=== PATIENT | female | born 1970 | race Caucasian/White ===

== ENCOUNTER 2020-01-20 15:35 | Emergency (ER) | payer MEDICAID, SELFPAY ==
--- NOTE | ~2020-01-20 | CT_ITS ---
EXAMINATION: CT abdomen pelvis w con DATE: 01/20/2020 20:47 INDICATION: Abdominal pain TECHNIQUE: Computed tomography (CT) of the abdomen and pelvis was performed with 100 cc Omnipaque 350 intravenous contrast. Automated exposure control and iterative reconstruction technique were employe d. Exam dose: 1335.39 mGy-cm total exam DLP. COMPARISON: 04/14/2018 CT abdomen pelvis FINDINGS: The included lower lung zones are clear. Normal heart size. No pericardial or pleural effusion. A few small hepatic cysts are noted. Numerous stones are noted throughout the gallbladder lumen. No gallbladder wall thickening or pericho lecystic fluid or fat stranding. No bile duct or pancreatic duct dilatation. No pancreatic mass lesio n, calcification. Normal splenic size. Normal morphology of the adrenal glands. 5.5 mm x 7.5 mm lower pole nonobstructing right renal calculus. No renal mass lesion. No ureteral tera culus or hydroureteronephrosis is noted. The urinary bladder is relatively evacuated, otherwise unrem arkable. Probable involuting peripherally enhancing 1.6 cm left ovarian cyst. Uterus and adnexal area s are otherwise unremarkable. Normal caliber of the abdominal aorta. No intraperitoneal or retroperit angulo or pelvic mass lesion or adenopathy or ascites is detected. Very small fat-containing umbilical hernia. Normal appendix. Up to 3 cm soft tissue mass cannot be excluded in the cecum. Air contrast barium enema or colonoscopy should be considered if not done recently. No bowel obstruction, bowel wall thickening, pneumatosis or intraperitoneal free air is detected. 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 There is apparent fusion anteriorly at L5-S1. Mild retrolisthesis at L4-5. No suspicious osteolytic or osteoblastic lesions are identified. 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 Reviewed, dictated and finalized at location A. Y MANAGEMENT SPECIALIST IMPRESSION: Possible soft tissue mass of the cecum; consider air-contrast vikki um enema or colonoscopy Cholelithiasis A few small hepatic cysts are noted 5.5 mm x 7.5 mm lower pole nonobstructing right renal calculus Involuting 1.6 cm left ovarian cyst Bilateral L5 pars interarticularis defects with associated grade 1 anterolisthe sis at L5-S1 Fusion at L5-S1 anteriorly
[2020-01-20 16:26] VITALS: BP 136/84; PULSE 96; RESP 18; TEMP 36.5; O2SAT 98
[2020-01-20 16:58] LABS: Basophils Absolute Auto 0.1 K/mm3 (0.0-0.1); Basophils Percent Auto 0.7 % (0.2-1.2); Eosinophils Absolute Auto 0.2 K/mm3 (0-0.3); Eosinophils Percent Auto 3.4 % (0-4.4); Hematocrit 40.9 % (37.0-47.0); Hemoglobin 13.9 g/dL (12.0-15.0); Immature Granulocyte Absolute 0.02 K/mm3 (0.00-0.031); Immature Granulocyte Percent A 0.3 % (0-0.5); Lymphocytes Percent Auto 23.7 % (18.3-44.2); Mean Corpuscular Hemoglobin 29.6 pg (26-34); Mean Platelet Volume 9.7 fl (7.4-10.4); Monocytes Absolute Auto 0.5 K/mm3 (0.1-0.6); Monocytes Percent Auto 7.9 % (2.6-8.5); Neutrophils Absolute Auto 4.3 K/mm3 (1.3-6.7); Platelet Count Result 305 k/mm3 (150-375); Red Cell Distribution Width 13.1 % (11.5-14.5); White Blood Count 6.7 K/mm3 (4.5-10.0)
[2020-01-20 17:08] LABS: Alanine Aminotransferase 20 U/L (4-35); Albumin Level 3.6 g/dL (3.5-5.1); Alkaline Phosphatase 59 U/L (38-126); Anion Gap 8 mmol/L (8-16); Aspartate Amino Transferase 31 U/L (14-36); Bilirubin,Total 0.3 mg/dL (0.2-1.3); Blood Urea Nitrogen 10 mg/dL (7-17); Calcium 9.2 mg/dL (8.4-10.2); Carbon Dioxide 21 mmol/L (22-30); Chloride 108 mmol/L (98-107); Estimated CRCL calculation 108 ml/min; Estimated Glomerular Filt Rate > 60; Glucose 139 mg/dL (65-105); Lipase 70 U/L (23-300); Potassium 4.2 mmol/L (3.4-5.0); Sodium 137 mmol/L (137-145)
[2020-01-20 17:18] LABS: Add Urine Microscopic? YES; Appearance Urine Cloudy (Clear); Bacteria Urine Trace /hpf; Bilirubin Urine Negative (Negative); Blood Urine 1+ (Negative); Color Urine Yellow (Yellow); Glucose Urine UA Negative (Negative); Ketones Urine Negative (Negative); Leukocyte Esterase Ur Trace LEU/UL (Negative); Mucus Urine Rare /lpf; Nitrate Urine Negative (Negative); Protein Urine 1+ mg/dL (Negative); RBC Urine 0-2 /hpf (0-2); Squamous Epithelial Cell Urine Many /hpf (Few); Urobilinogen Urine Negative mg/dL (<2.0)
--- NOTE | 2020-01-20 19:02 | ED.GENADULT ---
HPI - General Adult General Chief complaint: Abdominal Pain Stated complaint: diarrhea, constipation Time Seen by Provider: 01/20/20 18:55 Source: RN notes reviewed History of Present Illness HPI narrative: Patient presents emergency department from home for abdominal pain. Patient states pain is ongoing for the past 2 weeks. Pain is located across the mid abdomen is described as cramping in nature does not radiate. States the pain will change in intensity and wax and wane. She denies any fevers or chills chest pain shortness of breath nausea vomiting or any other symptoms she does note intermittent diarrhea Related Data Allergies Allergy/AdvReac Type Severity Reaction Status Date / Time No Known Allergies Allergy Verified 01/20/20 19:37 Review of Systems Review of Systems: Narrative: Gen.: Denies fevers or chills ENT: Denies congestion Respiratory: Denies shortness of breath or cough CV: Denies chest pain or palpitations GI: See HPI denies burning, urgency, frequency or hematuria Musculoskeletal: Denies back pain or muscle pain Neuro: Denies numbness, tingling, weakness or focal weakness Skin: Denies rash Except as documented, all other systems reviewed and negative [facility] Past Medical History Medical History (Updated 01/20/20 @ 21:25 by Fernando Fernández DO) Patient denies significant medical history Social History Social History (Updated 01/20/20 @ 19:03 by Fernando Fernández DO) Smoking status: Never smoker Gender identity (if verbalized by the patient): Female Exam Narrative: Exam Narrative: APPEARANCE: No acute distress, nontoxic, resting in bed HEENT: Normocephalic, atraumatic, OMM RESPIRATORY: No respiratory distress, clear to auscultation bilaterally with no rhonchi wheezing or rales CARDIOVASCULAR: RRR s murmur ABDOMINAL: Soft, nondistended, tender palpation right lower quadrant left lower quadrant no tenderness right upper quadrant left upper quadrant no rebound or guarding MUSCULOSKELETAl: Moves all extremities. No clubbing, cyanosis or edema. NEURO: Awake and alert. Following commands, speech normal, no focal deficits SKIN:: Warm, dry. Normal Color PSYCHIATRIC: Normal affect/mood Course Course Emergency Course: Patient states that they are feeling much better at this time. States abdominal pain has resolved. Repeat abdominal exam shows the patient's abdomen to be soft and nontender. Discussed with patient results of workup and diagnosis. Discussed need for follow-up with primary care physician, reasons to return to the emergency department in proper use of medication. Patient understands and agrees to current treatment plan discussed with patient possible cecal mass and need for follow-up with GI for colonoscopy Vital Signs Vital signs: Vital Signs Temperature 97.7 F 01/20/20 16:26 Pulse Rate 96 01/20/20 16:26 Respiratory Rate 18 01/20/20 16:26 Blood Pressure 136/84 01/20/20 16:26 Pulse Oximetry 98 01/20/20 16:26 Temperature 97.7 F 01/20/20 16:26 Pulse Rate 89 01/20/20 19:15 Respiratory Rate 12 01/20/20 19:15 Blood Pressure 115/74 01/20/20 19:15 Pulse Oximetry 94 01/20/20 19:15 Medical Decision Making MDM Narrative Medical decision making narrative: Patient's abdomen is soft without significant pain or signs of surgical abdomen on serial exams. Lab and x-ray evaluations are reviewed and patient is felt to be a reasonable candidate for outpatient management. Patient was instructed as to limitations of x-ray and laboratory evaluation and encouraged to return to ED or primary physician for repeat exam in 12 hours if continued or worsening pain Vital Signs Vital Signs: Vital Signs Temperature 97.7 F 01/20/20 16:26 Pulse Rate 96 01/20/20 16:26 Respiratory Rate 18 01/20/20 16:26 Blood Pressure 136/84 01/20/20 16:26 Pulse Oximetry 98 01/20/20 16:26 Temperature 97.7 F 01/20/20 16:26 Pulse Rate 89 01/20/20 19:15 Respiratory Rate
[2020-01-20 19:15] VITALS: BP 115/74; PULSE 89; RESP 12; O2SAT 94
[2020-01-20] MEDS: SODIUM CHLORIDE 0.9% IV 1,000 ML 999 ML IV CONT (19:38)
[2020-01-20] MEDS: KETOROLAC 30 MG/ML VIAL (*BKC) IV PUSH (19:38)
[2020-01-20 21:00] VITALS: BP 115/78; PULSE 66; RESP 14; O2SAT 96
[2020-01-20] MEDS: NITROFURANTOIN MONOHYD MACROCR 100 MG CAP PO (21:55)
[2020-01-20 21:59] VITALS: BP 117/80; PULSE 80; RESP 20; O2SAT 95
== END 2020-01-20 22:00 | disposition home or self-care (01) ==
PROVIDERS: Emergency Provider Emergency Medicine; Referring Provider Emergency Medicine
DX: K80.20 Calculus of gallbladder without cholecystitis without obstruction (principal); N39.0 Urinary tract infection, site not specified; N20.0 Calculus of kidney
CPT/HCPCS: 36415; 74177; 80053; 81001; 81025; 83690; 85025; 96361; 96374; 99284; A9270; J1885; J7030; Q9967

== ENCOUNTER 2020-02-19 16:13 | Outpatient (CLI) | payer MEDICAID, SELFPAY ==
[2020-02-19 16:57] LABS: Cholesterol 180 mg/dL (0-200); HDL Direct 41 mg/dL; Triglycerides 136 mg/dL (<150)
[2020-02-19 17:07] LABS: LDL Cholesterol Direct 114 mg/dL
[2020-02-19 17:35] LABS: Free T4 Free Thyroxine 0.84 ng/mL (0.78-2.19)
[2020-02-19 17:53] LABS: Vitamin D 25 Hydroxy < 12.8 ng/mL
== END 2020-02-19 16:14 | disposition home or self-care (01) ==
LOC: ANHLAB 16:16
PROVIDERS: PCP Emergency Medicine; Visit Provider Emergency Medicine
DX: R10.9 Unspecified abdominal pain (principal); N83.292 Other ovarian cyst, left side; Z00.00 Encounter for general adult medical examination without abnormal findings
CPT/HCPCS: 36415; 80061; 82306; 84439; 84443

== ENCOUNTER 2020-03-02 15:40 | Outpatient (CLI) | payer MEDICAID, SELFPAY ==
--- NOTE | ~2020-03-02 | US_ITS ---
US right upper quadrant INDICATION: Abdomen pain PROCEDURE: Realtime right upper abdominal ultrasound. COMPARISON: No prior studies for comparison. FINDINGS: The pancreas is normal without focal mass or pancreatic ductal dilation. Liver echotexture is heterogeneous and increased, consistent with fatty infiltration. There is normal directional monico w in the portal vein. There are gallstones. No gallbladder wall thickening. Common bile duct measures 4.5 mm. No sonograp hic Meier's sign. Right renal echotexture is normal. IMPRESSION: 1: Gallstones. 2: Fatty infiltration of the liver. Reviewed, dictated and finalized at location A. RIALS PLANNING ANALYST
--- NOTE | ~2020-03-02 | US_ITS ---
US thyroid INDICATION: Elevated TSH levels. TECHNIQUE: Real-time sonographic images of the thyroid gland were obtained. COMPARISON: No prior studies for comparison FINDINGS: The right thyroid lobe measures 4.8 x 2.2 x 2.1 cm. The left thyroid lobe measures 5.2 x 2 .2 x 2.4 cm. Thyroid echotexture is diffusely heterogeneous with increased vascularity in both lobes. In the inferior aspect of the left lobe there is an irregular shaped hypoechoic largely solid mass w hich is taller than wide with irregular margins and no internal calcifications. This mass measures 10 x 8 x 8 mm. IMPRESSION: 1. Left thyroid mass measuring 10 mm which is TR 5, highly suspicious. Ultrasound-guided fine-needle aspiration biopsy recommended. Reviewed, dictated and finalized at location A. TIN DYNAMITE PACKING OPERATOR IMPRESSION: 1. Left thyroid mass measuring 10 mm which is TR 5, highly suspicious. Ultraso und-guided fine-needle aspiration biopsy recommended.
[2020-03-06 04:55] LABS: Thyroid Peroxidase Antibodies 243 IU/mL (<9)
[2020-03-07 07:46] LABS: Triiodothyronine T3 Free 3.2 pg/mL (2.3-4.2)
== END 2020-03-02 15:41 | disposition home or self-care (01) ==
PROVIDERS: PCP Emergency Medicine; Visit Provider Emergency Medicine
DX: K80.20 Calculus of gallbladder without cholecystitis without obstruction (principal); R94.6 Abnormal results of thyroid function studies; E07.9 Disorder of thyroid, unspecified; K76.0 Fatty (change of) liver, not elsewhere classified
CPT/HCPCS: 36415; 76536; 76705; 84439; 84443; 84481; 86376

== ENCOUNTER 2020-04-15 16:10 | Outpatient (CLI) | payer OTHER, SELFPAY ==
--- NOTE | ~2020-04-15 | MM_ITS ---
EXAMINATION: MM screening [facility] BI w [facility] HISTORY: Screening mammogram TECHNIQUE: Craniocaudal and mediolateral oblique 3-D tomosynthesis images were obtained and synthetic 2-D images were generated. CAD analysis was submitted and interpreted. COMPARISON: 01/27/2014, 12/01/2013 right breast ultrasound 12/01/2013 bilateral diagnostic digital mammogram BREAST PARENCHYMAL COMPOSITION: There are scattered areas of fibroglandular density........ FINDINGS: There are scattered bilateral benign calcifications. There is no evidence of suspicious mas s, calcification, or architectural distortion to suggest malignancy in either breast. There has been no suspicious interval change. IMPRESSION: 1. No mammographic evidence of malignancy. 2. Recommend routine screening mammography in one year. BI-RADS Category 2: Benign finding(s). Reviewed, dictated and finalized at location A. LAIN RESIDENT
== END 2020-04-15 16:11 | disposition home or self-care (01) ==
LOC: ANHIMG 16:14
PROVIDERS: PCP Emergency Medicine; Visit Provider Emergency Medicine
DX: Z12.31 Encounter for screening mammogram for malignant neoplasm of breast (principal)
CPT/HCPCS: 77063; 77067

== ENCOUNTER 2020-06-08 11:22 | Outpatient (CLI) | payer OTHER, SELFPAY ==
--- NOTE | ~2020-06-08 | XR_ITS ---
EXAMINATION: XR lumbar spine 2-3V EXAM DATE: 06/08/2020 11:50 INDICATION: Back pain radiating down left leg. TECHNIQUE: Lumber spine frontal, lateral, lateral L5-S1 projections for interpretation. Comparison is made to prior examination from 02/19/2011. FINDINGS: There are 6 nonrib-bearing lumbar vertebral bodies, but to maintain consistency with the pr ior CT scan 2011, the uppermost level will be considered a thoracic level with rudimentary ribs. There is bilateral L5 spondylolysis with grade 2 anterolisthesis L5 on S1. Disc space between the L5 and S1 vertebral bodies no longer identified, there may be osseous fusion of these levels. There is m ild to moderate lumbar facet arthropathy. 2 mm retrolisthesis L4 on L5. Probable right sided 5 mm nep hrolithiasis. Sacrum, sacroiliac joints, sacral arcuate lines are intact. IMPRESSION: 1. Thoracolumbar transitional segment. 2. Chronic L5 spondylolysis with grade 2 anterolisthesis L5 on S1, but possible osseous fusion of th is level. 3. Mild to moderate facet arthropathy. Reviewed, dictated and finalized at location A. IMPRESSION: 1. Thoracolumbar transitional segment. 2. Chronic L5 spondylolysis with grade 2 anterolisthesis L5 on S1, but possibl e osseous fusion of this level. 3. Mild to moderate facet arthropathy.
== END 2020-06-08 11:23 | disposition home or self-care (01) ==
LOC: ANHIMG 11:26
PROVIDERS: PCP Emergency Medicine; Visit Provider Emergency Medicine
DX: M54.9 Dorsalgia, unspecified (principal); Q76.49 Other congenital malformations of spine, not associated with scoliosis; M47.816 Spondylosis without myelopathy or radiculopathy, lumbar region; M43.17 Spondylolisthesis, lumbosacral region
CPT/HCPCS: 72100

== ENCOUNTER 2020-06-09 13:19 | Outpatient (CLI) | payer OTHER, SELFPAY ==
--- NOTE | ~2020-06-09 | US_ITS ---
EXAMINATION: US FNA w image guidance DATE: 06/09/2020 14:21 INDICATION: Thyroid mass TECHNIQUE: A time-out was performed to verify the patient's name, date of , and procedure to be performed . The procedure and its benefits and risks were discussed with the patient. Risks specifically discus sed included bleeding and infection. The patient understood the risks and agreed to proceed. The neck was prepped and draped in the usual sterile manner. 3 mL 1% lidocaine was used for local anesthesia . 6 passes were made with a 25G needle into the lesion. Appropriate needle location was documented with continuous sonographic guidance. The specimens were passed to the ocular care technologist in the room. A sterile bandage was applied. There were no immediate complications. FINDINGS: Grayscale ultrasound images demonstrate biopsy needles advanced into a 10 mm solid wider very hypoech oic TI RADS 5 nodule in the deep left thyroid. IMPRESSION: 1. Successful ultrasound-guided fine needle aspiration of the 1 cm TI RADS 5 left thyroid nodule of concern. Reviewed, dictated and finalized at location A. IMPRESSION: 1. Successful ultrasound-guided fine needle aspiration of the 1 cm TI RADS 5 l eft thyroid nodule of concern.
== END 2020-06-09 13:20 | disposition home or self-care (01) ==
PROVIDERS: PCP Emergency Medicine; Visit Provider Emergency Medicine
DX: E04.9 Nontoxic goiter, unspecified (principal)
CPT/HCPCS: 10005; 88173; 88305

== ENCOUNTER 2021-03-07 16:59 | Outpatient (CLI) | payer OTHER, SELFPAY ==
--- NOTE | ~2021-03-07 | XR_ITS ---
XR foot LT min 3V DATE: 03/07/2021 17:18 INDICATION: Intermittent pain at the tarsal metatarsal area for 6 months TECHNIQUE: 4 views COMPARISON: May 02, 2011 left foot FINDINGS: Stable chronic plantar calcaneal enthesophyte, stable since May 02, 2011. No associate d periostitis or erosive change. No fracture or dislocation, periosteal reaction or bone destruction is detected. IMPRESSION: Chronic plantar calcaneal enthesophyte Reviewed, dictated and finalized at location A. RVISOR GROVE
== END 2021-03-07 17:00 | disposition home or self-care (01) ==
LOC: ANHIMG 17:04
PROVIDERS: PCP Emergency Medicine; Visit Provider Emergency Medicine
DX: M77.32 Calcaneal spur, left foot (principal)
CPT/HCPCS: 73630

== ENCOUNTER 2021-03-30 15:59 | Outpatient (CLI) | payer OTHER, SELFPAY ==
--- NOTE | ~2021-03-30 | XR_ITS ---
EXAMINATION: XR wrist RT min 3V DATE: 03/30/2021 16:16 INDICATION: Right wrist pain. TECHNIQUE: 4 views of right wrist were obtained. COMPARISON: None. FINDINGS: Bone alignment is normal. No fracture. There is mild osteoarthritis of first carpometacarpa l joint and second metacarpophalangeal joint. IMPRESSION: 1. Mild polyarticular osteoarthritis. Reviewed, dictated and finalized at location A. TOP HAT BODY MAKER
== END 2021-03-30 16:00 | disposition home or self-care (01) ==
PROVIDERS: PCP Emergency Medicine; Visit Provider Emergency Medicine
DX: M25.531 Pain in right wrist (principal); M19.031 Primary osteoarthritis, right wrist
CPT/HCPCS: 73110

== ENCOUNTER 2021-08-09 16:31 | Outpatient (CLI) | payer OTHER, SELFPAY ==
[2021-08-09 16:59] LABS: Hematocrit 40.8 % (37.0-47.0); Hemoglobin 13.6 g/dL (12.0-15.0); Mean Corpuscular HGB Conc 33.3 g/dl (32-36); Mean Corpuscular Hemoglobin 29.9 pg (26-34); Mean Corpuscular Volume 89.7 fl (80-100); Mean Platelet Volume 9.7 fl (7.4-10.4); Platelet Count Result 357 k/mm3 (150-375); Red Blood Count 4.55 M/mm3 (4.2-5.4); Red Cell Distribution Width 13.2 % (11.5-14.5)
[2021-08-09 17:11] LABS: Alanine Aminotransferase 20 U/L (6-35); Alkaline Phosphatase 99 U/L (38-126); Anion Gap 6 mmol/L (8-16); Aspartate Amino Transferase 26 U/L (14-36); Bilirubin,Total 0.4 mg/dL (0.2-1.3); Blood Urea Nitrogen 10 mg/dL (7-17); Calcium 8.9 mg/dL (8.4-10.2); Carbon Dioxide 22 mmol/L (22-30); Chloride 108 mmol/L (98-107); Cholesterol 217 mg/dL (0-200); Estimated Glomerular Filt Rate > 60; Glucose 108 mg/dL (65-110); HDL Direct 60 mg/dL; Potassium 4.2 mmol/L (3.4-5.0); Sodium 136 mmol/L (137-145); Triglycerides 98 mg/dL (<150)
[2021-08-09 17:12] LABS: Hemoglobin A1C 5.8 % (<5.7)
[2021-08-09 17:22] LABS: LDL Cholesterol Direct 113 mg/dL
[2021-08-09 17:29] LABS: Creatinine Urine 106.7 mg/dL
[2021-08-09 17:34] LABS: Microalbumin Urine Random 18.1 mg/L (0-16.7)
[2021-08-09 17:44] LABS: Free T4 Free Thyroxine 1.28 ng/mL (0.78-2.19); Vitamin D 25 Hydroxy 23.4 ng/mL
== END 2021-08-09 16:32 | disposition home or self-care (01) ==
PROVIDERS: PCP Emergency Medicine; Visit Provider Emergency Medicine
DX: E03.9 Hypothyroidism, unspecified (principal); E06.3 Autoimmune thyroiditis
CPT/HCPCS: 36415; 80053; 80061; 82043; 82306; 83036; 84439; 84443; 85027

== ENCOUNTER 2021-08-26 19:34 | Emergency (ER) | payer OTHER, SELFPAY ==
[2021-08-26] VITALS (8 sets, daily range): BP systolic 142–169; BP diastolic 88–106; PULSE 70–128; RESP 18–36; TEMP 37.1; O2SAT 94–98
--- NOTE | 2021-08-26 19:59 | ED.GENADULT ---
HPI - General Adult General Chief complaint: Unspecified Stated complaint: body aches Time Seen by Provider: 08/26/21 19:46 History of Present Illness HPI narrative: 51-year-old female presents emergency room secondary to diffuse pain. She states she been told she have degenerative disc disease in her lower back. She was initially seen by her nurse practitioner and given her cortisone shots and then referred her to see a pain specialist. Pain specialist told her she needs to lose weight before they can do anything to assist with this. She been taking meloxicam as well as another medication in order to help control her pain but not getting adequately. She is complaining of pain to her entire body. She states is got a headache. She is pain into her shoulders and to her arm as well as throughout her back and to her lower extremities. Denies any chills or fevers. No trauma. Patient is extremely emotional and crying at this time. Related Data Home Medications Medication Instructions Recorded Confirmed meloxicam 7.5 mg tablet 7.5 tablet PO DAILY 08/26/21 08/26/21 tizanidine 4 mg tablet 2 tablet PO HS 08/26/21 08/26/21 Allergies Allergy/AdvReac Type Severity Reaction Status Date / Time No Known Allergies Allergy Verified 08/26/21 19:41 Review of Systems Review of Systems: CONSTITUTIONAL: Denies fever, chills, or sweats. EYES: Denies visual changes, redness, or discharge. ENT: Denies rhinorrhea, congestion, sore throat, or otalgia. CARDIOVASCULAR: Denies chest pain, palpitations, or edema. RESPIRATORY: Denies cough or dyspnea. GASTROINTESTINAL: Denies abdominal pain, nausea, vomiting, or diarrhea. GENITOURINARY: Denies dysuria or hematuria. SKIN: Denies rash or itching. MUSCULOSKELETAL: Diffuse pain to neck, back, legs, and shoulders as well as myalgia NEUROLOGIC: Denies headache, numbness, or weakness. PSYCHIATRIC: Denies anxiety or depression. [facility] Past Medical History Medical History ADHD Depression Kidney stone Nausea Thyroid disease as a child Surgical History Surgical History H/O tubal ligation Family History Family History Father Acute Crohn's disease Liver cancer Cancer Mother Diabetes mellitus Cancer C. difficile diarrhea Grandparent Diabetes mellitus Cancer Cerebrovascular accident Social History Social History Smoking status: Never smoker Alcohol intake: never Substance use: unknown Gender identity (if verbalized by the patient): Female Exam Narrative: APPEARANCE: Patient is obese. Very anxious Head normocephalic and atraumatic. EYES: PERRLA/EOMI, conjunctivae very clear. NOSE: Normal with no drainage EARS:TMS clear Ronda Calvert, with good light reflex. THROAT: Pharynx clear, no exudate. NECK: Supple. No adenopathy, no masses. RESPIRATORY: Airway patent, respirations nonlabored. Clear to auscultation bilaterally, no rales, rhonchi, wheezing. CARDIOVASCULAR: Regular rate and rhythm without murmurs, rubs, or gallops. ABDOMINAL: Soft, nontender, nondistended, no hepatosplenomegaly Musculoskeletal: Pain with any palpation to the neck thoracic and lumbar spine. Also pain to touch any of her large joints or any of her muscles. She was able to sit up in the bed without any significant difficulty. NEURO: Alert. Cranial nerves II through XII intact. Normal gait. Good coordination. Nonfocal examination. SKIN:: Warm, dry. Normal Color PSYCHIATRIC: Normal affect/mood, normal interaction Course Vital Signs Vital signs: Vital Signs Temperature 98.8 F 08/26/21 19:36 Pulse Rate 128 H 08/26/21 19:36 Respiratory Rate 18 08/26/21 19:36 Blood Pressure 169/106 H 08/26/21 19:36 Pulse Oximetry 97 08/26/21 19:36 Oxygen Delivery Room Air 08/26/21 19:36
[2021-08-26] MEDS: diazePAM INJ (*CRX) 10 MG/2 ML SYRINGE 2.5 MG IV PUSH (20:13)
[2021-08-26] MEDS: KETOROLAC 30 MG/ML VIAL (*BKC) IV PUSH (20:13)
[2021-08-26] MEDS: MORPHINE SULFATE (*CRX) 4 MG/ML INJ IV PUSH (20:14)
== END 2021-08-26 21:39 | disposition home or self-care (01) ==
PROVIDERS: Emergency Provider Emergency Medicine; PCP Emergency Medicine
DX: M54.9 Dorsalgia, unspecified (principal); M79.10 Myalgia, unspecified site; M51.36 Other intervertebral disc degeneration, lumbar region; Z87.442 Personal history of urinary calculi
CPT/HCPCS: 96374; 96375; 99284; J1885; J2270; J3360

== ENCOUNTER 2021-08-30 14:20 | Emergency (ER) | payer OTHER, SELFPAY ==
[2021-08-30 14:23] VITALS: BP 143/90; PULSE 98; RESP 20; TEMP 36.7; O2SAT 98
--- NOTE | 2021-08-30 16:43 | PC.NURSE ---
Pt has decided to leave without being seen.
== END 2021-08-30 16:43 | disposition left against medical advice (07) ==
LOC: ANHED 17:17
PROVIDERS: PCP Emergency Medicine
DX: R10.9 Unspecified abdominal pain (principal)
CPT/HCPCS: 99199

== ENCOUNTER 2021-09-01 16:53 | Outpatient (CLI) | payer OTHER, SELFPAY ==
[2021-09-01 17:23] LABS: Hematocrit 40.2 % (37.0-47.0); Hemoglobin 13.9 g/dL (12.0-15.0); Mean Corpuscular HGB Conc 34.6 g/dl (32-36); Mean Corpuscular Hemoglobin 30.1 pg (26-34); Mean Platelet Volume 10.2 fl (7.4-10.4); Platelet Count Result 253 k/mm3 (150-375); Red Blood Count 4.62 M/mm3 (4.2-5.4); Red Cell Distribution Width 13.2 % (11.5-14.5); White Blood Count 3.4 K/mm3 (4.5-10.0)
[2021-09-01 17:34] LABS: Alanine Aminotransferase 86 U/L (6-35); Albumin Level 3.9 g/dL (3.5-5.1); Alkaline Phosphatase 85 U/L (38-126); Amylase 53 U/L (30-110); Anion Gap 8 mmol/L (8-16); Aspartate Amino Transferase 87 U/L (14-36); Bilirubin,Total 0.3 mg/dL (0.2-1.3); Blood Urea Nitrogen 8 mg/dL (7-17); Calcium 9.1 mg/dL (8.4-10.2); Carbon Dioxide 26 mmol/L (22-30); Chloride 104 mmol/L (98-107); Cholesterol 143 mg/dL (0-200); Estimated Glomerular Filt Rate > 60; Glucose 147 mg/dL (65-110); HDL Direct 48 mg/dL; Lipase 68 U/L (23-300); Sodium 138 mmol/L (137-145); Triglycerides 86 mg/dL (<150)
[2021-09-01 17:39] LABS: Rheumatoid Factor < 8.6 IU/ML (<12)
[2021-09-01 17:46] LABS: LDL Cholesterol Direct 70 mg/dL
[2021-09-01 17:47] LABS: Add Urine Microscopic? YES; Appearance Urine Clear (Clear); Bilirubin Urine Negative (Negative); Blood Urine Trace-lysed (Negative); Color Urine Yellow (Yellow); Glucose Urine UA Negative (Negative); Ketones Urine Negative (Negative); Leukocyte Esterase Ur Negative LEU/UL (NEGATIVE); Nitrate Urine Negative (Negative); Protein Urine Negative (Negative); Specific Grav Ur >= 1.030 (1.001-1.035); Urobilinogen Urine 0.2 mg/dL (<2.0); pH Urine 5.5 (5.0-9.0)
[2021-09-01 18:03] LABS: Mucus Urine Moderate /lpf; Squamous Epithelial Cell Urine Moderate /hpf (Few); WBC Urine 0-3 /hpf (0-3)
[2021-09-01 18:04] LABS: Erythrocyte Sedimentation Rate 14 mm/hr (0-20)
[2021-09-01 19:18] LABS: Vitamin D 25 Hydroxy 28.6 ng/mL
[2021-09-01 19:33] LABS: Creatinine Urine 171.3 mg/dL
[2021-09-01 19:39] LABS: MALB Creatinine Ratio 15.4 mg/g (0-30); Microalbumin Urine Random 26.4 mg/L (0-16.7)
[2021-09-01 19:50] LABS: Hemoglobin A1C 5.9 % (<5.7)
== END 2021-09-01 16:54 | disposition home or self-care (01) ==
LOC: ANHLAB 16:57
PROVIDERS: PCP Emergency Medicine; Visit Provider Emergency Medicine
DX: R10.9 Unspecified abdominal pain (principal); M54.50 Low back pain, unspecified; I10 Essential (primary) hypertension
CPT/HCPCS: 36415; 80053; 80061; 81001; 82043; 82150; 82306; 83036; 83690; 85027; 85652; 86038; 86430

== ENCOUNTER 2021-09-19 17:19 | Outpatient (CLI) | payer OTHER, SELFPAY ==
[2021-09-19 19:01] LABS: Hepatitis B Surface Antigen Negative (Negative)
[2021-09-19 19:06] LABS: HAV RESULT Negative (Negative); Hepatitis B Core IgM Result Negative (Negative)
[2021-09-19 19:18] LABS: Hepatitis C Virus Antibody Negative (Negative)
== END 2021-09-19 17:20 | disposition home or self-care (01) ==
LOC: ANHLAB 17:21
PROVIDERS: PCP Emergency Medicine; Visit Provider Emergency Medicine
DX: R94.5 Abnormal results of liver function studies (principal); R31.9 Hematuria, unspecified
CPT/HCPCS: 36415; 80074; 88108

== ENCOUNTER 2021-09-29 16:03 | Outpatient (CLI) | payer OTHER, SELFPAY ==
--- NOTE | ~2021-09-29 | US_ITS ---
EXAMINATION: US right upper quadrant DATE: 09/29/2021 16:46 INDICATION: Abnormal liver function tests. TECHNIQUE: Multiple grayscale and Doppler ultrasound images of the abdomen were obtained. COMPARISON: Ultrasound 03/02/2020 FINDINGS: The visualized portions of the head and body of the pancreas are normal. The liver is elizabeth l without lesion. There is normal flow in main portal vein. The gallbladder is normal in size and con tains stones. No gallbladder wall thickening or sonographic Meier sign. The common duct is normal an d measures 6 mm. IMPRESSION: 1. Cholelithiasis. No evidence of acute cholecystitis. Reviewed, dictated and finalized at location A.
--- NOTE | ~2021-09-29 | XR_ITS ---
EXAMINATION: XR chest 2V 09/29/2021 16:44 INDICATION: Dyspnea PROCEDURE: 2 view chest COMPARISON: Comparison to multiple prior studies sequentially, with oldest reviewed study dated 07/30. FINDINGS: The lungs are clear. The cardiomediastinal silhouette is within normal limits. There are no pleural effusions. There is no pneumothorax suspected. IMPRESSION: 1: NO ACUTE CARDIOPULMONARY DISEASE. Reviewed, dictated and finalized at location A.
== END 2021-09-29 16:04 | disposition home or self-care (01) ==
PROVIDERS: PCP Emergency Medicine; Visit Provider Emergency Medicine
DX: R74.01 Elevation of levels of liver transaminase levels (principal); K80.20 Calculus of gallbladder without cholecystitis without obstruction
CPT/HCPCS: 71046; 76705

== ENCOUNTER 2021-11-01 15:05 | Outpatient (CLI) | payer OTHER, SELFPAY ==
--- NOTE | ~2021-11-01 | MM_ITS ---
EXAMINATION: MM screening [facility] BI w [facility] HISTORY: Screening TECHNIQUE: Craniocaudal and mediolateral oblique 3-D tomosynthesis images were obtained and synthetic 2-D images were generated. CAD analysis was submitted and interpreted. COMPARISON: Comparison to multiple prior studies sequentially, with oldest reviewed study dated 12/01. BREAST PARENCHYMAL COMPOSITION: The breasts are almost entirely fatty. FINDINGS: There is no evidence of suspicious mass, calcification, or architectural distortion to sugg est malignancy in either breast. There has been no suspicious interval change. IMPRESSION: 1. No mammographic evidence of malignancy. 2. Recommend routine screening mammography in one year. BI-RADS Category 1: Negative Reviewed, dictated and finalized at location A.
== END 2021-11-01 15:06 | disposition home or self-care (01) ==
PROVIDERS: PCP Emergency Medicine; Visit Provider Emergency Medicine
DX: Z12.31 Encounter for screening mammogram for malignant neoplasm of breast (principal)
CPT/HCPCS: 77063; 77067

== ENCOUNTER 2021-12-13 00:13 | Inpatient (IN) | payer OTHER, SELFPAY ==
--- NOTE | ~2021-12-13 | MR_ITS ---
EXAMINATION: MR MRCP wo/w con/w 3D wo ind DATE: 12/13/2021 12:28 INDICATION: Gallstone pancreatitis. Left abdominal pain. TECHNIQUE: Magnetic resonance imaging (MRI) of the abdomen was performed without and with 20 mL Multi Cristina intravenous contrast. Sequences included coronal T2-weighted FS FSE, coronal T2-weighted FSE, a xial T1-weighted LAVA, coronal FS FIESTA, axial dual-echo T1-weighted SPGR, coronal lava-FLEX, sagitt al T2-weighted FSE, axial T2-weighted FSE, and axial DWI. Thick-slab T2-weighted FSE images were obta ined for magnetic resonance cholangiopancreatography (MRCP). Maximum intensity projection 3-D reconst ructions of the volumetric data were created by the technologist. Postcontrast sequences included cor onal LAVA-flex and time course of axial T1-weighted LAVA. COMPARISON: CT abdomen and pelvis 12/13/2021, abdomen ultrasound 09/29/2021 FINDINGS: ABDOMEN MRI: There is an 8 mm cyst in the liver. The gallbladder is distended and contains gallstones . There is fat stranding in fluid around the body and tail of the pancreas, consistent with acute int erstitial pancreatitis. The spleen, adrenal glands, and kidneys are normal. There are no dilated loop s of bowel. There are no pathologically enlarged lymph nodes. ABDOMEN MRCP: The common duct is dilated to 10 mm. No choledocholithiasis. IMPRESSION: 1. Acute interstitial pancreatitis. 2. Common duct dilatation to 10 mm, worsened from 6 mm on 09/29/2021. No choledocholithiasis. 3. Cholelithiasis and gallbladder distention. No gallbladder wall thickening to suggest acute cholecy stitis. Reviewed, dictated and finalized at location B. IMPRESSION: 1. Acute interstitial pancreatitis. 2. Common duct dilatation to 10 mm, worsened from 6 mm on 09/29/2021. No choledo cholithiasis. 3. Cholelithiasis and gallbladder distention. No gallbladder wall thickening to suggest acute cholecystitis.
--- NOTE | ~2021-12-13 | CT_ITS ---
EXAMINATION: CT abdomen pelvis w con DATE: 12/13/2021 02:22 INDICATION: Left-sided abdominal pain. TECHNIQUE: Computed tomography (CT) of the abdomen and pelvis was performed with 100 mL Omnipaque-350 intravenous contrast. Automated exposure control and iterative reconstruction technique were employe d. The dose-length product was 1413.51 mGy-cm. COMPARISON: 01/20/2020 FINDINGS: Mild dependent atelectasis in the bilateral lower lobes. Heart size is normal. No pericardial or pleu ral effusion. Unchanged 7 mm cyst in the left hepatic lobe. Multiple gallstones within the normal-audrey earing gallbladder with no wall thickening or pericholecystic inflammatory changes suggest acute chol ecystitis. Mild dilation of the common bile duct which measures up to 8 mm in maximal diameter. No de finitive distal obstructing stone or intrahepatic biliary ductal dilation. There is mild peripancreat ic inflammatory stranding with small amount of nonloculated fluid tracking posterolaterally from the tail of pancreas on the left anterior pararenal space. Spleen, pancreas, left kidney and bilateral ad renal glands are normal. And 5 mm nonobstructing stone at the lower pole of the right kidney. No uret eral stones or hydronephrosis. Multiple phleboliths in the pelvis and one along the right gonadal vei n. Bladder, anteverted uterus and bilateral adnexa are unremarkable. Mild diverticulosis along the si gmoid and descending colon. Small bowel and appendix are normal. No free intraperitoneal gas or fluid . No pathologically enlarged abdominal or pelvic lymphadenopathy. 5 mm anterolisthesis of L5 on S1 wh ich is fused anteriorly. Mild spondylosis in the more cephalad lumbar and lower thoracic spine. IMPRESSION: 1. Acute interstitial pancreatitis. 2. Cholelithiasis with mild dilation of the common bile duct 8 mm but without intrahepatic biliary du ctal dilation or evident acute cholecystitis. Could consider MRCP for more sensitive assessment for c holedocholithiasis. 3. Nonobstructing 5 mm right renal stone. Reviewed, dictated and finalized at location A. IMPRESSION: 1. Acute interstitial pancreatitis. 2. Cholelithiasis with mild dilation of the common bile duct 8 mm but without i ntrahepatic biliary ductal dilation or evident acute cholecystitis. Could consi lucy MRCP for more sensitive assessment for choledocholithiasis. 3. Nonobstructing 5 mm right renal stone.
[2021-12-13 00:20] VITALS: BP 138/95; PULSE 87; RESP 26; TEMP 36.9; O2SAT 97
--- NOTE | 2021-12-13 00:27 | PC.NURSE ---
Pt's visitor verbally aggressive to staff in triage. States I don't trust you guys. when notified that he is unable to wait in wr with pt.
--- NOTE | 2021-12-13 00:36 | PC.NURSE ---
Pt is emotional and crying and crying hysterically, but able to answer questions when asked directly. Reports she sees Dr. Price and no longer goes to pain management.
--- NOTE | 2021-12-13 00:49 | ED.ABDPAIN ---
HPI - Abdominal Pain General Chief Complaint: Abdominal Pain <JOANNA Borja Last Filed: 12/13/21 03:51> Stated Complaint: abdominal pain since 1900 <JOANNA Borja Last Filed: 12/13/21 03:51> Time Seen by Provider: 12/13/21 00:18 <JOANNA Borja Last Filed: 12/13/21 03:51> Source: patient <JOANNA Borja Last Filed: 12/13/21 03:51> Mode of arrival: ambulatory <JOANNA Borja Last Filed: 12/13/21 03:51> Limitations: no limitations <JOANNA Borja Last Filed: 12/13/21 03:51> History of Present Illness HPI narrative: Patient is a 51-year-old female who presents the ED with c/o L sided abdominal pain/flank pain/rib pain. Patient reports the pain began suddenly around 6 PM last night. She tried laying down and reported some relief. When she woke back up around 9 PM she had severe pain. She has not tried anything for the pain. Pain is in left-sided abdomen/flank and radiates into her ribs and left lower abdomen. She has never had pain like this before. She denies any other symptoms, nausea, vomiting, fever, dysuria, hematuria, diarrhea, constipation, history of kidney stones or diverticulitis. Kidney stones are reported in her previous history however. <JOANNA Borja Last Filed: 12/13/21 03:51> Related Data Home Medications: Home Medications Medication Instructions Recorded Confirmed ergocalciferol (vitamin D2) 1,250 12/13/21 mcg (50,000 unit) capsule hydrochlorothiazide 12.5 mg tablet mg 12/13/21 levothyroxine 12/13/21 <JOANNA Borja Last Filed: 12/13/21 03:51> Allergies/Adverse Reactions: Allergies Allergy/AdvReac Type Severity Reaction Status Date / Time No Known Allergies Allergy Verified 12/13/21 00:44 <Amy Helm PA-C - Last Filed: 12/13/21 03:51> Review of Systems Review of Systems: CONSTITUTIONAL: Denies fever, chills, or sweats. CARDIOVASCULAR: Denies chest pain. RESPIRATORY: Denies dyspnea. GASTROINTESTINAL: Reports left-sided abdominal pain. Denies nausea, vomiting, or diarrhea. GENITOURINARY: Denies dysuria or hematuria. SKIN: Denies rash or itching. MUSCULOSKELETAL: Reports left-sided rib and flank pain. <Amy Helm PA-C - Last Filed: 12/13/21 03:51> All systems reviewed & are unremarkable except as noted in HPI and below <Amy Helm PA-C - Last Filed: 12/13/21 03:51> [facility] Past Medical History Medical History: Medical History ADHD Depression Kidney stone Nausea Thyroid disease as a child <Amy Helm PA-C - Last Filed: 12/13/21 03:51> Surgical History Surgical History: Surgical History H/O tubal ligation <Amy Helm PA-C - Last Filed: 12/13/21 03:51> Family History Family History: Family History Father Acute Crohn's disease Liver cancer Cancer Mother Diabetes mellitus Cancer C. difficile diarrhea Grandparent Diabetes mellitus Cancer Cerebrovascular accident <Amy Helm PA-C - Last Filed: 12/13/21 03:51> Social History Social History: Social History Smoking status: Never smoker Alcohol intake: never Substance use: unknown Gender identity (if verbalized by the patient): Female <Amy Helm PA-C - Last Filed: 12/13/21 03:51> Exam Narrative: GENERAL: Well appearing, morbidly obese, non-toxic, in moderate acute distress. Writhing around on ED stretcher. HEAD: Normocephalic, atraumatic. THROAT: Poor dentition. NECK: Supple. No adenopathy, no masses. RESPIRATORY: Airway patent, respirations nonlabored. Clear to auscultation bilaterally, no rales, rhonchi, w
[2021-12-13] MEDS: ONDANSETRON INJ 4 MG/2 ML VIAL IV PUSH ×4 (01:01→19:19)
[2021-12-13] MEDS: MORPHINE SULFATE (*CRX) 4 MG/ML INJ IV PUSH (01:02)
[2021-12-13] MEDS: SODIUM CHLORIDE 0.9% IV 1,000 ML 999 ML IV CONT ×2 (01:06→03:15)
[2021-12-13 01:15] LABS: Basophils Absolute Auto 0.1 K/mm3 (0.0-0.1); Basophils Percent Auto 0.6 % (0.2-1.2); Eosinophils Absolute Auto 0.3 K/mm3 (0-0.3); Hematocrit 42.2 % (37.0-47.0); Hemoglobin 14.2 g/dL (12.0-15.0); Immature Granulocyte Absolute 0.02 K/mm3 (0.00-0.031); Immature Granulocyte Percent A 0.2 % (0-0.5); Lymphocytes Absolute Auto 1.31 K/mm3 (0.9-3.2); Lymphocytes Percent Auto 15.4 % (18.3-44.2); Mean Corpuscular HGB Conc 33.6 g/dl (32-36); Mean Corpuscular Volume 86.3 fl (80-100); Monocytes Absolute Auto 0.5 K/mm3 (0.1-0.6); Monocytes Percent Auto 5.4 % (2.6-8.5); Neutrophils Absolute Auto 6.3 K/mm3 (1.3-6.7); Neutrophils Percent Auto 74.4 % (45.5-73.1); Platelet Count Result 376 k/mm3 (150-375); Red Blood Count 4.89 M/mm3 (4.2-5.4); Red Cell Distribution Width 13.2 % (11.5-14.5); White Blood Count 8.5 K/mm3 (4.5-10.0)
[2021-12-13 01:57] LABS: Alanine Aminotransferase 32 U/L (6-35); Albumin Level 4.3 g/dL (3.5-5.1); Alkaline Phosphatase 98 U/L (38-126); Anion Gap 9 mmol/L (8-16); Aspartate Amino Transferase 38 U/L (14-36); Bilirubin,Total 0.5 mg/dL (0.2-1.3); Blood Urea Nitrogen 8 mg/dL (7-17); Calcium 9.4 mg/dL (8.4-10.2); Carbon Dioxide 25 mmol/L (22-30); Chloride 102 mmol/L (98-107); Estimated CRCL calculation 87 ml/min; Estimated Glomerular Filt Rate > 60; Glucose 162 mg/dL (65-110); Potassium 3.9 mmol/L (3.4-5.0); Sodium 136 mmol/L (137-145)
[2021-12-13] MEDS: HYDROmorphone HCL INJ (*CRX) 1 MG/ML SYR 0.5 MG IV PUSH (02:09)
[2021-12-13 02:27] LABS: Lipase 29960 U/L (23-300)
[2021-12-13 02:28] LABS: Appearance Urine Clear (Clear); Bilirubin Urine Negative (Negative); Blood Urine Trace-intact (Negative); Color Urine Yellow (Yellow); Glucose Urine UA Negative (Negative); Ketones Urine Negative (Negative); Leukocyte Esterase Ur Trace LEU/UL (Negative); Nitrate Urine Negative (Negative); Protein Urine Negative (Negative); Specific Grav Ur 1.015 (1.001-1.035); Urobilinogen Urine 0.2 mg/dL (<2.0); pH Urine 7.5 (5.0-9.0)
[2021-12-13 02:36] LABS: Bacteria Urine Trace /hpf; Mucus Urine Rare /lpf; RBC Urine 0-2 /hpf (0-2); Squamous Epithelial Cell Urine Occasional /hpf (Few); WBC Urine 0-3 /hpf
[2021-12-13 02:39] LABS: Add Urine Microscopic? YES
[2021-12-13] MEDS: HYDROmorphone HCL INJ (*CRX) 1 MG/ML SYR IV PUSH ×3 (03:15→12:49)
--- NOTE | 2021-12-13 03:15 | PC.NURSE ---
Assumed care of pt at thistime. Pt resting on stretcher.
[2021-12-13 04:07] VITALS: BP 135/87; PULSE 67; RESP 16; O2SAT 95
[2021-12-13] MEDS: PANTOPRAZOLE SODIUM IV 40 MG VIAL IV PUSH ×3 (04:08→21:05)
--- NOTE | 2021-12-13 04:55 | ADMGEN ---
This patient, Jade Laguna, was admitted to 2 Medical Room 240-01. Patient/family oriented to hospital policies and general routines including ID bracelet, bed and alarms, visiting hours, pain management, procedures, bathroom and other care routines, personal items, smoking policy, room service/diet, and visiting hours. Information on how to activate the Rapid Response Team has been discussed. Patient/Family are encouraged to report perceived risks to care and to ask questions if they do not understand what they are told or what they should do.
[2021-12-13] MEDS: SODIUM CHLORIDE 0.9% IV 1,000 ML 200 ML IV CONT ×3 (05:04→21:07)
[2021-12-13] MEDS: KETOROLAC 30 MG/ML VIAL (*BKC) IV PUSH ×2 (05:16→19:20)
[2021-12-13 06:12] VITALS: BP 132/71; PULSE 63; RESP 16; TEMP 36.1; O2SAT 94
--- NOTE | 2021-12-13 07:45 | PM.IMHP ---
H&P: HPI History of Present Illness Date/Time: 12/13/21 07:45 Chief Complaint: abdominal pain Narrative: Jade Laguna is a 51 yo female hypothyroid disease, depression, hypertension, chronic lower back pain and insomnia who presented to the emergency department for evaluation of left upper quadrant abdominal pain, nausea with emesis starting in the afternoon of 12/12/2021. The patient reports feeling well overall yesterday morning. 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 She reports following this she went to [employer] and had 2 soft and too hard tacos. Following this she went home and began feeling unwell. She thought this was secondary to being overly tired and decided to lay down. She did have stomach pain at that time which was mild to moderate. Upon waking, she reports severe stomach pain to the left upper quadrant and radiating up to her ribs and breast region. She reports the pain was severe and was a dull constant ache with intermittent sharp and stabbing pains. The pain was worse with moving and coughing. She denies taking medications for her pain. She does endorse emesis x4 that was bilious. Her last bowel movement was yesterday prior to admission and without abnormality. She denies fever, chills, shortness of breath, melena, hematochezia, hematemesis, dizziness, or paresthesia. She denies radiating pain into either arm, up to her jaw or between shoulder blades. She denies new medications. She reports trying to lose weight but no significant weight loss noted at this time. In the ED, her vitals were temp 98.5? F, HR 87, RR 26, BP 138/95, SpO2 97% on room air. Lab work was significant for Lipase 45754, WBC 8.5, stable H&H, sodium 136, glucose 162, AST 38 with normal T bili 0.5. ALT and alk-phos were within normal limits. UA showed trace leukocytes and bacteria with occasional epi cells. CT abdomen and pelvis showed mild peripancreatic and inflammatory stranding with small amount of non loculated fluid tracking posterior laterally from the tail. Gallbladder was noted to have multiple gallstones with mild dilation of the common bile duct to 8 mm without intrahepatic biliary ductal dilation or evidence of acute cholecystitis. She was also noted to have nonobstructing 5 mm right renal stone. The patient was treated with acetaminophen 1 g IV x1, Dilaudid 1.5 mg, morphine 4 mg, Zofran 4 mg, Protonix 40 mg IV, and 2 L NS fluids. She was admitted to the medical floor for further management of acute interstitial pancreatitis and evaluation of gallbladder disease. Review of Systems Musculoskeletal: Musculoskeletal: Reports back pain ( chronic) Psychiatric: Psychiatric: Reports abnormal sleep pattern [facility] Past Medical History Medical History (Updated 12/13/21 @ 15:13 by Karlee Rowan APRN) ADHD Degenerative disc disease Depression Angelo's disease Hypertension Kidney stone Obesity, morbid, BMI 40.0-49.9 Pre-diabetes A1c 5.9 09/01/2021 Surgical History Surgical History H/O tubal ligation Family History Family History (Updated 12/13/21 @ 14:50 by Karlee Rowan APRN) Father Acute Crohn's disease Liver cancer Cancer Alcoholism Mother , at 70 years old Diabetes mellitus Cancer C. difficile diarrhea Grandparent Diabetes mellitus Cancer grandmother with pancreatic cancer, grandfather with skin cancer Cerebrovascular accident Social History Social History (Updated 12/13/21 @ 14:51 by Karlee Rowan APRN) Smoking status: Never smoker Alcohol intake: never Alcohol use details: rare glass of wine socially Substance use: never Living arrangements: with family Additional living arrangements comments: Occupation/Education: unemployed Additional occupation/education comments: On disability due to c
[2021-12-13 10:33] LABS: Lipase 12542 U/L (23-300)
--- NOTE | 2021-12-13 10:47 | PM.CNGS ---
Assessment and Plan Assessment and plan (1) Acute pancreatitis: Qualifiers: Acute pancreatitis complication: no infection or necrosis Pancreatitis type: unspecified pancreatitis type Qualified Code(s): K85.90 - Acute pancreatitis without necrosis or infection, unspecified Code(s): K85.90 - Acute pancreatitis without necrosis or infection, unspecified Status: Acute Assessment and Plan: She presented with acute biliary pancreatitis. CT mentions a dilated common bile duct but no choledocholithiasis evident on CT. GI consulted and MRCP pending. Continue IV fluids, analgesics, and bowel rest. Discussed with the patient that she will eventually need a cholecystectomy, but timing will depend on further work-up of a common duct stone and how she progresses. I explained the details of a laparoscopic cholecystectomy, risks, benefits, alternatives, and expected recovery. All questions answered. We will continue to follow along with you. (2) Gallstones: Code(s): K80.20 - Calculus of gallbladder without cholecystitis without obstruction Status: Acute Assessment and Plan: Likely the cause of her pancreatitis. Will eventually need a cholecystectomy once her pancreatitis resolves. (3) Common bile duct dilation: Code(s): K83.8 - Other specified diseases of biliary tract Status: Acute Assessment and Plan: LFTs normal. GI consulted and MRCP ordered. Will await results. (4) Hypertension: Code(s): I10 - Essential (primary) hypertension Status: Acute (5) Obesity, morbid, BMI 40.0-49.9: Code(s): E66.01 - Morbid (severe) obesity due to excess calories Status: Chronic Assessment and Plan: Encourage diet and lifestyle modifications to promote weight loss. Plan I have discussed the patient's case and plan of care with Dr. Jennings. Thank you for allowing us to see the patient in consultation and we will continue to follow along with you. History of Present Illness Consult details Consult date: 12/13/21 Reason for consult: gallstones (Acute pancreatitis) Requesting physician: Amy Helm PA-C Narrative: This is a 51-year-old woman who presented to the ED overnight with complaints of left upper quadrant abdominal pain. She reports being in her normal state of health yesterday morning until about an hour after eating 4 tacos from [employer], when she began ?not feeling well.? She was at home and started noticing upper abdominal pain. She tried to take a nap to see if the pain would subside. When waking up from her nap in the evening, her abdominal pain had become much more severe. Her drove her to the ER for evaluation. She developed nausea and has had a few episodes of vomiting since admission. Workup in the ED showed a lipase of 29,000. LFTs were normal. CT scan of the abdomen and pelvis showed acute interstitial pancreatitis, cholelithiasis with mild dilation of common bile duct to 8 mm but without intrahepatic biliary ductal dilatation or evidence of acute cholecystitis. The patient was admitted to the hospitalist service. She has been started on IV fluids and is currently NPO. Our service has been consulted for cholelithiasis with acute pancreatitis. She is now seen on the medical floor. An MRCP has been ordered for today. Denies a history of pancreatitis. Denies any previous similar episodes of pain. Denies any alcohol use. Triglycerides were normal in labs drawn in August of 2021. Review of Systems Review of Systems: All systems reviewed & are unremarkable except as noted in HPI and below Constitutional: Constitutional: Reports no additional constitutional complaints, Denies chills and Denies fever(s) Eyes: Eyes: Reports no additional eye complaints ENT: Reports system reviewed and no additional complaints, except as documented Cardiovascular: Cardiovascular: Reports no additional cardiovascular complaints and Den
[2021-12-13] MEDS: LEVOTHYROXINE SODIUM INJ 100 MCG/5 ML VIAL 37.5 MCG IV PUSH ×2 (12:47→12:50)
[2021-12-13 13:03] LABS: Hemoglobin A1C 5.9 % (<5.7)
[2021-12-13 13:38] LABS: Free T4 Free Thyroxine Reflex 1.18 ng/dL (0.78-2.19)
[2021-12-13 14:00] VITALS: BP 136/74; PULSE 66; RESP 16; TEMP 36.6; O2SAT 93
[2021-12-13 14:43] LABS: Total Triiodothyronine (T3) 1.78 NG/ML (0.97-1.69)
--- NOTE | 2021-12-13 14:59 | WPDGICN ---
Assessment and Plan Assessment and plan (1) Gallstones: Code(s): K80.20 - Calculus of gallbladder without cholecystitis without obstruction Status: Acute Assessment and Plan: GS pancreatitis, will get MRCP to assess if bile duct stones surgery to see patient (2) Acute pancreatitis: Qualifiers: Acute pancreatitis complication: no infection or necrosis Pancreatitis type: unspecified pancreatitis type Qualified Code(s): K85.90 - Acute pancreatitis without necrosis or infection, unspecified Code(s): K85.90 - Acute pancreatitis without necrosis or infection, unspecified Status: Acute Assessment and Plan: new episode, still on pain mild elevated liver enzymes continue to monitor and supportive care (3) Common bile duct dilation: Code(s): K83.8 - Other specified diseases of biliary tract Status: Acute Assessment and Plan: pending MRCP (4) Elevated liver enzymes: Code(s): R74.8 - Abnormal levels of other serum enzymes Status: Acute (5) Nausea and vomiting in adult: Code(s): R11.2 - Nausea with vomiting, unspecified Status: Acute (6) Bilateral lower abdominal pain: Code(s): R10.31 - Right lower quadrant pain; R10.32 - Left lower quadrant pain Status: Acute GI Consult Note Consult date/time: 12/13/21 14:59 Reason for consult: GS pancreatitis HPI: Jade Laguna is a 51 year old female here with new onset of severe upper abdominal pain the day prior admission that started after eating 4 tacos from [employer], pain radiated to her sides and also had nausea with vomiting, never had pancreatitis, denies alcohol abuse. Blood work showed a lipase of 29,000. LFTs were normal.? CT scan of the abdomen and pelvis reviewed and showed acute interstitial pancreatitis, cholelithiasis with mild dilation of common bile duct to 8 mm but without intrahepatic biliary ductal dilatation or evidence of acute cholecystitis.? Review of Systems Review of Systems: All systems reviewed & are unremarkable except as noted in HPI and below Constitutional: Constitutional: Reports no additional constitutional complaints, Denies chills and Denies fever(s) Eyes: Eyes: Reports no additional eye complaints ENT: Reports system reviewed and no additional complaints, except as documented Cardiovascular: Cardiovascular: Reports no additional cardiovascular complaints and Denies chest pain Respiratory: Respiratory: Reports no additional respiratory complaints, Denies cough and Denies dyspnea Gastrointestinal: Gastrointestinal: Reports as per HPI, Reports no additional gastrointestinal complaints, Reports abdominal pain, Denies melena, Denies hematochezia, Reports nausea, Reports vomiting and Denies hematemesis Genitourinary: Genitourinary: Reports no additional female genitourinary complaints Musculoskeletal: Musculoskeletal: Reports no additional musculoskeletal complaints and Reports other (Chronic back pain due to degenerative disc disease, no chronic narcotic use) Integumentary/Breasts: Skin/Breast: Reports system reviewed and no additional complaints, except as docu Neurologic: Reports system reviewed and no additional complaints, except as documented [facility] Past Medical History Medical History (Updated 12/14/21 @ 12:46 by Gus Gloria MD) ADHD Degenerative disc disease Depression Elevated liver enzymes Angelo's disease Hypertension Kidney stone Nausea and vomiting in adult Obesity, morbid, BMI 40.0-49.9 Pre-diabetes A1c 5.9 09/01/2021 Surgical History Surgical History H/O tubal ligation Family History Family History (Updated 12/13/21 @ 14:50 by Karlee Rowan APRN) Father Acute Crohn's disease Liver cancer Cancer Alcoholism Mother , at 70 years old Diabetes mellitus Cancer C. difficile diarrhea Grandparent D
[2021-12-13 23:17] VITALS: BP 140/76; PULSE 65; RESP 18; TEMP 36.1; O2SAT 95
[2021-12-14] MEDS: HYDROmorphone HCL INJ (*CRX) 1 MG/ML SYR IV PUSH (00:57)
[2021-12-14] MEDS: KETOROLAC 30 MG/ML VIAL (*BKC) IV PUSH ×2 (05:14→12:11)
[2021-12-14] MEDS: SODIUM CHLORIDE 0.9% IV 1,000 ML 200 ML IV CONT ×3 (05:20→19:48)
[2021-12-14 05:21] LABS: Hematocrit 36.2 % (37.0-47.0); Hemoglobin 11.7 g/dL (12.0-15.0); Mean Corpuscular HGB Conc 32.3 g/dl (32-36); Mean Corpuscular Hemoglobin 28.5 pg (26-34); Mean Corpuscular Volume 88.3 fl (80-100); Mean Platelet Volume 10.1 fl (7.4-10.4); Platelet Count Result 274 k/mm3 (150-375); Red Cell Distribution Width 13.2 % (11.5-14.5); White Blood Count 6.2 K/mm3 (4.5-10.0)
[2021-12-14 05:28] LABS: Alanine Aminotransferase 21 U/L (6-35); Albumin Level 3.5 g/dL (3.5-5.1); Alkaline Phosphatase 67 U/L (38-126); Anion Gap 8 mmol/L (8-16); Aspartate Amino Transferase 25 U/L (14-36); Bilirubin,Total 0.5 mg/dL (0.2-1.3); Blood Urea Nitrogen 5 mg/dL (7-17); Calcium 8.3 mg/dL (8.4-10.2); Carbon Dioxide 24 mmol/L (22-30); Chloride 108 mmol/L (98-107); Estimated CRCL calculation 100 ml/min; Estimated Glomerular Filt Rate > 60; Glucose 97 mg/dL (65-110); Potassium 3.6 mmol/L (3.4-5.0); Sodium 140 mmol/L (137-145)
[2021-12-14 05:58] LABS: Lipase 5929 U/L (23-300)
[2021-12-14] MEDS: ONDANSETRON INJ 4 MG/2 ML VIAL IV PUSH (06:45)
[2021-12-14] MEDS: LEVOTHYROXINE SODIUM INJ 100 MCG/5 ML VIAL 37.5 MCG IV PUSH (06:58)
[2021-12-14 07:13] VITALS: BP 126/68; PULSE 76; RESP 18; TEMP 36.2; O2SAT 96
[2021-12-14] MEDS: PANTOPRAZOLE SODIUM IV 40 MG VIAL IV PUSH ×2 (08:17→21:07)
--- NOTE | 2021-12-14 09:15 | PM.IMPN ---
Progress Note: A&P Assessment and Plan (1) Acute pancreatitis: Qualifiers: Acute pancreatitis complication: no infection or necrosis Pancreatitis type: unspecified pancreatitis type Qualified Code(s): K85.90 - Acute pancreatitis without necrosis or infection, unspecified Code(s): K85.90 - Acute pancreatitis without necrosis or infection, unspecified Status: Acute Assessment and Plan: acute gallbladder pancreatitis. presented with complaints of epigastric and left upper [place] [address] upon admission, trending down to 5929 CT consistent with acute interstitial pancreatitis and gallstones with common bile duct dilation. Clear liquid diet Pain control with IV narcotics and IV Toradol, added Tylenol Continue IV hydration NS at 200 mL/hour, ok to stop if drinking Trend lipase General surgery consulted appreciate recommendations MRCP completed negative for signs of acute cholecystitis, however cholelithiasis and gallbladder distention noted (2) Cholelithiasis: Qualifiers: Biliary obstruction: without biliary obstruction Cholecystitis presence: without cholecystitis Cholelithiasis location: gallbladder Qualified Code(s): K80.20 - Calculus of gallbladder without cholecystitis without obstruction Code(s): K80.20 - Calculus of gallbladder without cholecystitis without obstruction Status: Acute Assessment and Plan: CT abdomen and pelvis and MRCP demonstrate gallstones within the gallbladder which is distended. No evidence of acute cholecystitis or obstruction noted on MRCP general surgery consulted and appreciate recommendations LFTs normalized at this time at Continue to trend labs (3) Common bile duct dilation: Code(s): K83.8 - Other specified diseases of biliary tract Status: Acute Assessment and Plan: Common bile duct noted to be dilated 10 mm on MRCP, worsened from 09/29/2021 which was 6 mm. No choledocholithiasis appreciated. dilated to 10mm per imaging Management as above (4) Pre-diabetes: Code(s): R73.03 - Prediabetes Status: Chronic Assessment and Plan: A1c 5.9 in July 2021 and again this admission placing patient within prediabetes range. Recommend lifestyle modification with diet and weight loss. Patient is already seeing an ultrasonographer for Angelo's disease. Consider adding metformin for prediabetes management (5) Hypertension: Code(s): I10 - Essential (primary) hypertension Status: Chronic Assessment and Plan: chronic, stable, BP 140/76, HR 65 Hold HCTZ given acute pancreatitis. Trend BP Consider adding p.r.n. 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 (7) Obesity, morbid, BMI 40.0-49.9: Code(s): E66.01 - Morbid (severe) obesity due to excess calories Status: Chronic Assessment and Plan: recommend lifestyle modifications and 5-10% loss of body weight Time Spent With Patient Time with patient: Greater than 35 minutes Subjective Date/time seen: 12/14/21914 Interval history: 12/14/21914 Patient stated that she is doing lot better today she still does have some abdominal pain however it does seem to be controlled at this time. She has been able to walk around a and has been up walking outside of her room due to boredom. Her only complaint is that she has pain with a cough which he has had for while. She also stated that she has not been nauseated or any vomiting. S
--- NOTE | 2021-12-14 09:15 | P.PNIM_ITS ---
Progress Note: A&P Assessment and Plan (1) Acute pancreatitis: Qualifiers: Acute pancreatitis complication: no infection or necrosis Pancreatitis type: unspecified pancreatitis type Qualified Code(s): K85.90 - Acute pancreatitis without necrosis or infection, unspecified Code(s): K85.90 - Acute pancreatitis without necrosis or infection, unspecified Status: Acute Assessment and Plan: * acute gallbladder pancreatitis. * presented with complaints of epigastric and left upper quadrant pain * [place] [address] upon admission, trending down to 5929 * CT consistent with acute interstitial pancreatitis and gallstones with common bile duct dilation. * Clear liquid diet * Pain control with IV narcotics and IV Toradol, added Tylenol * Continue IV hydration NS at 200 mL/hour, ok to stop if drinking * Trend lipase * General surgery consulted appreciate recommendations * MRCP completed negative for signs of acute cholecystitis, however cholelithiasis and gallbladder distention noted (2) Cholelithiasis: Qualifiers: Biliary obstruction: without biliary obstruction Cholecystitis presence: without cholecystitis Cholelithiasis location: gallbladder Qualified Code(s): K80.20 - Calculus of gallbladder without cholecystitis without obstruction Code(s): K80.20 - Calculus of gallbladder without cholecystitis without obstruction Status: Acute Assessment and Plan: * CT abdomen and pelvis and MRCP demonstrate gallstones within the gallbladder which is distended. * No evidence of acute cholecystitis or obstruction noted on MRCP * general surgery consulted and appreciate recommendations * LFTs normalized at this time at * Continue to trend labs (3) Common bile duct dilation: Code(s): K83.8 - Other specified diseases of biliary tract Status: Acute Assessment and Plan: * Common bile duct noted to be dilated 10 mm on MRCP, worsened from 09/29/2021 which was 6 mm. * No choledocholithiasis appreciated. * dilated to 10mm per imaging * Management as above (4) Pre-diabetes: Code(s): R73.03 - Prediabetes Status: Chronic Assessment and Plan: * A1c 5.9 in July 2021 and again this admission placing patient within prediabetes range. * Recommend lifestyle modification with diet and weight loss. * Patient is already seeing an communications program manager for Angelo's disease. * Consider adding metformin for prediabetes management (5) Hypertension: Code(s): I10 - Essential (primary) hypertension Status: Chronic Assessment and Plan: * chronic, stable, BP 140/76, HR 65 * Hold HCTZ given acute pancreatitis. * Trend BP * Consider adding p.r.n. 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 (7) Obesity, morbid, BMI 40.0-49.9: Code(s): E66.01 - Morbid (severe) obesity due to excess calories Status: Chronic Assessment and Plan: recommend lifestyle modifications and 5-10% loss of body weight Time Spe
--- NOTE | 2021-12-14 09:52 | PM.PNGS ---
Progress Note: A&P Assessment and Plan (1) Acute pancreatitis: Qualifiers: Acute pancreatitis complication: no infection or necrosis Pancreatitis type: unspecified pancreatitis type Qualified Code(s): K85.90 - Acute pancreatitis without necrosis or infection, unspecified Code(s): K85.90 - Acute pancreatitis without necrosis or infection, unspecified Status: Acute Assessment and Plan: Improving, lipase down to 5,929 today. Will start clear liquids today, continue IV fluids and analgesics. Repeat labs tomorrow. (2) Gallstones: Code(s): K80.20 - Calculus of gallbladder without cholecystitis without obstruction Status: Acute Assessment and Plan: Likely caused her pancreatitis. Plan to discharge home and come back as early next week as possible for an interval cholecystectomy. I will have the office start setting her up for surgery. Discussed with the patient she will have to continue a low-fat diet until surgery. (3) Common bile duct dilation: Code(s): K83.8 - Other specified diseases of biliary tract Status: Acute Assessment and Plan: MRCP negative for common duct stone. Likely already passed. (4) Hypertension: Code(s): I10 - Essential (primary) hypertension Status: Chronic (5) Obesity, morbid, BMI 40.0-49.9: Code(s): E66.01 - Morbid (severe) obesity due to excess calories Status: Chronic Assessment and Plan: Encourage diet and lifestyle modifications to promote weight loss. Plan I have discussed the patient's case and plan of care with Dr. Jennings. Subjective Subjective Date/Time Seen: 12/14/21 09:52 Patient reports: no new complaints, feels better, pain is less, flatus and afebrile Interval history: Patient seen and examined. She reports feeling much better today. Still having some left upper quadrant abdominal pain, but much improved. No nausea this morning. Did have 1 episode of vomiting last night. She is eager to try liquids. Review of Systems Review of Systems: All systems reviewed & are unremarkable except as noted in HPI and below Exam Const: General: comfortable, no acute distress, awake and obese Orientation/consciousness: patient oriented x3 GI: Inspection: non-distended and obesity GI Palp: Yes Soft to palpation, Yes Tenderness to palpation present (GI) (upper abdomen), No Guarding due to palpation present (GI), Yes No hepatosplenomegaly present and No Rebound tenderness present Auscultation: normal bowel sounds Extrem: General: normal to inspection Psych: Mental Status: mental status grossly normal Insight: Good insight present (Psych) Objective Data Vital Signs Vital Signs: Vital Signs - 24 hr 12/13/21 14:00 12/13/21 23:17 12/14/21 07:13 Temperature 97.9 F 97.0 F L 97.2 F L Pulse Rate 66 65 76 Respiratory Rate 16 18 18 Blood Pressure 136/74 140/76 126/68 Pulse Oximetry 93 95 96 Oxygen Delivery 12/14/21 08:00 Temperature Pulse Rate Respiratory Rate Blood Pressure Pulse Oximetry Oxygen Delivery Room Air Intake/Output Intake/Output: Intake & Output 12/11/21 12/12/21 12/13/21 12/14/21 23:59 23:59 23:59 23:59 Intake Total 4100 1000 Output Total 600 600 Balance 3500 400 Meds/Results Medications: Active Medications Generic Name Dose Route Start Last Admin Trade Name Freq PRN Reason Stop Dose Admin Hydromorphone HCl 1 mg 12/13/21 03:44 12/14/21 00:57 Hydromorphone Hcl Inj (*Crx) 1 Mg/Ml Syr IV PUSH 1 mg Q3H PRN Administration Pain Rated 7-10 Sodium Chloride 1,000 mls @ 200 mls/hr 12/13/21 03:45 12/14/21 06:30 Normal Saline Iv IV CONT Not Given .Q5H LINDY Ketorolac Tromethamine 30 mg 12/13/21 03:44 12/14/21 05:14 Ketorolac 30 Mg/Ml Vial (*Bkc) IV PUSH 12/18/21 03:43 30 mg Q6H PRN Administration Pain Rated 4-6 Levothyroxine Sodium 37.5 mcg 12/14/21 06:55 12/14/21 06:58 Levothyroxine Sodium I
[2021-12-14] MEDS: ACETAMINOPHEN 500 MG TABLET 1000 MG PO ×2 (12:11→19:47)
--- NOTE | 2021-12-14 12:47 | WPDGIPROGNO ---
Progress Note: A&P Assessment and Plan (1) Gallstone pancreatitis: Code(s): K85.10 - Biliary acute pancreatitis without necrosis or infection Status: Acute Assessment and Plan: MRCP reviewed, dilated bile duct but no stones, probably already passed- no need of ercp feeling better liquid diet and advance as tolerated will need lap armida, timing per surgery (2) Cholelithiasis: Qualifiers: Cholelithiasis location: gallbladder Cholecystitis presence: without cholecystitis Biliary obstruction: without biliary obstruction Qualified Code(s): K80.20 - Calculus of gallbladder without cholecystitis without obstruction Code(s): K80.20 - Calculus of gallbladder without cholecystitis without obstruction Status: Acute Assessment and Plan: surgery on board (3) Elevated liver enzymes: Code(s): R74.8 - Abnormal levels of other serum enzymes Status: Acute Assessment and Plan: normal lft's now (4) Bilateral lower abdominal pain: Code(s): R10.31 - Right lower quadrant pain; R10.32 - Left lower quadrant pain Status: Acute Assessment and Plan: improving Subjective Date/time seen: 12/14/21 12:47 Interval history: still with abdominal pain but better Review of Systems Review of Systems: All systems reviewed & are unremarkable except as noted in HPI and below Exam Const: General: comfortable, no acute distress, awake and obese Orientation/consciousness: patient oriented x3 HENMT: Face/Nose/Sinus: Normal nares present Eyes: General: appearance normal, both eyes and all related structures Neck: Neck: supple Resp: Auscultation: clear to auscultation bilaterally Cardio: Rhythm: regular rhythm GI: Inspection: non-distended and obesity GI Palp: Yes Soft to palpation, Yes Tenderness to palpation present (GI) (upper abdomen), No Guarding due to palpation present (GI), Yes No hepatosplenomegaly present and No Rebound tenderness present Auscultation: normal bowel sounds Skin: General skin exam: normal color Neuro: Motor exam (neuro): 5/5 motor strength present throughout Extrem: General: normal to inspection Psych: Mental Status: mental status grossly normal Insight: Good insight present (Psych) Objective Data Vital Signs Vital Signs: Vital Signs - 24 hr 12/13/21 14:00 12/13/21 23:17 12/14/21 07:13 Temperature 97.9 F 97.0 F L 97.2 F L Pulse Rate 66 65 76 Respiratory Rate 16 18 18 Blood Pressure 136/74 140/76 126/68 Pulse Oximetry 93 95 96 Oxygen Delivery 12/14/21 08:00 Temperature Pulse Rate Respiratory Rate Blood Pressure Pulse Oximetry Oxygen Delivery Room Air Intake/Output Intake/Output: Intake & Output 12/11/21 12/12/21 12/13/21 12/14/21 23:59 23:59 23:59 23:59 Intake Total 4100 1000 Output Total 600 600 Balance 3500 400 Meds/Results Medications: Active Medications Generic Name Dose Route Start Last Admin Trade Name Freq PRN Reason Stop Dose Admin Acetaminophen 1,000 mg 12/14/21 12:05 12/14/21 12:11 Acetaminophen 500 Mg Tablet PO 1,000 mg Q6H PRN Administration Mild Pain (1-3) or Fever Hydromorphone HCl 1 mg 12/13/21 03:44 12/14/21 00:57 Hydromorphone Hcl Inj (*Crx) 1 Mg/Ml Syr IV PUSH 1 mg Q3H PRN Administration Pain Rated 7-10 Sodium Chloride 1,000 mls @ 100 mls/hr 12/13/21 03:45 12/14/21 06:30 Normal Saline Iv IV CONT Not Given .Q10H LINDY Ketorolac Tromethamine 30 mg 12/13/21 03:44 12/14/21 12:11 Ketorolac 30 Mg/Ml Vial (*Bkc) IV PUSH 12/18/21 03:43 30 mg Q6H PRN Administration Pain Rated 4-6 Levothyroxine Sodium 37.5 mcg 12/14/21 06:55 12/14/21 06:58 Levothyroxine Sodium Inj 100 Mcg/5 Ml Vial IV PUSH 37.5 mcg DAILY@0630 LINDY Administration Ondansetron HCl 4 mg 12/13/21 03:48 12/14/21 06:45 Ondansetron Inj 4 Mg/2 Ml Vial IV PUSH 4 mg Q4H PRN Administration Nausea Pantoprazole Sodium 40
[2021-12-14 14:00] VITALS: BP 141/88; PULSE 66; RESP 18; TEMP 36.2; O2SAT 97
[2021-12-14 20:56] VITALS: BP 143/76; PULSE 76; RESP 16; TEMP 36.4; O2SAT 98
[2021-12-15] MEDS: KETOROLAC 30 MG/ML VIAL (*BKC) IV PUSH (00:35)
[2021-12-15] MEDS: ACETAMINOPHEN 500 MG TABLET 1000 MG PO ×2 (01:40→09:21)
[2021-12-15] MEDS: ONDANSETRON INJ 4 MG/2 ML VIAL IV PUSH (02:49)
[2021-12-15] MEDS: SODIUM CHLORIDE 0.9% IV 1,000 ML 200 ML IV CONT ×2 (02:52→08:07)
--- NOTE | 2021-12-15 02:59 | PC.NURSE ---
PT C/O HEADACHE OFF/ON DURING EVENING AND NOW. PT HAS BEEN ON PHONE WITH AND PLAYING GAMES ON HER PHONE AND TABLET. NOW CRYING AND SAYING SHE HAS TO GO HOME. INFORMED PT SHE NEEDS TO STAY AND GET LABS DRAWN TO MAKE SURE EVERYTHING IS OK.
[2021-12-15 05:12] LABS: Hematocrit 36.3 % (37.0-47.0); Mean Corpuscular HGB Conc 33.1 g/dl (32-36); Mean Corpuscular Hemoglobin 28.2 pg (26-34); Mean Corpuscular Volume 85.4 fl (80-100); Mean Platelet Volume 10.3 fl (7.4-10.4); Platelet Count Result 277 k/mm3 (150-375); Red Blood Count 4.25 M/mm3 (4.2-5.4); White Blood Count 6.1 K/mm3 (4.5-10.0)
[2021-12-15 05:33] LABS: Alanine Aminotransferase 20 U/L (6-35); Albumin Level 3.7 g/dL (3.5-5.1); Alkaline Phosphatase 78 U/L (38-126); Anion Gap 14 mmol/L (8-16); Aspartate Amino Transferase 27 U/L (14-36); Bilirubin,Total 0.6 mg/dL (0.2-1.3); Blood Urea Nitrogen 4 mg/dL (7-17); Calcium 8.7 mg/dL (8.4-10.2); Carbon Dioxide 19 mmol/L (22-30); Chloride 108 mmol/L (98-107); Estimated CRCL calculation 118 ml/min; Estimated Glomerular Filt Rate > 60; Glucose 99 mg/dL (65-110); Lipase 538 U/L (23-300); Potassium 3.3 mmol/L (3.4-5.0); Sodium 141 mmol/L (137-145)
[2021-12-15 05:42] VITALS: BP 113/61; PULSE 66; RESP 16; TEMP 36.9; O2SAT 96
[2021-12-15] MEDS: LEVOTHYROXINE SODIUM INJ 100 MCG/5 ML VIAL 37.5 MCG IV PUSH (06:47)
[2021-12-15] MEDS: PANTOPRAZOLE SODIUM IV 40 MG VIAL IV PUSH (08:07)
--- NOTE | 2021-12-15 10:00 | PM.DS ---
DS: Admitting Diagnosis Discharge Date 12/15/21 1000 Admitting Diagnosis Acute pancreatitis DS: Discharge Diagnosis Discharge Diagnosis (1) Acute pancreatitis: Qualifiers: Acute pancreatitis complication: no infection or necrosis Pancreatitis type: unspecified pancreatitis type Qualified Code(s): K85.90 - Acute pancreatitis without necrosis or infection, unspecified Code(s): K85.90 - Acute pancreatitis without necrosis or infection, unspecified Status: Acute Assessment and Plan: acute gallbladder pancreatitis. presented with complaints of epigastric and left upper [place] [address] upon admission, trending down to 538 CT consistent with acute interstitial pancreatitis and gallstones with common bile duct dilation. Clear liquid diet Pain control with IV narcotics and IV Toradol, added Tylenol Continue IV hydration NS at 200 mL/hour, ok to stop if drinking Trend lipase General surgery consulted appreciate recommendations MRCP completed negative for signs of acute cholecystitis, however cholelithiasis and gallbladder distention noted (2) Cholelithiasis: Qualifiers: Biliary obstruction: without biliary obstruction Cholecystitis presence: without cholecystitis Cholelithiasis location: gallbladder Qualified Code(s): K80.20 - Calculus of gallbladder without cholecystitis without obstruction Code(s): K80.20 - Calculus of gallbladder without cholecystitis without obstruction Status: Acute Assessment and Plan: CT abdomen and pelvis and MRCP demonstrate gallstones within the gallbladder which is distended. No evidence of acute cholecystitis or obstruction noted on MRCP general surgery consulted and appreciate recommendations LFTs normalized at this time at 27/20 Continue to trend labs (3) Common bile duct dilation: Code(s): K83.8 - Other specified diseases of biliary tract Status: Acute Assessment and Plan: Common bile duct noted to be dilated 10 mm on MRCP, worsened from 09/29/2021 which was 6 mm. No choledocholithiasis appreciated. dilated to 10mm per imaging Management as above (4) Pre-diabetes: Code(s): R73.03 - Prediabetes Status: Chronic Assessment and Plan: A1c 5.9 in July 2021 and again this admission placing patient within prediabetes range. Recommend lifestyle modification with diet and weight loss. Patient is already seeing an senior mainframe programmer analyst for Angelo's disease. Consider adding metformin for prediabetes management (5) Hypertension: Code(s): I10 - Essential (primary) hypertension Status: Chronic Assessment and Plan: chronic, stable, BP 113/61, HR 66 Hold HCTZ given acute pancreatitis. Trend BP Consider adding p.r.n. IV hydralazine if SBP greater than 160 Adjust therapy as indicated (6) Angelo's disease: Code(s): E06.3 - Autoimmune thyroiditis Status: Chronic Assessment and Plan: TSH 9.33, free T4 1.18, total T3 1.78 Patient is being monitored by senior mainframe programmer analyst and will have her follow-up outpatient for adjustments in medications While patient is NPO, IV levothyroxine 37.5 mg daily. (7) Obesity, morbid, BMI 40.0-49.9: Code(s): E66.01 - Morbid (severe) obesity due to excess calories Status: Chronic Assessment and Plan: recommend lifestyle modifications and 5-10% loss of body weight DS: Summary Hospital Course Hospital Course: Patient is a 51 year old female with hypothyroid disease, depression, HTN, chronic lower back pain, and insomnia who presented the emergency room for evaluation left of for quadrant abdominal pain accompanied with nausea and vomiting. It was noted that patient did have Taco Narayan. Upon arrival lipase was 29,960. WBCs were stable along with H&H. CT showed acute interstitial pancreatitis
--- NOTE | 2021-12-15 10:00 | P.DS_ITS ---
DS: Admitting Diagnosis Discharge Date 12/15/21 1000 Admitting Diagnosis Acute pancreatitis DS: Discharge Diagnosis Discharge Diagnosis (1) Acute pancreatitis: Qualifiers: Acute pancreatitis complication: no infection or necrosis Pancreatitis type: unspecified pancreatitis type Qualified Code(s): K85.90 - Acute pancreatitis without necrosis or infection, unspecified Code(s): K85.90 - Acute pancreatitis without necrosis or infection, unspecified Status: Acute Assessment and Plan: * acute gallbladder pancreatitis. * presented with complaints of epigastric and left upper quadrant pain * [place] [address] upon admission, trending down to 538 * CT consistent with acute interstitial pancreatitis and gallstones with common bile duct dilation. * Clear liquid diet * Pain control with IV narcotics and IV Toradol, added Tylenol * Continue IV hydration NS at 200 mL/hour, ok to stop if drinking * Trend lipase * General surgery consulted appreciate recommendations * MRCP completed negative for signs of acute cholecystitis, however cholelithiasis and gallbladder distention noted (2) Cholelithiasis: Qualifiers: Biliary obstruction: without biliary obstruction Cholecystitis presence: without cholecystitis Cholelithiasis location: gallbladder Qualified Code(s): K80.20 - Calculus of gallbladder without cholecystitis without obstruction Code(s): K80.20 - Calculus of gallbladder without cholecystitis without obstruction Status: Acute Assessment and Plan: * CT abdomen and pelvis and MRCP demonstrate gallstones within the gallbladder which is distended. * No evidence of acute cholecystitis or obstruction noted on MRCP * general surgery consulted and appreciate recommendations * LFTs normalized at this time at 27/20 * Continue to trend labs (3) Common bile duct dilation: Code(s): K83.8 - Other specified diseases of biliary tract Status: Acute Assessment and Plan: * Common bile duct noted to be dilated 10 mm on MRCP, worsened from 09/29/2021 which was 6 mm. * No choledocholithiasis appreciated. * dilated to 10mm per imaging * Management as above (4) Pre-diabetes: Code(s): R73.03 - Prediabetes Status: Chronic Assessment and Plan: * A1c 5.9 in July 2021 and again this admission placing patient within prediabetes range. * Recommend lifestyle modification with diet and weight loss. * Patient is already seeing an bar examiner for Angelo's disease. * Consider adding metformin for prediabetes management (5) Hypertension: Code(s): I10 - Essential (primary) hypertension Status: Chronic Assessment and Plan: * chronic, stable, BP 113/61, HR 66 * Hold HCTZ given acute pancreatitis. * Trend BP * Consider adding p.r.n. 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 (7) Obesity, morbid, BMI 40.0-49.9: Code(s): E66.01 - Morbid (severe) obesity due to excess calories Status: Chronic
--- NOTE | 2021-12-15 10:20 | PM.PNGS ---
Progress Note: A&P Assessment and Plan (1) Acute pancreatitis: Qualifiers: Acute pancreatitis complication: no infection or necrosis Pancreatitis type: unspecified pancreatitis type Qualified Code(s): K85.90 - Acute pancreatitis without necrosis or infection, unspecified Code(s): K85.90 - Acute pancreatitis without necrosis or infection, unspecified Status: Acute Assessment and Plan: Continues to improve, lipase down to 500. Tolerating a low-fat diet. Okay from our standpoint to discharge home today. We have scheduled her to return for an outpatient cholecystectomy next Sunday. We will repeat a CMP and lipase on Sunday preoperatively. Instructed patient to follow a strict low-fat diet after discharge. (2) Gallstones: Code(s): K80.20 - Calculus of gallbladder without cholecystitis without obstruction Status: Acute Assessment and Plan: Plan for interval cholecystectomy on Sunday. (3) Common bile duct dilation: Code(s): K83.8 - Other specified diseases of biliary tract Status: Acute Assessment and Plan: MRCP negative for common duct stone. Likely already passed. (4) Hypertension: Code(s): I10 - Essential (primary) hypertension Status: Chronic (5) Obesity, morbid, BMI 40.0-49.9: Code(s): E66.01 - Morbid (severe) obesity due to excess calories Status: Chronic Assessment and Plan: Encourage diet and lifestyle modifications to promote weight loss. Plan I have discussed the patient's case and plan of care with Dr. Jennings. Subjective Subjective Date/Time Seen: 12/15/21 09:10 Patient reports: feels better, tolerating a regular diet (Low-fat), voiding w/o difficulty, flatus and afebrile Interval history: Patient seen and examined. She reports feeling much better today. She did have 1 more episode of vomiting last night, but denies any nausea this morning. She denies any abdominal pain at this time. She is eager to be discharged home. Review of Systems Review of Systems: All systems reviewed & are unremarkable except as noted in HPI and below Exam Const: General: comfortable, no acute distress and obese Orientation/consciousness: patient oriented x3 GI: Inspection: non-distended and obesity GI Palp: Yes Soft to palpation, No Tenderness to palpation present (GI), No Guarding due to palpation present (GI), Yes No hepatosplenomegaly present and No Rebound tenderness present Auscultation: normal bowel sounds Extrem: General: normal to inspection and no edema Psych: Mental Status: mental status grossly normal Insight: Good insight present (Psych) Objective Data Vital Signs Vital Signs: Vital Signs - 24 hr 12/14/21 14:00 12/14/21 20:56 12/15/21 05:42 Temperature 97.1 F L 97.6 F 98.5 F Pulse Rate 66 76 66 Respiratory Rate 18 16 16 Blood Pressure 141/88 H 143/76 H 113/61 Pulse Oximetry 97 98 96 Intake/Output Intake/Output: Intake & Output 12/12/21 12/13/21 12/14/21 12/15/21 23:59 23:59 23:59 23:59 Intake Total 4100 3500 2270 Output Total 600 1000 Balance 3500 2500 2270 Meds/Results Medications: Active Medications Generic Name Dose Route Start Last Admin Trade Name Freq PRN Reason Stop Dose Admin Acetaminophen 1,000 mg 12/14/21 12:05 12/15/21 09:21 Acetaminophen 500 Mg Tablet PO 1,000 mg Q6H PRN Administration Mild Pain (1-3) or Fever Hydromorphone HCl 1 mg 12/13/21 03:44 12/14/21 00:57 Hydromorphone Hcl Inj (*Crx) 1 Mg/Ml Syr IV PUSH 1 mg Q3H PRN Administration Pain Rated 7-10 Sodium Chloride 1,000 mls @ 100 mls/hr 12/13/21 03:45 12/15/21 08:07 Normal Saline Iv IV CONT 200 mls/hr .Q10H LINDY Administration Ketorolac Tromethamine 30 mg 12/13/21 03:44 12/15/21 00:35 Ketorolac 30 Mg/Ml Vial (*Bkc) IV PUSH 12/18/21 03:43 30 mg Q6H PRN Administration Pain Rated 4-6 Levothyroxine Sodium 37.5 mcg 12/14/21 06:55 10
== END 2021-12-15 12:07 | disposition home or self-care (01) | DRG 282 ==
LOC: ANHED 03:51 → ANH2MED 08:06
PROVIDERS: Nurse Practitioner Family; Physician Assistant; Admitting Provider Internal Medicine; Emergency Provider Emergency Medicine; PCP Emergency Medicine; Visit Provider Nurse Practitioner
DX: K85.10 Biliary acute pancreatitis without necrosis or infection (principal); E66.01 Morbid (severe) obesity due to excess calories; K80.20 Calculus of gallbladder without cholecystitis without obstruction; K83.8 Other specified diseases of biliary tract; E03.9 Hypothyroidism, unspecified; E06.3 Autoimmune thyroiditis; F32.A Depression, unspecified; G47.00 Insomnia, unspecified; G89.29 Other chronic pain; I10 Essential (primary) hypertension; M54.50 Low back pain, unspecified; N20.0 Calculus of kidney; R73.03 Prediabetes; Z68.41 Body mass index [BMI] 40.0-44.9, adult; Z87.442 Personal history of urinary calculi
CPT/HCPCS: 36415; 74177; 74183; 76376; 80053; 81001; 83036; 83690; 84439; 84443; 84480; 85025; 85027; 96361; 96365; 96374; 96375; 96376; 99285; A9270; A9577; C9113; G0378; G0379; J0131; J1170; J1885; J2270; J2405; J7030; Q9967

== ENCOUNTER 2021-12-19 15:10 | Outpatient (CLI) | payer OTHER, SELFPAY ==
--- NOTE | 2021-12-19 15:17 | ECG_ITS ---
Measurements Intervals [place] Rate: 77 P: 23 AR: 137 QRS: 9 QRSD: 104 T: 7 QT: 367 QTc: 416 Interpretive Statements SINUS RHYTHM LOW QRS VOLTAGE IN PRECORDIAL LEADS [QRS DEFLECTION < 1.0 mV IN CHEST LEADS] NONSPECIFIC ST AND T CHANGES COMPARED TO ECG 09/20/2018 20:14:54 NO SIGNIFICANT CHANGES Electronically Signed On 12-20-2021 13:10:44 CDT by Lizbeth Zacarias M.D.
[2021-12-19 16:12] LABS: Amylase 68 U/L (30-110)
[2021-12-19 16:16] LABS: Alanine Aminotransferase 29 U/L (6-35); Albumin Level 4.4 g/dL (3.5-5.1); Alkaline Phosphatase 89 U/L (38-126); Anion Gap 13 mmol/L (8-16); Aspartate Amino Transferase 45 U/L (14-36); Bilirubin,Total 0.4 mg/dL (0.2-1.3); Blood Urea Nitrogen 6 mg/dL (7-17); Calcium 9.6 mg/dL (8.4-10.2); Carbon Dioxide 28 mmol/L (22-30); Chloride 99 mmol/L (98-107); Estimated Glomerular Filt Rate > 60; Glucose 107 mg/dL (65-110); Lipase 270 U/L (23-300); Potassium 3.5 mmol/L (3.4-5.0); Sodium 140 mmol/L (137-145)
== END 2021-12-19 15:11 | disposition home or self-care (01) ==
LOC: ANHSURGERY 15:12
PROVIDERS: Nurse Practitioner Family; PCP Emergency Medicine; Visit Provider Surgery
DX: Z01.818 Encounter for other preprocedural examination (principal); K80.20 Calculus of gallbladder without cholecystitis without obstruction; K85.90 Acute pancreatitis without necrosis or infection, unspecified
CPT/HCPCS: 36415; 80053; 82150; 83690; 86850; 86900; 86901; 93005

== ENCOUNTER 2021-12-21 03:13 | Inpatient (IN) | payer OTHER, SELFPAY ==
--- NOTE | ~2021-12-21 | MR_ITS ---
EXAMINATION: MR MRCP wo/w con/w 3D wo ind DATE: 12/21/2021 12:46 INDICATION: Recurrent pancreatitis. Cholelithiasis. TECHNIQUE: Magnetic resonance imaging (MRI) of the abdomen was performed without and with 19 mL Multi Cristina intravenous contrast. Sequences included coronal T2-weighted FS FSE, coronal T2-weighted FSE, a xial T1-weighted LAVA, coronal FS FIESTA, axial dual-echo T1-weighted SPGR, coronal lava-FLEX, sagitt al T2-weighted FSE, axial T2-weighted FSE, and axial DWI. Thick-slab T2-weighted FSE images were obta ined for magnetic resonance cholangiopancreatography (MRCP). Maximum intensity projection 3-D reconst ructions of the volumetric data were created by the technologist. Postcontrast sequences included cor onal LAVA-flex and time course of axial T1-weighted LAVA. COMPARISON: MRCP 12/13/2021, CT abdomen and pelvis 12/13/2021 FINDINGS: ABDOMEN MRI: There is a 7 mm cyst in the liver. The gallbladder is distended and contains gallstones. There is fat stranding around the pancreas, consistent with acute interstitial pancreatitis. The spl een, adrenal glands, and kidneys are normal. ABDOMEN MRCP: The common duct is dilated to 9 mm. No choledocholithiasis. IMPRESSION: 1. Acute interstitial pancreatitis. 2. Mildly dilated common duct. No choledocholithiasis. 3. Cholelithiasis and gallbladder distention. No gallbladder wall thickening to suggest acute cholecy stitis. Reviewed, dictated and finalized at location A. IMPRESSION: 1. Acute interstitial pancreatitis. 2. Mildly dilated common duct. No choledocholithiasis. 3. Cholelithiasis and gallbladder distention. No gallbladder wall thickening to suggest acute cholecystitis.
[2021-12-21 03:16] VITALS: BP 151/98; PULSE 74; RESP 16; TEMP 36.5; O2SAT 98
[2021-12-21] MEDS: MORPHINE SULFATE (*CRX) 4 MG/ML INJ IV PUSH (04:02)
[2021-12-21] MEDS: SODIUM CHLORIDE 0.9% IV 1,000 ML 999 ML IV CONT (04:02)
[2021-12-21] MEDS: ONDANSETRON INJ 4 MG/2 ML VIAL IV PUSH (04:03)
[2021-12-21 04:19] LABS: Basophils Percent Auto 0.6 % (0.2-1.2); Eosinophils Absolute Auto 0.3 K/mm3 (0-0.3); Eosinophils Percent Auto 3.9 % (0-4.4); Hematocrit 41.7 % (37.0-47.0); Hemoglobin 14.2 g/dL (12.0-15.0); Immature Granulocyte Absolute 0.02 K/mm3 (0.00-0.031); Immature Granulocyte Percent A 0.3 % (0-0.5); Lymphocytes Percent Auto 17.3 % (18.3-44.2); Mean Corpuscular HGB Conc 34.1 g/dl (32-36); Mean Corpuscular Hemoglobin 29.1 pg (26-34); Mean Corpuscular Volume 85.5 fl (80-100); Monocytes Absolute Auto 0.4 K/mm3 (0.1-0.6); Monocytes Percent Auto 5.8 % (2.6-8.5); Neutrophils Percent Auto 72.1 % (45.5-73.1); Platelet Count Result 369 k/mm3 (150-375); Red Blood Count 4.88 M/mm3 (4.2-5.4); Red Cell Distribution Width 13.1 % (11.5-14.5); White Blood Count 6.9 K/mm3 (4.5-10.0)
[2021-12-21 05:01] LABS: Alanine Aminotransferase 32 U/L (6-35); Albumin Level 4.5 g/dL (3.5-5.1); Alkaline Phosphatase 106 U/L (38-126); Anion Gap 13 mmol/L (8-16); Aspartate Amino Transferase 41 U/L (14-36); Bilirubin,Total 0.4 mg/dL (0.2-1.3); Blood Urea Nitrogen 7 mg/dL (7-17); Calcium 9.4 mg/dL (8.4-10.2); Carbon Dioxide 24 mmol/L (22-30); Chloride 101 mmol/L (98-107); Estimated CRCL calculation 97 ml/min; Estimated Glomerular Filt Rate > 60; Glucose 152 mg/dL (65-110); Sodium 138 mmol/L (137-145)
--- NOTE | 2021-12-21 05:22 | ED.GENADULT ---
HPI - General Adult General Chief complaint: Abdominal Pain Stated complaint: abdominal Pain Time Seen by Provider: 12/21/21 03:36 History of Present Illness HPI narrative: Patient is a 51-year-old female who presents ER with epigastric pain. No radiation. Sudden onset yesterday evening. Patient reports he was not both by food or drink. She does not drink alcohol. Patient recently admitted with pancreatitis that was felt to be related to gallstones. She had an MRCP and is scheduled for cholecystectomy this morning. No fevers or chills or sweats. No alleviating factors that she is found. Mild nausea. No diarrhea. Related Data Home Medications Medication Instructions Recorded Confirmed ergocalciferol (vitamin D2) 1,250 50,000 unit PO WEEKLY 12/13/21 12/19/21 mcg (50,000 unit) capsule hydrochlorothiazide 12.5 mg tablet 12.5 mg PO DAILY 12/13/21 12/19/21 levothyroxine 50 mcg PO DAILY 12/13/21 12/19/21 Allergies Allergy/AdvReac Type Severity Reaction Status Date / Time No Known Allergies Allergy Verified 12/21/21 03:16 Review of Systems Review of Systems: All systems reviewed & are unremarkable except as noted in HPI and below Constitutional: Constitutional: Denies chills, Denies fatigue and Denies fever(s) ENT: Denies nasal congestion and Denies sore throat Cardiovascular: Cardiovascular: Denies chest pain, Denies rapid heart rate and Denies radiating jaw, neck or arm pain Respiratory: Respiratory: Denies cough and Denies dyspnea Gastrointestinal: Gastrointestinal: Reports abdominal pain, Denies diarrhea, Reports nausea and Denies vomiting Genitourinary: Genitourinary: Denies nocturia, Denies dysuria and Denies flank pain [facility] Past Medical History Medical History (Updated 12/21/21 @ 05:31 by Anthony Croft MD) ADHD Degenerative disc disease Depression Elevated liver enzymes Gallstone pancreatitis Angelo's disease Hypertension Kidney stone Nausea and vomiting in adult Obesity, morbid, BMI 40.0-49.9 Pre-diabetes A1c 5.9 09/01/2021 Surgical History Surgical History H/O tubal ligation Family History Family History (Updated 12/13/21 @ 14:50 by Karlee Rowan APRN) Father Acute Crohn's disease Liver cancer Cancer Alcoholism Mother , at 70 years old Diabetes mellitus Cancer C. difficile diarrhea Grandparent Diabetes mellitus Cancer grandmother with pancreatic cancer, grandfather with skin cancer Cerebrovascular accident Social History Social History (Updated 12/13/21 @ 14:51 by Karlee Rowan APRN) Smoking status: Never smoker Alcohol intake: never Alcohol use details: rare glass of wine socially Substance use: never Additional living arrangements comments: Additional occupation/education comments: On disability due to chronic back pain Gender identity (if verbalized by the patient): Female Spiritual care concerns: No Exam Narrative: GENERAL: Uncomfortable-appearing, well-nourished, and in no acute distress. HEAD: Normocephalic, atraumatic. EYES: PERRL and EOMI. ENT: Mucous membranes moist. CHEST: Clear to auscultation. No respiratory distress. HEART: Regular rate and rhythm. Normal peripheral pulses. ABDOMEN: Soft, mild epigastric tenderness with guarding, nondistended, normal active bowel sounds. EXTREMITIES: Normal range of motion. No edema. SKIN: Warm, dry, no rash. NEURO: Alert and oriented x3. PSYCH: Normal mood and affect. Course Course Emergency Course: Abdomen soft nontender after IV morphine. Discussed with general surgery. Do not recommend imaging. Keep n.p.o. and provide pain control. Patient surgeon will be able see her in a couple hours and determine how they will proceed moving forward. Patient informed of results. Accepted by hospitalist service. Vital Signs Vital signs: Vital Signs Temperature 97.
[2021-12-21 05:24] LABS: Lipase 18238 U/L (23-300)
--- NOTE | 2021-12-21 05:29 | PM.IMHP ---
H&P: HPI History of Present Illness Date/Time: 12/21/21 05:29 Chief Complaint: 51 years old female with past medical history of hypothyroidism hypertension recent acute pancreatitis secondary to gallbladder disease MRCP was negative for stone patient was planned to have elective cholecystectomy but for the past 24 hours patient started having severe epigastric pain worsening associated with nausea aggravated with food patient was not able to tolerate food or fluids for the last 24 hours at the ER surgery was consulted requested not to repeat imaging pending surgical evaluation patient was found to have recurrent acute pancreatitis admitted for IV hydration surgery was consulted Review of Systems Review of Systems: Twelve system review was done was negative except above PMFSH Past Medical History Medical History ADHD Degenerative disc disease Depression Elevated liver enzymes Gallstone pancreatitis Angelo's disease Hypertension Kidney stone Nausea and vomiting in adult Obesity, morbid, BMI 40.0-49.9 Pre-diabetes A1c 5.9 09/01/2021 Surgical History Surgical History H/O tubal ligation Family History Family History Father Acute Crohn's disease Liver cancer Cancer Alcoholism Mother , at 70 years old Diabetes mellitus Cancer C. difficile diarrhea Grandparent Diabetes mellitus Cancer grandmother with pancreatic cancer, grandfather with skin cancer Cerebrovascular accident Social History Social History Smoking status: Never smoker Alcohol intake: never Alcohol use details: rare glass of wine socially Substance use: never Additional living arrangements comments: Additional occupation/education comments: On disability due to chronic back pain Gender identity (if verbalized by the patient): Female Spiritual care concerns: No Meds Home Medications and Allergies Home Medications Medication Instructions Recorded Confirmed Type ergocalciferol (vitamin D2) 1,250 50,000 unit PO WEEKLY 12/13/21 12/19/21 History mcg (50,000 unit) capsule hydrochlorothiazide 12.5 mg tablet 12.5 mg PO DAILY 12/13/21 12/19/21 History levothyroxine 50 mcg PO DAILY 12/13/21 12/19/21 History ondansetron 4 mg disintegrating 4 mg PO Q6H PRN nausea and 12/15/21 12/19/21 Rx tablet vomiting #60 tabs Allergies Allergy/AdvReac Type Severity Reaction Status Date / Time No Known Allergies Allergy Verified 12/21/21 03:16 Vital Signs Vital Signs - 24 hr 12/21/21 03:16 Temperature 97.7 F Pulse Rate 74 Respiratory Rate 16 Blood Pressure 151/98 H Pulse Oximetry 98 Exam Narrative: GENERAL: In pain HEAD: Normocephalic, atraumatic. NECK: Supple. No adenopathy, no masses. RESPIRATORY: Airway patent, respirations nonlabored. Clear to auscultation bilaterally, no rales, rhonchi, wheezing. CARDIOVASCULAR: Regular rate and rhythm without murmurs, rubs, or gallops. Peripheral pulses 2+ and equal bilaterally. ABDOMINAL: Epigastric tenderness no rebound no guarding MUSCULOSKELETAL: Moves all extremities. SKIN: Warm, dry, normal color. No rashes. NEURO: A&O X3. Moves all extremities PSYCHIATRIC: Appropriate mood and affect. Normal interaction. H&P: Results Labs Labs: Short CBC 12/21/21 Range/Units 04:04 WBC 6.9 (4.5-10.0) K/mm3 Hgb 14.2 (12.0-15.0) g/dL Hct 41.7 (37.0-47.0) % Plt Count 369 (150-375) k/mm3 BMP 12/21/21 04:04 Sodium 138 Potassium 4.0 Chloride 101 Carbon Dioxide 24 BUN 7 Creatinine 0.60 L Glucose 152 H Calcium 9.4 Liver Function 12/21/21 Range/Units 04:04 Total Bilirubin 0.4 (0.2-1.3) mg/dL AST 41 H (14-36) U/L ALT 32 (6-35) U/L [place]
[2021-12-21 06:28] LABS: Basophils Percent Auto 0.5 % (0.2-1.2); Eosinophils Absolute Auto 0.2 K/mm3 (0-0.3); Eosinophils Percent Auto 4.2 % (0-4.4); Hematocrit 42.1 % (37.0-47.0); Hemoglobin 13.9 g/dL (12.0-15.0); Immature Granulocyte Absolute 0.01 K/mm3 (0.00-0.031); Immature Granulocyte Percent A 0.2 % (0-0.5); Lymphocytes Absolute Auto 1.04 K/mm3 (0.9-3.2); Mean Corpuscular Volume 87.9 fl (80-100); Mean Platelet Volume 9.9 fl (7.4-10.4); Monocytes Absolute Auto 0.3 K/mm3 (0.1-0.6); Monocytes Percent Auto 5.8 % (2.6-8.5); Neutrophils Absolute Auto 3.9 K/mm3 (1.3-6.7); Neutrophils Percent Auto 70.3 % (45.5-73.1); Platelet Count Result 338 k/mm3 (150-375); Red Blood Count 4.79 M/mm3 (4.2-5.4); Red Cell Distribution Width 13.2 % (11.5-14.5); White Blood Count 5.5 K/mm3 (4.5-10.0)
[2021-12-21 06:42] LABS: Add Urine Microscopic? YES; Amorphous Sediment Urine Few; Appearance Urine Cloudy (Clear); Bacteria Urine Trace /hpf; Bilirubin Urine Negative (Negative); Blood Urine 1+ (Negative); Color Urine Straw (Yellow); Glucose Urine UA Negative (Negative); Ketones Urine Negative (Negative); Leukocyte Esterase Ur Negative LEU/UL (Negative); Mucus Urine Rare /lpf; Nitrate Urine Negative (Negative); Protein Urine Negative (Negative); RBC Urine 0-2 /hpf (0-2); Specific Grav Ur 1.008 (1.001-1.035); Squamous Epithelial Cell Urine Occasional /hpf (Few); Urobilinogen Urine Negative mg/dL (<2.0); WBC Urine 0-3 /hpf
[2021-12-21 06:45] VITALS: BP 148/89; PULSE 88; RESP 16; O2SAT 98
[2021-12-21 06:46] LABS: Creatine Kinase 22 U/L (30-135)
[2021-12-21 06:47] LABS: Cholesterol 170 mg/dL (0-200); HDL Direct 37 mg/dL; Triglycerides 116 mg/dL (<150)
[2021-12-21 06:51] VITALS: BMI 41.0
[2021-12-21 06:51] LABS: Alanine Aminotransferase 32 U/L (6-35); Albumin Level 4.5 g/dL (3.5-5.1); Alkaline Phosphatase 102 U/L (38-126); Anion Gap 11 mmol/L (8-16); Aspartate Amino Transferase 40 U/L (14-36); Bilirubin,Total 0.5 mg/dL (0.2-1.3); Blood Urea Nitrogen 6 mg/dL (7-17); Calcium 9.1 mg/dL (8.4-10.2); Carbon Dioxide 27 mmol/L (22-30); Chloride 103 mmol/L (98-107); Estimated CRCL calculation 97 ml/min; Estimated Glomerular Filt Rate > 60; Glucose 130 mg/dL (65-110); Sodium 141 mmol/L (137-145)
[2021-12-21 06:53] VITALS: BP 142/88; PULSE 72; RESP 18; TEMP 36.4; O2SAT 100
[2021-12-21 06:54] VITALS: BMI 41.0
[2021-12-21 06:58] LABS: LDL Cholesterol Direct 96 mg/dL
[2021-12-21] MEDS: SODIUM CHLORIDE 0.9% IV 1,000 ML 175 ML IV CONT ×2 (09:08→18:19)
[2021-12-21] MEDS: PANTOPRAZOLE SODIUM IV 40 MG VIAL IV PUSH ×2 (09:11→18:21)
--- NOTE | 2021-12-21 10:55 | PM.CNGS ---
Assessment and Plan Assessment and plan (1) Gallstone pancreatitis: Code(s): K85.10 - Biliary acute pancreatitis without necrosis or infection Status: Acute Assessment and Plan: Acute recurrent biliary pancreatitis. Lipase 18K on admission. Her surgery has been canceled today due to the pancreatitis. LFTs and WBC normal. Will consult GI and get an MRCP to evaluate for choledocholithiasis. Her abdominal pain has already improved significantly. If MRCP is negative, okay to start her on a liquid diet. Continue IV fluids and medical treatment. (2) Gallstones: Code(s): K80.20 - Calculus of gallbladder without cholecystitis without obstruction Status: Acute Assessment and Plan: Plan for cholecystectomy once pancreatitis as improved. If MRCP is negative and labs are improved tomorrow, then we could potentially add her onto to the surgery schedule for . 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 Jennings. Thank you for allowing us to see the patient in consultation and we will continue to follow along with you. History of Present Illness Consult details Consult date: 12/21/21 Reason for consult: other (Recurrent pancreatitis, cholelithiasis) Requesting physician: Anthony Croft MD Narrative: This is a 51-year-old woman who is known to our service from a recent hospitalization from 12/13/2021 through 12/15/2021 for acute biliary pancreatitis. She improved and was eventually sent home and set up for an interval cholecystectomy that was scheduled for today. We had repeated labs on 12/19/2021 preoperatively to reassess her lipase and LFTs, which were normal. After discharge, the patient was feeling well with no symptoms up until yesterday. She reports ?cheating? on her diet and having 3 pieces of vivar with her breakfast yesterday morning. After eating she began feeling unwell. Over the next few hours, she developed upper abdominal pain that spread across her entire upper abdomen and just under her ribs. She reports this was a similar pain to her previous episode of pancreatitis. She denies any nausea or vomiting. She came into the ER overnight due to the abdominal pain. Labs showed a lipase of 18,000, normal white blood cell count, and normal LFTs. She was admitted to the hospitalist service. Our service was consulted for the recurrent pancreatitis, as she was scheduled for an outpatient laparoscopic cholecystectomy today. The patient is now seen on the medical floor. She reports her abdominal pain has improved significantly. She reports still feeling tender across her upper abdomen, but not really having any pain at this time. No other complaints at this time. Review of Systems Review of Systems: All systems reviewed & are unremarkable except as noted in HPI and below PMFSH Past Medical History Medical History ADHD Degenerative disc disease Depression Elevated liver enzymes Gallstone pancreatitis Angelo's disease Hypertension Kidney stone Nausea and vomiting in adult Obesity, morbid, BMI 40.0-49.9 Pre-diabetes A1c 5.9 09/01/2021 Surgical History Surgical History H/O tubal ligation Family History Family History Father Acute Crohn's disease Liver cancer Cancer Alcoholism Mother , at 70 years old Diabetes mellitus Cancer C. difficile diarrhea Grandparent Diabetes mellitus Cancer grandmother with pancreatic cancer, grandfath
--- NOTE | 2021-12-21 11:39 | PCNWS ---
Weekly nutritional screen. Patient is NPO for possible surgery. Reported weight loss has been planned. Pt's said they have stopped buying chips and other junk food. Appetite has been poor with current epigastric pain, but not chronically. No nutritional needs at this time. Follow up 7 days.
[2021-12-21 14:00] VITALS: BP 131/66; PULSE 79; RESP 18; TEMP 36.4; O2SAT 97
[2021-12-21 21:58] VITALS: BP 120/77; PULSE 83; RESP 18; TEMP 36.4; O2SAT 92
[2021-12-22] VITALS (11 sets, daily range): BP systolic 132–164; BP diastolic 63–101; PULSE 58–93; RESP 12–18; TEMP 36.1–36.7; O2SAT 92–100
[2021-12-22] MEDS: SODIUM CHLORIDE 0.9% IV 1,000 ML 175 ML IV CONT (00:20)
[2021-12-22 06:42] LABS: Basophils Absolute Auto 0.1 K/mm3 (0.0-0.1); Basophils Percent Auto 0.7 % (0.2-1.2); Eosinophils Absolute Auto 0.3 K/mm3 (0-0.3); Eosinophils Percent Auto 4.8 % (0-4.4); Hematocrit 37.8 % (37.0-47.0); Hemoglobin 12.7 g/dL (12.0-15.0); Immature Granulocyte Absolute 0.01 K/mm3 (0.00-0.031); Immature Granulocyte Percent A 0.1 % (0-0.5); Lymphocytes Percent Auto 16.4 % (18.3-44.2); Mean Corpuscular HGB Conc 33.6 g/dl (32-36); Mean Corpuscular Hemoglobin 28.9 pg (26-34); Mean Corpuscular Volume 85.9 fl (80-100); Mean Platelet Volume 9.6 fl (7.4-10.4); Monocytes Absolute Auto 0.4 K/mm3 (0.1-0.6); Neutrophils Absolute Auto 4.8 K/mm3 (1.3-6.7); Platelet Count Result 311 k/mm3 (150-375); White Blood Count 6.7 K/mm3 (4.5-10.0)
[2021-12-22 07:08] LABS: Alanine Aminotransferase 25 U/L (6-35); Albumin Level 4.1 g/dL (3.5-5.1); Alkaline Phosphatase 93 U/L (38-126); Anion Gap 12 mmol/L (8-16); Aspartate Amino Transferase 28 U/L (14-36); Bilirubin,Total 0.6 mg/dL (0.2-1.3); Blood Urea Nitrogen 4 mg/dL (7-17); Calcium 9.1 mg/dL (8.4-10.2); Carbon Dioxide 25 mmol/L (22-30); Chloride 103 mmol/L (98-107); Estimated CRCL calculation 97 ml/min; Estimated Glomerular Filt Rate > 60; Glucose 111 mg/dL (65-110); Lipase 1693 U/L (23-300); Potassium 3.7 mmol/L (3.4-5.0); Sodium 140 mmol/L (137-145)
[2021-12-22] MEDS: CHLORHEXIDINE GLUCONATE 4% SOL 120 ML BTL 1 APPLIC TOPICAL (08:29)
[2021-12-22] MEDS: PANTOPRAZOLE SODIUM IV 40 MG VIAL IV PUSH ×2 (08:29→17:04)
--- NOTE | 2021-12-22 09:30 | WPDGICN ---
Assessment and Plan Assessment and plan (1) Gallstone pancreatitis: Code(s): K85.10 - Biliary acute pancreatitis without necrosis or infection Status: Acute Assessment and Plan: mrcp reviewed, no need of ercp doing better but will go for lap armida later day (2) Nausea and vomiting in adult: Code(s): R11.2 - Nausea with vomiting, unspecified Status: Acute Assessment and Plan: better, from pancreatitis (3) Elevated liver enzymes: Code(s): R74.8 - Abnormal levels of other serum enzymes Status: Acute Assessment and Plan: monitor (4) Upper abdominal pain: Code(s): R10.10 - Upper abdominal pain, unspecified Status: Acute Assessment and Plan: improving GI Consult Note Consult date/time: 12/22/21 09:30 Reason for consult: GS pancreatitis HPI: Jade Laguna is a 51 year old female with past medical history of hypothyroidism hypertension with recent hospitalization for acute pancreatitis secondary to gallbladder disease, had MRCP that was negative for choledocholithiasis. Patient was supposed to have elective cholecystectomy soon but again with severe epigastric pain with radiation to back and nausea with vomiting. Blood work again consistent with GS pancreatitis with high lipase. New MRCP c/w GS pancreatitis, no stones in bile duct. She will have lap armida today, doing better. Review of Systems Review of Systems: All systems reviewed & are unremarkable except as noted in HPI and below Constitutional: Constitutional: Denies chills, Denies fatigue and Denies fever(s) ENT: Denies nasal congestion and Denies sore throat Cardiovascular: Cardiovascular: Denies chest pain, Denies rapid heart rate and Denies radiating jaw, neck or arm pain Respiratory: Respiratory: Denies cough and Denies dyspnea Gastrointestinal: Gastrointestinal: Reports abdominal pain, Denies diarrhea, Reports nausea and Denies vomiting Genitourinary: Genitourinary: Denies nocturia, Denies dysuria and Denies flank pain [facility] Past Medical History Medical History (Updated 12/22/21 @ 15:56 by Gus Gloria MD) ADHD Degenerative disc disease Depression Elevated liver enzymes Gallstone pancreatitis Angelo's disease Hypertension Kidney stone Nausea and vomiting in adult Obesity, morbid, BMI 40.0-49.9 Pre-diabetes A1c 5.9 09/01/2021 Upper abdominal pain Surgical History Surgical History H/O tubal ligation Family History Family History Father Acute Crohn's disease Liver cancer Cancer Alcoholism Mother , at 70 years old Diabetes mellitus Cancer C. difficile diarrhea Grandparent Diabetes mellitus Cancer grandmother with pancreatic cancer, grandfather with skin cancer Cerebrovascular accident Social History Social History Smoking status: Never smoker Second hand tobacco smoke exposure: No Alcohol intake: former Alcohol use details: rare glass of wine socially Substance use: never Additional living arrangements comments: Additional occupation/education comments: On disability due to chronic back pain Gender identity (if verbalized by the patient): Female Spiritual care concerns: No Meds Home Medications and Allergies Home Medications Medication Instructions Recorded Confirmed Type ergocalciferol (vitamin D2) 1,250 50,000 unit PO WEEKLY 12/13/21 12/21/21 History mcg (50,000 unit) capsule hydrochlorothiazide 12.5 mg tablet 12.5 mg PO DAILY 12/13/21 12/21/21 History levothyroxine 50 mcg PO DAILY 12/13/21 12/21/21 History ondansetron 4 mg disintegrating 4 mg PO Q6H PRN nausea and 12/15/21 12/21/21 Rx tablet vomiting #60 tabs hydrocodone 5 mg-acetaminophen 325 1 tablet PO Q6H PRN pain #20 tabs
--- NOTE | 2021-12-22 09:41 | WPDHPUPDATE1 ---
History and Physical Update Update Date/Time: 12/22/21 09:41 History and Physical has been reviewed, including an updated exam of the patient. There are NO changes in the patient's condition. Risks, benefits, and alternatives have been discussed and questions answered. Patient agrees to proceed with procedure.
--- NOTE | 2021-12-22 09:42 | PM.IMPN ---
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 IV hydralazine (5) Acute pancreatitis: Code(s): K85.90 - Acute pancreatitis without necrosis or infection, unspecified Status: Acute (6) Cholelithiasis: Qualifiers: Biliary obstruction: without biliary obstruction Cholecystitis presence: without cholecystitis Cholelithiasis location: gallbladder Qualified Code(s): K80.20 - Calculus of gallbladder without cholecystitis without obstruction Code(s): K80.20 - Calculus of gallbladder without cholecystitis without obstruction Status: Acute Assessment and Plan: MRCP noted, no choledocholithiasis, went to the OR for lap armida today Plan DVT prophylaxis with SCDs GI prophylaxis not indicated Code status full code Subjective Date/time seen: 12/22/21 09:42 Interval history: No overnight events noted. No fevers. Tried multiple times to see patient today, she was previously an MRCP and then in the OR for cholecystectomy. Objective Data Vital Signs Vital Signs: Vital Signs - 24 hr 12/21/21 14:00 12/21/21 21:58 12/22/21 06:00 Temperature 97.6 F 97.5 F L 97.0 F L Pulse Rate 79 83 79 Respiratory Rate 18 18 18 Blood Pressure 131/66 120/77 137/88 Pulse Oximetry 97 92 99 Intake/Output Intake/Output: Intake & Output 12/19/21 12/20/21 12/21/21 12/22/21 23:59 23:59 23:59 23:59 Intake Total 2275 1150 Output Total 2200 1500 Balance 75 -350 Meds/Results Medications: Active Medications Generic Name Dose Route Start Last Admin Trade Name Maria Alejandra PRN Reason Stop Dose Admin Acetaminophen 650 mg 12/21/21 05:25 Acetaminophen 325 Mg Tablet PO Q4H PRN Mild Pain (1-3) or Fever Hydrocodone Bitart/Acetaminophen 1 tab 12/21/21 05:25 Hydrocodone/Acetaminophen (*Crx) 5-325 Mg Tablet PO Q4H PRN Moderate Pain (4-6) Sodium Chloride 1,000 mls @ 175 mls/hr 12/21/21 05:25 12/22/21 07:37 Normal Saline Iv IV CONT Not Given .Q5H43M LINDY Lactated Ringer's 1,000 mls @ 30 mls/hr 12/22/21 08:10 Lr - Lactated Ringers Iv IV CONT .Q24H LINDY Morphine Sulfate 2 mg 12/21/21 05:25 Morphine Sulfate (*Crx) 2 Mg/Ml Inj IV PUSH Q4H PRN Pain Rated 7-10 Ondansetron HCl 4 mg 12/21/21 05:26 Ondansetron Inj 4 Mg/2 Ml Vial IV PUSH Q4H PRN Nausea Pantoprazole Sodium 40 mg 12/21/21 09:00 12/22/21 08:29 Pantoprazole Sodium Iv 40 Mg Vial IV PUSH 40 mg BID LINDY Administration Radiology Results: ITS Impressions MRCP 12/21/21 12:52 IMPRESSION: 1. Acute interstitial pancreatitis. 2. Mildly dilated common duct. No choledocholithiasis. 3. Cholelithiasis and gallbladder distention. No gallbladder wall thickening to suggest acute cholecystitis. Labs Labs: Laboratory Results - last 24 hr 12/22/21 12/22/21 12/22/21 06:26 06:26 06:26 WBC 6.7 RBC 4.40 Hgb 12.7 Hct 37.8 MCV 85.9 MCH 28.9 MCHC 33.6 RDW 13.0 Plt Count 311 MPV 9.6 Immature Gran % (Auto) 0.1 Neut % (Auto) 72.0 Lymph % (Auto) 16.4 L [place] % (Auto) 6.0 Eos % (Auto) 4.8 H Baso % (Auto) 0.7 Lymph # (Auto) 1.10 [place] # (Auto) 0.4 Eos # (Auto) 0.3 Baso # (Auto) 0.1 Abs Immat Gran (auto) 0.01 Absolute Neuts
[2021-12-22] MEDS: SODIUM CHLORIDE 0.9% IV 1,000 ML 125 ML IV CONT (12:03)
--- NOTE | 2021-12-22 12:35 | PC.NURSE ---
To OR via bed.
[2021-12-22] MEDS: LACTATED RINGERS 1,000 ML 30 ML IV CONT (13:00)
--- NOTE | 2021-12-22 13:16 | WPDANESEPPF ---
Anes - Initial Pre Proc Eval Procedure: Operation Date: 12/22/21 14:30 Proposed Procedures p Laparoscopic Cholecystectomy - Bambi Jennings MD Date/Time: 12/22/21 13:16 Surgeon: Augustine Ramsay MD Pre Op Diagnosis: pancreatitis Patient Data Age: 51 Gender: F Height: 1.52 m Weight: 95.3 kg Last Vital Signs Temp 36.5 C 12/22/21 12:44 Pulse 75 12/22/21 12:44 Resp 18 12/22/21 12:44 BP 143/91 H 12/22/21 12:44 Pulse Ox 99 12/22/21 12:44 O2 Del Method Room Air 12/22/21 12:44 Allergies Allergy/AdvReac Type Severity Reaction Status Date / Time No Known Allergies Allergy Verified 12/22/21 11:01 Home Medications Medication Instructions Recorded Confirmed Type ergocalciferol (vitamin D2) 1,250 50,000 unit PO WEEKLY 12/13/21 12/21/21 History mcg (50,000 unit) capsule hydrochlorothiazide 12.5 mg tablet 12.5 mg PO DAILY 12/13/21 12/21/21 History levothyroxine 50 mcg PO DAILY 12/13/21 12/21/21 History ondansetron 4 mg disintegrating 4 mg PO Q6H PRN nausea and 12/15/21 12/21/21 Rx tablet vomiting #60 tabs Laboratory Tests 12/22/21 12/22/21 12/22/21 06:26 06:26 06:26 WBC 6.7 K/mm3 K/mm3 (4.5-10.0) RBC 4.40 M/mm3 M/mm3 (4.2-5.4) Hgb 12.7 g/dL g/dL (12.0-15.0) Hct 37.8 % % (37.0-47.0) MCV 85.9 fl fl (80-100) MCH 28.9 pg pg (26-34) MCHC 33.6 g/dl g/dl (32-36) RDW 13.0 % % (11.5-14.5) Plt Count 311 k/mm3 k/mm3 (150-375) MPV 9.6 fl fl (7.4-10.4) Immature Gran % (Auto) 0.1 % % (0-0.5) Neut % (Auto) 72.0 % % (45.5-73.1) Lymph % (Auto) 16.4 % L % (18.3-44.2) [place] % (Auto) 6.0 % % (2.6-8.5) Eos % (Auto) 4.8 % H % (0-4.4) Baso % (Auto) 0.7 % % (0.2-1.2) Lymph # (Auto) 1.10 K/mm3 K/mm3 (0.9-3.2) [place] # (Auto) 0.4 K/mm3 K/mm3 (0.1-0.6) Eos # (Auto) 0.3 K/mm3 K/mm3 (0-0.3) Baso # (Auto) 0.1 K/mm3 K/mm3 (0.0-0.1) Abs Immat Gran (auto) 0.01 K/mm3 K/mm3 (0.00-0.031) Absolute Neuts (auto) 4.8 K/mm3 K/mm3 (1.3-6.7) Absolute Nucleated RBC 0.0 K/mm3 K/mm3 (0.0-0.012) Nucleated RBC % 0.0 % % (0.0-0.2) Sodium 140 mmol/L mmol/L (137-145) Potassium 3.7 mmol/L mmol/L (3.4-5.0) Chloride 103 mmol/L mmol/L (98-107) Carbon Dioxide 25 mmol/L mmol/L (22-30) Anion Gap 12 mmol/L mmol/L (8-16) BUN 4 mg/dL L mg/dL (7-17) Creatinine 0.60 mg/dL L mg/dL (0.7-1.0) Estim Creat Clear Calc 97 ml/min ml/min Estimated GFR > 60 (59 - ) Glucose 111 mg/dL H mg/dL (65-110) Calcium 9.1 mg/dL mg/dL (8.4-10.2) Total Bilirubin 0.6 mg/dL mg/dL (0.2-1.3) AST 28 U/L U/L (14-36) ALT 25 U/L U/L (6-35) Alkaline Phosphatase 93 U/L U/L (38-126) Total Protein 7.0 g/dL g/dL (6.3-8.2) Albumin 4.1 g/dL g/dL (3.5-5.1) Lipase 1693 U/L H U/L (23-300) Blood Type O Positive Antibody Screen Negative Patient hx anesthesia problems: none Family hx anesthesia problems: none Results Review: All pre-operative results and documents have been reviewed as part of the pre-operative evaluation. [facility] Past Medical History Medical History ADHD Degenerative disc disease Depression Elevated liver enzymes Gallstone pancreatitis Angelo's disease Hypertension Kidney stone Nausea and vomiting in adult Obesity, morbid, BMI 40.0-49.9 Pre-diabetes A1c 5.9 09/01/2021 Surgical History Surgical History H/O tubal ligation Family History Family History
[2021-12-22] MEDS: BUPIVACAINE/EPINEPHRINE 0.25% 50 ML VIAL 30 ML INFILTRATE (13:42)
[2021-12-22] MEDS: ceFAZolin 2 GM/D5W 50 ML 2 GM/50 ML BAG IVPB (13:45)
--- NOTE | 2021-12-22 14:44 | W.PM.PROC2 ---
Procedure Note - Detailed Date of Procedure 12/22/21 Pre-op Diagnosis biliary pancreatitis Post-op Diagnosis Same Procedure Performed Laparoscopic cholecystectomy Surgeon Bambi Jennings MD Anesthesia General Indications 51 y/o F presenting c biliary pancreatitis. Enzymes improving and MRCP negative for choledocholithiasis and now presents for interval cholecystectomy Findings Cholecystitis, cholelithiasis Description of Procedure The patient was taken to the operating room placed in the supine position. After adequate induction of general anesthesia, the patient was prepped and draped in normal sterile fashion. A time-out was then performed to verify the patient's identity as well as the procedure being performed. I then made a 5 mm incision in the infraumbilical region. Through this, a Veress needle was placed into the peritoneal cavity and CO2 gas was then insufflated. After adequate pneumoperitoneum was achieved, the Veress needle was removed and a 5 mm optiview trocar was placed through this incision under direct visualization. I then placed the laparoscope through this trocar site and under direct visualization placed a further 12 mm subxiphoid port as well as 2 additional 5 mm ports in the right upper abdomen. The gallbladder was then identified and was noted to be moderately inflamed, distended, and full of gallstones. I was able to place a grasper at the dome of the gallbladder and this was retracted anterior and cephalad up over the liver. A 2nd retractor was then placed at the infundibulum and retracted laterally, this allowed visualization of the triangle of Calot. I then was able to visualize the cystic duct in its entirety from its proximal insertion into the gallbladder, to its distal junction with the common hepatic/common bile duct junction. At this point, I carefully skeletonized the proximal cystic duct with the [place] dissector. I then clipped and transected the proximal cystic duct. Next I visualized the cystic artery. Again the artery was skeletonized, clipped, and transected. I then used the Bovie cautery to take down the peritoneal attachments of the gallbladder off the liver bed. Once the gallbladder specimen was completely detached, an endo-pouch was placed through the 12 mm port site. The placed the specimen into the Endo pouch and removed the endo-pouch from the 12 mm port site. The specimen will now be sent to pathology for further review. I then copiously irrigated the right upper quadrant. Hemostasis was noted in the liver bed, the clips were noted to be in good position on both the cystic duct stump and the cystic artery stump. No other pathology was noted in the right upper quadrant. I then moved the laparoscope to the subxiphoid port. No iatrogenic injury or other pathology was noted in the lower abdomen. I then closed the 12 mm trocar site under direct visualization using the Compa cone and 0 Vicryl suture. At this point, the abdomen was desufflated and all ports removed. All port sites were then closed with 4.O Monocryl subcuticular sutures. Dermabond was placed on each incision. The patient tolerated the procedure well, was extubated in the operating room postoperative and will be transferred to the recovery room in stable condition Estimated Blood Loss 5 Drains No Packing No Pathology Yes Complications No immediate complications Condition Stable Disposition PACU [facility] Billing Surgery - Charge Forward: Surgery Billing
[2021-12-22] MEDS: fentaNYL CITRATE INJ (*CRX) 100 MCG/2 ML VIAL 25 MCG IV PUSH ×3 (15:22→16:00)
--- NOTE | 2021-12-22 16:15 | PC.NURSE ---
Back from OR via bed.
[2021-12-22] MEDS: MORPHINE SULFATE (*CRX) 2 MG/ML INJ IV PUSH ×2 (17:55→21:47)
[2021-12-22] MEDS: HYDROcodone/acetaminophen (*CRX) 5-325 MG TABLET 1 TAB PO (18:56)
[2021-12-23] MEDS: SODIUM CHLORIDE 0.9% IV 1,000 ML 125 ML IV CONT (01:08)
[2021-12-23] MEDS: HYDROcodone/acetaminophen (*CRX) 5-325 MG TABLET 1 TAB PO ×2 (01:32→06:17)
[2021-12-23] MEDS: LEVOTHYROXINE SODIUM 50 MCG TABLET PO (06:17)
[2021-12-23 06:19] VITALS: BP 145/57; PULSE 57; RESP 16; TEMP 36.1; O2SAT 96
[2021-12-23 07:17] LABS: Basophils Percent Auto 0.4 % (0.2-1.2); Eosinophils Percent Auto 0.1 % (0-4.4); Hemoglobin 12.2 g/dL (12.0-15.0); Immature Granulocyte Absolute 0.02 K/mm3 (0.00-0.031); Immature Granulocyte Percent A 0.3 % (0-0.5); Lymphocytes Absolute Auto 0.85 K/mm3 (0.9-3.2); Lymphocytes Percent Auto 12.2 % (18.3-44.2); Mean Corpuscular HGB Conc 33.9 g/dl (32-36); Mean Corpuscular Hemoglobin 28.6 pg (26-34); Mean Corpuscular Volume 84.3 fl (80-100); Monocytes Absolute Auto 0.4 K/mm3 (0.1-0.6); Monocytes Percent Auto 5.7 % (2.6-8.5); Neutrophils Absolute Auto 5.7 K/mm3 (1.3-6.7); Neutrophils Percent Auto 81.3 % (45.5-73.1); Platelet Count Result 333 k/mm3 (150-375); Red Blood Count 4.27 M/mm3 (4.2-5.4); Red Cell Distribution Width 12.7 % (11.5-14.5)
[2021-12-23 07:21] LABS: Alanine Aminotransferase 23 U/L (6-35); Albumin Level 3.8 g/dL (3.5-5.1); Alkaline Phosphatase 88 U/L (38-126); Anion Gap 13 mmol/L (8-16); Aspartate Amino Transferase 32 U/L (14-36); Bilirubin,Total 0.5 mg/dL (0.2-1.3); Blood Urea Nitrogen 6 mg/dL (7-17); Calcium 9.1 mg/dL (8.4-10.2); Carbon Dioxide 20 mmol/L (22-30); Chloride 103 mmol/L (98-107); Estimated CRCL calculation 115 ml/min; Estimated Glomerular Filt Rate > 60; Glucose 93 mg/dL (65-110); Potassium 3.8 mmol/L (3.4-5.0); Sodium 136 mmol/L (137-145)
[2021-12-23] MEDS: PANTOPRAZOLE SODIUM IV 40 MG VIAL IV PUSH (08:17)
--- NOTE | 2021-12-23 10:03 | PM.IMPN ---
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 IV hydralazine (5) Acute pancreatitis: Code(s): K85.90 - Acute pancreatitis without necrosis or infection, unspecified Status: Acute (6) Cholelithiasis: Qualifiers: Cholelithiasis location: gallbladder Cholecystitis presence: without cholecystitis Biliary obstruction: without biliary obstruction Qualified Code(s): K80.20 - Calculus of gallbladder without cholecystitis without obstruction Code(s): K80.20 - Calculus of gallbladder without cholecystitis without obstruction Status: Acute Assessment and Plan: MRCP noted, no choledocholithiasis, went to the OR for lap armida today Plan DVT prophylaxis with SCDs GI prophylaxis not indicated Code status full code Subjective Date/time seen: 12/23/21 10:03 Objective Data Vital Signs Vital Signs: Vital Signs - 24 hr 12/22/21 12:44 12/22/21 14:45 12/22/21 15:00 Temperature 97.7 F 97.7 F Pulse Rate 75 67 72 Respiratory Rate 18 16 12 Blood Pressure 143/91 H 132/63 146/74 H Pulse Oximetry 99 100 98 Oxygen Delivery Room Air Simple Face Mask Simple Face Mask Oxygen Flow Rate 8 8 12/22/21 15:15 12/22/21 15:30 12/22/21 15:45 Temperature Pulse Rate 66 58 L 64 Respiratory Rate 18 16 15 Blood Pressure 155/76 H 146/72 H 153/76 H Pulse Oximetry 97 94 94 Oxygen Delivery Room Air Nasal Cannula Nasal Cannula Oxygen Flow Rate 2 2 12/22/21 16:00 12/22/21 16:36 12/22/21 18:54 Temperature 97.8 F 98.1 F Pulse Rate 65 93 68 Respiratory Rate 16 18 18 Blood Pressure 149/82 H 139/90 164/101 H Pulse Oximetry 93 92 93 Oxygen Delivery Nasal Cannula Oxygen Flow Rate 2 12/22/21 22:14 12/22/21 20:00 12/23/21 06:19 Temperature 98.1 F 96.9 F L Pulse Rate 88 57 L Respiratory Rate 18 16 Blood Pressure 134/90 145/57 H Pulse Oximetry 97 96 Oxygen Delivery Room Air Oxygen Flow Rate Intake/Output Intake/Output: Intake & Output 12/20/21 12/21/21 12/22/21 12/23/21 23:59 23:59 23:59 23:59 Intake Total 2275 3610 1790 Output Total 2200 2400 2350 Balance 75 1210 -560 Meds/Results Medications: Active Medications Generic Name Dose Route Start Last Admin Trade Name Freq PRN Reason Stop Dose Admin Acetaminophen 650 mg 12/21/21 05:25 Acetaminophen 325 Mg Tablet PO Q4H PRN Mild Pain (1-3) or Fever Hydrocodone Bitart/Acetaminophen 1 tab 12/21/21 05:25 12/23/21 06:17 Hydrocodone/Acetaminophen (*Crx) 5-325 Mg Tablet PO 1 tab Q4H PRN Administration Moderate Pain (4-6) Ergocalciferol 50,000 units 12/26/21 09:00 Ergocalciferol 50,000 Units Capsule PO Mo@0900 LINDY Hydrochlorothiazide 12.5 mg 12/23/21 09:00 Hydrochlorothiazide 12.5 Mg Capsule PO DAILY [facility] Sodium Chloride 1,000 mls @ 125 mls/hr 12/21/21 05:25 12/23/21 08:13 Normal Saline Iv IV CONT Not Given .Q8H LINDY Levothyroxine Sodium 50 mcg 12/23/21 06:30 12/23/21 06:17 Levothyroxine Sodium 50 Mcg Tablet PO 50 mcg DAILY@0630 LINDY Administration Morphine Sulfate 2 mg 12/21/21 05:25 12/22/21 21:47 Morphine Sulfate (*Crx) 2 Mg/Ml Inj IV PUSH 2 mg Q4H PRN Administration Pain Rated 7-10 Ondansetron HCl 4 mg 12/21/21 05:26 Ondansetron Inj 4 Mg/2 Ml Vial
[2021-12-23] MEDS: hydroCHLOROthiazide 12.5 MG CAPSULE PO (10:15)
--- NOTE | 2021-12-23 10:16 | WPDANLDPN2 ---
Anes-Prog Note L&D Date/Time: 12/23/21 10:16 Comfortable throughout: labor and delivery Neuraxial method: epidural Epidural/Spinal procedure site: clean & non-tender Neuro status: Neuro function grossly intact. Cardiovascular status: normal Respiratory status: normal Airway patency: baseline Mental status: baseline Post-Op hydration status: normal Vital Signs: Last Vital Signs Temp 36.1 C L 12/23/21 06:19 Pulse 57 L 12/23/21 06:19 Resp 16 12/23/21 06:19 BP 145/57 H 12/23/21 06:19 Pulse Ox 96 12/23/21 06:19 O2 Del Method Room Air 12/22/21 20:00 O2 Flow Rate 2 12/22/21 16:00 Pain score (VAS): 03/21 I/O: Intake & Output 12/22/21 12/23/21 12/23/21 23:59 07:59 15:59 Intake Total 760 1550 240 Output Total 900 1750 600 Balance -140 -200 -360 Post-procedural complaints: none Patient feedback: Patient satisfied with anesthetic care.
--- NOTE | 2021-12-23 10:16 | PM.DS ---
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 (2) Pre-diabetes: Code(s): R73.03 - Prediabetes Status: Chronic (3) Obesity, morbid, BMI 40.0-49.9: Code(s): E66.01 - Morbid (severe) obesity due to excess calories Status: Chronic (4) Hypertension: Code(s): I10 - Essential (primary) hypertension Status: Chronic (5) Acute pancreatitis: Code(s): K85.90 - Acute pancreatitis without necrosis or infection, unspecified Status: Acute (6) Cholelithiasis: Qualifiers: Biliary obstruction: without biliary obstruction Cholecystitis presence: without cholecystitis Cholelithiasis location: gallbladder Qualified Code(s): K80.20 - Calculus of gallbladder without cholecystitis without obstruction Code(s): K80.20 - Calculus of gallbladder without cholecystitis without obstruction Status: Acute DS: Summary Hospital Course Hospital Course: 51 years old female with past medical history of hypothyroidism hypertension recent acute pancreatitis secondary to gallbladder disease MRCP was negative for stone patient was planned to have elective cholecystectomy but for the past 24 hours patient started having severe epigastric pain worsening associated with nausea aggravated with food patient was not able to tolerate food or fluids for the last 24 hours at the ER surgery was consulted requested not to repeat imaging pending surgical evaluation patient was found to have recurrent acute pancreatitis admitted for IV hydration surgery was consulted. GI was consulted ordered MRCP. No choledocholithiasis noted. General surgery was consulted and recommended acute cholecystectomy. This was performed laparoscopically patient did well. Postoperatively patient did quite well on and was cleared for discharge by general surgery and GI with close outpatient follow-up. Time Spent with Patient Time attestation: Total time spent providing and/or coordinating discharge services: DS: Data Data Completed and Pending Pending studies at discharge: Pending at discharge 12/22/21 14:10 Surgical [PTH] Routine Labs on day of discharge: Labs from last 24 hours 12/23/21 12/23/21 06:47 06:47 WBC 7.0 RBC 4.27 Hgb 12.2 Hct 36.0 L MCV 84.3 MCH 28.6 MCHC 33.9 RDW 12.7 Plt Count 333 MPV 10.0 Immature Gran % (Auto) 0.3 Neut % (Auto) 81.3 H Lymph % (Auto) 12.2 L Edwards % (Auto) 5.7 Eos % (Auto) 0.1 Baso % (Auto) 0.4 Lymph # (Auto) 0.85 L Edwards # (Auto) 0.4 Eos # (Auto) 0.0 Baso # (Auto) 0.0 Abs Immat Gran (auto) 0.02 Absolute Neuts (auto) 5.7 Absolute Nucleated RBC 0.0 Nucleated RBC % 0.0 Sodium 136 L Potassium 3.8 Chloride 103 Carbon Dioxide 20 L Anion Gap 13 BUN 6 L Creatinine 0.50 L Estim Creat Clear Calc 115 Estimated GFR > 60 Glucose 93 Calcium 9.1 Total Bilirubin 0.5 AST 32 ALT 23 Alkaline Phosphatase 88 Total Protein 7.0 Albumin 3.8 Discharge Plan Discharge Attending physician on discharge: Chantel Llanos Consulting providers: Bambi Jennings ; Oscar Cortés Discharging Clinician: Chantel Llanos Patient Disposition: Home, Self-Care Activity: other - see discharge instructions Diet: other - see discharge instructions Wound Care Instructions: other - see discharge instructions Discharge Instructions: DISCHARGE INSTRUCTION SHEET FOR HERNIA, GALLBLADDER AND APPENDIX SURGERIES DR. JENNINGS PATIENT TO TAKE HOME 1. May shower in 24 hours, no soaking in bath x 2weeks. 2. Call office for: Wound increasingly painful or bleeding Vomiting Fever of greater than 101 degrees 3. If no bowel movement for three days, take 1 oz. (30 ml) Milk of Magnes
[2021-12-23 10:29] VITALS: O2SAT 95
--- NOTE | 2021-12-23 10:34 | PM.PNGS ---
Progress Note: A&P Assessment and Plan (1) Gallstone pancreatitis: Code(s): K85.10 - Biliary acute pancreatitis without necrosis or infection Status: Acute Assessment and Plan: doing well s/p lap armida, home c instructions for routine postop care, po analgesia, f/u 2 wks Subjective Subjective Date/Time Seen: 12/23/21 10:34 doing well, deepak diet, wants to go home Review of Systems Review of Systems: All systems reviewed & are unremarkable except as noted in HPI and below Exam Const: General: cooperative, comfortable and no acute distress Resp: Auscultation: clear to auscultation bilaterally Cardio: Rate: regular rate Rhythm: regular rhythm GI: Inspection: normal to inspection, non-distended and incision GI Palp: Yes abdominal tenderness, Yes Soft to palpation, Yes Tenderness to palpation present (GI), No Guarding due to palpation present (GI) and No Rigid due to palpation Objective Data Vital Signs Vital Signs: Vital Signs - 24 hr 12/22/21 12:44 12/22/21 14:45 12/22/21 15:00 Temperature 36.5 C 36.5 C Pulse Rate 75 67 72 Respiratory Rate 18 16 12 Blood Pressure 143/91 H 132/63 146/74 H Pulse Oximetry 99 100 98 Oxygen Delivery Room Air Simple Face Mask Simple Face Mask Oxygen Flow Rate 8 8 12/22/21 15:15 12/22/21 15:30 12/22/21 15:45 Temperature Pulse Rate 66 58 L 64 Respiratory Rate 18 16 15 Blood Pressure 155/76 H 146/72 H 153/76 H Pulse Oximetry 97 94 94 Oxygen Delivery Room Air Nasal Cannula Nasal Cannula Oxygen Flow Rate 2 2 12/22/21 16:00 12/22/21 16:36 12/22/21 18:54 Temperature 36.6 C 36.7 C Pulse Rate 65 93 68 Respiratory Rate 16 18 18 Blood Pressure 149/82 H 139/90 164/101 H Pulse Oximetry 93 92 93 Oxygen Delivery Nasal Cannula Oxygen Flow Rate 2 12/22/21 22:14 12/22/21 20:00 12/23/21 06:19 Temperature 36.7 C 36.1 C L Pulse Rate 88 57 L Respiratory Rate 18 16 Blood Pressure 134/90 145/57 H Pulse Oximetry 97 96 Oxygen Delivery Room Air Oxygen Flow Rate 12/23/21 10:29 Temperature Pulse Rate Respiratory Rate Blood Pressure Pulse Oximetry 95 Oxygen Delivery Room Air Oxygen Flow Rate Intake/Output Intake/Output: Intake & Output 12/20/21 12/21/21 12/22/21 12/23/21 23:59 23:59 23:59 23:59 Intake Total 2275 3610 1790 Output Total 2200 2400 2350 Balance 75 1210 -560 Meds/Results Medications: Active Medications Generic Name Dose Route Start Last Admin Trade Name Freq PRN Reason Stop Dose Admin Acetaminophen 650 mg 12/21/21 05:25 Acetaminophen 325 Mg Tablet PO Q4H PRN Mild Pain (1-3) or Fever Hydrocodone Bitart/Acetaminophen 1 tab 12/21/21 05:25 12/23/21 06:17 Hydrocodone/Acetaminophen (*Crx) 5-325 Mg Tablet PO 1 tab Q4H PRN Administration Moderate Pain (4-6) Ergocalciferol 50,000 units 12/26/21 09:00 Ergocalciferol 50,000 Units Capsule PO Mo@0900 LINDY Hydrochlorothiazide 12.5 mg 12/23/21 09:00 12/23/21 10:15 Hydrochlorothiazide 12.5 Mg Capsule PO 12.5 mg DAILY LINDY Administration Sodium Chloride 1,000 mls @ 125 mls/hr 12/21/21 05:25 12/23/21 10:15 Normal Saline Iv IV CONT Not Given .Q8H LINDY Levothyroxine Sodium 50 mcg 12/23/21 06:30 12/23/21 06:17 Levothyroxine Sodium 50 Mcg Tablet PO 50 mcg DAILY@0630 LINDY Administration Morphine Sulfate 2 mg 12/21/21 05:25 12/22/21 21:47 Morphine Sulfate (*Crx) 2 Mg/Ml Inj IV PUSH 2 mg Q4H PRN Administration Pain Rated 7-10 Ondansetron HCl 4 mg 12/21/21 05:26 Ondansetron Inj 4 Mg/2 Ml Vial IV PUSH Q4H PRN Nausea Ondansetron HCl 4 mg 12/22/21 16:08 Ondansetron Hcl Odt 4 Mg Tablet PO Q6H PRN nausea and vomiting Pantoprazole Sodium 40 mg 12/21/21 09:00 12/23/21 08:17 Pantoprazole Sodium Iv 40 Mg Vial IV PUSH 40 mg BID LINDY Administration Radiology Results: ITS Impressions MRCP 12/21/21 12:52 IMPRESSION: 1. Acute interstiti
[2021-12-23 14:27] VITALS: BP 150/88; PULSE 95; RESP 16; TEMP 36.3; O2SAT 95
--- NOTE | 2021-12-23 14:28 | WPDGIPROGNO ---
Progress Note: A&P Assessment and Plan (1) Gallstone pancreatitis: Code(s): K85.10 - Biliary acute pancreatitis without necrosis or infection Status: Acute Assessment and Plan: s/p lap cholecystectomy recovering no n/v (2) Upper abdominal pain: Code(s): R10.10 - Upper abdominal pain, unspecified Status: Acute Assessment and Plan: improved (3) Nausea and vomiting in adult: Code(s): R11.2 - Nausea with vomiting, unspecified Status: Acute Assessment and Plan: resolved Subjective Date/time seen: 12/23/21 14:28 Interval history: doing well, recovering from lap armida and probably going home later today Review of Systems Review of Systems: All systems reviewed & are unremarkable except as noted in HPI and below Exam Const: General: comfortable and no acute distress HENMT: Face/Nose/Sinus: Normal nares present Eyes: General: appearance normal, both eyes and all related structures Neck: Neck: no JVD Resp: Auscultation: clear to auscultation bilaterally Cardio: Rate: regular rate Rhythm: regular rhythm GI: Inspection: non-distended GI Palp: Yes Soft to palpation Other: s/p lap armida Skin: General skin exam: normal color Neuro: General: gait normal Speech: normal speech Extrem: General: normal to inspection Psych: Mental Status: mental status grossly normal Objective Data Vital Signs Vital Signs: Vital Signs - 24 hr 12/22/21 14:45 12/22/21 15:00 12/22/21 15:15 Temperature 97.7 F Pulse Rate 67 72 66 Respiratory Rate 16 12 18 Blood Pressure 132/63 146/74 H 155/76 H Pulse Oximetry 100 98 97 Oxygen Delivery Simple Face Mask Simple Face Mask Room Air Oxygen Flow Rate 8 8 12/22/21 15:30 12/22/21 15:45 12/22/21 16:00 Temperature Pulse Rate 58 L 64 65 Respiratory Rate 16 15 16 Blood Pressure 146/72 H 153/76 H 149/82 H Pulse Oximetry 94 94 93 Oxygen Delivery Nasal Cannula Nasal Cannula Nasal Cannula Oxygen Flow Rate 2 2 2 12/22/21 16:36 12/22/21 18:54 12/22/21 22:14 Temperature 97.8 F 98.1 F 98.1 F Pulse Rate 93 68 88 Respiratory Rate 18 18 18 Blood Pressure 139/90 164/101 H 134/90 Pulse Oximetry 92 93 97 Oxygen Delivery Oxygen Flow Rate 12/22/21 20:00 12/23/21 06:19 12/23/21 10:29 Temperature 96.9 F L Pulse Rate 57 L Respiratory Rate 16 Blood Pressure 145/57 H Pulse Oximetry 96 95 Oxygen Delivery Room Air Room Air Oxygen Flow Rate 12/23/21 08:15 12/23/21 14:27 Temperature 97.3 F L Pulse Rate 95 Respiratory Rate 16 Blood Pressure 150/88 H Pulse Oximetry 95 Oxygen Delivery Room Air Oxygen Flow Rate Intake/Output Intake/Output: Intake & Output 12/20/21 12/21/21 12/22/21 12/23/21 23:59 23:59 23:59 23:59 Intake Total 2275 3610 2030 Output Total 2200 2400 3250 Balance 75 1210 -1220 Meds/Results Medications: Active Medications Generic Name Dose Route Start Last Admin Trade Name Freq PRN Reason Stop Dose Admin Acetaminophen 650 mg 12/21/21 05:25 Acetaminophen 325 Mg Tablet PO Q4H PRN Mild Pain (1-3) or Fever Hydrocodone Bitart/Acetaminophen 1 tab 12/21/21 05:25 12/23/21 06:17 Hydrocodone/Acetaminophen (*Crx) 5-325 Mg Tablet PO 1 tab Q4H PRN Administration Moderate Pain (4-6) Ergocalciferol 50,000 units 12/26/21 09:00 Ergocalciferol 50,000 Units Capsule PO Mo@0900 LINDY Hydrochlorothiazide 12.5 mg 12/23/21 09:00 12/23/21 10:15 Hydrochlorothiazide 12.5 Mg Capsule PO 12.5 mg DAILY LINDY Administration Sodium Chloride 1,000 mls @ 125 mls/hr 12/21/21 05:25 12/23/21 13:48 Normal Saline Iv IV CONT 0 mls/hr .Q8H LINDY Infusion Levothyroxine Sodium 50 mcg 12/23/21 06:30 12/23/21 06:17 Levothyroxine Sodium 50 Mcg Tablet PO 50 mcg DAILY@0630 LINDY Administration Morphine Sulfate 2 mg 12/21/21 05:25 12/22/21 21:47 Morphine Sulfate (*Crx) 2 Mg/Ml Inj IV PUSH 2 mg Q4H PRN Adminis
== END 2021-12-23 14:40 | disposition home or self-care (01) | DRG 263 ==
LOC: ANHED 05:31 → ANH3MEDSUR 06:25
PROVIDERS: Surgery; Admitting Provider Internal Medicine; Emergency Provider Emergency Medicine; PCP Emergency Medicine; Visit Provider Student in an Organized Health Care Education/Training Program
PROC: 0FT44ZZ Resection of Gallbladder, Percutaneous Endoscopic Approach (ICD-10-PCS; CPT 47562; principal; 2021-12-22 14:30)
DX: K85.10 Biliary acute pancreatitis without necrosis or infection (principal); E66.01 Morbid (severe) obesity due to excess calories; K80.10 Calculus of gallbladder with chronic cholecystitis without obstruction; I10 Essential (primary) hypertension; E06.3 Autoimmune thyroiditis; R73.03 Prediabetes; F32.A Depression, unspecified; F90.9 Attention-deficit hyperactivity disorder, unspecified type; Z68.41 Body mass index [BMI] 40.0-44.9, adult
CPT/HCPCS: 36415; 74183; 76376; 80053; 80061; 81001; 81025; 82550; 83690; 85025; 86850; 86900; 86901; 88304; 96361; 96374; 96375; 99285; A9270; A9577; C9113; G0378; G0379; J0690; J1100; J1170; J2250; J2270; J2405; J2704; J2710; J3010; J7030; J7120

== ENCOUNTER 2022-06-20 15:43 | Outpatient (CLI) | payer OTHER, SELFPAY ==
--- NOTE | ~2022-06-20 | US_ITS ---
EXAMINATION: US thyroid DATE: 06/20/2022 16:15 INDICATION: Thyroid nodule. TECHNIQUE: Multiple ultrasound images of the thyroid were obtained. COMPARISON: Ultrasound 03/02/2020 FINDINGS: The right thyroid lobe measures 6.5 x 2.4 x 2.1 cm. The left thyroid lobe measures 5.0 x 2.4 x 2.3 c m. The thyroid demonstrates heterogeneous echogenicity. Vascularity is increased. In the right thyroi d lobe, there is a 1.9 cm solid, hypoechoic, taller than wide nodule with lobulated margin without ec hogenic foci (TI-RADS TR5). IMPRESSION: 1. Right thyroid nodule. Ultrasound-guided fine-needle aspiration is recommended. 2. Heterogeneous, hypervascular thyroid, consistent with chronic lymphocytic (Angelo) thyroiditis. Reviewed, dictated and finalized at location A. IMPRESSION: 1. Right thyroid nodule. Ultrasound-guided fine-needle aspiration is recommende d. 2. Heterogeneous, hypervascular thyroid, consistent with chronic lymphocytic (H ashimoto) thyroiditis.
== END 2022-06-20 15:44 | disposition home or self-care (01) ==
PROVIDERS: PCP Emergency Medicine; Visit Provider Internal Medicine Endocrinology, Diabetes & Metabolism
DX: E04.1 Nontoxic single thyroid nodule (principal); E03.9 Hypothyroidism, unspecified
CPT/HCPCS: 36415; 76536; 84443

== ENCOUNTER 2022-08-11 18:56 | Emergency (ER) | payer OTHER, SELFPAY ==
[2022-08-11] VITALS (11 sets, daily range): BP systolic 128–155; BP diastolic 79–100; PULSE 74–99; RESP 20; TEMP 36.3; O2SAT 98–100
--- NOTE | ~2022-08-11 | CT_ITS ---
EXAMINATION: CT abdomen pelvis w con DATE: 08/11/2022 20:13 INDICATION: Abdominal pain TECHNIQUE: Computed tomography (CT) of the abdomen and pelvis was performed with 100 mL Omnipaque-350 intravenous contrast. Automated exposure control and iterative reconstruction technique were employe d. The dose-length product was 1342.71 mGy-cm. COMPARISON: CT dated 12/13/2021 FINDINGS: Lung bases are clear. Heart size is normal. No pericardial or pleural effusion. Common bile duct is d ilated to 11 mm there is mild central intrahepatic biliary ductal dilation which may be related to pr ior cholecystectomy with surgical clips the gallbladder fossa. The common bile duct tapers distally w ith no definitive obstructing stones or masses. 8 mm cyst in the left hepatic lobe. Small region of f ocal hepatic steatosis along the ligamentum teres. Spleen, pancreas, bilateral adrenal glands are nor mal. Bilateral nonobstructing nephrolithiasis with one-2 mm stone at a lower pole calyx of the left k idney and 4 mm stone in a lower pole calyx of the right kidney. No stones along the course of ureters or hydronephrosis. Mild scattered diverticulosis without adjacent inflammatory stranding to suggest diverticulitis. Small bowel and appendix are normal. Bladder, anteverted uterus and bilateral adnexa are unremarkable. Several phleboliths in the pelvis. 5 mm L5 is anteriorly fused with 5 mm anterolist hesis to S1. 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 Mild spondylosis in the more cepha lad lumbar spine. IMPRESSION: 1. Mild intra and extra hepatic biliary ductal dilation without evident obstructing lesion and which which is likely related to prior cholecystectomy. Correlate with liver function tests. 2. Nonobstructing bilateral nephrolithiasis.. Reviewed, dictated and finalized at location A. IMPRESSION: 1. Mild intra and extra hepatic biliary ductal dilation without evident obstruc ting lesion and which which is likely related to prior cholecystectomy. Correla te with liver function tests. 2. Nonobstructing bilateral nephrolithiasis..
--- NOTE | 2022-08-11 19:09 | ED.ABDPAIN ---
HPI - Abdominal Pain General Chief Complaint: Abdominal Pain Stated Complaint: abd pain, diarrhea Time Seen by Provider: 08/11/22 19:09 Source: patient and family Mode of arrival: ambulatory Limitations: no limitations History of Present Illness HPI narrative: 52 years old white female came to the emergency room by private car with her significant other complaining of intermittent abdominal pain, bloating and diarrhea 3-5 times a day for the last 3 weeks. She denies any fever or chills or nausea or vomiting. History of cholecystectomy. And insomnia. Related Data Home Medications Medication Instructions Recorded Confirmed ergocalciferol (vitamin D2) 1,250 50,000 unit PO WEEKLY 12/13/21 01/04/22 mcg (50,000 unit) capsule hydrochlorothiazide 12.5 mg tablet 12.5 mg PO DAILY 12/13/21 01/04/22 levothyroxine 50 mcg PO DAILY 12/13/21 01/04/22 Allergies Allergy/AdvReac Type Severity Reaction Status Date / Time No Known Allergies Allergy Verified 01/04/22 09:16 Review of Systems Review of Systems: All systems reviewed & are unremarkable except as noted in HPI and below PMFSH Past Medical History Medical History ADHD Degenerative disc disease Depression Elevated liver enzymes Gallstone pancreatitis Angelo's disease Hypertension Kidney stone Nausea and vomiting in adult Obesity, morbid, BMI 40.0-49.9 Pre-diabetes A1c 5.9 09/01/2021 Upper abdominal pain Surgical History Surgical History H/O tubal ligation Hx laparoscopic cholecystectomy 12/21/21 Family History Family History Father Acute Crohn's disease Liver cancer Cancer Alcoholism Mother , at 70 years old Diabetes mellitus Cancer C. difficile diarrhea Grandparent Diabetes mellitus Cancer grandmother with pancreatic cancer, grandfather with skin cancer Cerebrovascular accident Social History Social History Smoking status: Never smoker Second hand tobacco smoke exposure: No Alcohol intake: former Alcohol use details: rare glass of wine socially Substance use: never Living arrangements: with family Additional living arrangements comments: Occupation/Education: unemployed Additional occupation/education comments: On disability due to chronic back pain Gender identity (if verbalized by the patient): Female Spiritual care concerns: No Exam Narrative: General appearance: Well-developed, well-nourished, does not look in pain or distress Skin: Normal color Head: Normocephalic, nontraumatic Eyes: Clear conjunctiva ENT: Oropharynx normal, ears normal, nose normal Neck: Supple, nontender Chest and respiratory: Airway patent, no respiratory distress, no accessory muscle use Heart: Regular rate/rhythm Abdomen: Soft, nontender, no organomegaly, quiet bowel sounds Vascular: Normal peripheral pulses, normal capillary refill. Musculoskeletal: Normal range of motion, nontender back Neurologic: Alert and oriented ?3, WHEEL BLOCKER is normal as tested, no gross motor deficit Course Reevaluation(s) Reevaluation #1: No new changes compared to on arrival to the ED Date: 08/11/22 Time: 20:54 Vital Signs Vital signs: Vital Signs Temperature 36.3 C L 08/11/22 18:58 Pulse Rate 99 08/11/22 18:58 Respiratory Rate 20 08/11/22 18:58 Blood Pressure 155/91 H 08/11/22 18:58 Pulse Oximetry 98 08/11/22 18:58 Oxygen Delivery Room Air 08/11/22 18:58 Temperature 36.3 C L 08/11/22 1
[2022-08-11] MEDS: SODIUM CHLORIDE 0.9% IV 1,000 ML 999 ML IV CONT (19:19)
[2022-08-11 19:41] LABS: Basophils Percent Auto 0.6 % (0.2-1.2); Eosinophils Absolute Auto 0.2 K/mm3 (0-0.3); Eosinophils Percent Auto 2.2 % (0-4.4); Hematocrit 38.9 % (37.0-47.0); Hemoglobin 13.5 g/dL (12.0-15.0); Immature Granulocyte Absolute 0.03 K/mm3 (0.00-0.031); Immature Granulocyte Percent A 0.4 % (0-0.5); Lymphocytes Absolute Auto 1.53 K/mm3 (0.9-3.2); Lymphocytes Percent Auto 22.1 % (18.3-44.2); Mean Corpuscular HGB Conc 34.7 g/dl (32-36); Mean Corpuscular Hemoglobin 30.5 pg (26-34); Mean Platelet Volume 10.1 fl (7.4-10.4); Monocytes Absolute Auto 0.5 K/mm3 (0.1-0.6); Monocytes Percent Auto 6.8 % (2.6-8.5); Neutrophils Absolute Auto 4.7 K/mm3 (1.3-6.7); Neutrophils Percent Auto 67.9 % (45.5-73.1); Platelet Count Result 341 k/mm3 (150-375); Red Blood Count 4.42 M/mm3 (4.2-5.4); Red Cell Distribution Width 12.8 % (11.5-14.5); White Blood Count 6.9 K/mm3 (4.5-10.0)
[2022-08-11 19:57] LABS: Alanine Aminotransferase 27 U/L (6-35); Albumin Level 4.2 g/dL (3.5-5.1); Alkaline Phosphatase 81 U/L (38-126); Anion Gap 8 mmol/L (8-16); Aspartate Amino Transferase 32 U/L (14-36); Bilirubin,Total 0.4 mg/dL (0.2-1.3); Blood Urea Nitrogen 7 mg/dL (7-17); Calcium 8.9 mg/dL (8.4-10.2); Carbon Dioxide 24 mmol/L (22-30); Chloride 103 mmol/L (98-107); Estimated CRCL calculation 96 ml/min; Estimated Glomerular Filt Rate > 60; Glucose 95 mg/dL (65-110); Lipase 59 U/L (23-300); Potassium 4.2 mmol/L (3.4-5.0); Sodium 135 mmol/L (137-145)
[2022-08-11 20:15] LABS: Appearance Urine Cloudy (Clear); Bacteria Urine Rare /hpf; Bilirubin Urine Negative (Negative); Blood Urine 1+ (Negative); Color Urine Yellow (Yellow); Glucose Urine UA Negative (Negative); Ketones Urine Negative (Negative); Leukocyte Esterase Ur Trace LEU/UL (Negative); Nitrate Urine Negative (Negative); Non Pathogenic Casts 0-2; Protein Urine Negative (Negative); RBC Urine 0-2 /hpf (0-2); Specific Grav Ur 1.009 (1.001-1.035); Squamous Epithelial Cell Urine Occasional /hpf (Few); Urobilinogen Urine 0.2 mg/dL (<2.0); WBC Urine 0-5 /hpf
[2022-08-11 20:23] LABS: Add Urine Microscopic? YES
== END 2022-08-11 21:24 | disposition home or self-care (01) ==
LOC: ANHED 21:06
PROVIDERS: Emergency Provider Emergency Medicine; PCP Emergency Medicine
DX: R10.9 Unspecified abdominal pain (principal); R19.7 Diarrhea, unspecified; E06.3 Autoimmune thyroiditis; I10 Essential (primary) hypertension; R73.03 Prediabetes; E66.01 Morbid (severe) obesity due to excess calories; Z68.41 Body mass index [BMI] 40.0-44.9, adult; Z87.442 Personal history of urinary calculi; Z90.49 Acquired absence of other specified parts of digestive tract; N20.0 Calculus of kidney; R93.2 Abnormal findings on diagnostic imaging of liver and biliary tract
CPT/HCPCS: 36415; 74177; 80053; 81001; 81025; 83690; 85025; 96360; 99284; J7030; Q9967

== ENCOUNTER 2022-11-07 12:43 | Outpatient (CLI) | payer OTHER, SELFPAY ==
--- NOTE | ~2022-11-07 | US_ITS ---
EXAMINATION: US FNA w image guidance DATE: 11/07/2022 14:03 INDICATION: Right thyroid nodule TECHNIQUE: A time-out was performed to verify the patient's name, date of , and procedure to be performed . The procedure and its benefits and risks were discussed with the patient. Risks specifically discus sed included bleeding and infection. The patient understood the risks and agreed to proceed. The neck was prepped and draped in the usual sterile manner. 8 mL 1% lidocaine was used for local anesthesia . 6 passes were made with a 25G needle into the lesion. Appropriate needle location was documented with continuous sonographic guidance. A sterile bandage was applied. There were no immediate compli cations. FINDINGS: Grayscale ultrasound images demonstrate biopsy needles advanced into the 1.9 cm TI RADS 5 solid right thyroid nodule of concern. IMPRESSION: 1. Successful ultrasound-guided fine needle aspiration of the 1.9 cm TI RADS 5 right thyroid nodule of concern. Reviewed, dictated and finalized at location A.
== END 2022-11-07 12:44 | disposition home or self-care (01) ==
LOC: ANHIMG 12:45
PROVIDERS: PCP Emergency Medicine; Visit Provider Internal Medicine Endocrinology, Diabetes & Metabolism
DX: E04.1 Nontoxic single thyroid nodule (principal)
CPT/HCPCS: 10005; 88173; 88305

== ENCOUNTER 2022-12-27 12:10 | Outpatient (CLI) | payer OTHER, SELFPAY ==
--- NOTE | ~2022-12-27 | XR_ITS ---
EXAMINATION: XR ankle LT min 3V DATE: 12/27/2022 12:39 INDICATION: Left ankle pain. TECHNIQUE: 4 views of left ankle were obtained. COMPARISON: Left foot radiographs 03/07/2021 FINDINGS: Bone alignment is normal. No fracture. There is mild osteoarthritis of talonavicular joint. There is an enthesophyte at plantar aspect of calcaneal tuberosity. There is ankle soft tissue swell ing. IMPRESSION: 1. Mild osteoarthritis of talonavicular joint. Reviewed, dictated and finalized at location E.
== END 2022-12-27 12:11 | disposition home or self-care (01) ==
PROVIDERS: PCP Emergency Medicine; Visit Provider Emergency Medicine
DX: M19.072 Primary osteoarthritis, left ankle and foot (principal); M25.572 Pain in left ankle and joints of left foot
CPT/HCPCS: 73610

== ENCOUNTER 2023-02-07 15:34 | Outpatient (CLI) | payer OTHER, SELFPAY ==
[2023-02-07 16:13] LABS: Hematocrit 41.8 % (37.0-47.0); Hemoglobin 13.9 g/dL (12.0-15.0); Mean Corpuscular HGB Conc 33.3 g/dl (32-36); Mean Corpuscular Hemoglobin 30.3 pg (26-34); Mean Corpuscular Volume 91.1 fl (80-100); Mean Platelet Volume 9.5 fl (7.4-10.4); Platelet Count Result 304 k/mm3 (150-375); Red Blood Count 4.59 M/mm3 (4.2-5.4); Red Cell Distribution Width 12.8 % (11.5-14.5); White Blood Count 5.2 K/mm3 (4.5-10.0)
[2023-02-07 16:37] LABS: Alanine Aminotransferase 18 U/L (6-35); Albumin Level 3.7 g/dL (3.5-5.1); Alkaline Phosphatase 66 U/L (38-126); Anion Gap 10 mmol/L (8-16); Aspartate Amino Transferase 26 U/L (14-36); Bilirubin,Total 0.4 mg/dL (0.2-1.3); Blood Urea Nitrogen 6 mg/dL (7-17); Carbon Dioxide 21 mmol/L (22-30); Chloride 105 mmol/L (98-107); Cholesterol 226 mg/dL (0-200); Estimated Glomerular Filt Rate > 60; Glucose 141 mg/dL (65-110); HDL Direct 47 mg/dL; Lipase 49 U/L (23-300); Potassium 3.8 mmol/L (3.4-5.0); Sodium 136 mmol/L (137-145); Triglycerides 201 mg/dL (<150)
[2023-02-07 16:48] LABS: LDL Cholesterol Direct 123 mg/dL
[2023-02-07 17:28] LABS: Appearance Urine Cloudy (Clear); Bacteria Urine None Seen /hpf; Bilirubin Urine Negative (Negative); Blood Urine 3+ (Negative); Color Urine Yellow (Yellow); Glucose Urine UA 2+ mg/dL (Negative); Ketones Urine Trace mg/dL (Negative); Leukocyte Esterase Ur Trace LEU/UL (NEGATIVE); Nitrate Urine Negative (Negative); Non Pathogenic Casts 0-2; Protein Urine Negative (Negative); RBC Urine >100 /hpf (0-2); Specific Grav Ur 1.022 (1.001-1.035); Squamous Epithelial Cell Urine Occasional /hpf (Few); Urobilinogen Urine 0.2 mg/dL (<2.0); WBC Urine 0-5 /hpf (0-3); pH Urine 5.5 (5.0-9.0)
[2023-02-07 17:54] LABS: Add Urine Microscopic? YES
[2023-02-07 20:09] LABS: Vitamin D 25 Hydroxy 13.5 ng/mL
[2023-02-07 20:16] LABS: Creatinine Urine 133.8 mg/dL
[2023-02-07 20:20] LABS: MALB Creatinine Ratio 15.8 mg/g (0-30); Microalbumin Urine Random 21.1 mg/L (0-16.7)
[2023-02-07 20:28] LABS: Hemoglobin A1C 5.3 % (<5.7)
== END 2023-02-07 15:35 | disposition home or self-care (01) ==
LOC: ANHLAB 15:36
PROVIDERS: PCP Emergency Medicine; Visit Provider Emergency Medicine
DX: R73.03 Prediabetes (principal); E03.9 Hypothyroidism, unspecified; I10 Essential (primary) hypertension
CPT/HCPCS: 36415; 80053; 80061; 81001; 82043; 82306; 83036; 83690; 84439; 84443; 85027

== ENCOUNTER 2023-02-27 17:01 | Outpatient (CLI) | payer OTHER, SELFPAY ==
[2023-02-27 18:29] LABS: Beta HCG Quantitative < 2.39 mIU/ML
[2023-02-27 19:05] LABS: Free T4 Free Thyroxine 1.73 ng/mL (0.78-2.19)
[2023-03-03 01:52] LABS: Thyroglobulin 3.3 ng/mL (2.8-40.9); Thyroglobulin Antibodies <1 IU/mL (<=1)
[2023-03-08 08:05] LABS: T3 Free 2.7
== END 2023-02-27 17:02 | disposition home or self-care (01) ==
PROVIDERS: PCP Emergency Medicine
DX: C73 Malignant neoplasm of thyroid gland (principal)
CPT/HCPCS: 36415; 84432; 84439; 84443; 84480; 84702; 86800

== ENCOUNTER 2023-03-20 17:46 | Outpatient (CLI) | payer OTHER, SELFPAY ==
[2023-03-20 19:09] LABS: Beta HCG Quantitative < 2.39 mIU/ML
[2023-03-20 19:41] LABS: Free T4 Free Thyroxine 0.59 ng/mL (0.78-2.19)
[2023-03-24 03:12] LABS: Thyroglobulin 10.3 ng/mL (2.8-40.9); Thyroglobulin Antibodies <1 IU/mL (<=1)
[2023-03-28 15:45] LABS: Calprotectin, Stool 152 mcg/g; Pancreatic Elastase, Stool >500 mcg/g
== END 2023-03-20 17:47 | disposition home or self-care (01) ==
PROVIDERS: PCP Emergency Medicine; Visit Provider Internal Medicine Gastroenterology
DX: C73 Malignant neoplasm of thyroid gland (principal); R19.7 Diarrhea, unspecified
CPT/HCPCS: 36415; 82653; 83993; 84432; 84439; 84443; 84480; 84702; 86800; 89055

== ENCOUNTER 2023-04-27 06:50 | Day surgery (SDC) | payer OTHER, SELFPAY ==
[2023-04-11 16:04] VITALS: BMI 43.0
--- NOTE | 2023-04-25 14:07 | SUR.PREOP ---
Patient called regarding upcoming procedure. Reviewed preop instructions, appointment times, and procedure prep.
[2023-04-27 11:58] VITALS: BP 126/98; PULSE 78; RESP 18; TEMP 36.3; O2SAT 98
[2023-04-27] MEDS: LACTATED RINGERS 1,000 ML 150 ML IV CONT (12:13)
--- NOTE | 2023-04-27 12:29 | WPDANESEPPF ---
Anes - Initial Pre Proc Eval Procedure: Operation Date: 04/27/23 13:30 Proposed Procedures p Colonoscopy - Gus Gloria MD Date/Time: 04/27/23 12:29 Surgeon: Gus Gloria MD Pre Op Diagnosis: Abdominal pain,Diarrhea,Irritable Bowel Syndrome Patient Data Age: 53 Gender: F Height: 1.52 m Weight: 99.6 kg Last Vital Signs Temp 97.3 F L 04/27/23 11:58 Pulse 78 04/27/23 11:58 Resp 18 04/27/23 11:58 BP 126/98 H 04/27/23 11:58 Pulse Ox 98 04/27/23 11:58 O2 Del Method Room Air 04/27/23 11:58 Allergies Allergy/AdvReac Type Severity Reaction Status Date / Time No Known Allergies Allergy Verified 04/27/23 11:55 Home Medications Medication Instructions Recorded Confirmed Type hydrochlorothiazide 12.5 mg tablet 12.5 mg PO DAILY 12/13/21 04/11/23 History trazodone 150 mg tablet 300 mg PO QHS 09/07/22 04/11/23 History dicyclomine 10 mg capsule See Rx Instructions .Route 03/13/23 04/11/23 Rx .COMPLEX #60 caps Fiber Laxative (psyllium husk) 1 tab-cap PO DAILY 04/11/23 04/11/23 History ergocalciferol (vitamin D2) 1,250 50,000 unit PO WEEKLY 04/11/23 04/11/23 History mcg (50,000 unit) capsule ferrous sulfate 325 mg (65 mg 325 mg PO 2XW 04/11/23 04/11/23 History iron) tablet (Iron (ferrous sulfate)) gabapentin 300 mg capsule 300 mg PO QID 04/11/23 04/11/23 History levothyroxine 150 mcg tablet 150 mcg PO DAILY 04/11/23 04/11/23 History loratadine 10 mg tablet 10 mg PO DAILY 04/11/23 04/11/23 History montelukast 10 mg tablet 10 mg PO HS 04/11/23 04/11/23 History Patient hx anesthesia problems: none Family hx anesthesia problems: none Results Review: All pre-operative results and documents have been reviewed as part of the pre-operative evaluation. [facility] Past Medical History Medical History (Updated 03/01/23 @ 15:39 by Gus Gloria MD) Abdominal cramping ADHD Degenerative disc disease Depression Elevated liver enzymes Gallstone pancreatitis Angelo's disease Hypertension IBS (irritable bowel syndrome) Kidney stone Nausea and vomiting in adult Obesity, morbid, BMI 40.0-49.9 Pre-diabetes A1c 5.9 09/01/2021 Upper abdominal pain Surgical History Surgical History H/O tubal ligation Hx laparoscopic cholecystectomy 12/21/21 Family History Family History Father Acute Crohn's disease Liver cancer Cancer Alcoholism Mother , at 70 years old Diabetes mellitus Cancer C. difficile diarrhea Grandparent Diabetes mellitus Cancer grandmother with pancreatic cancer, grandfather with skin cancer Cerebrovascular accident Social History Social History Smoking status: Never smoker Second hand tobacco smoke exposure: No Alcohol intake: current Alcohol use details: rare glass of wine socially Substance use: never Substance use type: does not use Living arrangements: with family Additional living arrangements comments: Occupation/Education: unemployed Additional occupation/education comments: On disability due to chronic back pain Gender identity (if verbalized by the patient): Female Spiritual care concerns: No Anes - Eval Final PreProcedure Day of Procedure 04/27/23 12:29 Patient weight: morbidly obese Heart: regular rate and rhythm Lungs: clear to auscultation Airway: Mallampati scale class III Neurological: alert and oriented Last oral intake: >/= 8 hours ASA classification: III Emergent: no Anesthetic plan: proceed Anesthesia type and monitoring: general GIVS and standard monitoring Results Review: All pre-operative results and documents have been reviewed as part of the pre-operative evaluation. Informed Consent: The patient's anesthetic plan and its attendant risk
--- NOTE | 2023-04-27 12:57 | PM.HPGS ---
History of Present Illness History of Present Illness Consent: Risks, benefits, and alternatives have been discussed and questions answered. Patient agrees to proceed with procedure. Chief complaint: Abdominal pain,Diarrhea,Irritable Bowel Syndrome Narrative: Jade Laguna is a 53 year old female here for diarrhea, post prandial diarrhea that started since had lap armida 12/2021, could not tolerate questran, last colonoscopy about 4 years ago. Stool elastase normal. Review of Systems Constitutional: Constitutional: Denies headache(s) and Denies weakness Eyes: Eyes: Denies blurry vision ENT: Reports Normal hearing present, Denies headache(s) and Denies neck pain Cardiovascular: Cardiovascular: Denies chest pain and Denies dyspnea Respiratory: Respiratory: Denies dyspnea Gastrointestinal: Gastrointestinal: Reports no additional gastrointestinal complaints Genitourinary: Genitourinary: Denies dysuria Musculoskeletal: Musculoskeletal: Denies neck pain Integumentary/Breasts: Skin/Breast: Denies dry skin Neurologic: Reports Normal hearing present, Denies headache(s) and Denies weakness Psychiatric: Psychiatric: Denies anxiety Endocrine: Endocrine: Denies change in body appearance Hematologic/Lymphatic: Hematologic/Lymphatic: Denies easy bleeding Allergic/Immunologic: Allergic/Immunologic: Denies urticaria PMF Past Medical History Medical History (Updated 03/01/23 @ 15:39 by Gus Gloria MD) Abdominal cramping ADHD Degenerative disc disease Depression Elevated liver enzymes Gallstone pancreatitis Angelo's disease Hypertension IBS (irritable bowel syndrome) Kidney stone Nausea and vomiting in adult Obesity, morbid, BMI 40.0-49.9 Pre-diabetes A1c 5.9 09/01/2021 Upper abdominal pain Surgical History Surgical History H/O tubal ligation Hx laparoscopic cholecystectomy 12/21/21 Family History Family History Father Acute Crohn's disease Liver cancer Cancer Alcoholism Mother , at 70 years old Diabetes mellitus Cancer C. difficile diarrhea Grandparent Diabetes mellitus Cancer grandmother with pancreatic cancer, grandfather with skin cancer Cerebrovascular accident Social History Social History Smoking status: Never smoker Second hand tobacco smoke exposure: No Alcohol intake: current Alcohol use details: rare glass of wine socially Substance use: never Substance use type: does not use Living arrangements: with family Additional living arrangements comments: Occupation/Education: unemployed Additional occupation/education comments: On disability due to chronic back pain Gender identity (if verbalized by the patient): Female Spiritual care concerns: No Meds Home Medications and Allergies Home Medications Medication Instructions Recorded Confirmed Type hydrochlorothiazide 12.5 mg tablet 12.5 mg PO DAILY 12/13/21 04/11/23 History trazodone 150 mg tablet 300 mg PO QHS 09/07/22 04/11/23 History dicyclomine 10 mg capsule See Rx Instructions .Route 03/13/23 04/11/23 Rx .COMPLEX #60 caps Fiber Laxative (psyllium husk) 1 tab-cap PO DAILY 04/11/23 04/11/23 History ergocalciferol (vitamin D2) 1,250 50,000 unit PO WEEKLY 04/11/23 04/11/23 History mcg (50,000 unit) capsule ferrous sulfate 325 mg (65 mg 325 mg PO 2XW 04/11/23 04/11/23 History iron) tablet (Iron (ferrous sulfate)) gabapentin 300 mg capsule 300 mg PO QID 04/11/23 04/11/23 History levothyroxine 150 mcg tablet 150 mcg PO DAILY 04/11/23 04/11/23 History loratadine 10 mg tablet 10 mg PO DAILY 04/11/23 04/11/23 History montelukast 10 mg tablet 10 mg PO HS 04/11/23 04/11/23 History Allergies Allergy/AdvReac Type Severity Reaction Status Date / Time No Know
[2023-04-27 13:15] VITALS: BP 127/80; PULSE 90; RESP 24; O2SAT 96
[2023-04-27 13:25] VITALS: BP 127/82; PULSE 77; RESP 21; O2SAT 97
[2023-04-27 13:35] VITALS: BP 121/87; PULSE 81; RESP 20; O2SAT 98
--- NOTE | 2023-04-27 14:44 | SUR.PHASEII ---
1442-Pt waiting on [facility].
== END 2023-04-27 14:42 | disposition home or self-care (01) ==
PROVIDERS: PCP Emergency Medicine; Visit Provider Internal Medicine Gastroenterology
PROC: 0DJD8ZZ Inspection of Lower Intestinal Tract, Via Natural or Artificial Opening Endoscopic (ICD-10-PCS; CPT 45378; principal; 2023-04-27 13:30)
DX: K52.832 Lymphocytic colitis (principal); K57.30 Diverticulosis of large intestine without perforation or abscess without bleeding; K64.8 Other hemorrhoids; I10 Essential (primary) hypertension; E06.3 Autoimmune thyroiditis; F90.9 Attention-deficit hyperactivity disorder, unspecified type; F32.A Depression, unspecified; R73.03 Prediabetes; E66.01 Morbid (severe) obesity due to excess calories; Z68.41 Body mass index [BMI] 40.0-44.9, adult
CPT/HCPCS: 45380; 88305; J2704; J7120

== ENCOUNTER 2023-06-14 15:34 | Outpatient (CLI) | payer OTHER, SELFPAY ==
--- NOTE | ~2023-06-14 | MM_ITS ---
EXAMINATION: MM screening [facility] HISTORY: Screening TECHNIQUE: Craniocaudal and mediolateral oblique 3-D tomosynthesis images were obtained and synthetic 2-D images were generated. CAD analysis was submitted and interpreted. COMPARISON: Comparison to multiple prior studies sequentially, with oldest reviewed study dated 12/01. BREAST PARENCHYMAL COMPOSITION: Not dense: There are scattered areas of fibroglandular density. FINDINGS: There is no evidence of suspicious mass, calcification, or architectural distortion to sugg est malignancy in either breast. There has been no suspicious interval change. IMPRESSION: 1. No mammographic evidence of malignancy. 2. Recommend routine screening mammography in one year. BI-RADS Category 1: Negative Reviewed, dictated and finalized at location A.
== END 2023-06-14 15:35 | disposition home or self-care (01) ==
PROVIDERS: PCP Emergency Medicine; Visit Provider Emergency Medicine
DX: Z12.31 Encounter for screening mammogram for malignant neoplasm of breast (principal)
CPT/HCPCS: 77063; 77067

== ENCOUNTER 2023-10-15 13:58 | Emergency (ER) | payer OTHER, SELFPAY ==
--- NOTE | ~2023-10-15 | CT_ITS ---
EXAMINATION: CT abdomen pelvis w con DATE: 10/15/2023 17:51 INDICATION: L sided abd pain TECHNIQUE: Computed tomography (CT) of the abdomen and pelvis was performed with 100 mL Omnipaque-350 intravenous contrast. Automated exposure control and iterative reconstruction technique were employe d. The dose-length product was 1403.11 mGy-cm. COMPARISON: 08/11/2022. FINDINGS: Considerable motion artifact in the upper abdomen. Lower thorax: Unremarkable Liver: Normal. Biliary/Gallbladder: Gallbladder is absent. No bile duct dilation. Pancreas: No mass or duct dilation. Spleen: Normal. Adrenals:No mass. Kidneys: No suspicious mass, obstructing stone, or hydronephrosis. 5 mm right lower pole calcificatio n. GI tract: No small or large bowel dilation. Normal appendix. Diverticulosis without diverticulitis. Mesentery/Peritoneum: No ascites, mass, or free air. Retroperitoneum: No mass. Pelvis: Pelvic organs are within normal limits. Soft Tissues: Soft tissues and body wall unremarkable. Bones: No acute osseous finding. IMPRESSION: No acute abdominopelvic process detected. Reviewed, dictated and finalized at location K.
--- NOTE | ~2023-10-15 | CT_ITS ---
EXAMINATION: CT brain wo con DATE: 10/15/2023 17:47 INDICATION: L sided weakness . TECHNIQUE: Computed tomography (CT) of the head was performed without intravenous contrast. The mA wa s adjusted according to patient size. Iterative reconstruction technique was employed. The dose-lengt h product was 681.00 mGy-cm. COMPARISON: 05/29/2012. FINDINGS: No acute intracranial hemorrhage or extra-axial fluid collection. No hydrocephalus, mass, or herniation. No acute ischemic infarct. Unremarkable dural venous sinus attenuation. No acute osseous abnormality. Mild ethmoid and bilateral maxillary mucosal thickening, the remaining aerated spaces are clear. IMPRESSION: No acute intracranial process. Reviewed, dictated and finalized at location K.
[2023-10-15 14:16] VITALS: BP 141/94; PULSE 79; RESP 16; TEMP 36.6; O2SAT 95
--- NOTE | 2023-10-15 14:35 | ED.GENADULT ---
HPI - General Adult General Chief complaint: Unspecified <JOANNA Borja Last Filed: 10/15/23 14:43> Stated complaint: numbness on left side <JOANNA Borja Last Filed: 10/15/23 14:43> Time Seen by Provider: 10/15/23 14:35 <JOANNA Borja Last Filed: 10/15/23 14:43> Focused HPI: Patient is a 53 y/o female who presents to the ED with multiple complaints. Patient reports having pain, numbness, and weakness in the left side of her body for the past 1 month intermittently, but became worse and more persistent since this morning. States she could hardly walk d/t the weakness. Also reports intermittent dizziness, REDDING, L sided abd pain. States abdominal pain has been ongoing for the past 1 month, but also became worse today. Denies N/V/D, constipation, fevers, blurry vision. GENERAL: Well-appearing, morbidly obese with BMI of 43.4, and in no acute distress. HEAD: Normocephalic, atraumatic. CHEST: Clear to auscultation. ?No respiratory distress. HEART: Regular rate and rhythm.? ABD: Mild TTP in LLQ, no rebound NEURO: ?Alert and oriented x3. No appreciable focal deficits. Strength 5/5 in upper/lower extremities bilaterally. No pronator drift. Sensation intact in LUE/LLE. Patient screened in triage and initial orders placed.? ?Additional care and disposition to be based upon?diagnostic testing and treatment. <JOANNA Borja Last Filed: 10/15/23 14:43> Source: patient <JOANNA Borja Last Filed: 10/15/23 14:43> Mode of arrival: ambulatory <JOANNA Borja Last Filed: 10/15/23 14:43> Limitations: no limitations <JOANNA Borja Last Filed: 10/15/23 14:43> Related Data Home medications: Home Medications Medication Instructions Recorded Confirmed hydrochlorothiazide 12.5 mg tablet 12.5 mg PO DAILY 12/13/21 04/11/23 trazodone 150 mg tablet 300 mg PO QHS 09/07/22 04/11/23 Fiber Laxative (psyllium husk) 1 tab-cap PO DAILY 04/11/23 04/11/23 ergocalciferol (vitamin D2) 1,250 50,000 unit PO WEEKLY 04/11/23 04/11/23 mcg (50,000 unit) capsule ferrous sulfate 325 mg (65 mg 325 mg PO 2XW 04/11/23 04/11/23 iron) tablet (Iron (ferrous sulfate)) gabapentin 300 mg capsule 300 mg PO QID 04/11/23 04/11/23 levothyroxine 150 mcg tablet 150 mcg PO DAILY 04/11/23 04/11/23 loratadine 10 mg tablet 10 mg PO DAILY 04/11/23 04/11/23 montelukast 10 mg tablet 10 mg PO HS 04/11/23 04/11/23 <JOANNA Borja Last Filed: 10/15/23 14:43> Allergies/adverse reactions: Allergies Allergy/AdvReac Type Severity Reaction Status Date / Time No Known Allergies Allergy Verified 10/15/23 13:59 <Amy Helm PA-C - Last Filed: 10/15/23 14:43> Review of Systems Review of Systems: All systems as dictated in HPI <JOANNA Escobedo Last Filed: 10/16/23 03:01> [facility] Past Medical History Medical History: Medical History Abdominal cramping ADHD Degenerative disc disease Depression Elevated liver enzymes Gallstone pancreatitis Angelo's disease Hypertension IBS (irritable bowel syndrome) Kidney stone Nausea and vomiting in adult Obesity, morbid, BMI 40.0-49.9 Pre-diabetes A1c 5.9 09/01/2021 Upper abdominal pain <JOANNA Borja Last Filed: 10/15/23 14:43> Surgical History Surgical History: Surgical History H/O tubal ligation Hx laparoscopic cholecystectomy 12/21/21 <JOANNA Borja Last Filed: 10/15/23 14:43> Family History Family History: Family History Father Acute Crohn's disease Liver cancer Cancer Alcoholism Mother , at 70 years old Diabetes mellitus Cancer C. difficile diarrhea Grandparent Diabetes mellitus Can
[2023-10-15 14:55] LABS: Basophils Percent Auto 0.6 % (0.2-1.2); Eosinophils Absolute Auto 0.1 K/mm3 (0-0.3); Eosinophils Percent Auto 1.9 % (0-4.4); Hematocrit 40.3 % (37.0-47.0); Hemoglobin 13.5 g/dL (12.0-15.0); Immature Granulocyte Absolute 0.04 K/mm3 (0.00-0.031); Immature Granulocyte Percent A 0.6 % (0-0.5); Lymphocytes Absolute Auto 1.17 K/mm3 (0.9-3.2); Lymphocytes Percent Auto 16.7 % (18.3-44.2); Mean Corpuscular HGB Conc 33.5 g/dl (32-36); Mean Corpuscular Hemoglobin 30.4 pg (26-34); Mean Corpuscular Volume 90.8 fl (80-100); Mean Platelet Volume 9.4 fl (7.4-10.4); Monocytes Absolute Auto 0.4 K/mm3 (0.1-0.6); Monocytes Percent Auto 5.3 % (2.6-8.5); Neutrophils Absolute Auto 5.2 K/mm3 (1.3-6.7); Neutrophils Percent Auto 74.9 % (45.5-73.1); Platelet Count Result 313 k/mm3 (150-375); Red Blood Count 4.44 M/mm3 (4.2-5.4); Red Cell Distribution Width 14.6 % (11.5-14.5)
[2023-10-15 15:08] LABS: INR 0.9; Partial Thromboplastin Time 24.4 Seconds (22.3-36.8); Prothrombin Time 12.8 Seconds (11.1-14.7)
[2023-10-15 15:10] LABS: Magnesium 2.2 mg/dL (1.6-2.3)
[2023-10-15 15:46] LABS: Alanine Aminotransferase 17 U/L (6-35); Albumin Level 3.5 g/dL (3.5-5.1); Alkaline Phosphatase 49 U/L (38-126); Anion Gap 8 mmol/L (4-12); Aspartate Amino Transferase 25 U/L (14-36); Bilirubin,Total 0.4 mg/dL (0.2-1.3); Blood Urea Nitrogen 13 mg/dL (7-17); Calcium 9.2 mg/dL (8.4-10.2); Carbon Dioxide 23 mmol/L (22-30); Chloride 105 mmol/L (98-107); Estimated CRCL calculation 68 ml/min; Estimated Glomerular Filt Rate > 60; Glucose 108 mg/dL (65-110); Lipase 147 U/L (23-300); Potassium 4.1 mmol/L (3.4-5.0); Sodium 136 mmol/L (137-145)
[2023-10-15 17:17] VITALS: BP 142/98; PULSE 56; RESP 12; O2SAT 100
[2023-10-15 17:46] LABS: Add Urine Microscopic? YES; Appearance Urine Clear (Clear); Bacteria Urine None Seen /hpf; Bilirubin Urine Negative (Negative); Blood Urine Non-Hemolyzed Trace (Negative); Color Urine Yellow (Yellow); Glucose Urine UA Negative (Negative); Ketones Urine Negative (Negative); Leukocyte Esterase Ur Trace LEU/UL (Negative); Nitrate Urine Negative (Negative); Non Pathogenic Casts 0-2; Protein Urine Negative (Negative); RBC Urine 0-2 /hpf (0-2); Specific Grav Ur 1.004 (1.001-1.035); Squamous Epithelial Cell Urine Few /hpf (Few); Urobilinogen Urine 0.2 mg/dL (<2.0); pH Urine 6.5 (5.0-9.0)
[2023-10-15 17:56] VITALS: BP 149/89; PULSE 56; RESP 17; O2SAT 100
[2023-10-15 18:01] VITALS: BP 137/94; PULSE 51; RESP 22; O2SAT 98
[2023-10-15] MEDS: ONDANSETRON INJ 4 MG/2 ML VIAL IV PUSH (18:07)
[2023-10-15] MEDS: HYDROmorphone HCL INJ (*CRX) 1 MG/ML SYR 0.5 MG IV PUSH (18:08)
[2023-10-15 18:16] VITALS: BP 141/93; PULSE 51; RESP 18; O2SAT 97
== END 2023-10-15 18:58 | disposition home or self-care (01) ==
PROVIDERS: Physician Assistant; Emergency Provider Physician Assistant; PCP Emergency Medicine
DX: R10.9 Unspecified abdominal pain (principal); R20.2 Paresthesia of skin; M54.9 Dorsalgia, unspecified; G89.29 Other chronic pain; F90.9 Attention-deficit hyperactivity disorder, unspecified type; F32.A Depression, unspecified; I10 Essential (primary) hypertension; E06.3 Autoimmune thyroiditis; Z87.442 Personal history of urinary calculi; E66.01 Morbid (severe) obesity due to excess calories; Z68.41 Body mass index [BMI] 40.0-44.9, adult
CPT/HCPCS: 36415; 70450; 74177; 80053; 81001; 83690; 83735; 85025; 85610; 85730; 87086; 87088; 96374; 96375; 99284; J1170; J2405; Q9967

== ENCOUNTER 2024-05-21 15:50 | Outpatient (CLI) | payer OTHER, SELFPAY ==
--- OUTSIDE RECORDS SUMMARY | 2024-05-21 17:40 | XMS_ITS | Data Portability ---
Author Organization [facility] [place] Address [address] [place] [address] Care Team Providers Care Digester Cook Name Role Phone JOSIE PARKER Primary Care Provider [phone] Assessment Encounter Date Assessment Date Assessment LastModified by Organization Details LastModified Time 07/14/2020 07/14/2020 Discussed US results in depth, one small fibroid Discussed thyroid results abnormal- -could contribute to abnormal menses. encouraged follow up with endocrinology. discussed need for endometrial sampling to rule out hyperplasia or malignancy, will schedule Discussed with normal Hgb, has option of management of symptoms vs expectant mgt since hopefully close to menopause. Pt to consider. Alfred WILSONE [email or web address] Not available 07/16/2020 09:59:24 07/28/2020 07/28/2020 healthy female exam/menopause patient declines std testing pap done mammogram UTD colonoscopy due 2030 dexa baseline at 60 tubes tied Encouraged weight bearing exercise and 1500mg daily of Calcium with Vitamin D EMB done, will contact with results. FU 1 year or prn [email or web address] Not available 08/02/2020 09:58:20 08/19/2021 08/19/2021 healthy female exam/menopause patient declines std testing pap due 2023 mammogram ordered and encouraged colonoscopy due 2030 dexa baseline at 60 Encouraged weight bearing exercise and 1500mg daily of Calcium with Vitamin D FU 1 year or prn [email or web address] Not available 08/22/2021 13:57:32 08/31/2022 08/31/2022 Annual gynecological exam performed. Patient will come back in a year unless there are new symptoms. Not available 08/31/2022 15:39:12 12/19/2023 12/19/2023 Annual gynecological exam performed. Patient will come back in a year unless there are new symptoms. Not available 12/19/2023 18:10:46 Plan of Treatment Reminders Order Date Submit Date Provider Last Modified By Organization Details Last Modified Time Details Appointments None recorded. Lab None recorded. Referral None recorded. Procedures None recorded. Surgeries None recorded. Imaging MAMMO, screening, bilateral 2022 023 [facility], [address], [address], [place], [address], 13:52:26 Medication Orders None recorded. Patient TargetsNo targets recorded. Patient InstructionsNo instructions recorded. Reason for Referral None Reported. Results Created Date Observation Date Name Description Value Unit Range Abnormal Flag Note LastModifiedBy Organization Detail LastModifiedTime 07/29/19 21 07/28/2020 surgi tera patho logy study surgical pathology ([facility]) SEE RESULT S BELOW CASE REPOR T: Surgi tera Patho logy Repor t Case: [id number] Autho ayad crandall Provi lucy: Yadira Montez MD Colle cted: 07/28 1623 Order ing Locat ion: [place] Patho logy Recei bib: 07/29 0206 Patho logis t: Jeannie Champagne MD Speci men: Endom etriu m, EMB FINAL DIAGN OSIS: Endom etriu m, biops y: -Frag ments of inact tuyet endom etriu m with stefan al break down. Elect prince del rosario d by Jeannie Champagne MD on 2020 at 12:42 PM ----- ----- ----- ----- ----- ----- ----- ----- ----- ----- ----- ----- ----- ----- ----- ----- ----- ---- CHART ABLE COMME NT: Hyper plasi a and carci noma are not ident ified . CLINI TERA INFOR MATIO N: not provi ded MICRO SCOPI C DESCR IPTIO N: A micro scopi c exami natio n was perfo rmed. GROSS DESCR IPTIO N: A. Endom etriu m. The speci men is label ed with the patie nt's name, demog autumn cs and endo metri um . Recei bib in forma riki is a 2.0 x 2.0 x 0.2 [address] of mucus and dark red tissu e. The entir e speci men is submi tted in one casse tte. Gross ed by Margie manning Not Available [facility] (Lab) [address], [place], [address], 07/29/2020 18:04:28 07/29/19 21 07/28/2020 pap, IG + HR HPV image guided Pap, HPV regardless of Pap result SEE RESULT S BELOW CASE REPOR T: Cytol ogy Gynec ologi tera Repor t Case: [id number] Autho ayad karley Provi lucy: Yadira Montez MD Colle cted: 07/28 1623 Order ing Locat ion: [place] Patho logy Recei bib: 07/29 0204 First Scree n: Kay Marie , CT Speci men: Scree zack Pap - Image d, Cervi x STATE MENT OF ADEQU ACY: Satis facto ry for evalu ation Trans forma tion zone compo nent prese nt FINAL DIAGN OSIS: Negat tuyet for Intra epith elial Lesio n or Dat william Elect prince bullock carin d by Kay Marie , CT on 2020 at 1:18 PM ----- ----- ----- ----- ----- ----- ----- ----- ----- ----- ----- ----- ----- ----- ----- ----- ----- ---- HPV RESUL TS: HPV mRNA E6/E7 : No HPV mRNA Detec reyna NOTE: This high risk HPV mRNA assay detec ts fourt een high- risk HPV types (16, 18, 31, 33, 35, 39, 45, 51, 52, 56, 58, 59, 66, 68) witho ut diffe renti ation . CHART ABLE COMME NT: Note: This speci men was revie wed by a Cytot echno logis t and/o r Patho logis t (as indic ated in this repor t) after evalu ation using the Thinp rep Imagi ng Syste m. CLINI TERA INFOR MATIO N: Menst rual Statu s: LMP (if appli cable ): 021 Clini tera Histo ry/Pr eviou s Pap: Type of Neopl tatum (if appli cable ): Other Histo ry: Hormo jim (if appli cable ): PAP EDUCA CARLOS ENRIQUE L NOTE: The Pap Test is a scree zack test with an inher ent false negat tuyet rate. Liqui d-bas e sampl ing may decre ase, but will not elimi keenan, false negat tuyet resul ts. A negat tuyet resul t does not precl ude the prese nce and/o r devel opmen t of disea se, since the prese nce of abnor mal cells in the sampl e depen ds on the locat ion of the lesio n and sampl ing techn ique. Tristen nued regul ar scree zack is the best metho d of cance r preve ntion . If repor reyna cytol ogic findi ng do not corre late with physi tera and/o r histo rical findi ngs, furth er inves tigat ion is recom iris d, as clini inocencia colmenares nted. Not Available [facility] (Lab) [address], [place], [address], 07/29/2020 18:04:29 Result Notes None recorded. Problems Name Problem SNOMED Code Status Onset Date Resolution Date Notes Provider Name and Address Organization Details Recorded Time Menorrhagia 439517842 Active 2020 Yadira Zhang MD [address], [place], [address], [facility] 16:17:25 Body mass index 40+ - severely obese 525041907 Active 2020 Yadira Zhang MD [address], [place], [address], [facility] 16:17:33 Problem Notes None recorded. Procedures Surgical History Date Name Laterality Status Provider Name and Address Organization Details Recorded Time 023 thyroidectomy completed Rama Ibrahim [facility] 12/19/2023 18:15:19 022 [facility]olecystectomy [facility] 08/31/2022 15:41:59 021 Endometrial Biopsy completed Yadira Zhang MD [address], [place], [address], [facility] 08/02/2020 09:57:02 021 Date of Last Pap Smear completed Leigha Goodwin [facility] 08/31/2022 15:40:44 021 completed Angeles Yao [facility] 07/28/2020 16:08:14 021 Date of Last Colonoscopy completed Angeles Yao [facility] 08/19/2021 14:25:48 004 Tubal Ligation completed [facility] 05/13/2020 16:06:04 Imaging Results None recorded. Procedure Notes None recorded. Medical Equipment None Reported. Allergies No known drug allergies Medications Name Sig Start Date Stop Date Status Note LastModified by Organization Details LastModified Time cyclobenzap rine 10 mg tablet TAKE 1/2-1 TABLET BY MOUTH TWICE DAILY active Not Available Not Available No t Available methocarbam ol 500 mg tablet PLEASE SEE ATTACHED FOR DETAILED DIRECTION S active Not Available Not Available No t Available atorvastati n 80 mg tablet TAKE 1 TABLET BY MOUTH EVERY DAY active Not Available Not Available No t Available oxybutynin chloride ER 10 mg tablet,exte nded release 24 hr TAKE 1 TABLET BY MOUTH EVERY DAY active Not Available Not Available No t Available tizanidine 4 mg tablet TAKE 1 TABLET BY MOUTH AT BEDTIME NEEDED 08/31 completed Not Available Not Available Not Available fluconazole 150 mg tablet TAKE 2 TABLETS IMMEDIATE LY THEN TAKE 1 TABLET BY MOUTH EVERY WEEK active Not Available Not Available No t Available hydrocodone 5 mg-acetamin ophen 325 mg tablet 08/31 completed Not Available Not Available Not Available gabapentin 400 mg capsule TAKE 1 CAPSULE BY MOUTH THREE TIMES A DAY active Not Available Not Available No t Available peg-electro lyte solution 420 gram oral solution MIX AND DRINK DIRECTED 05/13 completed Not Available Not Available Not Available acetaminoph en 500 mg tablet TAKE 2 TABLETS BY MOUTH EVERY 6 HOURS FOR 10 DAYS 12/18 completed Not Available Not Available Not Available triamcinolo ne acetonide 0.1 % topical cream APPLY TO AFFECTED AREA TWICE A DAY active Not Available Not Available No t Available meloxicam 7.5 mg tablet TAKE 1 TABLET BY MOUTH TWICE A DAY NEEDED 08/31 completed Not Available Not Available Not Available levothyroxi ne 88 mcg tablet TAKE 1 TABLET BY MOUTH EVERY DAY active Not Available Not Available No t Available famotidine 20 mg tablet TAKE 1 TABLET BY MOUTH DAILY 06/08 completed Not Available Not Available Not Available calcium 500 mg (as calcium carbonate 1,250 mg) tablet TAKE 1 TABLET BY MOUTH TWICE A DAY active Not Available Not Available No t Available trazodone 100 mg tablet TAKE 1 TABLET BY MOUTH AT BEDTIME NEEDED 08/31 completed Not Available Not Available Not Available levothyroxi ne 50 mcg tablet TAKE 1 TABLET BY MOUTH EVERY DAY 08/31 completed Not Available Not Available Not Available cephalexin 500 mg capsule TAKE 1 CAPSULE BY MOUTH TWICE A DAY active Not Available Not Available No t Available trazodone 150 mg tablet TAKE 2 TABLETS NEEDED BY MOUTH AT BEDTIME. active Not Available Not Available No t Available lidocaine 5 % topical patch APPLY 1 PATCH ONTO MOST PAINFUL AREA ON SKIN FOR 12 HRS THEN REMOVE. APPLY NEW PATCH AFTER 12 HRS active Not Available Not Available No t Available promethazin e 25 mg tablet TAKE 1/2 TABLET BY MOUTH EVERY 6 HOURS 05/13 completed Not Available Not Available Not Available levothyroxi ne 150 mcg tablet TAKE 1 TABLET BY MOUTH EVERY DAY EARLY IN THE MORNING BEFORE BREAKFAST active Not Available Not Available No t Available ibuprofen 400 mg tablet TAKE 1 TABLET BY MOUTH EVERY 4 HOURS NEEDED FOR PAIN active Not Available Not Available No t Available docusate sodium 100 mg capsule TAKE 1 CAPSULE BY MOUTH TWICE A DAY FOR 10 DAYS active Not Available Not Available No t Available gabapentin 300 mg capsule TAKE 2 (TWO) CAPSULES BY MOUTH 3 TIMES DAILY active Not Available Not Available No t Available aspirin 81 mg chewable tablet CHEW 1 TABLET BY MOUTH ONCE DAILY active Not Available Not Available No t Available montelukast 10 mg tablet TAKE 1 TABLET BY MOUTH EVERY DAY AT NIGHT active Not Available Not Available No t Available gabapentin 100 mg capsule TAKE 1 CAPSULE BY MOUTH THREE TIMES A DAY active Not Available Not Available No t Available ergocalcife rol (vitamin D2) 1,250 mcg (50,000 unit) capsule TAKE 1 CAPSULE BY MOUTH ONCE WEEKLY active Not Available Not Available No t Available budesonide DR - ER 3 mg capsule,del ayed,extend ed release PLEASE SEE ATTACHED FOR DETAILED DIRECTION S active Not Available Not Available No t Available ibuprofen 600 mg tablet TAKE 1 (ONE) TABLET BY MOUTH EVERY 6 HOURS NEEDED PAIN active Not Available Not Available No t Available methylpredn isolone 4 mg tablets in a dose pack TAKE 6 TABLETS ON DAY 1 DIRECTED ON PACKAGE AND DECREASE BY 1 TAB EACH DAY FOR A TOTAL OF 6 DAYS 12/18 completed Not Available Not Available Not Available albuterol sulfate HFA 90 mcg/actuati on aerosol inhaler INHALE 2-4 PUFFS NEEDED EVERY 4-6 HOURS FOR COUGH AND SHORTNESS OF BREATH active Not Available Not Available No t Available ondansetron 4 mg disintegrat ing tablet TAKE 1 TABLET BY MOUTH EVERY 8 HOURS NEEDED FOR NAUSEA AND VOMITING active Not Available Not Available No t Available fluticasone propionate 50 mcg/actuati on nasal spray,suspe nsion SPRAY 2 SPRAYS INTO EACH NOSTRIL ONCE EVERY NIGHT 08/31 completed Not Available Not Available Not Available sertraline 50 mg tablet TAKE 1 TABLET BY MOUTH EVERY DAY active Not Available Not Available No t Available dicyclomine 10 mg capsule 10 MG ORALLY TWICE A DAY NEEDED FOR ABDOMINAL PAIN active Not Available Not Available No t Available loratadine 10 mg tablet TAKE 1 TABLET BY MOUTH EVERY DAY active Not Available Not Available No t Available amoxicillin 875 mg-mack m clavulanate 125 mg tablet TAKE 1 TABLET BY MOUTH TWICE A DAY 12/18 completed Not Available Not Available Not Available oxycodone 5 mg tablet TAKE 1 TABLET BY MOUTH EVERY 4 HOURS NEEDED FOR PAIN 12/18 completed Not Available Not Available Not Available hydrocortis one 1 % topical cream with perineal applicator APPLY TO THE AFFECTED AREA TWICE DAILY 08/19 completed Not Available Not Available Not Available nitrofurant oin monohydrate /macrocryst als 100 mg capsule TAKE 1 CAPSULE BY MOUTH EVERY 12 HOURS WITH FOOD OR MEAL 05/13 completed Not Available Not Available Not Available pregabalin 75 mg capsule TAKE 1 CAPSULE BY MOUTH THREE TIMES A DAY active Not Available Not Available No t Available pregabalin 300 mg capsule TAKE 1 (ONE) CAPSULE BY MOUTH 2 TIMES DAILY REASONS: NEUROPATH IC PAIN active Not Available Not Available No t Available iron 07/28 completed Not Available Not Available Not Available dicyclomine 07/28 completed Not Available Not Available Not Available fiber 07/28 completed Not Available Not Available Not Available hydrochloro thiazide 12.5 mg tablet TAKE 1 TABLET BY MOUTH EVERY MORNING active Not Available Not Available No t Available Symbicort 160 mcg-4.5 mcg/actuati on HFA aerosol inhaler INHALE 2 PUFFS BY MOUTH 2 TIMES A DAY RINSE MOUTH WITH WATER AFTER USE. DO NOT SWALLOW. active Not Available Not Available No t Available [facility] spacer USE DIRECTED WITH INHALER 08/31 completed Not Available Not Available Not Available Spiriva Respimat 2.5 mcg/actuati on solution for inhalation INHALE 2 PUFFS BY MOUTH DAILY active Not Available Not Available No t Available Allergy 07/28 completed Not Available Not Available Not Available Vitals Date Recorded Body height Body mass index (BMI) Body weight Systolic blood pressure Diastolic blood pressure Provider Name and Address Organization Details Last Updated DateTime 07/14/2020 154.94 cm 44.6 kg/m2 784417.8 g 122 mm[Hg] 82 mm[Hg] Angeles Yao [facility] 16:15:50 Date Recorded Body height Body mass index (BMI) Body weight Systolic blood pressure Diastolic blood pressure Provider Name and Address Organization Details Last Updated DateTime 07/28/2020 154.94 cm 43.8 kg/m2 290944.4 3 g 122 mm[Hg] 87 mm[Hg] [facility] 1 16:06:45 Date Recorded Body height Body mass index (BMI) Body weight Systolic blood pressure Diastolic blood pressure Provider Name and Address Organization Details Last Updated DateTime 08/19/2021 154.94 cm 45 kg/m2 422444.9 8 g 125 mm[Hg] 88 mm[Hg] [facility] 2 14:25:24 Date Recorded Body height Body mass index (BMI) Body weight Systolic blood pressure Diastolic blood pressure Provider Name and Address Organization Details Last Updated DateTime 08/31/2022 154.94 cm 39.3 kg/m2 02241.21 g 114 mm[Hg] 78 mm[Hg] Leigha Goodwin [facility] 3 15:39:46 Date Recorded Body weight Systolic blood pressure Diastolic blood pressure Provider Name and Address Organization Details Last Updated DateTime 12/19/2023 471133.71 g 127 mm[Hg] 84 mm[Hg] Rama Ibrahim [facility] 12/19/2023 18:11:23 Social History Question Answer Notes LastModified by Organizat ion Details LastModified Time Tobacco Smoking Status Never [facility]oker [facility] 05/13/2020 15:53:09 What Is Your Level Of Alcohol Consumption? None Information not available 05/13/2020 If You Are , What Was Your Level Of Alcohol Consumption Prior To ? None Information not available 05/13/2020 Are You Blind Or Do You Have Difficulty Seeing? No Information n ot available 12/19/2023 What Is Your Level Of Caffeine Consumption? None Information not available 05/13/2020 In The 14 Days Before Symptom Onset, Have You Had Close Contact With A Laboratory-confirm ed COVID-19 While That Case Was Ill? No Information n ot available 08/31/2022 In The 14 Days Before Symptom Onset, Have You Had Close Contact With A Person Who Is Under Investigation For COVID-19 While That Person Was Ill? No Information not available 08/31/2022 Have You Been To An Area Known To Be High Risk For COVID-19? No Information not available 08/31/2022 Are You Deaf Or Do You Have Serious Difficulty Hearing? No Information not available 12/19/2023 Do You Use Any Illicit Or Recreational Drugs? No Information not available 05/13/2020 Has Tobacco Cessation Counseling Been Provided? No Information not available 05/13/2020 Do You Or Have You Ever Used Any Other Forms Of Tobacco Or Nicotine? No Information not available 05/13/2020 Sex: Unknown Functional Status Question Answer Note LastModified by Organizat ion Details LastModified Time Do you have difficulty walking or climbing stairs? No Information not available 12/19/2023 Are you able to walk? YESASSIST Information not available 12/19/2023 Are you able to care for yourself? Yes Information not available 12/19/2023 Do you have difficulty dressing or bathing? No Information not available 12/19/2023 Mental Status None recorded. Family History Relationship Description Onset Age of this Age Resolved Age Notes LastModified by Organization Details LastModified Time Mother Diabetes mellitus Not available 2020 15:52:32 Maternal Uncle Diabetes mellitus Not available 2020 15:52:32 Medical History Condition Response Cancer Y Stroke Y Kidney or Bladder Problems Y Thyroid Problems Y Gynecological History Statement/Question Response Abnormal Pap N Date of Last Mammogram HPV Vaccine N 05/10/2020 Current Control Method Tubal Ligat ion If Post Menopausal, Age at Menopause 52 Date of Last Colonoscopy 03/12/2020 Sexually Active? Y Menses Monthly N Age of first menstrual cycle 12 Date of Last Pap Smear 07/28/2020 Sexual Problems? N Desired Control Method None Obstetrics History GPAL:G 3 P 3 0 0 3 Type Value Full Term 3 Living 3 Total 3 Past Encounters Encounter ID Performer Location Encounter Start Date Encounter Closed Date Diagnosis/Indication Diagnosis SNOMED-CT Code Diagnosis ICD10 Code Diagnosis Note [id number] Shiloh Elena , [facility] [address] [address] 05/13/2020 15:48:26 05/16/2020 22:05:08 Pain in pelvis 41415817 R10.2 [id number] Zee Ybarra [place] [address] [address] 06/08/2020 11:05:44 06/08/2020 12:43:30 Pain in pelvis 85207328 R10.2 [id number] Shiloh Elena , [facility] [address],[facility] [place] [address] 06/08/2020 11:06:05 06/08/2020 12:43:19 Menorrhagia 165496691 N92.0 TVUS reviewed Fibroid right lat ANIL 25mm found. Inhomogeno us texture. She feels her menses have progressiv mars gotten heavier, heavier over this last year. States, I'm done with my uterus! We discussed various options including progestero ne only options/Or iahnn and surgical options. She feels she would like MD consult to further discuss surgical options. In the meantime, we will updated labs today & to assess for anemia. Patient is to contact office or go to nearest ED/Urgent care if fever >/= 100.1, pain, excessive bleeding, unusual drainage or swelling in area of concern; or experienci ng worsening sx's or new onset of concerning sx's. Understand ing verbalized . All questions answered to patient satisfacti on. Time spent in visit is a total of 15 mins with at least 50% of visit consisting of counseling and review of plan of care. Additional precaution dimas measures were taken to minimize potential exposure to the Covid-19 virus during this patient s visit, including available hand correspondence school instructor upon arrive, temperatur e check and being asked a series of screening questions. All staff wore face coverings during this encounter, as well as provided additional cleaning and sanitizing of all surfaces, including counter-to ps, pens, chairs, door handles, light switches, etc, prior to and following the patient s visit. [id number] Yadira Zhang MD [place] [address] [address] 07/14/2020 16:09:33 07/16/2020 15:20:31 Menorrhagia 005145075 N92.0 Uterine leiomyoma 250806 05 D25.9 Serum thyr oid stimulating hormone level outside reference range 222827379 R79.89 [id number] Yadira Zhang MD [place] [address] [address] 07/28/2020 15:58:52 07/29/2020 15:00:36 Body mass index 40+ - severely obese 777763633 Z68.41 Menorrhagia 945356988 N9 2.0 Gynecologi c examination 81617908 Z01.419 Z11.51 [id number] Yadira Zhang MD [place] [address] [address] 08/19/2021 14:18:54 08/22/2021 15:16:55 Gynecologic examination 31459767 Z01.419 Z11.51 Perimenopausal state 497 1094964 34141 Z78.0 [id number] Shiloh Elena , [facility] [address],[place] [address] 08/31/2022 15:30:14 08/31/2022 16:12:51 Gynecologic examination 54166064 Z01.419 Take Calcium with Vitamin D 12-1500mg daily. Do monthly self breast exams. It is advised to get annual flu shot in the fall and she could obtain at [facility] or [facility] care clinic. If you haven't received the Tdap vaccine in the last 10 years you should obtain one as well. Have mammogram yearly, bone density every 2-3 years and colonoscop y every 5-10 years depending on findings and history. Engage in daily exercise of low impact aerobic exercise 45-60 minutes 4-5 times weekly. Avoid tobacco and illicit drugs as well as using moderation with alcohol intake less than 1-2 8 oz beverages daily. This lifestyle behavior pattern will lead to less health conditions and longer life span. If BMI greater than 25 weight watchers or dietary consult advised. Questions have been answered. Patient appears to understand instructio ns, but if you have any further questions call or respond to this email Pap/hpv due 2023 STD Screen declined Genetic Screen discussed Colon Screen PCP Dexa Screen PCP Routine Labs PCP Screening mammography 24 916927 Z12.31 [id number] Roosevelt Sheth MD [place] [address] [address] 12/19/2023 17:56:50 12/20/2023 10:21:36 Gynecologic examination 44577705 Z01.419 Annual gynecologi tera exam performed. Patient will come back in a year unless there are new symptoms. Suggest Calcium with Vitamin D if not eating in diet. Patient advised to get annual flu shot. Recommend yearly physicals and perform monthly breast exams. Genetic testing is available for patients with family history of cancer. Engage in safe sexual practices, use condoms. Encouraged to have daily exercise. Avoid tobacco and illicit drugs, moderation of alcohol. If BMI greater than 25 dietary consult advised. If you have any questions please call or email. mammogram- ORDER GIVEN colon cancer screening - DONE DEXA scan- NA Pap smear- today laboratory evaluation - done Health Concerns Section Related Observation LastModified by Organization Detai ls LastModified Time None Recorded Concern Status LastModified by Organization Details LastModified Time None Recorded Advance Directives Directive None Recorded Payers Encounter Date Sequence Insurance Name Policy Number Policy [place] Covered Member ID [place] Member ID Guarantor Name 07/14/2020 1 [facility] PRIOR TO 09/09/2020 (MEDICAID REPLACEMENT - HMO) Jade Laguna [id number] Jade Laguna 07/28/2020 1 [facility] PRIOR TO 09/09/2020 (MEDICAID REPLACEMENT - HMO) Jade Laguna [id number] Jade Laguna 08/19/2021 1 [facility] [facility] ON OR AFTER 09/09/20 (MEDICAID REPLACEMENT - HMO) Jade Laguna [id number] Jade Laguna 08/31/2022 1 [facility] ON OR AFTER 09/09/20 (MEDICAID REPLACEMENT - HMO) Jade Laguna [id number] Jade Laguna 12/19/2023 1 [facility] ON OR AFTER 09/09/20 (MEDICAID REPLACEMENT - HMO) Jade Laguna [id number] Jade Laguna Notes Date Note Type Note Provider Name and Address Organization Details Recorded Time 07/14/2020 text/html Pt is a 50yo here complaining of period issues. Over the years they have gotten heavier, but last couple years significantly heavier with cramps. tylenol helps a lot. US showed 2.4cm righ tlateral ANIL fibroid, toherwise normal. TSH was 8! Had thyroid biopsy in 05/2020 and is seeing endocrine next month. Hgb 13. denies any pain, pressure, urinary symptoms. just cramps with menses. Additional concerns: sexually active:y Last annual exam: years Yadira Zhang MD [address], [place], [address], [facility] 07/16/2020 10:00:25 07/28/2020 text/html Patient is a 50y o who presents for an annual exam. Also needs EMB for menorrhagia. Known fibroid R lat ANIL. last pap-2011 mammo-05/2020 colonoscopy-04/2020, 10 years dexa-none menopause-not yet sexually active-y seatbelts-y exercise-yes, a little depression-denies domestic violence-denies tobacco-no concerns-just above menorrhagia Yadira Zhang MD [address], [place], [address], [facility] 08/02/2020 09:58:43 08/19/2021 text/html Patient is a 51y o who presents for an annual exam. She is skipping periods now, with her last one 3 mos ago. NO hot flashes. Is having back problems. last pap-07/2020 mammo-05/2020 colonoscopy-2020, 10 years dexa-none menopause-no sexually active-y seatbelts-y exercise-a little depression-denies domestic violence-denies tobacco-n concerns- Yadira Zhang MD [address], [place], [address], [facility] 08/22/2021 13:57:54 08/31/2022 text/html Annual Family Psychologist Post-MenopausalRepo rted bypatient.Menopausa l Symptoms:no menopausal symptoms; normal vaginal lubrication Vaginal Bleeding:history of menopause having occurred; no history of post menopausal bleeding Urinary Symptoms:no hematuria; no incontinence; no nocturia; no urinary frequency Vulva:no genital lesion; no vulvar atrophy Vagina:normal vaginal discharge; no vaginal atrophy Breast:no breast lump; no nipple discharge; no breast pain Sexual Complaints:no sexual complaints Psychological Symptoms:no depression; no anxiety Preventive Measures:encourage regular mammograms starting age 40; encourage self breast examination; encourage regular exercise; encourage no tobacco use; needs to schedule mammogram; history of recent colonoscopy Shiloh Elena [facility]- [address], [place], [address], [facility] 08/31/2022 15:55:32 12/19/2023 text/html Annual GYNReport ed bypatient.History:n o gynecologic complaints Urinary symptoms:No hematuria; No incontinence Vulva:No genital lesion Vagina:Normal vaginal discharge Breast:No breast pain; No breast lump Sexual complaints:No sexual complaints Menopausal Symptoms:No menopausal symptoms Psychological symptoms:No depression; No anxiety Preventive measures:Encourage self breast examination; Encourage regular exercise Roosevelt Sheth MD [address], [place], [address], [facility] 12/19/2023 18:48:39 OBGyn Episode Ob Episode Information Episode Created Date Number of Fetuses Patient Bloodtype Patient rh Status Prepregnancy Weight lbs Domestic Partner Domestic Partner Phone Father Name Construction Millwright Status 05/14/19 21 1 CLOSED Fetus Data First Name Last Name Admitted to NICU Weight (g) Sex Living Outcome Pediatric Complications Fetus ID Race Codes Race Delivery Type Full Term 8268 Herbert Calculation Initial Herbert Date Initial Exam Date Initial Exam Provider Initial Ultrasound Date Last Menstrual Period Date Ultra Sound Weeks Gestation 0 Eighteen To Twenty Week Herbert Update Ultra Sound Date Fundal Height At Umbil Quickening Date Ultra Sound Latest Weeks Gestation Final Herbert Confirmed By Final Herbert Confirmed Date Final Herbert Date Ultra Sound Latest Days Gestation 0 0 Menstrual History Last Menstrual Date Menses Monthly On Bcp Conception Prior Menses Frequency Hcg Plus Date Menarche Onset Age Delivery Information Delivery Date Delivery Type Labor Anesthesia Weeks Gestation Incision Type Labor Labor Length Hrs Delivered By Post Complications Tubal Sterilization Discharge Date Comments 0 Discharge Information Feeding Method Contraceptive Method Maternal HG B and HCT Levels Ob Episode Information Episode Created Date Number of Fetuses Patient Bloodtype Patient rh Status Prepregnancy Weight lbs Domestic Partner Domestic Partner Phone Father Name Construction Millwright Status 05/14/19 21 1 CLOSED Fetus Data First Name Last Name Admitted to NICU Weight (g) Sex Living Outcome Pediatric Complications Fetus ID Race Codes Race Delivery Type Full Term 8269 Herbert Calculation Initial Herbert Date Initial Exam Date Initial Exam Provider Initial Ultrasound Date Last Menstrual Period Date Ultra Sound Weeks Gestation 0 Eighteen To Twenty Week Herbert Update Ultra Sound Date Fundal Height At Umbil Quickening Date Ultra Sound Latest Weeks Gestation Final Herbert Confirmed By Final Herbert Confirmed Date Final Herbert Date Ultra Sound Latest Days Gestation 0 0 Menstrual History Last Menstrual Date Menses Monthly On Bcp Conception Prior Menses Frequency Hcg Plus Date Menarche Onset Age Delivery Information Delivery Date Delivery Type Labor Anesthesia Weeks Gestation Incision Type Labor Labor Length Hrs Delivered By Post Complications Tubal Sterilization Discharge Date Comments 6 Discharge Information Feeding Method Contraceptive Method Maternal HG B and HCT Levels Ob Episode Information Episode Created Date Number of Fetuses Patient Bloodtype Patient rh Status Prepregnancy Weight lbs Domestic Partner Domestic Partner Phone Father Name Construction Millwright Status 05/14/19 21 1 CLOSED Fetus Data First Name Last Name Admitted to NICU Weight (g) Sex Living Outcome Pediatric Complications Fetus ID Race Codes Race Delivery Type Full Term 8270 Herbert Calculation Initial Herbert Date Initial Exam Date Initial Exam Provider Initial Ultrasound Date Last Menstrual Period Date Ultra Sound Weeks Gestation 0 Eighteen To Twenty Week Herbert Update Ultra Sound Date Fundal Height At Umbil Quickening Date Ultra Sound Latest Weeks Gestation Final Herbert Confirmed By Final Herbert Confirmed Date Final Herbert Date Ultra Sound Latest Days Gestation 0 0 Menstrual History Last Menstrual Date Menses Monthly On Bcp Conception Prior Menses Frequency Hcg Plus Date Menarche Onset Age Delivery Information Delivery Date Delivery Type Labor Anesthesia Weeks Gestation Incision Type Labor Labor Length Hrs Delivered By Post Complications Tubal Sterilization Discharge Date Comments 4 Discharge Information Feeding Method Contraceptive Method Maternal HG B and HCT Levels
--- OUTSIDE RECORDS SUMMARY | 2024-05-21 17:40 | XMS_ITS | Referral Summary ---
Author Organization [facility] Address [address] [place] [address] Care Team Providers Care Port Warden Name Role Phone Nelly Butterfield Primary Care Provider [phone] Source Comments [facility],non-owned Affiliates and Associated Physician Practices is amultiple site organization consisting of ambulatory clinics and hospital sitesin [place], [place], [place] and [place]. This disclosure is being madepursuant to the Care Everywhere program and may not contain all information available regarding this patient. 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 Office Visit [facility] - Neurology [address] [place] [address] [place] [phone] Hay Brower MD Chronic bilateral low back pain with bilateral sciatica (Primary Dx); History of transient ischemic attack; Abnormal finding on MRI of brain 03/28/2024 Orders Only [facility] - Endocrinology [address] [facility], [place] [phone] Kyle Rboerts MD Acquired hypothyroidism; London's thyroiditis; Papillary thyroid carcinoma (HCC) from Last 3 Months Allergies No known active allergies Medications * Be aware that medications may not be up to date on this document. Alwaysverify current medications with the patient. Medication Sig Dispensed Refills Start Date End Date Status tiZANidine (ZANAFLEX) 4 MG tablet Take 1 (one) tablet by mouth nightly as needed for Muscle Spasms 2 Active traZODone (Desyrel) 150 MG tablet Take 1 (one) tablet by mouth once daily as needed 3 Active loratadine (Claritin) 10 MG tablet Take 1 (one) tablet by mouth once daily 3 Active dicyclomine (Bentyl) 10 MG capsule Take 1 (one) capsule by mouth 2 times daily as needed 3 Active gabapentin (Neurontin) 300 MG capsuleIndicatio ns:Bertolotti's syndrome,Chronic bilateral low back pain with bilateral sciatica Take 2 (two) capsules by mouth 3 times daily 180 capsule 11 4 Active ibuprofen (Motrin) 600 MG tablet Take 1 (one) tablet by mouth every 6 hours as needed pain 120 tablet 3 4 Active lidocaine (Lidoderm) 5 % patch APPLY 1 PATCH ONTO THE MOST PAINFUL AREA ON THE SKIN FOR 12 HOURS THEN REMOVE. APPLY A NEW PATCH AFTER 12 HOURS 60 patch 4 Active aspirin (Aspirin) 81 MG chew tabletIndication s:Atheroscleroti c Disease,Ischemic Stroke Take 1 (one) tablet by mouth once daily Reasons: Disease involving Lipid Deposits in the Arteries, Stroke Due To Limited Blood Flow 31 tablet 11 4 Active methocarbamol (Robaxin) 500 MG tabletIndication s:Musculoskeleta l Pain Take 1 (one) tablet by mouth every 6 hours as needed for Muscle Spasms (Take starting at bedtime - if it makes you tired or dizzy, you can't take this any more.) Reasons: Musculoskeletal Pain 90 tablet 11 4 Active Diflucan 150 MG tablet Take 1 tablet every week by oral route. 4 Active sertraline (Zoloft) 50 MG tablet Take 1 (one) tablet by mouth once daily Active budesonide (Entocort EC) [address] capsule Take 1 (one) capsule by mouth once daily Active oxyBUTYnin CR 24hr (Ditropan-XL) 10 MG tablet Take 1 (one) tablet by mouth once daily 90 tablet 2 4 Active Additional Information Patient not taking.Reported on 04/16/2024 atorvastatin (Lipitor) 80 MG tabletIndication s:Cerebrovascula r accident (CVA), unspecified mechanism (HCC) TAKE 1 TABLET BY MOUTH EVERY DAY 30 tablet 4 Active montelukast (Singulair) 10 MG tablet Take 1 (one) tablet by mouth at bedtime 4 Active pregabalin (Lyrica) 150 MG capsuleIndicatio ns:Chronic bilateral back pain, unspecified back location Take 1 (one) capsule by mouth 2 times daily 60 capsule 2 4 Active baclofen (Lioresal) 10 MG tablet Take 1 (one) tablet by mouth 3 times daily May cause drowsiness. 90 tablet 5 5 Active levothyroxine (Synthroid) 150 MCG tablet Take 1 (one) tablet by mouth once daily 30 tablet 11 5 06/04/19 26 Active levothyroxine (Synthroid) 150 MCG tablet Take 1 (one) tablet by mouth once daily 30 tablet 11 3 05/09/19 25 Discontinu ed(Reorder ) Active Problems Problem Noted Date Diagnosed Date Onychomycosis 11/20/2023 History of transient ischemic attack 11/06/2023 Hypertension 11/06/2023 Osteoarthrosis 11/06/2023 Thyroid cancer 11/06/2023 Overview (02/04/2024): S/P thyroidectomy Hypothyroidism 11/06/2023 Myeloradiculopathy 05/24/2023 Chronic bilateral low back pain with bilateral s ciatica 05/24/2023 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 Plan: Schedule thyroid Ultrasound this month Acquired hypothyroidism 08/30/2020 London's thyroiditis 08/30/2020 Acquired hypothyroidism 08/30/2020 05/24/19 Overview (05/24/2023): Last Assessment & Plan: Started treatment in August/2021 Patient is clinically euthyroid Last TSh was 10.26 on 12/12/21 Plan: Continue same dose of Levothyroxine The proper way of taking Levothyroxine reviewed with patient. Check TSH I will adjust the dose based on lab results. Obesity 07/28/2020 Menorrhagia 07/28/2020 Immunizations Name Administration Dates Next Due DEBO SHULTZ PRIMARY 18+YR 08/20/2020 INFLUENZA VACCINE, CELL CULT URE, QUADR. (FLUCELVAX QUADRIVALENT; 6MO+) (CCIIV4) 12/30/2022 Zoster Hzv Vacc Recombinant Inj Im 12/30/2022 Social History Tobacco Use Types Packs/Day Years Used Date Smoking Tobacco: Never Smokeless Tobacco: Never Tobacco Cessation:Counseling Given: Not Answered Alcohol Use Standard Drinks/Week Comments Not Currently 0 (1 standard drink = 0.6 oz pur e alcohol) PHQ-2 Answer Date Recorded Patient Health Questionnaire-2 Score 0 05/24/2023 Sex and Gender Information Value Date Recorded Sex Assigned at Not on file Gender Identity Not on file Sexual Orientation Not on file Last Filed Vital Signs Vital Sign Reading Time Taken Comments Blood Pressure 129/81 04/16/2024 9:24 AM [employer]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 Pulse 98 04/16/2024 9:24 AM [employer]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 Temperature 36.4 C (97.5 F) 01/14/2024 3:31 PM [employer]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 Respiratory Rate 22 05/10/2023 3:04 PM [employer]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 Oxygen Saturation 96% 04/16/2024 9:24 AM [employer]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 Inhaled Oxygen Concentration - - Weight 105.7 kg (233 lb) 04/16/2024 9:24 AM [employer]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 Height 152.4 cm (5') 02/06/2024 1:48 PM [employer]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 Body Mass Index 45.5 02/06/2024 1:48 PM [employer]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 Plan of Treatment Upcoming Encounters Date Type Department Care Team (Late st Contact Info) Description 08/07/2024 11:00 AM CDT Office Visit [facility] - Endocrinology [address] [place] [address], [facility] [place] [phone] Kyle Roberts MD [address] [place] [address] [address] [place] [address] 08/07/2024 12:30 PM CDT Appointment [facility] MRI [address] [place] [phone] Hay Brower MD [address] [place] [address] 08/07/2024 1:30 PM CDT Appointment [facility] MRI [address] [place] [phone] Hay Brower MD [address] [place] [address] 08/07/2024 2:30 PM CDT Appointment [facility] NUCLEAR MEDICINE [address] [place] [phone] Kyle Roberts MD [address] [place] [address] [address] [place] [address] 08/08/2024 2:30 PM CDT Appointment [facility] NUCLEAR MEDICINE [address] [place] [phone] Kyle Roberts MD [address] [place] [address] [address] [place] [address] Procedures Procedure Name Priority Date/Time Associated Diagnosis Comments LAB RESULTS ORDER 04/07/2024 LAB RESULTS ORDER 04/07/2024 LAB RESULTS ORDER 04/07/2024 LAB RESULTS ORDER 04/07/2024 LAB RESULTS ORDER 04/07/2024 LAB RESULTS ORDER 04/07/2024 LAB RESULTS ORDER 04/07/2024 LAB RESULTS ORDER 04/07/2024 from Last 3 Months Results * LAB RESULTS ORDER (04/07/2024) Only the most recent of8 resultswithin the time period is included. 04/07/2024 Narrative 04/07/2024 Ordered by an unspecified provider. Scanned Document LAB - THERAPEUTIC DR SOMMER MONITORING ORDERABLES from Last 3 Months Care Teams Port Warden Relationship Specialty Start Date End Date Nelly Butterfield DO [address] [place] [address] PCP - General Family Medicine 04/16/24
--- OUTSIDE RECORDS SUMMARY | 2024-05-21 17:40 | XMS_ITS | Encounter Summary ---
Author Organization [facility] Address [address] [facility] [place] [address] Care Team Providers Care Extrusion Supervisor Name Role Phone Ezequiel Price MD Primary Care Provider [phone] Nelly Butterfield DO Primary Care Provider [phone] Encounter Details Date Type Department Care Team (Late st Contact Info) Description 11/05/2023 Telephone [facility] - Endocrinology [address] [place] [address], [place] [address] Kyle Roberts MD [address] [place] [address] [place] [address] Social History Tobacco Use Types Packs/Day Years Used Date Smoking Tobacco: Never Smokeless Tobacco: Never Alcohol Use Standard Drinks/Week Comments Not Currently 0 (1 standard drink = 0.6 oz pur e alcohol) PHQ-2 Answer Date Recorded Patient Health Questionnaire-2 Score 0 05/24/2023 Sex and Gender Information Value Date Recorded Sex Assigned at Not on file Gender Identity Not on file Sexual Orientation Not on file documented as of this encounter Miscellaneous Notes * Telephone Encounter - Renate Benavides - 11/05/2023 9:28 AM CDT Current Provider: Dr. Kyle Roberts Reason for Call: Ms. Jade Laguna's referral w/ medical notes is not in. [facility] she had thyroid surgery last yea in , she did have thyroid cancer last year, hasn't had TUS or Biopsy since last year. I have asked her to send over notes MALIKA to determine what weclari schedule her for. She mentioned she does have HYPOTHYROIDISM and Hashimotos disease. Please advise. Again, I did ask her to have records sent over MALIKA. Patient Call Back Number: [phone] documented in this encounter Plan of Treatment Upcoming Encounters Date Type Department Care Team (Late st Contact Info) Description 08/07/2024 11:00 AM CDT Office Visit [facility] - Endocrinology [address] [place] [address], [place] [phone] Kyle Roberts MD [address] [place] [phone] 08/07/2024 12:30 PM CDT Appointment [facility] MRI [address] [place] [phone] Hay Brower MD [address] [place] [phone] 08/07/2024 1:30 PM CDT Appointment [facility] MRI [address] [place] [phone] Hay Brower MD [address] [place] [address] 08/07/2024 2:30 PM CDT Appointment [facility] NUCLEAR MEDICINE [address] [place] [phone] Kyle Roberts MD [address] [place] [address] 08/08/2024 2:30 PM CDT Appointment [facility] NUCLEAR MEDICINE [address] [place] [phone] Kyle Roberts MD [address] Div [place] [address] documented as of this encounter Visit Diagnoses Not on filedocumented in this encounter Care Teams Extrusion Supervisor Relationship Specialty Start Date End Date Ezequiel Price MD [address] [facility] [address] [place], [place] [phone] PCP - General 03/10/20 04/15/24 Nelly Butterfield DO [address] [place] [address] PCP - General Family Medicine 04/16/24 documented as of this encounter
--- OUTSIDE RECORDS SUMMARY | 2024-05-21 17:40 | XMS_ITS | Patient Health Summary ---
Author Organization [facility] Address [address] [place] [address] Care Team Providers Care Machine Inker Name Role Phone Nelly Butterfield Primary Care Provider [phone] Note from [facility],non-owned Affiliates and Associated Physician Practices is amultiple site organization consisting of ambulatory clinics and hospital sitesin [place], [place], [place] and [place]. This disclosure is being madepursuant to the Care Everywhere program and may not contain all information available regarding this patient. Last updated 17.[facility] Allergies No known active allergies* Oxycodone(Nausea and/or Vomiting) -Low Criticality, Inactive Medications * Be aware that medications may not be up to date on this document. Alwaysverify current medications with the patient. * tiZANidine (ZANAFLEX) 4 MG tablet(Started 07/04/2021) Take 1 (one) tablet by mouth nightly as needed for Muscle Spasms * traZODone (Desyrel) 150 MG tablet(Started 10/31/2022) Take 1 (one) tablet by mouth once daily as needed * loratadine (Claritin) 10 MG tablet(Started 10/20/2022) Take 1 (one) tablet by mouth once daily * dicyclomine (Bentyl) 10 MG capsule(Started 11/01/2022) Take 1 (one) capsule by mouth 2 times daily as needed * gabapentin (Neurontin) 300 MG capsule(Started 05/17/2023) Take 2 (two) capsules by mouth 3 times daily 11 refills by 05/16/2024 * ibuprofen (Motrin) 600 MG tablet(Started 10/17/2023) Take 1 (one) tablet by mouth every 6 hours as needed pain 3 refills by 10/16/2024 * lidocaine (Lidoderm) 5 % patch(Started 10/17/2023) APPLY 1 PATCH ONTO THE MOST PAINFUL AREA ON THE SKIN FOR 12 HOURS THEN REMOVE. APPLY A NEW PATCH AFTER 12 HOURS * aspirin (Aspirin) 81 MG chew tablet(Started 10/30/2023) Take 1 (one) tablet by mouth once daily Reasons: Disease involving Lipid Deposits in the Arteries, Stroke Due To Limited Blood Flow 11 refills by 10/29/2024 * methocarbamol (Robaxin) 500 MG tablet(Started 10/30/2023) Take 1 (one) tablet by mouth every 6 hours as needed for Muscle Spasms (Take starting at bedtime - if it makes you tired or dizzy, you can't take this any more.) Reasons: Musculoskeletal Pain 11 refills by 10/29/2024 * Diflucan 150 MG tablet(Started 11/20/2023) Take 1 tablet every week by oral route. * sertraline (Zoloft) 50 MG tablet Take 1 (one) tablet by mouth once daily * budesonide (Entocort EC) [address] capsule Take 1 (one) capsule by mouth once daily * oxyBUTYnin CR 24hr (Ditropan-XL) 10 MG tablet(Started 11/26/2023) Take 1 (one) tablet by mouth once daily 2 refills by 11/25/2024 * atorvastatin (Lipitor) 80 MG tablet(Started 12/03/2023) TAKE 1 TABLET BY MOUTH EVERY DAY * montelukast (Singulair) 10 MG tablet(Started 12/11/2023) Take 1 (one) tablet by mouth at bedtime * pregabalin (Lyrica) 150 MG capsule(Started 01/31/2024) Take 1 (one) capsule by mouth 2 times daily 2 refills by 07/29/2024 * baclofen (Lioresal) 10 MG tablet(Started 04/16/2024) Take 1 (one) tablet by mouth 3 times daily May cause drowsiness. 5 refills by 04/16/2025 * levothyroxine (Synthroid) 150 MCG tablet(Started 05/09/2024) Take 1 (one) tablet by mouth once daily 11 refills by 05/09/2025 Ended Medications* levothyroxine (Synthroid) 150 MCG tablet(Started 01/12/2023) (Discontinued) Take 1 (one) tablet by mouth once daily 11 refills remaining Active Problems Problem Noted Date Diagnosed Date Onychomycosis 11/20/2023 History of transient ischemic attack 11/06/2023 Hypertension 11/06/2023 Osteoarthrosis 11/06/2023 Thyroid cancer 11/06/2023 Hypothyroidism 11/06/2023 Myeloradiculopathy 05/24/2023 Chronic bilateral low back pain with bilateral s ciatica 05/24/2023 Neurogenic claudication due to lumbar spinal patrick nosis 05/24/2023 Papillary thyroid carcinoma 03/30/202305/10 Thyroid nodule 09/02/2021 05/24/2023 Acquired hypothyroidism 08/30/2020 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 (FLUCELVAX QUADRIVALENT; 6MO+) (CCIIV4)(Given 12/30/2022) * Zoster Hzv Vacc Recombinant Inj Im(Given 12/30/2022) Social History Tobacco Use Types Packs/Day Years [...] Comments Blood Pressure 129/81 04/16/2024 9:24 AM BUILDING INSPECTION ENGINEER Pulse 98 04/16/2024 9:24 AM BUILDING INSPECTION ENGINEER Temperature 36.4 C (97.5 F) 01/14/2024 3:31 PM BUILDING INSPECTION ENGINEER Respiratory Rate 22 05/10/2023 3:04 PM BUILDING INSPECTION ENGINEER Oxygen Saturation 96% 04/16/2024 9:24 AM BUILDING INSPECTION ENGINEER Inhaled Oxygen Concentration - - Weight 105.7 kg (233 lb) 04/16/2024 9:24 AM BUILDING INSPECTION ENGINEER Height 152.4 cm (5') 02/06/2024 1:48 PM BUILDING INSPECTION ENGINEER Body Mass Index 45.5 02/06/2024 1:48 PM BUILDING INSPECTION ENGINEER Procedures * LAB RESULTS ORDER(Performed 04/07/2024) * LAB RESULTS ORDER(Performed 04/07/2024) * LAB RESULTS ORDER(Performed 04/07/2024) * LAB RESULTS ORDER(Performed 04/07/2024) * LAB RESULTS ORDER(Performed 04/07/2024) * LAB RESULTS ORDER(Performed 04/07/2024) * LAB RESULTS ORDER(Performed 04/07/2024) * LAB RESULTS ORDER(Performed 04/07/2024) * URINALYSIS AUTO - POINT OF CARE (AMB) [facility](Performed 11/26/2023) Performed for Mixed incontinence * SD MSR PVR U&/BLADD CAPCTY US NON(Performed 11/26/2023) Performed for Mixed incontinence * MRI BRAIN WWO CONTRAST(Performed 11/18/2023) Performed for Dysphagia, unspecified type, Dysarthria, Apraxia, Cerebrovascular accident (CVA), unspecified mechanism (HCC) * CREATININE - POCT INTERFACED(Performed 11/18/2023) * XR LUMBAR SPINE 4VW OR MORE(Performed 05/24/2023) Performed for Neurogenic claudication due to lumbar spinal stenosis, Chronic bilateral low back pain with bilateral sciatica * PAIN MANAGEMENT PROCEDURE TIME(Performed 05/10/2023) Performed for Lumbar radiculopathy * MRI LUMBAR SPINE WO CONTRAST(Performed 04/13/2023) Performed for Bertolotti's syndrome, Chronic bilateral low back pain with bilateral sciatica * XR LUMBAR SPINE 2 OR 3VW(Performed 05/12/2022) Performed for Low back pain, unspecified back pain laterality, unspecified chronicity, unspecified whether sciatica present * XR KNEE LEFT 4VW OR MORE(Performed 03/23/2022) Performed for Left knee pain, unspecified chronicity * SD US SOFT TISS HEAD&NCK R-T IMG(Performed 07/24/2021) Performed for Acquired hypothyroidism, Angelo's thyroiditis * CULTURE URINE(Performed 12/01/2013) Results * LAB RESULTS ORDER (04/07/2024) Only the most recent of8 resultswithin the time period is included. 04/07/2024 Narrative 04/07/2024 Ordered by an unspecified provider. Scanned Document LAB - THERAPEUTIC DR UG MONITORING ORDERABLES * URINALYSIS AUTO - POINT OF CARE (AMB) [facility] (11/26/2023 1:27 PM CDT) Glucose UA Negative Bilirubin UA POCT Negative Ketones UA POCT Negative Specific [place] UA 1.030 Blood Urine POCT Negative pH UA 6.0 Protein UA Negative Urobilinogen UA 0.2 Nitrite UA Negative WBC UA Negative Urine URINE / Unknown 11/26/2023 1 :27 PM CDT [facility] LAB - POINT OF CARE ORDERABLES * SD MSR PVR U&/BLADD CAPCTY US NON (11/26/2023 1:26 PM CDT) Narrative Suzanne Rock MA - 11/26/2023 1:26 PM CDT Suzanne Rock MA 11/26/2023 2:58 PM Bladder scan completed. 61 ml post void residual. [facility] PROCEDURE/MINOR SURG ICAL ORDERABLES * MRI Brain Wwo Contrast (11/18/2023 6:59 PM CDT) Anatomical Region Laterality Modality Head Magnetic Resonan ce 11/21/2023 1:06 PM CDT Impressions 11/21/2023 1:21 PM CDT IMPRESSION: 1. No acute intracranial process. Specifically, no acute infarct or acute intracranial hemorrhage. 2. A small amount of nonenhancing FLAIR hyperintensities in the subcortical white matter of the frontal lobes and the left insula with the largest area in the posterior left frontal lobe, a nonspecific finding that can be seen in patient with chronic migraine headaches, chronic small vessel ischemic disease or less likely chronic demyelinating disease among other potential etiologies. > Interpreting Provider: Darrius Benton MD on 11/21/2023 1:21 PM Narrative 11/21/2023 1:21 PM CDT PROCEDURE: MRI BRAIN WWO CONTRAST, DATE/TIME OF EXAM: 11/18/2023 7:00 PM, LOCATION [facility] INDICATION: R13.10: Dysphagia, unspecified type R47.1: Dysarthria R48.2: Apraxia I63.9: Cerebrovascular accident (CVA), unspecified mechanism (HCC) ADDITIONAL CLINICAL INFORMATION: Ordering Provider Reason For Exam: Assess subtle hypodensity left insular cortex- a chronic ischemic event? Patient developed multiple neurologic issues since 10/17, a [place] CT on 10/22 demonstrated this finding. Speech symptoms are evolving to get worse, pain symptoms ongoing Technologist Note: Additional: TECHNIQUE: MRI of the brain was performed prior to and following the uneventful administration of intravenous contrast according to standard protocol. CONTRAST: GADOBUTROL 1 MMOL/ML IV SSM SO:10 mL COMPARISON: No prior study is available for comparison at the time of this dictation. FINDINGS: No evidence of acute cerebral infarction is seen. No evidence of acute or chronic hemorrhage is identified. The ventricles are of normal size, shape, and morphology. No mass effect or midline shift is seen. There is a small amount of FLAIR hyperintensities in the subcortical white matter of the frontal lobes and the left insula with the largest area in the posterior left frontal lobe, a nonspecific finding. No enhancing lesions are identified. The corpus callosum and sella appear normal. The posterior fossa, brainstem, and craniocervical junction appear normal. Other than mild to moderate paranasal sinus disease, the visualized portions of the orbits, paranasal sinuses, and mastoids appear normal. Normal flow voids are demonstrated in the carotid arteries and basilar artery. The calvarium and visualized cervical spine appear normal. Procedure Note Darrius Benton MD - 11/21/2023 PROCEDURE: MRI BRAIN WWO CONTRAST, DATE/TIME OF EXAM: 11/18/2023 7:00PM, LOCATION [facility] INDICATION: R13.10: Dysphagia, unspecified type R47.1: Dysarthria R48.2: Apraxia I63.9: Cerebrovascular accident (CVA), unspecified mechanism (HCC) ADDITIONAL CLINICAL INFORMATION: Ordering Provider Reason For Exam: Assess subtle hypodensity leftinsular cortex- a chronic ischemic event? Patient developed multiple neurologic issues since 10/17, a [place] CT on 10/22 demonstrated this finding. Speech symptoms are evolving to get worse, pain symptoms ongoing Technologist Note: Additional: TECHNIQUE: MRI of the brain was performed prior to and following the uneventful administration of intravenous contrast according to standard protocol. CONTRAST: GADOBUTROL 1 MMOL/ML IV SSM SO:10 mL COMPARISON: No prior study is available for comparison at the time ofthis dictation. FINDINGS: No evidence of acute cerebral infarction is seen. No evidence of acuteor chronic hemorrhage is identified. The ventricles are of normal size,shape, and morphology. No mass effect or midline shift is seen. There is asmall amount of FLAIR hyperintensities in the subcortical white matter of the frontal lobes and the left insula with the largest area in the posterior left frontal lobe, a nonspecific finding. No enhancing lesions are identified. The corpus callosum and sella appear normal. The posterior fossa, brainstem, and craniocervical junction appear normal. Other than mild to moderate paranasal sinus disease, the visualized portions of the orbits, paranasal sinuses, and mastoids appear normal. Normal flow voids are demonstrated in the carotid arteries and basilar artery. The calvarium and visualized cervical spine appear normal. IMPRESSION: 1. No acute intracranial process. Specifically, no acute infarct oracute intracranial hemorrhage. 2. A small amount of nonenhancing FLAIR hyperintensities in thesubcortical white matter of the frontal lobes and the left insula with the largestarea in the posterior left frontal lobe, a nonspecific finding that can beseen in patient with chronic migraine headaches, chronic small vesselischemic disease or less likely chronic demyelinating disease among otherpotential etiologies. > Interpreting Provider: Darrius Benton MD on 11/21/2023 1:21 PM Courtney Ravi MD MR ORDERABLES * (ABNORMAL) CREATININE - POCT INTERFACED (11/18/2023 6:14 PM CDT) Creatinine POCT 0.90 0.30 - 1.30 mg/dL 11/18/2023 6:16 PM CDT [facility] eGFR 76(L) >=90 mL/min/1.7 3 m2 11/18/2023 6:16 PM CDT [facility] Blood BLOOD SPECIMEN / Unknown 11/18/2023 6:14 PM CDT 11/18/2023 6:16 PM CDT Courtney Ravi MD LAB - POINT OF CARE ORDERABLES [facility] [address] [place] [address], [facility] [phone] * XR LUMBAR SPINE 4VW OR MORE (05/24/2023 10:08 AM CDT) Anatomical Region Laterality Modality Spine Radiographic Corrine ging 05/24/2023 11:3 2 AM CDT Impressions 05/24/2023 12:30 PM CDT IMPRESSION: 1.Multilevel mild degenerative changes as described above. 2.Partial lumbarization of the S1 vertebral body. Report dictated by Sara Aguilar Dr, MD (vice president of finance). I, Denise Pineda MD have personally reviewed and interpreted this examination/study. > Interpreting Provider: Denise Pineda MD on 05/24/2023 12:30 PM Narrative 05/24/2023 12:30 PM CDT PROCEDURE: XR LUMBAR SPINE 4VW OR MORE, DATE/TIME OF EXAM: 05/24/2023 10:08 AM, LOCATION [facility] INDICATION: M48.062: Neurogenic claudication due to lumbar spinal stenosis M54.42: Chronic bilateral low back pain with bilateral sciatica M54.41: Chronic bilateral low back pain with bilateral sciatica G89.29: Chronic bilateral low back pain with bilateral sciatica ADDITIONAL CLINICAL INFORMATION: Ordering Provider Reason For Exam: Office visit Technologist Note: Additional: COMPARISON: Lumbar spine radiograph dated 05/12/2022. MRI lumbar spine dated 05-05. FINDINGS: Surgical clips overlie the right upper quadrant. There are 2 radiopaque tubular structures overlying the midline of the lower thoracic spine of unclear etiology. There is partial lumbarization of the S1 vertebral body. Grade 1 retrolisthesis of L4 on L5 and a grade 1 anterolisthesis of S1 on S2 that does not significantly change with flexion or extension positioning. There is no fracture or compression deformity. Disc height loss at L4-S1. Facet arthropathy at L3-S1, most prominent at L5-S1. Bone density and texture are normal. Procedure Note Denise Pineda MD - 05/24/2023 PROCEDURE: XR LUMBAR SPINE 4VW OR MORE, DATE/TIME OF EXAM: 05/24/2023 10:08 AM, LOCATION [facility] INDICATION: M48.062: Neurogenic claudication due to lumbar spinal stenosis M54.42: Chronic bilateral low back pain with bilateral sciatica M54.41: Chronic bilateral low back pain with bilateral sciatica G89.29: Chronic bilateral low back pain with bilateral sciatica ADDITIONAL CLINICAL INFORMATION: Ordering Provider Reason For Exam: Office visit Technologist Note: Additional: COMPARISON: Lumbar spine radiograph dated 05/12/2022. MRI lumbar spine dated 05-05. FINDINGS: Surgical clips overlie the right upper quadrant. There are 2 radiopaque tubular structures overlying the midline of the lower thoracic spine of unclear etiology. There is partial lumbarization of the S1 vertebral body. Grade 1 retrolisthesis of L4 on L5 and a grade 1 anterolisthesis of S1on S2 that does not significantly change with flexion or extension positioning. There is no fracture or compression deformity. Disc height loss at L4-S1. Facet arthropathy at L3-S1, most prominent at L5-S1. Bone density and texture are normal. IMPRESSION: 1.Multilevel mild degenerative changes as described above. 2.Partial lumbarization of the S1 vertebral body. Report dictated by Sara Aguilar Dr, MD (vice president of finance). I, Denise Pineda MD have personally reviewed and interpreted this examination/study. > Interpreting Provider: Denise Pineda MD on 412:30 PM Jorge Zuñiga MD DIAGNOSTIC IMAGING O RDERABLES * PAIN MANAGEMENT PROCEDURE TIME (05/10/2023 3:29 PM BUILDING INSPECTION ENGINEER) Anatomical Region Laterality Modality Radio Fluoroscop y Narrative 05/10/2023 2:53 PM BUILDING INSPECTION ENGINEER Charly Jeter MD 05/24/2023 8:16 AM PROCEDURE NOTE: bilateral L-5 transforaminal epidural steroid injection Primary pain complaint: lower extremity pain Pre-procedure diagnosis: lumbar radicular pain Post-procedure diagnosis: Same Attending: Dr. Charly Love MD., Ph.D. Risks and benefits were discussed, and written consent obtained from the patient. The patient was placed in the prone position. Pulse oximetry, heart rate, and blood pressure were monitored before the procedure, during the procedure, and after the procedure. The skin was prepped with chloraPrep and draped in a sterile fashion. An oblique fluoroscopic view was obtained, with the superior articular process of L-5 level aligned with the pedicle of the upper level. With a 25-gauge, 1.5 inch needle, 1 % lidocaine was injected subcutaneously over the entry site. The tip of a 22-gauge 5-inch spinal needle was advanced toward the 6 o'clock position of the pedicle under intermittent fluoroscopic guidance. Confirmation of proper needle position was made with AP, oblique, and lateral fluoroscopic views. After negative aspiration for blood and cerebrospinal fluid, 1 ml of nonionic contrast agent was slowly injected under live fluoroscopic imaging with digital subtraction which revealed a clear outline of the spinal nerve with proximal spread of agent through the neural foramen into the anterior epidural space. Subsequently, 3 ml of injectate (1 ml dexamethasone 10 mg/ml and 2 ml preservative-free lidocaine 2%) was administered at the selected level. The needle was withdrawn. The procedure was then repeated on the contra-lateral side. The patient tolerated the procedure well and there was no evidence of procedural complications. The patient was stable post-procedure and was given a post-procedure information sheet at discharge. The patient was able to ambulate upon discharge to home. The patient was instructed to seek emergent medical attention should there be an increase in pain, incontinence, new weakness or numbness, fever, or local site irritation. Following the procedure the patients BP, heart rate, oxygen saturation and VAS were recorded. The patient tolerated the procedure well and denied any lower extremity weakness or numbness. Patient was brought to the recovery room for observation in stable condition, and was discharged with written discharge instructions with an escort. Anesthesia: local anesthesia Complications: none Pre-Procedure Pain Score: 9/10 Post-Procedure Pain Score: 0/10 Plan of care: Patient advised to contact the Pain Center for any of the followin. Fever, chills or night sweats 2. New onset of severe sharp pain 3. Any new upper/lower extremity weakness or numbness 4. Any questions regarding the procedure If unable to contact the Pain Center, patient instructed to go to local Emergency Room. ICharly, performed the whole procedure. Charly Love MD DIAGNOSTIC IMAGIN G ORDERABLES * MRI LUMBAR SPINE WO CONTRAST (04/13/2023 4:31 PM BUILDING INSPECTION ENGINEER) Anatomical Region Laterality Modality Spine Magnetic Resonan ce 04/16/2023 3:25 PM BUILDING INSPECTION ENGINEER Impressions 04/16/2023 3:45 PM BUILDING INSPECTION ENGINEER IMPRESSION: 1. There is transitional anatomy with 6 lumbar vertebral bodies. For dictation purposes 6 lumbar vertebral bodies labeled as S1. 2. Multilevel mild to moderate degenerative changes as described above most prominent at the level of L4-L5 and L5-S1. > Interpreting Provider: Sophia Leal MD on 04/16/2023 3:45 PM Narrative 04/16/2023 3:45 PM BUILDING INSPECTION ENGINEER PROCEDURE: MRI LUMBAR SPINE WO CONTRAST DATE/TIME OF EXAM: 04/13/2023 4:31 PM CLINICAL INFORMATION: None relevant/not provided if blank. 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 FINDINGS: There is transitional anatomy with 6 lumbar vertebral bodies. For dictation purposes 6 lumbar vertebral bodies labeled as S1. Grade 1 anterolisthesis of L5 over S1 (L6) with chronic bilateral pars defects at the level of S1 (L6) Vertebral bodies are normal in height without evidence of compression fractures. Marrow signal intensity is normal except for mild endplate edema/degenerative changes at the level of L5-S1. The conus medullaris terminates at the level of L2 and the distal spinal cord signal intensity is normal. Mild disc height loss at L5-S1. There is obliteration of the disc space at the level of S1-S2. No soft tissue abnormality is identified. Partially visualized uterine fibroids, possible adnexal cysts cannot be excluded. L1-L2: There is no disc bulge. There is no central canal stenosis. There is mild bilateral facet osteoarthritis. There is no neural foraminal stenosis. L2-L3: There is no disc bulge. There is no central canal stenosis. There is mild bilateral facet osteoarthritis. There is no neural foraminal stenosis. L3-L4: Mild diffuse disc bulge. Mild thecal sac stenosis with the prominent dorsal epidural fat. There is mild to moderate bilateral facet osteoarthritis. There is no neural foraminal stenosis. L4-L5: Mild diffuse disc bulge. Mild to moderate thecal sac stenosis with prominent surrounding epidural fat. There is moderate bilateral facet osteoarthritis. There is no neural foraminal stenosis. L5-S1 (L6): Mild diffuse disc bulge. Mild to moderate thecal sac stenosis with prominent surrounding epidural fat, mild ligamentum flavum hypertrophy. There is moderate right greater than left facet osteoarthritis. There is moderate right, mild left neural foraminal stenosis. There is tapering of the thecal sac inferiorly at the level of S1-S2/L6 S1. Moderate right, moderate to severe left neural foraminal stenosis at the level of S1-S2/L6 S1. Procedure Note Sophia Leal MD - 04/16/2023 PROCEDURE: MRI LUMBAR SPINE WO CONTRAST DATE/TIME OF EXAM: 04/13/2023 4:31 PM CLINICAL INFORMATION: None relevant/not provided if blank. 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 FINDINGS: There is transitional anatomy with 6 lumbar vertebral bodies. Fordictation purposes 6 lumbar vertebral bodies labeled as S1. Grade 1 anterolisthesis of L5 over S1 (L6) with chronic bilateral pars defects at the level of S1 (L6) Vertebral bodies are normal in height without evidence of compression fractures. Marrow signal intensity is normal except for mild endplate edema/degenerative changes at the levelof L5-S1. The conus medullaris terminates at the level of L2 and the distal spinal cord signal intensity is normal. Mild disc height loss at L5-S1. There is obliteration of the disc space at the level of S1-S2. No soft tissue abnormality is identified. Partially visualized uterine fibroids, possible adnexal cysts cannot be excluded. L1-L2: There is no disc bulge. There is no central canal stenosis. Thereis mild bilateral facet osteoarthritis. There is no neural foraminalstenosis. L2-L3: There is no disc bulge. There is no central canal stenosis. Thereis mild bilateral facet osteoarthritis. There is no neural foraminalstenosis. L3-L4: Mild diffuse disc bulge. Mild thecal sac stenosis with theprominent dorsal epidural fat. There is mild to moderate bilateral facet osteoarthritis. There is no neural foraminal stenosis. L4-L5: Mild diffuse disc bulge. Mild to moderate thecal sac stenosiswith prominent surrounding epidural fat. There is moderate bilateral facet osteoarthritis. There is no neural foraminal stenosis. L5-S1 (L6): Mild diffuse disc bulge. Mild to moderate thecal sacstenosis with prominent surrounding epidural fat, mild ligamentum flavum hypertrophy. There is moderate right greater than left facet osteoarthritis. There is moderate right, mild left neural foraminal stenosis. There is tapering of the thecal sac inferiorly at the level of S1-S2/L6S1. Moderate right, moderate to severe left neural foraminal stenosis at the level of S1-S2/L6 S1. IMPRESSION: 1. There is transitional anatomy with 6 lumbar vertebral bodies. For dictation purposes 6 lumbar vertebral bodies labeled as S1. 2. Multilevel mild to moderate degenerative changes as described abovemost prominent at the level of L4-L5 and L5-S1. > Interpreting Provider: Sophia Leal MD on 04/16/2023 3:45 PM Courtney Ravi MD MR ORDERABLES * XR LUMBAR SPINE 2 OR 3VW (05/12/2022 2:28 PM BUILDING INSPECTION ENGINEER) Anatomical Region Laterality Modality Spine Radiographic Corrine ging 05/12/2022 2:29 PM BUILDING INSPECTION ENGINEER Impressions 05/12/2022 2:36 PM BUILDING INSPECTION ENGINEER IMPRESSION: Transitional vertebra at the lumbosacral junction, considered S1. Grade 1 anterolisthesis at S1-S2. > Interpreting Provider: Ramírez Londono MD on 05/12/2022 2:36 PM Narrative 05/12/2022 2:36 PM BUILDING INSPECTION ENGINEER PROCEDURE: XR LUMBAR SPINE 2 OR 3VW, DATE/TIME OF EXAM: 05/12/2022 2:28 PM, LOCATION [facility] INDICATION: M54.50: Low back pain, unspecified back pain laterality, unspecified chronicity, unspecified whether sciatica present ADDITIONAL CLINICAL INFORMATION: Ordering Provider Reason For Exam: back pain Technologist Note: Additional: COMPARISON: None. FINDINGS: Transitional vertebra at the lumbosacral junction, considered S1 for the purpose of this report. There is anterolisthesis at S1-S2. There is severe narrowing of the disc space at this level and possible bony fusion. S1 pars defects cannot be excluded. Mild disc space narrowing at L4-5 and L5-S1. No fracture. Mild levocurvature. Procedure Note Ramírez Londono MD - 05/12/2022 PROCEDURE: XR LUMBAR SPINE 2 OR 3VW, DATE/TIME OF EXAM: 05/12/2022 2:28PM, LOCATION [facility] INDICATION: M54.50: Low back pain, unspecified back pain laterality, unspecified chronicity, unspecified whether sciatica present ADDITIONAL CLINICAL INFORMATION: Ordering Provider Reason For Exam: back pain Technologist Note: Additional: COMPARISON: None. FINDINGS: Transitional vertebra at the lumbosacral junction, considered S1 for the purpose of this report. There is anterolisthesis at S1-S2. There issevere narrowing of the disc space at this level and possible bony fusion. S1pars defects cannot be excluded. Mild disc space narrowing at L4-5 and L5-S1.No fracture. Mild levocurvature. IMPRESSION: Transitional vertebra at the lumbosacral junction,considered S1. Grade 1 anterolisthesis at S1-S2. > Interpreting Provider: Ramírez Londono MD on 05/12/2022 2:36 PM Monique White MD DIAGNOSTIC IMAGING ORDERABLES * XR KNEE LEFT 4VW OR MORE (03/23/2022 11:14 AM BUILDING INSPECTION ENGINEER) Anatomical Region Laterality Modality Lower Extremity Radiographic Corrine ging 03/23/2022 11:2 5 AM BUILDING INSPECTION ENGINEER Impressions 03/23/2022 11:53 AM BUILDING INSPECTION ENGINEER IMPRESSION: No acute fracture, dislocation or significant arthritis. Report dictated by Boyd Monzon MD (vice president of finance). Denise Valente MD have personally reviewed and interpreted this examination/study. > Interpreting Provider: Denise Pineda MD on 03/23/2022 11:53 AM Narrative 03/23/2022 11:53 AM BUILDING INSPECTION ENGINEER PROCEDURE: XR KNEE LEFT 4VW OR MORE, DATE/TIME OF EXAM: 03/23/2022 11:15 AM, LOCATION [facility] INDICATION: M25.562: Left knee pain, unspecified chronicity ADDITIONAL CLINICAL INFORMATION: Ordering Provider Reason For Exam: knee pain COMPARISON: None. FINDINGS: The osseous structures are intact and well aligned without acute fracture or dislocation. The knee joint space is preserved. No joint effusion is seen. Bone density and texture are normal. Procedure Note Denise Pineda MD - 03/23/2022 PROCEDURE: XR KNEE LEFT 4VW OR MORE, DATE/TIME OF EXAM: 1:15 AM, LOCATION [facility] INDICATION: M25.562: Left knee pain, unspecified chronicity ADDITIONAL CLINICAL INFORMATION: Ordering Provider Reason For Exam: knee pain COMPARISON: None. FINDINGS: The osseous structures are intact and well aligned without acutefracture or dislocation. The knee joint space is preserved. No joint effusion is seen. Bone density and texture are normal. IMPRESSION: No acute fracture, dislocation or significant arthritis. Report dictated by Boyd Monzon MD (vice president of finance). Denise Valente MD have personally reviewed and interpreted this examination/study. > Interpreting Provider: Denise Pienda MD on 1:53 AM Dara Stahl PA-C DIAGNOSTIC IMAGING ORDERABLES * SD US SOFT TISS HEAD&NCK R-T IMG (07/24/2021 10:11 AM CDT) Narrative Kyle Roberts MD - 07/24/2021 10:11 AM CDT Kyle Roberts MD 07/24/2021 10:17 AM Ultrasound Of Thyroid Ultrasound of the Thyroid Test Date: 07/22/2021 Test Indication: Patient Active Problem List: Obesity Menorrhagia Acquired hypothyroidism Angelo's thyroiditis Referring Physician: Dr. Ezequiel Price MD Procedure Preformed: Ultrasound Only Nodule Size: RIGHT LOBE TRANSVERSE IMAGE: MID LOBE, LATERAL, SOLID, HALO, HETEROGENEOUS ECHO TEXTURE, SMOOTH BORDER , 0.91 X 0.81 CM, SECOND IMAGE 0.90 X 0.70 CM LONGITUDINAL IMAGE : UNABLE TO FIND Echogenicity: HETEROGENEOUS , CONSISTENT WITH ANGELO'S THYROIDITIS Vascularity: NOT INCREASED OR ABNORMAL Number of Nodules Present: ONE OR NONE Calcifications: NONE Borders: SHARP RIGHT LOBE TRANSVERSE IMAGE: 2.23 X 2.28 CM LONGITUDINAL IMAGE: 4.04 X 2.46 CM ISTHMUS: 0.38 CM LEFT LOBE TRANSVERSE IMAGE: 2.03 X 2.04 CM LONGITUDINAL IMAGE: 4.26 X 2.12 CM , SECOND IMAGE 4.42 X 2.04 CM ASSESSMENT ULTRASOUND FINDINGS CONSISTENT WITH ANGELO'S THYROIDITIS POSSIBLE NODULE RIGHT LOBE BUT MEASURED LESS THAN 1 CM AND ONLY SEEN ON ONE DIMENSION EUTHYROID CLINICALLY Recommendations: PLAN THYROID ULTRASOUND MEDICATION NONE INDICATED LAB [facility] IN ONE YEAR AT LEAST ANNUAL TSH DETERMINATION RETURN IN ONE YEAR ULTRASOUND IN ONE YEAR Kyle Roberts MD Division of Endocrinology Kyle Roberts MD PROCEDURE/MINOR VINAY GICAL ORDERABLES * CULTURE URINE (12/01/2013 10:27 AM CDT) Culture Urine Less than 10,000 CFU/ML of Normal Urogenital/ Skin [facility] Comment: Culture Urine Less than 10,000 CFU/ML of Normal Fecal [facility] Comment: Urine specimen (specimen) URINE / Unknown 12/01/2013 10:27 AM CDT 12/01/2013 4:56 PM CDT Narrative [facility] - 12/03/2013 2:46 PM CDT Specimen Type->Urine Juanito Shah MD LAB - MICROBIOLOGY O RDERABLES [facility] [address] [phone] Care Teams Machine Inker Relationship Specialty Start Date End Date Nelly Butterfield DO [address] [place] [phone] PCP - General Family Medicine 04/16/24
--- OUTSIDE RECORDS SUMMARY | 2024-05-21 17:40 | XMS_ITS | CONTINUITY OF CARE DOCUMENT ---
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 Bobo Fang CORPORATE STAFF ACCOUNTANT Palpitations active Bobo Fang CORPORATE STAFF ACCOUNTANT ENCOUNTERS Date Type Provider Location Encounter Diag nosis 6 - 2 In-person encounter Office Visit Gonzales Gomez MD [place] [facility] 7 - 8 In-person encounter Office Visit Gonzales Gomez MD [facility] Office HypertensionHypothyroidismThyroid cancerHistory of ischemic transient ischemic attack (TIA)Palpitations VITAL SIGNS Date Observation Value Provider Body Mass Index (Ratio) 46.28 kg/m2 Darrick Gomez MD blood pressure, diastolic 97 mm[Hg] Silvia Gonzalez blood pressure, systolic 126 mm[Hg] Izabella Gonzalez oxygen saturation, oximetry 96 % Gianna Gonzalez pulse rate 90 /min Gianna Gonzalez respiratory rate E&M 14 /min Gianna Gonzalez height E&M 60 [in_i] Gianna Gonzalez weight E&M 237 [lb_av] Gianna Gonzalez blood pressure, cuff size regular An michelle Gonzalez blood pressure, barreto tolic, second observation 90 mm[Hg] Bobo Fang CORPORATE STAFF ACCOUNTANT blood pressure, systolic, second observat ion 120 mm[Hg] Bobo Annalisa CORPORATE STAFF ACCOUNTANT blood pressure, diastolic 102 mm[Hg] Marshall freida Jaime blood pressure, systolic 119 mm[Hg] Lili mireille Jaime oxygen saturation, oximetry 96 % Boyd Sandoval pulse rate 70 /min Boyd Sandoval weight E&M 225 [lb_av] Boyd Sandoval ALLERGIES No Known Drug Allergies HISTORY OF MEDICATION USE Medication Status Instructions Dates Provider Indications Com ments aspirin 81 mg tablet,chewable active Chelly Parker NP atorvastatin 80 mg tablet active Chelly Parker NP hydrochlorothiazide 12.5 mg tablet active Bobo Fang NP dicyclomine 10 mg capsule active Bobo Fang NP pregabalin 75 mg capsule active Bobo Fang NP ibuprofen 600 mg tablet active Diann Fang NP aspirin 81 mg tablet,chewable active Bobo Fang NP sertraline 50 mg tablet active Diann Fang NP levothyroxine 150 mcg tablet active Bobo Fang NP albuterol sulfate 90 mcg/actuation HFA aerosol inhaler active Bobo Fang NP trazodone 150 mg tablet active Diann Fang NP loratadine 10 mg tablet active Diann Fang NP budesonide 3 mg capsule,delayed,extend.re lease active Bobo Fang NP ergocalciferol (vitamin D2) 1,250 mcg (50,000 unit) capsule active Bobo Fang NP gabapentin 300 mg capsule active Bobo Fang NP lidocaine 5% adhesive patch,medicated active Bobo Fang NP montelukast 10 mg tablet active Bobo Fang NP atorvastatin 80 mg tablet active Verah Bonareri CORPORATE STAFF ACCOUNTANT methocarbamol 500 mg tablet active Bobo Sellersshelia BASHIR SOCIAL HISTORY Date Observation Value Provider personal history of marijuana use no Chelly Parker MCKAY drug use no Chelly Mccartneynigel BASHIR alcohol use no Chelly Parker CORPORATE STAFF ACCOUNTANT smoking status Never smoker Chelly Menjivar shannon CORPORATE STAFF ACCOUNTANT personal history of marijuana use no Bobo Sellersshelia BASHIR drug use no Bobo Sellersnanori CORPORATE STAFF ACCOUNTANT alcohol use no Bobo Farrisri CORPORATE STAFF ACCOUNTANT smoking status Never smoker Bobo Goyo i CORPORATE STAFF ACCOUNTANT FAMILY HISTORY Family Member Condition Mother Unknown INSURANCE PROVIDERS Payer name Policy type / Coverage type Neon red republican ID [place] MEDICAID (2) Medicaid [id number] ADVANCE DIRECTIVES Name Date DISCUSSED - NO DECISION MADE TREATMENT PLAN Date Name Performer Cardiology:Stable H er updated medication list for this problem includes: Aspirin 81 Mg Tablet,chewable (Aspirin) Hydrochlorothiazide 12.5 Mg Tablet (Hydrochlorothiazide) Aspirin 81 Mg Tablet,chewable (Aspirin) Chelly Shaikhsheryl BASHIR Cardiology:Per PCP H er updated medication list for this problem includes: Levothyroxine 150 Mcg Tablet (Levothyroxine) Chelly Keith BASHIR Cardiology:Echo show ed normal EF with no valvular disease, no afib on event monitor. She is on ASA and a statin. Chelly Keith BASHIR Cardiology:No arrhyt hmia on event monitor. H er updated medication list for this problem includes: Aspirin 81 Mg Tablet,chewable (Aspirin) Aspirin 81 Mg Tablet,chewable (Aspirin) Chelly Shaikhsheryl BASHIR Cardiology: H er updated medication list for this problem includes: Levothyroxine 150 Mcg Tablet (Levothyroxine) Bobo Fang NP Cardiology: P atient still has L sided weakness and some slurred speech D iscussed TIA vs RIND W ill get a 2 weeks monitor to eval for AFib W ill get an echo to assess structure and function Bobo Fang NP Cardiology: B P today: 119/102 R epeat BP 120/90 H er updated medication list for this problem includes: Hydrochlorothiazide 12.5 Mg Tablet (Hydrochlorothiazide) Aspirin 81 Mg Tablet,chewable (Aspirin) Bobo Fang NP Date Name Complete Echo Monitor - Telemetry (Mobile Cardiac)
--- OUTSIDE RECORDS SUMMARY | 2024-05-21 17:40 | XMS_ITS | Continuity of Care Document ---
Author Organization [facility] Address [address] [place] [address] [place] [address] Phone Care Team Providers Care Human Capital Consultant Name Role Phone Juanito Shah MD Unavailable Unavailable Allergies, Adverse Reactions, Alerts Substance Reaction Status Criticality No Known Allergies Active No Inform ation Procedures Procedure Date OFFICE/OUTPATIENT VISIT, EST PREV VISIT, EST, AGE 40-64 Advance Directives Directive Yes / No Effective Date File Name No Information Encounters Encounter Description Practice Location Reason(s) For Visit Diagnoses Date Provider Providers Copied on Encounter [facility], [address], [place], [place], [id number], [place] tel:[phone] [facility] No Information 4 Pablo Solomon. [address], [place], [id number] , [place]. tel:[phone] Referring Provider: [facility] [place] [id number]. tel:[phone] OFFICE/OUTPA TIENT VISIT, EST [facility], [address] [employer], [place], [place], [id number], [place] tel:[phone] [facility] hypothyroidism (chief complaint)hemat uria (chief complaint)breas t lesion (chief complaint) Dietary surveillance and counselingHypo thyroidismHEMA TURIA NOSLump or mass in breast 0 4 Pablo Solomon. [address], [place], [place], [id number] , [place]. tel:[phone] Referring Provider: Juanito Shah, [address], [place], [place], [id number]. tel:[phone] PREV VISIT, EST, AGE 40-64 [facility], [address], [place], [place], [id number], tel:[phone] [facility] Physical (chief complaint) Dietary surveillance and counselingRout ine Medical ExamRoutine Medical Exam 4 Pablo Solomon. [address], [place], [place], [id number] , [place]. tel:[phone] Family History Family Member Type Diagnosis Age At Onset Father Problem (finding) crohn disease Brother Problem (finding) Alive and well Mother Problem (finding) spinal tumor Payers Payer name Insurance type Covered democrat ID Authoriza tion(s) No Information Social History [...]
--- OUTSIDE RECORDS SUMMARY | 2024-05-21 17:40 | XMS_ITS | Clinical Summary ---
Author Organization [facility] Address [address] [place] [address] Care Team Providers Care Infant Toddler Lead Teacher Name Role Phone ButterfieldNelly Primary Care Provider Source Comments [facility],non-owned Affiliates and Associated Physician Practices is amultiple site organization consisting of ambulatory clinics and hospital sitesin [place], [place], [place] and [place]. This disclosure is being madepursuant to the Care Everywhere program and may not contain all information available regarding this patient. Last updated 17.[facility] Allergies No known active allergies Medications * [...] London's thyroiditis 08/30/2020 Acquired hypothyroidism 08/30/2020 05/24/19 24 Overview (05/24/2023): Last Assessment & Plan: Started treatment in August/2021 Patient is clinically euthyroid Last TSh was 10.26 on 12/12/21 Plan: Continue same dose of Levothyroxine The proper way of taking Levothyroxine reviewed with patient. Check TSH I will adjust the dose based on lab results. Obesity 07/28/2020 Menorrhagia 07/28/2020 Encounters Date Type Department Care Team Description 05/14/2024 Telephone [facility] - Neurology [address] [facility] [place] [address] Hay Brower MD Medication Clarification 05/09/2024 Refill [facility] - Endocrinology [address] [place] [phone] Kyle Roberts MD Refill Request (levothyroxine) 04/22/2024 Telephone [facility] - Endocrinology [address] [place] [phone] Kyle Roberts MD Follow-up (Whole body scan) 04/16/2024 9:00 AM MARKET RESEARCH COORDINATOR Office Visit [facility] - Neurology [address] [place] [phone] Hay Brower MD Chronic bilateral low back pain with bilateral sciatica (Primary Dx); History of transient ischemic attack; Abnormal finding on MRI of brain 04/16/2024 Travel 03/28/2024 Orders Only [facility] - Endocrinology [address] [place] [phone] Kyle Roberts MD Acquired hypothyroidism; London's thyroiditis; Papillary thyroid carcinoma (HCC) from Last 3 Months Immunizations Name Administration Dates Next Due COVID LEXII PRIMARY 18+YR 08/20/2020 INFLUENZA VACCINE, CELL CULT URE, QUADR. (FLUCELVAX QUADRIVALENT; 6MO+) (CCIIV4) 12/30/2022 Zoster Hzv Vacc Recombinant Inj Im 12/30/2022 Family History Medical History Relation Name Comments Diabetes - Type 2 Maternal Grandfather Diabetes - Type 2 Mother Renal Disease Neg Hx Thyroid Disease Neg Hx Relation Name Status Comments Father Maternal Grandfather Mother Social History Tobacco Use Types Packs/Day Years [...] Comments Blood Pressure 129/81 04/16/2024 9:24 AM MARKET RESEARCH COORDINATOR Pulse 98 04/16/2024 9:24 AM MARKET RESEARCH COORDINATOR Temperature 36.4 C (97.5 F) 01/14/2024 3:31 PM MARKET RESEARCH COORDINATOR Respiratory Rate 22 05/10/2023 3:04 PM MARKET RESEARCH COORDINATOR Oxygen Saturation 96% 04/16/2024 9:24 AM MARKET RESEARCH COORDINATOR Inhaled Oxygen Concentration - - Weight 105.7 kg (233 lb) 04/16/2024 9:24 AM MARKET RESEARCH COORDINATOR Height 152.4 cm (5') 02/06/2024 1:48 PM MARKET RESEARCH COORDINATOR Body Mass Index 45.5 02/06/2024 1:48 PM MARKET RESEARCH COORDINATOR Plan of Treatment Upcoming Encounters Date Type Department Care Team (Late st Contact Info) Description 08/07/2024 11:00 AM CDT Office Visit [facility] - Endocrinology [address] [place] [address], [facility] [place] [address] Kyle Roberts MD [address] [place] [address] [address] [place] [address] 08/07/2024 12:30 PM CDT Appointment [address] [phone] Hay Brower MD [address] [place] [phone] 08/07/2024 1:30 PM CDT Appointment [facility] MRI [address] [place] [phone] Hay Brower MD [address] [place] [address] 08/07/2024 2:30 PM CDT Appointment [facility] NUCLEAR MEDICINE [address] [place] [phone] Kyle Roberts MD [address] [place] [address] [address] [place] [address] 08/08/2024 2:30 PM CDT Appointment [facility] NUCLEAR MEDICINE [address] [place] [address] [place] [phone] Kyle Roberts MD [address] [place] [address] Health Maintenance Due Date Last Done Comments COLOGUARD (AGES 45-75) - COL ON CA SCREENING 1970 COLON MONITORING 1970 COLONOSCOPY - COLON CA SCREENING 1970 CT COLONOGRAPHY - COLON CA SCREENING 1970 Colorectal Cancer Screening 1970 FIT - COLON CA SCREENING 1970 FLEX SIG - COLON CA SCREENING 1970 MAMMOGRAM 1970 HIV SCREENING 1985 HEPATITIS C SCREENING 02/08/1988 DTAP/TDAP/TD VACCINES (1 - Tdap) 1989 HEPATITIS B VACCINE (1 of 3 - 19+ 3-dose series) 1989 PNEUMOCOCCAL VACCINE 50+ (1 of 1 - PCV) 02/13/2020 SCREENING FOR DIABETES 08/30/2020 ZOSTER VACCINE (2 of 2) 02/24/2023 12/30/2022 COVID-19 VACCINE (2 - 2023-2 5 season) 2023 08/20/2020 INFLUENZA VACCINE (#1) 2023 12/30/2022 DEPRESSION SCREENING 03/12/2024 05/17/2023 PAP SMEAR 12/18/2026 12/19/2023, 07/28/2020 HIB VACCINE Aged Out No longer eligi ble based on patient's age to complete this topic HPV VACCINE Aged Out No longer eligi ble based on patient's age to complete this topic MENINGOCOCCAL (Group B) VACCINE SHARED DECISION-MAKING Aged Out No longer eligible based on patient's age to complete this topic MENINGOCOCCAL GROUPS A/C/Y/W VACCINE Aged Out No longer eligible b ased on patient's age to complete this topic Procedures Procedure Name Priority Date/Time Associated Diagnosis [...] ORDERABLES from Last 3 Months Care Teams Infant Toddler Lead Teacher Relationship Specialty Start Date End Date Nelly Butterfield DO [address] [place] [phone] PCP - General Family Medicine 04/16/24
--- OUTSIDE RECORDS SUMMARY | 2024-05-21 17:40 | XMS_ITS | Referral Summary ---
Author Organization [facility] Address [address] [place] [address] Care Team Providers Care Ammonia Worker Name Role Phone Azam Olvera MD Unavailable [phone] Amanda RIOS MD PhD, Kirby Pryor Unavailable No, Physician Primary Care Provider [phone] Allergies Active Allergy Reactions Criticality Noted Date Comments Oxycodone Nausea & Vomiting Low 01/10/2023 Medications ergocalciferol (VITAMIN D) 50,000 unit capsuleIndications :Vitamin D Deficiency,Sunday Take 1 capsule (50,000 Units total) by mouth once a week 06/28/19 21 Active albuterol HFA (Ventolin HFA) 90 mcg/actuation inhalerIndications :Dyspnea and respiratory abnormalities,Occupational Health Physician александр cough Inhale 2 puffs every 4 (four) hours as needed for wheezing or shortness of breath 18 g 5 03/22/19 23 Active Additional Information Patient not taking.Informant: Self, Reported on 12/20/2023 gabapentin (NEURONTIN) 100 mg capsuleIndications :Neuropathic Pain Take 1 capsule (100 mg total) by mouth as needed 04/25/19 23 Active traZODone (DESYREL) 100 mg tablet Take 1.5 tablets (150 mg total) by mouth nightly as needed for sleep 05/08/19 23 Active inhaler,assist devices,access deviceIndications: Post-nasal drip 1 Device as needed (with inhalers) 1 each 05/18/19 Active cholestyramine (QUESTRAN) 4 gram powder 4 G ORALLY DAILY ADMINISTER W/MEAL AVOID OTHER MEDS WITHIN 1HR BEFORE OR 4-6HR AFTER DOSE 09/08/19 Active dicyclomine (BENTYL) 10 mg capsuleIndications :Irritable Bowel Syndrome Take 1 capsule (10 mg total) by mouth 4 (four) times a day before meals and nightly 09/08/19 Active inhaler,assist devices,access deviceIndications: Persistent asthma without complication, unspecified asthma severity 1 Device as needed (with inhalers) 1 each 09/21/19 Active tiotropium bromide (SPIRIVA RESPIMAT) 2.5 mcg/actuation inhalerIndications :Persistent asthma without complication, unspecified asthma severity Inhale 2 puffs daily 1 each 3 09/21/19 Active Additional Information Patient not taking.Informant: Self, Reported on 04/26/2023 budesonide-formote roL (Symbicort) 160-4.5 mcg/actuation inhalerIndications :Post-nasal drip INHALE 2 PUFFS BY MOUTH 2 TIMES A DAY RINSE MOUTH WITH WATER AFTER USE. DO NOT SWALLOW. 10.2 each 3 11/15/19 Active Additional Information Patient not taking.Informant: Self, Reported on 01/15/2023 psyllium seed, with sugar, (FIBER ORAL)Indications:G I health Take 1 tablet by mouth anthropology lecturer before breakfast Active multivitamin tabletIndications: Vitamin Deficiency Prevention Take 1 tablet by mouth anthropology lecturer before breakfast Active levothyroxine (SYNTHROID) 150 mcg tabletIndications: hypothyroidism Take 1 tablet (150 mcg total) by mouth anthropology lecturer before breakfast 30 tablet 11 01/13/20 Active calcium carbonate (OS-JAM) 1,250 mg (500 mg elemental) tabletIndications: hypocalcemia Take 1 tablet (1,250 mg total) by mouth 2 (two) times a day 60 tablet 01/12/20 Active Additional Information Patient not taking.Reported on 12/20/2023 docusate sodium (COLACE) 100 mg capsuleIndications :constipation,Take this medication as long as you are taking the Oxycodone. Take 1 capsule (100 mg total) by mouth 2 (two) times a day for 10 days 20 capsule 01/12/20 Active Additional Information Patient not taking.Reported on 12/20/2023 ibuprofen (ADVIL,MOTRIN) 400 mg tabletIndications: Pain Take 1 tablet (400 mg total) by mouth every 4 (four) hours as needed for pain 30 tablet 01/12/20 Active oxyCODONE (ROXICODONE) 5 mg immediate release tabletIndications: Pain Take 1 tablet (5 mg total) by mouth every 4 (four) hours as needed for pain 6 tablet 01/12/20 Active Additional Information Patient not taking.Reported on 04/26/2023 ondansetron ODT (ZOFRAN-ODT) 4 mg disintegrating tabletIndications: Prevention of Radiation-Induced Nausea and Vomiting Take 1 tablet (4 mg total) by mouth every 8 (eight) hours as needed for nausea or vomiting 20 tablet 03/30/19 Active Additional Information Patient not taking.Reported on 04/26/2023 loratadine (CLARITIN) 10 mg tabletIndications: Chronic rhinitis Take 1 tablet (10 mg total) by mouth daily 30 tablet 11 06/18/19 24 025 Active aspirin 81 mg chewable tablet CHEW 1 TABLET BY MOUTH ONCE DAILY Active atorvastatin (LIPITOR) 80 mg tablet Take 1 tablet (80 mg total) by mouth daily 12/03/19 24 Active pregabalin (LYRICA) 300 mg capsule Take 1 capsule (300 mg total) by mouth 2 (two) times a day 11/05/19 24 Active sertraline (ZOLOFT) 50 mg tablet Take 1 tablet (50 mg total) by mouth daily Active oxyBUTYnin XL (DITROPAN-XL) 10 mg 24 hr tablet Take 1 tablet (10 mg total) by mouth daily 11/26/19 24 Active methocarbamoL (ROBAXIN) 500 mg tablet Take 1 tablet (500 mg total) by mouth every 6 (six) hours as needed 10/30/19 24 Active hydroCHLOROthiazid e 12.5 mg tablet Take 1 tablet (12.5 mg total) by mouth every morning Active cephalexin (KEFLEX) 500 mg capsule Take 1 capsule (500 mg total) by mouth 2 (two) times a day 12/09/19 24 Active montelukast (SINGULAIR) 10 mg tabletIndications: Chronic rhinitis TAKE 1 TABLET BY MOUTH EVERY DAY AT NIGHT 30 tablet 2 03/13/19 25 Active Active Problems Problem Noted Date Diagnosed Date Papillary thyroid carcinoma 03/30/2023 Cancer Staging:Clinical stage from 03/30/2023:Stage I(cT2, cN0, cM0, Age at diagnosis: < 55 years) - Signed by Moshe Coombs MD on 03/30/2023 Thyroid nodule 09/02/2021 Assessment & Plan (06/12/2022 4:31 PM CDT): Thyroid nodule on the left lobe 10mm Benign by FNA biopsy in July/2021 Pathology c/w london's thyroiditis. Plan: Schedule thyroid Ultrasound this month Assessment & Plan (12/12/2021 3:57 PM CDT): Thyroid nodule on the left lobe 10mm Benign by FNA biopsy in July/2021 Pathology c/w london's thyroiditis. - thyroid nodule needs to be monitored for change or growth- I recommend repeating thyroid Ultrasound in February/2022 Assessment & Plan (09/02/2021 2:49 PM CDT): Thyroid nodule on the left lobe 10mm Benign by FNA biopsy in 2021 Pathology c/w london's thyroiditis. - thyroid nodule needs to be monitored for change or growth- I recommend repeating thyroid Ultrasound 6 -12 month from last ultrasound. Chronic pain of right wrist 05/09/2021 Acquired hypothyroidism 08/30/2020 Assessment & Plan (06/12/2022 4:23 PM CDT): Started treatment in August/2021 Patient is clinically euthyroid Last TSh was 10.26 on 12/12/21 Plan: Continue same dose of Levothyroxine The proper way of taking Levothyroxine reviewed with patient. Check TSH I will adjust the dose based on lab results. Assessment & Plan (12/12/2021 3:57 PM CDT): Chronic history of borderline TSH started Levothyroxine 50 mcg/day in August/2021 Patient is clinically euthyroid Plan: Continue same dose of Levothyroxine The proper way of taking Levothyroxine reviewed with patient. Check TSH I will adjust the dose based on lab results. 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 Never 01/10/2023 Q2: How many drinks containi ng alcohol do you have on a typical day when you are drinking? Patient does not drink Q3: How often do you have si x or more drinks on one occasion? Never 01/10/2023 Personal Safety Answer Date Recorded Have you ever been in or are you currently in a harmful physical or emotional relationship or is someone making you feel afraid or unsafe? Denies 10/23/2023 Comments No Sex and Gender Information Value Date Recorded Sex Assigned at Not on file Legal Sex Female 8:51 AM CDT Gender Identity Not on file Sexual Orientation Not on file Occupation Industry Job Start Date Job End Date unemployed Not on file Not on file Not on file Last Filed Vital Signs Vital Sign Reading Time Taken Comments Blood Pressure 90/64 12/20/2023 2:16 PM CDT Pulse 87 12/20/2023 2:16 PM CDT Temperature 36.5 C (97.7 F) 12/20/2023 2:16 PM CDT Respiratory Rate 16 10/23/2023 1:48 PM CDT Oxygen Saturation 93% 12/20/2023 2:16 PM CDT Inhaled Oxygen Concentration - - Weight 103.1 kg (227 lb 4.8 oz) 12/20/2023 2:16 PM CDT Height 152.4 cm (5') 12/20/2023 2:16 PM CDT Body Mass Index 44.39 12/20/2023 2:16 PM CDT Plan of Treatment Not on file Insurance Advance Directives For more information, please contact: [phone] * Full Code (Latest Code Status on File) Date Activated Date Inactivated Comments 01/10/2023 2:16 PM 01/12/2023 1:41 PM Care Teams Ammonia Worker Relationship Specialty Start Date End Date No, Physician PCP - General 01/31/24 Azam Olvera MD [address] [place] [address] [address] Consulting Physician Endocrinology 11/10/22 Kibry Pat[place] [address] [place] [address] [address] [place] [address] Radiation Oncologist Radiation Oncology 03/30/23
--- OUTSIDE RECORDS SUMMARY | 2024-05-21 17:40 | XMS_ITS | Clinical Summary ---
Author Organization [facility] Address [address] [place] [address] Care Team Providers Care Building Principal Name Role Phone Azam Olvera MD Unavailable [phone] Amanda RIOS MD PhD, Kirby Pryor Unavailable No, Physician Primary Care Provider [phone] Allergies Active Allergy Reactions Criticality Noted Date Comments Oxycodone Nausea & Vomiting Low 01/10/2023 Medications ergocalciferol (VITAMIN D) 50,000 unit capsuleIndications :Vitamin D Deficiency,Sunday Take 1 capsule (50,000 Units total) by mouth once a week 06/28/19 21 Active albuterol HFA (Ventolin HFA) 90 mcg/actuation inhalerIndications :Dyspnea and respiratory abnormalities,General Studies Program Chair александр cough Inhale 2 puffs every 4 [...] I health Take 1 tablet by mouth director radiation oncology before breakfast Active multivitamin tabletIndications: Vitamin Deficiency Prevention Take 1 tablet by mouth director radiation oncology before breakfast Active levothyroxine (SYNTHROID) 150 mcg tabletIndications: hypothyroidism Take 1 tablet (150 mcg total) by mouth director radiation oncology before breakfast 30 tablet 11 01/13/20 Active [...] 08/30/2020 BMI 40.0-44.9, adult 07/28/2020 Menorrhagia 07/28/2020 Surgical History Surgery Date Site/Laterality Comments TUBAL LIGATION 09/08/2003 COLONOSCOPY 05/10/2020 - 06/09/2020 CHOLECYSTECTOMY 12/10/2021 - 01/09/2022 Medical History Medical History Date Comments Kidney stone Thyroid disease Osteoarthritis Gastric reflux GERD (gastroesophageal reflux disease) Spondylolysis of lumbar region Lumbar facet arthropathy Anterolisthesis 06/08/2020 Grade 2 L5 on S1 Asthma Papillary thyroid carcinoma (HCC) 03/30/2023 Left sided lacunar stroke (HCC) Family History Medical History Relation Name Comments Cancer Father liver Heart disease Father Pancreatic cancer Maternal Grandmother Arthritis Mother Diabetes Mother Liver cancer Mother Relation Name Status Comments Father Maternal Grandmother Mother Social History Tobacco Use Types Packs/Day [...] file Not on file Not on file Obstetrics History Last Filed Vital Signs Vital Sign Reading [...] 12/20/2023 2:16 PM CDT Plan of Treatment Health Maintenance Due Date Last Done Comments Breast Cancer Screening-Mammogram 1970 Cervical Cancer Screening 1970 Colon Cancer Screening-Colonoscopy 1970 Depression Screening 1970 Hepatitis C Screening 1970 DTaP/Tdap/Td Vaccine (1 - Tdap) 1981 Hepatitis B Screening 02/13/1988 Regular Well Visit/Exam 18-64 02/13/1988 Zoster Vaccine (2 of 2) 02/24/2023 12/30/2022 Influenza Vaccine (#1) 2023 12/30/2022 Pneumococcal vaccine <65 Aged Out No longer eligible based on patient's age to complete this topic [place] [address] [facility] Advance Directives For more information, please contact: [phone] * Full Code (Latest Code Status on File) Date Activated Date Inactivated Comments 01/10/2023 2:16 PM 01/12/2023 1:41 PM Care Teams Building Principal Relationship Specialty Start Date End Date No, Physician PCP - General 01/31/24 Azam Olvera MD [address] [place] [address] [place] [address] Consulting Physician Endocrinology 11/10/22 Kirby Patel III, MD PhD [address] [facility] [address] [place] [address] Radiation Oncologist Radiation Oncology 03/30/23
--- OUTSIDE RECORDS SUMMARY | 2024-05-21 17:40 | XMS_ITS | Encounter Summary ---
Author Organization [facility] Healthcare Address [address] [place] [address] Care Team Providers Care Dietary Worker Name Role Phone Ezequiel Price MD Primary Care Provider [phone] Azam Olvera MD Unavailable [phone] Amanda RIOS MD PhD, Kirby Pryor Unavailable No, Physician Primary Care Provider [phone] Encounter Details Date Type Department Care Team (Late st Contact Info) Description 07/06/2022 Telephone [facility] [address] [place] [address] Salima Landa, MATTIE Social History Tobacco Use Types Packs/Day Years Used Date Smoking Tobacco: Never Smokeless Tobacco: Never AUDIT-C Answer Date Recorded Q1: How often do you have a drink containing alc ohol? Monthly or less 07/01/2020 Q2: How many drinks containi ng alcohol do you have on a typical day when you are drinking? 3 or 4 07/01/2020 Frequency of Binge Drinking Not on file 06/11 Comments No Sex and Gender Information Value Date Recorded Sex Assigned at Not on file Legal Sex Female 8:51 AM CDT Gender Identity Not on file Sexual Orientation Not on file Occupation Industry Job Start Date Job End Date unemployed Not on file Not on file Not on file documented as of this encounter Miscellaneous Notes * Telephone Encounter - Salima Landa RN - 07/06/2022 2:30 PM CDT documented in this encounter Plan of Treatment Not on file documented as of this encounter Visit Diagnoses Not on filedocumented in this encounter Care Teams Dietary Worker Relationship Specialty Start Date End Date Ezequiel Price MD PCP - General Emergency Medicine 06/10/20 01/30/24 No, Physician PCP - General 01/31/24 Azam Olvera MD [address] [place] [address] Consulting Physician Endocrinology 11/10/22 Kirby Patel III, MD PhD [address] [facility] [address] [place] [address] Radiation Oncologist Radiation Oncology 03/30/23 documented as of this encounter
--- OUTSIDE RECORDS SUMMARY | 2024-05-21 17:40 | XMS_ITS ---
Author Organization [facility] [place] Address [address] [place] [address] Care Team Providers Care Medical Social Worker Name Role Phone Azam Olvera MD Unavailable [phone] Amanda RIOS MD PhD, Kirby Pryor Unavailable No, Physician Primary Care Provider [phone] Active Problems Problem Noted Date Diagnosed Date [...] 08/30/2020 BMI 40.0-44.9, adult 07/28/2020 Menorrhagia 07/28/2020 Current Treatment and Therapy Plans No current plan information found. Past Treatment and Therapy Plans No past plan information found. Radiation Treatments * Course C1 Thyroid 03/30/2023 - 03/30/2023 Treatment Period Energy Fraction Dose Fractions Total Dose Plans Planned Thyroid1 03/30/2023 - 03/30/2023.1 Reference Points Delivered Thyroid1 03/30/2023 - 03/30/2023 30
--- OUTSIDE RECORDS SUMMARY | 2024-05-21 17:40 | XMS_ITS | Encounter Summary ---
Author Organization [facility] Healthcare Address [address] [place] [address] Care Team Providers Care Service Desk Analyst Name Role Phone Ezequiel Price MD Primary Care Provider [phone] Azam Olvera MD Unavailable [phone] Amanda RIOS MD PhD, Kirby Pryor Unavailable No, Physician Primary Care Provider [phone] Encounter Details Date Type Department Care Team (Late st Contact Info) Description 07/05/2022 Telephone [facility] [address] [place] [address] Salima Landa, MATTIE Social History Tobacco Use [...] on file documented as of this encounter Plan of Treatment Not on file documented as of this encounter Visit Diagnoses Not on filedocumented in this encounter Care Teams Service Desk Analyst Relationship Specialty Start Date End Date Ezequiel Price MD PCP - General Emergency Medicine 06/10/20 01/30/24 No, Physician PCP - General 01/31/24 Azam Olvera MD [address] [place] [address] [address] Consulting Physician Endocrinology 11/10/22 Kirby Patel III, MD PhD [address] [facility] [address] [place] [address] Radiation Oncologist Radiation Oncology 03/30/23 documented as of this encounter
--- OUTSIDE RECORDS SUMMARY | 2024-05-21 17:40 | XMS_ITS | Encounter Summary ---
Author Organization [facility] Healthcare Address [address] [place] [address] Care Team Providers Care Diesel Mechanic Farm Name Role Phone Ezequiel Price MD Primary Care Provider [phone] Azam Olvera MD Unavailable [phone] Amanda RIOS MD PhD, Kirby Pryor Unavailable No, Physician Primary Care Provider [phone] Encounter Details Date Type Department Care Team (Late st Contact Info) Description 07/20/2022 Telephone [facility] [address] [place] [address] Salima Landa, MATTIE Social History Tobacco Use [...] on filedocumented in this encounter Care Teams Diesel Mechanic Farm Relationship Specialty Start Date End Date Ezequiel Price MD PCP - General Emergency Medicine 06/10/20 01/30/24 No, Physician PCP - General 01/31/24 Azam Olvera MD [address] [place] [address] [address] Consulting Physician Endocrinology 11/10/22 Kirby Patel III, MD PhD [address] [facility] [place] [address] [place] [address] Radiation Oncologist Radiation Oncology 03/30/23 documented as of this encounter
--- OUTSIDE RECORDS SUMMARY | 2024-05-21 17:40 | XMS_ITS | Clinical Summary ---
Author Organization [facility] Address [address] [place] [address] Care Team Providers Care Florist'S Decorator Name Role Phone Unavailable Primary Care Provider Unavailabl e Social History Tobacco Use Types Packs/Day Years Used Date Smoking Tobacco: Never Assessed Comments Unknown Sex and Gender Information Value Date Recorded Sex Assigned at Not on file Legal Sex Female 7:27 AM CDT Gender Identity Not on file Sexual Orientation Not on file Plan of Treatment Health Maintenance Due Date Last Done Comments Cervical Cancer Screening Pa p Smear (Age 30 to 64) Every 3 Years 1970 Colorectal Cancer Screening Colonoscopy (10 Years) 1970 Annual Physical 1973 Hepatitis C 02/13/1988 DTaP, Tdap and Td Vaccines ( 1 - Tdap) 1989 Hepatitis B Vaccines (1 of 3 - 19+ 3-dose series) 1989 Cervical Cancer Screening Pa p with HPV Testing (Age 30 to 64) Every 5 Years 02/13/2000 Cervical Cancer Screening with HPV 02/13/2000 Mammogram Screening 2010 Zoster Vaccines (1 of 2) 02/13/2020 COVID-19 Vaccine (2023-2 5 season) 2023 Influenza Adult (#1) 2023 Meningococcal B Vaccine Aged Out No l onger eligible based on patient's age to complete this topic Meningococcal Vaccine Aged Out No funmi dotty eligible based on patient's age to complete this topic Pneumococcal Vaccine: Pediat rics (0 to 5 Years) and At-Risk Patients (6 to 64 Years) Aged Out No longer eligible b ased on patient's age to complete this topic RSV Immunizations Under 20 Months Aged Out No longer eligible based on patient's age to complete this topic
--- OUTSIDE RECORDS SUMMARY | 2024-05-21 17:40 | XMS_ITS | Encounter Summary ---
Author Organization [facility] Address [address] [place] [address] Care Team Providers Care Mortgage Processing Manager Name Role Phone Ezequiel Price MD Primary Care Provider [phone] Nelly Butterfield DO Primary Care Provider [phone] Reason for Visit * Reason Onset Date Comments Appointment 01/07/2024 Encounter Details Date Type Department Care Team (Late st Contact Info) Description 01/07/2024 Telephone [facility] - Centralized Scheduling [address] [place] [address] Leatha Cortes MD [address] [place] [address] Appointment Social History Tobacco Use Types Packs/Day Years [...] encounter Miscellaneous Notes * Telephone Encounter - Willem Kenyon - 01/07/2024 12:49 PM CDT Patient would like a phone call to help her reschedule an appt with Dr. Cortes. documented in this encounter Plan of Treatment Upcoming Encounters Date Type Department Care Team (Late st Contact Info) Description 08/07/2024 11:00 AM CDT [facility] [address] [place] [address], [place] [address] Kyle Roberts MD [address] [place] [address] [address] [place] [address] 08/07/2024 12:30 PM CDT Appointment [facility] [address] [place] [phone] Hay Brower MD [address] [place] [address] 08/07/2024 1:30 PM CDT Appointment [facility] [address] [place] [phone] Hay Brower MD [address] [place] [address] 08/07/2024 2:30 PM CDT Appointment [facility] NUCLEAR MEDICINE [address] [place] [phone] Kyle Roberts MD [address] [place] [address] [address] [place] [address] 08/08/2024 2:30 PM CDT Appointment [facility] NUCLEAR MEDICINE [address] [place] [phone] Kyle Roberts MD [address] [place] [address] [address] [place] [address] documented as of this encounter Visit Diagnoses Not on filedocumented in this encounter Care Teams Mortgage Processing Manager Relationship Specialty Start Date End Date Ezequiel Price MD [address] [place] [address] PCP - General 03/10/20 04/15/24 Nelly Butterfield DO [address] [place] [id number] PCP - General Family Medicine 04/16/24 documented as of this encounter
[2024-05-24 02:58] LABS: Immunoglobulin A 244 mg/dL (47-310); TTG IGA AB <1.0 U/mL
== END 2024-05-21 15:51 | disposition home or self-care (01) ==
PROVIDERS: PCP Family Medicine; Visit Provider Nurse Practitioner
DX: R74.8 Abnormal levels of other serum enzymes (principal)
CPT/HCPCS: 36415; 82784; 83516

== ENCOUNTER 2024-06-11 16:22 | Inpatient (IN) | payer OTHER, SELFPAY ==
--- NOTE | ~2024-06-11 | CT_ITS ---
EXAMINATION: CTA chest PE protocol DATE: 06/11/2024 19:27 CDT INDICATION: The TECHNIQUE: Computed tomographic angiography (CTA) of the chest was performed with 100 mL Omnipaque-35 0 intravenous contrast. The dose-length product was 774.84 mGy-cm. Maximum intensity projection 3D-re constructions of the aorta and other arteries were constructed by the technologist on a separate work station. COMPARISON: None. FINDINGS/OBSERVATIONS: PULMONARY ARTERIES: Extensive segmental and subsegmental pulmonary emboli detected bilaterally. The m ain pulmonary artery is enlarged. The proximal right and left pulmonary arteries are within the upper limits of normal for size. THORACIC AORTA: No aneurysmal dilatation or dissection is present. The great vessels are intact LUNGS: Wedge shaped density within the right upper lobe, consistent with (likely) pulmonary infarctio n. The remainder of the lungs are clear. MEDIASTINUM: No morphologically suspicious or pathologically enlarged lymph nodes are identified with in the mediastinum or bilateral axilla. BONES OF THE CHEST: No acute fracture. No significant degenerative disease. No lytic or blastic lesions. HEART: The heart is borderline enlarged, without pericardial effusion. The RV to LV ratio is 1.4, consistent with right heart strain. Flattening of the interventricular septum is also present. IMPRESSION: Extensive segmental and subsegmental pulmonary emboli with right upper lobe (early) pulmonary infarct ion and findings consistent with right heart strain. Reviewed, dictated and finalized at location A. IMPRESSION: Extensive segmental and subsegmental pulmonary emboli with right upper lobe (ea rly) pulmonary infarction and findings consistent with right heart strain.
--- NOTE | ~2024-06-11 | US_ITS ---
EXAMINATION: US venous doppler [facility] DATE: 06/11/2024 20:32 INDICATION: Bilateral pulmonary emboli TECHNIQUE: Grayscale ultrasound images without and with compression and Doppler ultrasound images of the bilateral lower extremity veins were obtained. COMPARISON: None. FINDINGS: The visualized portions of right common femoral vein, profunda (deep) femoral vein, femoral vein, pop liteal vein, peroneal veins, posterior tibial veins, and greater saphenous vein outflow are patent. The visualized portions of left common femoral vein, profunda femoral vein, femoral vein, popliteal v ein, peroneal veins, posterior tibial veins, and greater saphenous vein outflow are patent. IMPRESSION: 1. No deep venous thrombosis. Reviewed, dictated and finalized at location A.
[2024-06-11 16:42] VITALS: BP 120/71; PULSE 106; RESP 20; TEMP 36.4; O2SAT 94
--- OUTSIDE RECORDS SUMMARY | 2024-06-11 16:47 | XMS_ITS ---
Author Organization [facility] [place] Address [address] [place] [address] Care Team Providers Care Galvanizer Zinc Name Role Phone Azam Olvera MD Unavailable [phone] Amanda RIOS MD PhD, Kirby Pryor Unavailable No, Physician Primary Care Provider [phone] Active Problems Problem Noted Date Diagnosed Date [...]
--- OUTSIDE RECORDS SUMMARY | 2024-06-11 16:47 | XMS_ITS | Encounter Summary ---
Author Organization [facility] Health Address [address] [facility] [place] [address] Care Team Providers Care Chief Clerk Shelter Name Role Phone Ezequiel Price MD Primary Care Provider [phone] Nelly Butterfield DO Primary Care Provider [phone] Encounter Details Date Type Department Care Team (Late st Contact Info) Description 11/05/2023 Telephone [facility] - Endocrinology [address] [place] [address], [place] [address] Kyle Roberts MD [address] [place] [address] [place] [address] Social History Tobacco Use Types Packs/Day Years [...] sent over MALIKA. Patient Call Back Number: [phone] documented in this encounter Plan of Treatment Upcoming Encounters Date Type Department Care Team (Late st Contact Info) Description 08/07/2024 11:00 AM CDT Office Visit [facility] - Endocrinology [address] [place] [address], [place] [address] Kyle Roberts MD [address] [place] [address] 08/07/2024 12:30 PM CDT Appointment [facility] MRI [address] [place] [address] Hay Brower MD [address] [place] [address] 08/07/2024 1:30 PM CDT Appointment [facility] MRI [address] [place] [phone] Hay Brower MD [address] [place] [address] 08/07/2024 2:30 PM CDT Appointment [facility] NUCLEAR MEDICINE [address] [place] [address] Kyle Roberts MD [address] [place] [address] 08/08/2024 2:30 PM CDT Appointment [facility] NUCLEAR MEDICINE [address] [place] [address] Kyle Roberts MD [address] [place] [address] documented as of this encounter Visit Diagnoses Not on filedocumented in this encounter Care Teams Chief Clerk Shelter Relationship Specialty Start Date End Date Ezequiel Price MD [address] [facility] 3 [place], [place] [id number] PCP - General 03/10/20 04/15/24 Nelly Butterfield DO [address] [place] [address] PCP - General Family Medicine 04/16/24 documented as of this encounter
--- OUTSIDE RECORDS SUMMARY | 2024-06-11 16:47 | XMS_ITS | Referral Summary ---
Author Organization [facility] Address [address] [place] [address] Care Team Providers Care Guest Relations Agent Name Role Phone Azam Olvera MD Unavailable [phone] Amanda RIOS MD PhD, Kirby Pryor Unavailable No, Physician Primary Care Provider [phone] Encounters Date Type Department Care Team Description 05/26/2024 Telephone [facility] Radiation Oncology [address] [facility] Advanced Medicine [place], [place] [id number] Noni Carlisle MA Scheduling Appointments from Last 3 Months Allergies Active Allergy Reactions Criticality Noted Date Comments Oxycodone Nausea & Vomiting Low 01/10/2023 Medications ergocalciferol (VITAMIN D) 50,000 unit capsuleIndications :Vitamin D Deficiency,Sunday Take 1 capsule (50,000 Units total) by mouth once a week 06/28/19 21 Active albuterol HFA (Ventolin HFA) 90 mcg/actuation inhalerIndications :Dyspnea and respiratory abnormalities,Linux Administrator александр cough Inhale 2 puffs every 4 (four) hours as needed for wheezing or shortness of breath 18 g 5 03/22/19 23 Active Additional Information Patient not taking.Informant: Self, Reported on 12/20/2023 gabapentin (NEURONTIN) 100 mg capsuleIndications :Neuropathic Pain Take 1 capsule (100 mg total) by mouth as needed 04/25/19 Active traZODone (DESYREL) 100 mg tablet Take 1.5 tablets (150 mg total) by mouth nightly as needed for sleep 05/08/19 Active inhaler,assist devices,access deviceIndications: Post-nasal drip 1 [...] I health Take 1 tablet by mouth terrazzo worker helper before breakfast Active multivitamin tabletIndications: Vitamin Deficiency Prevention Take 1 tablet by mouth terrazzo worker helper before breakfast Active levothyroxine (SYNTHROID) 150 mcg tabletIndications: hypothyroidism Take 1 tablet (150 mcg total) by mouth terrazzo worker helper before breakfast 30 tablet 11 01/13/20 Active [...] 2 (two) times a day 11/05/19 24 025 Active sertraline (ZOLOFT) 50 mg tablet Take 1 tablet (50 mg total) by mouth daily Active oxyBUTYnin XL (DITROPAN-XL) 10 mg 24 hr tablet Take 1 tablet (10 mg total) by mouth daily 11/26/19 24 Active methocarbamoL (ROBAXIN) 500 mg tablet Take 1 tablet (500 mg total) by mouth every 6 (six) hours as needed 10/30/19 Active hydroCHLOROthiazid e 12.5 mg tablet Take [...] Advance Directives For more information, please contact: [phone] * Full Code (Latest Code Status on File) Date Activated Date Inactivated Comments 01/10/2023 2:16 PM 01/12/2023 1:41 PM Care Teams Guest Relations Agent Relationship Specialty Start Date End Date No, Physician PCP - General 01/31/24 Azam Olvera MD [address] [place] [address] Consulting Physician Endocrinology 11/10/22 Kirby Patel III, MD PhD [address] [facility] [address] [place] [address] Radiation Oncologist Radiation Oncology 03/30/23
--- OUTSIDE RECORDS SUMMARY | 2024-06-11 16:47 | XMS_ITS | Encounter Summary ---
Author Organization [facility] Address [address] [place] [address] Care Team Providers Care General Foreman Name Role Phone Ezequiel Price MD Primary Care Provider [phone] Azam Olvera MD Unavailable [phone] Amanda RIOS MD PhD, Kirby Pryor Unavailable No, Physician Primary Care Provider [phone] Encounter Details Date Type Department Care Team (Late st Contact Info) Description 07/05/2022 Telephone [facility] [address] [place] [address] Salima Landa, MATTIE Social History Tobacco Use [...] on filedocumented in this encounter Care Teams General Foreman Relationship Specialty Start Date End Date Ezequiel Price MD PCP - General Emergency Medicine 06/10/20 01/30/24 No, Physician PCP - General 01/31/24 Azam Olvera MD [address] [place] [address] [address] Consulting Physician Endocrinology 11/10/22 Kirby Patel III, MD PhD [address] [facility] [address] [place] [address] Radiation Oncologist Radiation Oncology 03/30/23 documented as of this encounter
--- OUTSIDE RECORDS SUMMARY | 2024-06-11 16:47 | XMS_ITS | Encounter Summary ---
Author Organization [facility] Healthcare Address [address] [place] [address] Care Team Providers Care Health Advisor Name Role Phone Ezequiel Priec MD Primary Care Provider [phone] Azam Olvera MD Unavailable [phone] Amanda RIOS MD PhD, Kirby Pryor Unavailable No, Physician Primary Care Provider [phone] Encounter Details Date Type Department Care Team (Late st Contact Info) Description 07/20/2022 Telephone [facility] [address] [place] [address] Salima Landa, MATTIE Social History Tobacco Use [...] on filedocumented in this encounter Care Teams Health Advisor Relationship Specialty Start Date End Date Ezequiel Price MD PCP - General Emergency Medicine 06/10/20 01/30/24 No, Physician PCP - General 01/31/24 Azam Olvera MD [address] [place] [address] [address] Consulting Physician Endocrinology 11/10/22 Kirby Patel III, MD PhD [address] [facility] [address] [place] [address] Radiation Oncologist Radiation Oncology 03/30/23 documented as of this encounter
--- OUTSIDE RECORDS SUMMARY | 2024-06-11 16:47 | XMS_ITS | Encounter Summary ---
Author Organization [facility] Address [address] [facility] [place] [address] Care Team Providers Care Mining Machinery Assembler Name Role Phone Ezequiel Price MD Primary Care Provider [phone] Nelly Butterfield DO Primary Care Provider [phone] Reason for Visit * Reason Onset Date Comments Appointment 01/07/2024 Encounter Details Date Type Department Care Team (Late st Contact Info) Description 01/07/2024 Telephone [facility] Scheduling [address] [place] [address] Leatha Cortes MD [address] [place] [address] Appointment Social History Tobacco Use [...] Description 08/07/2024 11:00 AM CDT [facility] [address] [place] [address], [place] [address] Kyle Roberts MD [address] [place] [address] 2[address] [place] [address] 08/07/2024 12:30 PM CDT Appointment [facility] MRI [address] [place] [phone] Hay Brower MD [address] [place] [address] 08/07/2024 1:30 PM CDT Appointment [facility] MRI [address] [place] [address] Hay Brower MD [address] [place] [address] 08/07/2024 2:30 PM CDT Appointment [facility] NUCLEAR MEDICINE [address] [place] [address] Kyle Roberts MD [address] [place] [address] 2[address] [place] [address] 08/08/2024 2:30 PM CDT Appointment [facility] NUCLEAR MEDICINE [address] [place] [address] Kyle Roberts MD [address] [place] [address] 2[address] [place] [address] documented as of this encounter Visit Diagnoses Not on filedocumented in this encounter Care Teams Mining Machinery Assembler Relationship Specialty Start Date End Date Ezequiel Price MD [address] [place] [address] PCP - General 03/10/20 04/15/24 Nelly Butterfield DO [address] [place] [address] PCP - General Family Medicine 04/16/24 documented as of this encounter
--- OUTSIDE RECORDS SUMMARY | 2024-06-11 16:47 | XMS_ITS | Data Portability ---
Author Organization [facility] [place] Address [address] [place] [address] Care Team Providers Care Batch Analyst Name Role Phone JOSIE PARKER Primary Care Provider [phone] Assessment Encounter Date Assessment Date Assessment LastModified [...] to menopause. Pt to consider. Alfred WILSONE [email or web address] Not available 07/16/2020 09:59:24 07/28/2020 07/28/2020 healthy female exam/menopause patient declines std testing pap done mammogram UTD colonoscopy due 2030 dexa baseline at 60 tubes tied Encouraged weight bearing exercise and 1500mg daily of Calcium with Vitamin D EMB done, will contact with results. FU 1 year or prn Not available 08/02/2020 09:58:20 08/19/2021 08/19/2021 healthy female exam/menopause patient declines std testing pap due 2023 mammogram ordered and encouraged colonoscopy due 2030 dexa baseline at 60 Encouraged weight bearing exercise and 1500mg daily of Calcium with Vitamin D FU 1 year or prn [email or web address] Not available 08/22/2021 13:57:32 08/31/2022 08/31/2022 Annual [...] recorded. Imaging MAMMO, screening, bilateral 2022 023 [facility], [address], [place], [address], 13:52:26 Medication Orders None recorded. Patient TargetsNo targets recorded. Patient InstructionsNo instructions recorded. Reason for Referral None Reported. Results Created Date Observation Date Name Description Value Unit Range Abnormal Flag Note LastModifiedBy Organization Detail LastModifiedTime 07/29/19 21 07/28/2020 surgi tera patho logy study surgical pathology ([facility] SEE RESULT S BELOW CASE REPOR T: [...] Gross ed by Margie manning Not Available [facility] (Lab) [address] [facility], [place], [address], 07/29/2020 18:04:28 07/29/19 21 07/28/2020 pap, IG + HR HPV image guided Pap, HPV regardless of Pap result SEE RESULT S BELOW CASE REPOR T: Cytol ogy Gynec ologi tera Repor t Case: [id number] Autho ayad karley Provi lucy: Yadira Monetz MD Colle cted: 07/28 1623 Order ing [...] as clini inocencia colmenares nted. Not Available [facility] (Lab) [address], [place], [address], 07/29/2020 18:04:29 Result Notes None recorded. Problems Name Problem SNOMED Code Status Onset Date Resolution Date Notes Provider Name and Address Organization Details Recorded Time Menorrhagia 689644088 Active 2020 Yadira Zhang MD [address], [place], [address], [facility] 16:17:25 Body mass index 40+ - severely obese 725373085 Active 2020 Yadira Zhang MD [address], [place], [address], [facility] 16:17:33 Problem Notes None recorded. Procedures Surgical History Date Name Laterality Status Provider Name and Address Organization Details Recorded Time 023 thyroidectomy completed Rama Ibrahim [facility] 12/19/2023 18:15:19 022 cholecystectomy completed [facility] 08/31/2022 15:41:59 021 Endometrial Biopsy completed Yadira Zhang MD [address], [place], [address], [facility] 08/02/2020 09:57:02 021 Date of Last Pap Smear completed Leigha Goodwin [facility] 08/31/2022 15:40:44 021 completed Angeles Yao [facility] 07/28/2020 16:08:14 021 Date of Last Colonoscopy completed Angeles Yao [facility] 08/19/2021 14:25:48 004 Tubal Ligation completed Nancy Collazo [facility] 05/13/2020 16:06:04 Imaging Results None [...] Available Not Available No t Available [facility] spacer USE DIRECTED WITH INHALER 08/31 completed [...] Updated DateTime 07/14/2020 154.94 cm 44.6 kg/m2 607506.8 g 122 mm[Hg] 82 mm[Hg] Angeles Yoa [facility] 16:15:50 Date Recorded Body height Body mass index (BMI) Body weight Systolic blood pressure Diastolic blood pressure Provider Name and Address Organization Details Last Updated DateTime 07/28/2020 154.94 cm 43.8 kg/m2 614142.4 3 g 122 mm[Hg] 87 mm[Hg] [facility] 1 16:06:45 Date Recorded Body height Body mass index (BMI) Body weight Systolic blood pressure Diastolic blood pressure Provider Name and Address Organization Details Last Updated DateTime 08/19/2021 154.94 cm 45 kg/m2 621052.9 8 g 125 mm[Hg] 88 mm[Hg] [facility] 2 14:25:24 Date Recorded Body height Body mass index (BMI) Body weight Systolic blood pressure Diastolic blood pressure Provider Name and Address Organization Details Last Updated DateTime 08/31/2022 154.94 cm 39.3 kg/m2 13121.21 g 114 mm[Hg] 78 mm[Hg] Leigha Goodwin [facility] 3 15:39:46 Date Recorded Body weight Systolic blood pressure Diastolic blood pressure Provider Name and Address Organization Details Last Updated DateTime 12/19/2023 054158.71 g 127 mm[Hg] 84 mm[Hg] Rama Ibrahim [facility] 12/19/2023 18:11:23 Social History Question Answer Notes LastModified by Organizat ion Details LastModified Time Tobacco Smoking Status Never Smoker [facility] 05/13/2020 15:53:09 What Is Your [...] SNOMED-CT Code Diagnosis ICD10 Code Diagnosis Note [id number] Shiloh Elena , [facility] [address] [address] 05/13/2020 15:48:26 05/16/2020 22:05:08 Pain in pelvis 35731730 R10.2 91022 Zee Ybarra [place] [address] [address] 06/08/2020 11:05:44 06/08/2020 12:43:30 Pain in pelvis 63729154 R10.2 [id number] Shiloh Elena , [facility] [address],[facility] [place] [address] 06/08/2020 11:06:05 06/08/2020 12:43:19 Menorrhagia 229050256 N92.0 TVUS reviewed Fibroid right lat ANIL [...] this patient s visit, including available hand solar installer upon arrive, temperatur e check and being asked a series of screening questions. All staff wore face coverings during this encounter, as well as provided additional cleaning and sanitizing of all surfaces, including counter-to ps, pens, chairs, door handles, light switches, etc, prior to and following the patient s visit. [id number] Yadira Zhang MD [place] [address],[place] [address] 07/14/2020 16:09:33 07/16/2020 15:20:31 Menorrhagia 540037773 N92.0 Uterine leiomyoma 854326 05 D25.9 Serum thyr oid stimulating hormone level outside reference range 857339473 R79.89 [id number] Yadira Zhang MD [place] [address],[place] [address] 07/28/2020 15:58:52 07/29/2020 15:00:36 Body mass index 40+ - severely obese 180320481 Z68.41 Menorrhagia 413002247 N9 2.0 Gynecologi c examination 28309482 Z01.419 Z11.51 [id number] Yadira Zhang MD [place] [address],[place] [address] 08/19/2021 14:18:54 08/22/2021 15:16:55 Gynecologic examination 29273715 Z01.419 Z11.51 Perimenopausal state 593 2101557 17031 Z78.0 [id number] Shiloh Elena , [facility] [address],[place] [address] 08/31/2022 15:30:14 08/31/2022 16:12:51 Gynecologic examination 45879747 Z01.419 Take Calcium with Vitamin D 12-1500mg daily. Do monthly self breast exams. It is advised to get annual flu shot in the fall and she could obtain at [facility] or [facility] care clinic. If you haven't received the [...] PCP Routine Labs PCP Screening mammography 24 838560 Z12.31 [id number] Roosevelt Sheth MD [place] [address] [address] 12/19/2023 17:56:50 12/20/2023 10:21:36 Gynecologic examination 20683657 Z01.419 Annual gynecologi tera exam performed. Patient [...] Kirkland Member ID Guarantor Name 07/14/2020 1 [facility] PRIOR TO 09/09/2020 (MEDICAID REPLACEMENT - HMO) Jade Laguna [id number] Jade Laguna 07/28/2020 1 [facility] PRIOR TO 09/09/2020 (MEDICAID REPLACEMENT - HMO) Jade Laguna [id number] Jade Laguna 08/19/2021 1 [facility] ON OR AFTER 09/09/20 (MEDICAID REPLACEMENT - HMO) Jade Laguna [id number] Jade Laguna 08/31/2022 1 [facility] ON OR AFTER 09/09/20 (MEDICAID REPLACEMENT - HMO) Jade Laguna [id number] Jade Laguna 12/19/2023 1 [facility] ON OR AFTER 09/09/20 (MEDICAID REPLACEMENT - HMO) Jade Laguna [id number] Jade Laguna Notes Date Note Type Note [...] years Yadira Zhang MD [address], [place], [address], [facility] 07/16/2020 10:00:25 07/28/2020 text/html Patient is a 50y o who presents for an annual exam. Also needs EMB for menorrhagia. Known fibroid R lat ANIL. last pap-2011 mammo-05/2020 colonoscopy-04/2020, 10 years dexa-none menopause-not yet sexually active-y seatbelts-y exercise-yes, a little depression-denies domestic violence-denies tobacco-no concerns-just above menorrhagia Yadira Zhang MD [address], [place], [address], [facility] 08/02/2020 09:58:43 08/19/2021 text/html Patient is a 51y o who presents for an annual exam. She is skipping periods now, with her last one 3 mos ago. NO hot flashes. Is having back problems. last pap-07/2020 mammo-05/2020 colonoscopy-2020, 10 years dexa-none menopause-no sexually active-y seatbelts-y exercise-a little depression-denies domestic violence-denies tobacco-n concerns- Yadira Zahng MD [address], [place], [address], [facility] 08/22/2021 13:57:54 08/31/2022 text/html Annual Network Development Coordinator Post-MenopausalRepo rted bypatient.Menopausa l Symptoms:no menopausal symptoms; [...] mammogram; history of recent colonoscopy Shiloh Elena [facility]- [address], [place], [address], [facility] 08/31/2022 15:55:32 12/19/2023 text/html Annual GYNReport ed bypatient.History:n o gynecologic complaints Urinary symptoms:No hematuria; No incontinence Vulva:No genital lesion Vagina:Normal vaginal discharge Breast:No breast pain; No breast lump Sexual complaints:No sexual complaints Menopausal Symptoms:No menopausal symptoms Psychological symptoms:No depression; No anxiety Preventive measures:Encourage self breast examination; Encourage regular exercise Roosevelt Sheth MD [address], [place], [address], [facility] 12/19/2023 18:48:39 OBGyn Episode Ob Episode Information Episode Created Date Number of Fetuses Patient Bloodtype Patient rh Status Prepregnancy Weight lbs Domestic Partner Domestic Partner Phone Father Name Health Outcomes Liaison Status 05/14/19 21 1 CLOSED Fetus Data [...] Domestic Partner Domestic Partner Phone Father Name Health Outcomes Liaison Status 05/14/19 21 1 CLOSED Fetus Data [...] Domestic Partner Domestic Partner Phone Father Name Health Outcomes Liaison Status 05/14/19 21 1 CLOSED Fetus Data [...]
--- OUTSIDE RECORDS SUMMARY | 2024-06-11 16:47 | XMS_ITS | Clinical Summary ---
Author Organization [facility] Address [address] [place] [address] Care Team Providers Care Signaling Design Engineer Name Role Phone Azam Olvera MD Unavailable [phone] Amanda RIOS MD PhD, Kirby Pryor Unavailable No, Physician Primary Care Provider [phone] Allergies Active Allergy Reactions Criticality Noted Date Comments Oxycodone Nausea & Vomiting Low 01/10/2023 Medications ergocalciferol (VITAMIN D) 50,000 unit capsuleIndications :Vitamin D Deficiency,Sunday Take 1 capsule (50,000 Units total) by mouth once a week 06/28/19 21 Active albuterol HFA (Ventolin HFA) 90 mcg/actuation inhalerIndications :Dyspnea and respiratory abnormalities,Family Nurse александр cough Inhale 2 puffs every 4 [...] I health Take 1 tablet by mouth battery container finishing hand before breakfast Active multivitamin tabletIndications: Vitamin Deficiency Prevention Take 1 tablet by mouth battery container finishing hand before breakfast Active levothyroxine (SYNTHROID) 150 mcg tabletIndications: hypothyroidism Take 1 tablet (150 mcg total) by mouth battery container finishing hand before breakfast 30 tablet 11 01/13/20 Active [...] 08/30/2020 BMI 40.0-44.9, adult 07/28/2020 Menorrhagia 07/28/2020 Encounters Date Type Department Care Team Description 05/26/2024 Telephone [facility] Advanced Medicine Radiation Oncology [address] [facility] [place] [address] Noni Valdez MA Scheduling Appointments from Last 3 Months Surgical History Surgery Date Site/Laterality Comments TUBAL [...] patient's age to complete this topic Insurance [facility] [address] [facility] [address] Advance Directives For more information, please contact: [phone] * Full Code (Latest Code Status on File) Date Activated Date Inactivated Comments 01/10/2023 2:16 PM 01/12/2023 1:41 PM Care Teams Signaling Design Engineer Relationship Specialty Start Date End Date No, Physician PCP - General 01/31/24 Azam Olvera MD [address] [place] [address] [place] [address] Consulting Physician Endocrinology 9/1/23 Kirby Patel III, MD PhD [address] [place] [address] Radiation Oncologist Radiation Oncology 03/30/23
--- OUTSIDE RECORDS SUMMARY | 2024-06-11 16:47 | XMS_ITS | Encounter Summary ---
Author Organization [facility] Healthcare Address [address] [place] [address] Care Team Providers Care Cognos Lead Name Role Phone Ezequiel Price MD Primary Care Provider Azam Olvera MD Unavailable [phone] Amanda RIOS MD PhD, Kirby Pryor Unavailable No, Physician Primary Care Provider [phone] Encounter Details Date Type Department Care Team (Late st Contact Info) Description 07/06/2022 Telephone [facility] [address] [place] [id number] Salima Landa, MATTIE Social History Tobacco Use [...] on filedocumented in this encounter Care Teams Cognos Lead Relationship Specialty Start Date End Date Ezequiel Price MD PCP - General Emergency Medicine 06/10/20 01/30/24 No, Physician PCP - General 01/31/24 Azam Olvera MD [address] [place] [id number] Consulting Physician Endocrinology 11/10/22 Kirby Patel III, MD PhD [address] [facility] [address] [place] [address] Radiation Oncologist Radiation Oncology 03/30/23 documented as of this encounter
--- OUTSIDE RECORDS SUMMARY | 2024-06-11 16:47 | XMS_ITS | Clinical Summary ---
Author Organization [facility] Address [address] [place] [address] Care Team Providers Care Food Safety Manager Name Role Phone Unavailable Primary Care Provider [...] 02/13/2020 COVID-19 Vaccine (2023-2 5 season) 2023 Meningococcal B Vaccine Aged Out No [...]
--- OUTSIDE RECORDS SUMMARY | 2024-06-11 16:47 | XMS_ITS | Clinical Summary ---
Author Organization [facility] Address [address] [facility] [place] [address] Care Team Providers Care Groundskeeper Supervisor Name Role Phone ScoutNellybonnie KIM Primary Care Provider Source Comments [facility],non-owned Affiliates and Associated Physician Practices is amultiple site organization consisting of ambulatory clinics and hospital sitesin [place] and [place]. This disclosure is being madepursuant to the Care Everywhere program and may not contain all information available regarding this patient. Last updated 17.[facility] Allergies No known active allergies Medications * Be aware that medications may not be up to date on this document. Alwaysverify current medications with the patient. Medication Sig Dispensed Refills Start Date End Date Status tiZANidine (ZANAFLEX) 4 MG tablet Take 1 (one) tablet by mouth nightly as needed for Muscle Spasms 07/04/2021 Active traZODone (Desyrel) 150 MG tablet Take 1 (one) tablet by mouth once daily as needed 10/31/2022 Active loratadine (Claritin) 10 MG tablet Take 1 (one) tablet by mouth once daily 10/20/2022 Active dicyclomine (Bentyl) 10 MG capsule Take 1 (one) capsule by mouth 2 times daily as needed 11/01/2022 Active gabapentin (Neurontin) 300 MG capsuleIndication s:Bertolotti's syndrome,Chronic bilateral low back pain with bilateral sciatica Take 2 (two) capsules by mouth 3 times daily 180 capsule 11 05/17/2023 Active ibuprofen (Motrin) 600 MG tablet Take 1 (one) tablet by mouth every 6 hours as needed pain 120 tablet 3 10/17/2023 Active lidocaine (Lidoderm) 5 % patch APPLY 1 PATCH ONTO THE MOST PAINFUL AREA ON THE SKIN FOR 12 HOURS THEN REMOVE. 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 11/20/2023 Active sertraline (Zoloft) 50 MG tablet Take 1 (one) tablet by mouth once daily Active budesonide (Entocort EC) [address] capsule Take 1 (one) capsule by mouth once daily Active oxyBUTYnin CR 24hr (Ditropan-XL) 10 MG tablet Take 1 (one) tablet by mouth once daily 90 tablet 2 11/26/2023 Active Additional Information Patient not taking.Reported on 04/16/2024 atorvastatin (Lipitor) 80 MG tabletIndications :Cerebrovascular accident (CVA), unspecified mechanism (HCC) TAKE 1 TABLET BY MOUTH EVERY DAY 30 tablet 12/03/2023 Active montelukast (Singulair) 10 MG tablet Take 1 (one) tablet by mouth at bedtime 12/11/2023 Active pregabalin (Lyrica) 150 MG capsuleIndication s:Chronic bilateral back pain, unspecified back location Take 1 (one) capsule by mouth 2 times daily 60 capsule 2 01/31/2024 Active baclofen (Lioresal) 10 MG tablet Take 1 (one) tablet by mouth 3 times daily May cause drowsiness. 90 tablet 5 04/16/2024 Active levothyroxine (Synthroid) 150 MCG tablet Take 1 (one) tablet by mouth once daily 30 tablet 11 05/09/2024 Active Active Problems Problem Noted Date Diagnosed [...] Encounters Date Type Department Care Team Description 05/23/2024 Orders Only [facility] - Endocrinology [address] [place] [address], [place] [phone] Kyle Roberts MD Acquired hypothyroidism; London's thyroiditis; Papillary thyroid carcinoma 05/14/2024 Telephone [facility] - Neurology [address] [place] [phone] Hay Brower MD Medication Clarification 05/09/2024 Refill [facility] - Endocrinology [address] [place] [phone] Kyle Roberts MD Refill Request (levothyroxine) 04/22/2024 Telephone [facility] - Endocrinology [address] [place] [phone] Kyle Roberts MD Follow-up (Whole body scan) 04/16/2024 9:00 AM PHYSICIAN UNDERWRITER Office Visit [facility] - Neurology [address] [place] [phone] Hay Brower MD Chronic bilateral low back pain with bilateral sciatica (Primary Dx); History of transient ischemic attack; Abnormal finding on MRI of brain 04/16/2024 Travel 03/28/2024 Orders Only [facility] - Endocrinology [address] [place] [phone] Kyle Roberts MD Acquired hypothyroidism; London's thyroiditis; Papillary thyroid carcinoma from Last 3 Months Immunizations Name Administration [...] Comments Blood Pressure 129/81 04/16/2024 9:24 AM PHYSICIAN UNDERWRITER Pulse 98 04/16/2024 9:24 AM PHYSICIAN UNDERWRITER Temperature 36.4 C (97.5 F) 01/14/2024 3:31 PM PHYSICIAN UNDERWRITER Respiratory Rate 22 05/10/2023 3:04 PM PHYSICIAN UNDERWRITER Oxygen Saturation 96% 04/16/2024 9:24 AM PHYSICIAN UNDERWRITER Inhaled Oxygen Concentration - - Weight 105.7 kg (233 lb) 04/16/2024 9:24 AM PHYSICIAN UNDERWRITER Height 152.4 cm (5') 02/06/2024 1:48 PM PHYSICIAN UNDERWRITER Body Mass Index 45.5 02/06/2024 1:48 PM PHYSICIAN UNDERWRITER Plan of Treatment Upcoming Encounters Date Type Department Care Team (Late st Contact Info) Description 08/07/2024 11:00 AM CDT Office Visit [facility] - Endocrinology [address] [place] [address], [facility] [place] [phone] Kyle Roberts MD [address] [place] [address] [place] [address] 08/07/2024 12:30 PM CDT Appointment [address] [phone] Hay Brower MD [address] [place] [phone] 08/07/2024 1:30 PM CDT Appointment [facility] MRI [address] [place] [phone] Hay Brower MD [address] [place] [address] 08/07/2024 2:30 PM CDT Appointment [facility] NUCLEAR MEDICINE [address] [place] [phone] Kyle Roberts MD [address] [place] [phone] 08/08/2024 2:30 PM CDT Appointment [facility] NUCLEAR MEDICINE [address] [place] [phone] Kyle Roberts MD [address] [facility] [address] [place] [address] Health Maintenance Due Date Last Done Comments [...] (2 - 2023-2 5 season) 2023 08/20/2020 DEPRESSION SCREENING 03/12/2024 05/17/2023 INFLUENZA VACCINE (Season Ended) 2024 12/30/2022 PAP SMEAR 12/18/2026 12/19/2023, 07/28/2020 HIB VACCINE [...] ORDERABLES from Last 3 Months Care Teams Groundskeeper Supervisor Relationship Specialty Start Date End Date Nelly Butterfield DO [address] [place] [phone] PCP - General Family Medicine 04/16/24
--- OUTSIDE RECORDS SUMMARY | 2024-06-11 16:47 | XMS_ITS | Data Portability ---
Author Organization [employer], Main Office Address [address] [place] [address] Assessment No assessment recorded. Plan of Treatment Reminders Order Date Submit Date Provider Last Modified By Organization Details Last Modified Time Details Appointments Follow Up 15 2024 11:30A M Ruben Echavarria DPM Not available Not available Not available Lab None recorded. Referral None recorded. Procedures None recorded. Surgeries None recorded. Imaging XR, ankle, 3 or more view 2024 025 [facility] (Radiology), [address] [place], [address], 06/06/2024 04:15:50 Medication Orders clobetaso l 0.05 % lotion 2024 025 [facility]/Pharmacy #[id number], [address] , [place], [address], 05/23/2024 12:41:20 Patient TargetsNo targets recorded. Patient InstructionsNo instructions recorded. Reason for Referral None Reported. Results Created Date Observation Date Name Description Value Unit Range Abnormal Flag Note LastModifiedBy Organization Detail LastModifiedTime 04/11/1904/11/2024 XR, tibia + fibul a No observ ation record ed. BARCODE Not Available 2024 12:56:42 Result Notes None recorded. Problems Name Problem SNOMED Code Status Onset Date Resolution Date Notes Provider Name and Address Organization Details Recorded Time Pain in left foot 3017497636711 07 Active 2023 Ruben Echavarria DPM [address] [facility], [facility] [address], [place], [address] , [facility] 4 15:03:08 Plantar fasciitis of left foot 3912685828887 9101 Active 2023 Ruben Echavarria DPM [address], [place], [address], [employer] [facility] [employer] [facility] 4 14:14:02 Edema of lower extremity 315523188 Active 2023 Ruben Echavarria DPM [address], [place], [address], [facility] [facility] [employer] [facility] 4 15:48:32 Edema 548105780 Active 2023 Ruben Echavarria DPM [address], [place], [address], [facility] [employer] [facility] 4 15:48:49 Lesion of skin of foot 3638588035912 08 Active 2023 SADAF Altamirano, MD [employer] [facility] [employer] [facility] 4 12:28:14 Osteoarthri tis 629879720 Active 2023 Ruben Echavarria DPM [address], [place], [address], [facility] [employer] [facility] 4 09:27:07 Tenosynovit is of left ankle 5667562421155 102 Active 2023 Ruben Echavarria DPM [address], [place], [address], [facility] [employer] [facility] 4 09:27:19 Onychomycos is 059288490 Active 2023 SADAF Altamirano, MD [employer] [facility] [employer] [facility] 4 12:24:06 Pain in right foot 2280532688550 07 Active 2023 Ruben Echavarria DPM [address], [place], [address], [facility] [employer] [facility] [employer] [facility] 4 09:21:35 Fissure in skin of bilateral feet 567108945 Active 2023 Ruben Echavarria DPM [address], [place], [address], [employer] 4 09:22:27 Pain of right ankle joint 8469653803066 9106 Active 2023 Ruben Echavarria DPM [address], [place], [address], [employer] 4 10:53:56 Pain of left ankle joint 6455713401694 9103 Active 2023 Ruben Echavarria DPM [address], [place], [address], [employer] 4 10:54:01 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 Procedures Surgical History Date Name Laterality Status Provider Name and Address Organization Details Recorded Time 5 Unna boot application completed Ruben Echavarria DPM [address], [place], [address], [employer] 05/26/2024 08:32:02 5 Cortisone Injection Ankle-Left completed Ruben Echavarria DPM [address], [place], [address], [employer] 05/26/2024 08:32:20 5 Nail Debridement completed Ruben Echavarria DPM [address], [place], [address], [employer] 05/22/2024 08:40:47 4 Unna boot - LE edema completed Ruben Echavarria DPM [address], [place], [address], [employer] 02/25/2024 16:16:27 4 Trigger Point Injection completed Ruben Echavarria DPM [address], [address], [place], [address], [employer] 02/25/2024 15:13:03 4 Unna boot application completed Ruben Echavarria DPM [address], [place], [address], [employer] 02/25/2024 15:13:10 4 Unna boot application completed Ruben Echavarria DPM [address], [place], [address], [employer] 02/06/2024 10:53:41 4 Cortisone Injection Ankle-Left completed Ruben Echavarria DPM [address], [place], [address], [employer] 02/06/2024 10:53:22 4 Cortisone Injection Ankle-Right completed Ruben Echavarria DPM [address], [place], [address], [employer] 02/06/2024 10:53:33 4 Cortisone Injection Ankle-Left completed Ruben Echavarria DPM [address], [place], [address], [employer] [facility] [employer] 01/23/2024 09:05:54 4 Unna boot - LE edema completed Ruben Echavarria DPM [address], [place], [address], [employer] [facility] [employer] [facility] 01/23/2024 09:06:03 4 Nail Debridement completed Ruben Echavarria DPM [address], [place], [address], [employer] [facility] [employer] [facility] 12/26/2023 08:57:45 4 Unna boot application completed Ruben Echavarria DPM [address], [place], [address], [employer] [facility] [employer] [facility] 11/21/2023 09:20:41 4 Callus Debridement 2-4 completed Ruben Echavarria DPM [address], [place], [address], [employer] [facility] [employer] [facility] 11/21/2023 09:20:51 4 Incision & Drainage Procedure completed Ruben Echavarria DPM [address], [place], [address], [employer] [facility] [employer] 11/21/2023 09:21:16 4 Unna boot - LE edema completed [address], [place], [address], [employer] [facility] [employer] 11/21/2023 09:20:29 4 Cortisone Injection Ankle-Left completed Ruben Echavarria DPM [address], [address], [place], [address], [employer] [facility] [employer] 11/06/2023 09:23:45 4 Incisional Biopsy completed Ruben Echavarria DPM [address], [address], [place], [address], [employer] 10/30/2023 09:14:09 4 Unna boot application completed Ruben Echavarria DPM [address], [place], [address], [employer] [facility] [employer] 10/01/2023 12:43:24 4 Cortisone Injection Ankle-Left completed Ruben Echavarria DPM [address], [address], [place], [address], [employer] 10/01/2023 12:43:38 4 Unna boot application completed Ruben Echavarria DPM [address], [address], [place], [address], [employer] 09/17/2023 15:48:09 4 Cortisone Injection Small Joint-Left completed Ruben Echavarria DPM [address], [address], [place], [address], [employer] 09/17/2023 15:48:16 4 Trigger Point Injection completed Ruben Echavarria DPM [address], [address], [place], [address], [employer] 09/03/2023 14:13:35 4 Trigger Point Injection completed Ruben Echavarria DPM [address], [place], [address], [employer] 08/27/2023 15:02:25 4 Unna boot - LE edema completed Ruben Echavarria DPM [address], [place], [address], [employer] [facility] [employer] 08/27/2023 15:02:38 Imaging Results Imaging Date Name Status LastModified by Organiz ation Details LastModified Time 04/11/2024 XR, tibia + fibula completed BAR[facility] Information not available 04/11/2024 12:56:42 Procedure Notes None recorded. Medical Equipment None Reported. Allergies No known drug allergies Medications Name Sig Start Date Stop Date Status Note LastModified by Organization Details LastModified Time cyclobenzapr ine 10 mg tablet TAKE 1/2-1 TABLET BY MOUTH TWICE DAILY active Not Available Not Available No t Available methocarbamo l 500 mg tablet PLEASE SEE ATTACHED FOR DETAILED DIRECTIONS active Not Available Not Available N ot Available atorvastatin 80 mg tablet TAKE 1 TABLET BY MOUTH EVERY DAY active Not Available Not Available No t Available prednisone 10 mg tablet TAKE 4 TABLETS DAYS 1-3, 3 TABLETS DAYS 4-5, 2 TABLETS DAY 6 AND 1 TABLET DAY 7 active Not Available Not Available No t Available cetirizine 10 mg tablet TAKE 1 TABLET BY MOUTH EVERY DAY active Not Available Not Available No t Available oxybutynin chloride ER 10 mg tablet,exten ded release 24 hr TAKE 1 TABLET BY MOUTH EVERY DAY active Not Available Not Available No t Available azithromycin 250 mg tablet TAKE 2 TABLETS BY MOUTH TODAY, THEN TAKE 1 TABLET DAILY FOR 4 DAYS DIRECTED active Not Available Not Available No t Available fluconazole 150 mg tablet TAKE 2 TABLETS IMMEDIATELY THEN TAKE 1 TABLET BY MOUTH EVERY WEEK active Not Available Not Available No t Available famotidine 40 mg tablet active Not Available Not Available Not Available gabapentin 400 mg capsule TAKE 1 CAPSULE BY MOUTH THREE TIMES A DAY active Not Available Not Available Not Available sertraline 100 mg tablet TAKE 1 TABLET BY MOUTH EVERY DAY active Not Available Not Available No t Available clobetasol 0.05 % topical cream APPLY THIN COAT TO AFFECTED AREA TWICE A DAY active Not Available Not Available No t Available acetaminophe n 500 mg tablet TAKE 2 TABLETS BY MOUTH EVERY 6 HOURS FOR 10 DAYS active Not Available Not Available No t Available triamcinolon e acetonide 0.1 % topical cream APPLY TO AFFECTED AREA 2 TIMES DAILY FOR 7 DAYS. active Not Available Not Available Not Available levothyroxin e 88 mcg tablet TAKE 1 TABLET BY MOUTH EVERY DAY active Not Available Not Available No t Available calcium 500 mg (as calcium carbonate 1,250 mg) tablet TAKE 1 TABLET BY MOUTH TWICE A DAY active Not Available Not Available No t Available baclofen 10 mg tablet TAKE 1 TABLET BY MOUTH 3 TIMES DAILY MAY CAUSE DROWSINESS. active Not Available Not Available Not Available cephalexin 500 mg capsule TAKE 1 CAPSULE BY MOUTH TWICE A DAY active Not Available Not Available No t Available trazodone 150 mg tablet TAKE 2 TABLETS BY MOUTH DAILY AT BEDTIME NEEDED active Not Available Not Available No t Available lidocaine 5 % topical patch APPLY 1 PATCH ONTO MOST PAINFUL AREA ON SKIN FOR 12 HRS THEN REMOVE. APPLY NEW PATCH AFTER 12 HRS active Not Available Not Available No t Available levothyroxin e 150 mcg tablet TAKE 1 TABLET BY [...] TIMES DAILY active Not Available Not Available Not Available aspirin 81 mg chewable tablet CHEW 1 TABLET BY MOUTH ONCE DAILY active Not Available Not Available No t Available montelukast 10 mg tablet TAKE 1 TABLET BY MOUTH EVERY DAY AT NIGHT active Not Available Not Available No t Available gabapentin 100 mg capsule TAKE 1 CAPSULE BY MOUTH THREE TIMES A DAY active Not Available Not Available Not Available ergocalcifer ol (vitamin D2) 1,250 mcg (50,000 unit) capsule TAKE 1 CAPSULE BY MOUTH ONCE WEEKLY active Not Available Not Available No t Available budesonide DR - ER 3 mg capsule,ria yed,extended release TAKE 2 CAPSULES BY MOUTH DAILY active Not Available Not Available Not Available ibuprofen 600 mg tablet TAKE 1 TABLET BY MOUTH EVERY 6 HOURS NEEDED FOR PAIN active Not Available Not Available No t Available methylpredni solone 4 mg tablets in a dose pack TAKE 6 TABLETS ON DAY 1 DIRECTED ON PACKAGE AND DECREASE BY 1 TAB EACH DAY FOR A TOTAL OF 6 DAYS active Not Available Not Available No t Available albuterol sulfate HFA 90 mcg/actuatio n aerosol inhaler INHALE 2-4 PUFFS NEEDED EVERY 4-6 HOURS FOR COUGH AND SHORTNESS OF BREATH active Not Available Not Available No t Available ondansetron 4 mg disintegrati ng tablet TAKE 1 TABLET BY MOUTH EVERY 8 HOURS NEEDED FOR NAUSEA AND VOMITING active Not Available Not Available No t Available sertraline 50 mg tablet TAKE 1 TABLET BY MOUTH EVERY DAY active Not Available Not Available No t Available dicyclomine 10 mg capsule 10 MG ORALLY TWICE A DAY NEEDED FOR ABDOMINAL PAIN active Not Available Not Available No t Available loratadine 10 mg tablet TAKE 1 TABLET BY MOUTH EVERY DAY active Not Available Not Available No t Available amoxicillin 875 mg-potassium clavulanate 125 mg tablet TAKE 1 TABLET BY MOUTH TWICE A DAY active Not Available Not Available No t Available oxycodone 5 mg tablet TAKE 1 TABLET BY MOUTH EVERY 4 HOURS NEEDED FOR PAIN active Not Available Not Available No t Available clobetasol 0.05 % lotion APPLY A THIN LAYER TO THE AFFECTED AREA(S) BY TOPICAL ROUTE 2 TIMES PER DAY 2024 active Not Available Not Available Not Avai lable cholestyrami ne (with sugar) 4 gram oral powder 4 G ORALLY DAILY ADMINISTER W/MEAL AVOID OTHER MEDS WITHIN 1HR BEFORE OR 4-6HR AFTER DOSE active Not Available Not Available N ot Available pregabalin 75 mg capsule TAKE 1 CAPSULE BY MOUTH THREE TIMES A DAY active Not Available Not Available Not Available pregabalin 150 mg capsule TAKE 1 CAPSULE BY MOUTH TWICE A DAY active Not Available Not Available No t Available pregabalin 300 mg capsule TAKE 1 (ONE) CAPSULE BY MOUTH 2 TIMES DAILY REASONS: NEUROPATHIC PAIN active Not Available Not Available No t Available hydrochlorot hiazide 12.5 mg tablet TAKE 1 TABLET BY MOUTH EVERY MORNING active Not Available Not Available No t Available Symbicort 160 mcg-4.5 mcg/actuatio n HFA aerosol inhaler INHALE 2 PUFFS BY MOUTH 2 TIMES A DAY RINSE MOUTH WITH WATER AFTER USE. DO NOT SWALLOW. active Not Available Not Available No t Available Cassie Pinzon [facility] spacer USE DIRECTED WITH INHALER active Not Available Not Available No t Available Spiriva Respimat 2.5 mcg/actuatio n solution for inhalation INHALE 2 PUFFS BY MOUTH DAILY active Not Available Not Available Not Available Vitals Date Recorded Body height Oxygen saturation Oxygen saturation in Arterial blood by Pulse oximetry Body temperature Heart rate Body mass index (BMI) Body weight Provider Name and Address Organization Details Last Updated DateTime 4 152.4 cm 98 % 98 % 98.4 [degF] 73 /min 43.2 kg/m2 546932. 91 g SADAF Altamirano [place] [facility] [place] [employer] [facility] 4 11:59:58 Date Recorded Body height Body mass index (BMI) Body weight Heart rate Respiratory rate Body temperature Oxygen saturation Oxygen saturation in Arterial blood by Pulse oximetry Systolic blood pressure Diastolic blood pressure Provider Name and Address Organization Details Last Updated DateTime 4 152.4 cm 43.2 kg/m2 843785. 91 g 73 /min 14 /min 98 [degF] 98 % 98 % 120 mm[Hg] 80 mm[Hg] [place] Cortez [facility] [employer] 4 15:40:34 Date Recorded Body height Provider Name an d Address Organization Details Last Updated DateTime 05/20/2024 152.4 cm SADAF Altamirano [facility] [employer] 05/20/2024 16:28:53 Date Recorded Body height Body mass index (BMI) Body weight Provider Name and Address Organization Details Last Updated DateTime 05/23/2024 152.4 cm 43.2 kg/m2 941004.91 g SADAF Altamirano MD [employer] [facility] [employer] 05/23/2024 12:33:26 Date Recorded Body height Body mass index (BMI) Body weight Oxygen saturation Oxygen saturation in Arterial blood by Pulse oximetry Body temperature Heart rate Provider Name and Address Organization Details Last Updated DateTime 152.4 cm 43.2 kg/m2 569324. 91 g 96 % 96 % 98.2 [degF] 84 /min SADAF Altamirano [facility] [employer] 12:41:44 Social History Question Answer Notes LastModified by Organizat ion Details LastModified Time Tobacco Smoking Status Never Smoker SADAF Altamirano [facility] [employer] 08/27/2023 14:32:36 What Is Your Level Of Alcohol Consumption? None [email or web address] Information not available 08/27/2023 What Is Your Level Of Caffeine Consumption? Moderate [email or web address] Information not available 08/27/2023 What Was The Date Of Your Most Recent Tobacco Screening? 06/06/2024 [email or web address] Information not available 06/06/2024 Do You Use Any Illicit Or Recreational Drugs? No [email or web address] Information not available 08/27/2023 Has Tobacco Cessation Counseling Been Provided? No [email or web address] Information not available 08/27/2023 Do You Or Have You Ever Used Any Other Forms Of Tobacco Or Nicotine? No [email or web address] Information not available 08/27/2023 Sex: Unknown Functional Status None recorded. Mental Status None recorded. Family History Relationship Description Onset Age of this Age Resolved Age Notes LastModified by Organization Details LastModified Time Maternal Grandfather Diabetes mellitus Not available 2023 14:31:26 Maternal Grandfather Arthritis [email or web address] Not available 14:31:47 Mother Diabetes mellitus [email or web address] Not available 2023 14:31:27 Mother Arthritis [email or web address] Not availab le 08/27/2023 14:31:47 Mother Osteoporosis [email or web address] Not avai lable 08/27/2023 14:32:11 Maternal Grandmother Arthritis [email or web address] Not available 14:31:47 Maternal Grandmother Osteoporosis [email or web address] Not available 08/27/2023 14:32:11 Medical History Condition Response CANCER: SPECIFY Y OBESITY Y Gynecological HistoryNo gynecological history recorded. Obstetrics History GPAL:G 0 P 0 0 0 0 Past Encounters Encounter ID Performer Location Encounter Start Date Encounter Closed Date Diagnosis/Indication Diagnosis SNOMED-CT Code Diagnosis ICD10 Code Diagnosis Note [id number] Ruben Echavarria DPM [facility] [place] [address] [place] [address] 08/27/2023 14:14:50 08/27/2023 15:03:47 Pain in left foot 5952245827 [facility] M79.759 [id number] [facility] [place] [address] [place] [address] 09/03/2023 11:05:27 09/03/2023 14:42:30 Pain in left foot 6455463474 00409 M79.672 Plantar fa sciitis of left foot 4449371997 4861121 M72.2 [id number] Ruben Echavarria DPM [facility] [place] [address] [place] [address] 09/17/2023 12:05:56 09/17/2023 16:04:14 Pain in left foot 1444412930 07585 M79.672 Edema of l ower extremity 317770546 R60.0 Edema 738697104 R60.9 [id number] JOYA [facility] [place] [address] [address] [address] 10/01/2023 12:00:18 10/01/2023 14:05:17 [id number] Ruben Echavarria DPM [facility] [place] [address] [address] [address] 10/29/2023 12:15:53 10/30/2023 11:55:56 Lesion of skin of foot 2993108871 39989 L98.9 [id number] Ruben Echavarria DPM [facility] [place] [address] [address] [address] 11/05/2023 11:58:29 11/06/2023 15:04:19 Pain in left foot 1135983146 88343 M79.672 Osteoarthritis 527322185 M19.90 Tenosynovi tis of left ankle 2533997952 360269 M65.9 [id number] Ruben Echavarria DPM [facility] [place] [address] [place] [address] [address] 11/20/2023 12:02:22 12/10/2023 16:38:12 Onychomycosis 909477127 B35.1 Pain in left foot 876968 2305 15093 M79.672 Pain in right foot 75282 68059 87590 M79.671 Fissure in skin of bilateral feet 806486693 R23.4 [id number] Ruben Echavarria DPM [facility] [place] [address] [place] [address] [address] 12/25/2023 11:01:44 12/26/2023 11:10:28 [id number] Ruben Echavarria DPM [facility] [place] [address] [address] 01/22/2024 11:42:11 01/23/2024 14:27:54 [id number] Ruben Echavarria DPM [facility] [place] [address] [place] [address] [address] 02/05/2024 12:03:33 02/06/2024 11:02:42 Pain of right ankle joint 3307101571 3420124 M25.571 Pain of le ft ankle joint 2009566227 0276139 M25.572 Degenerati ve joint disease of ankle AND/OR foot 75549394 M19.079 bilateral [id number] Ruben Echavarria DPM [facility] [place] [address] [place] [address] 02/22/2024 11:52:51 03/07/2024 09:18:39 Pain in right foot 9310011371 02413 M79.671 Edema of l ower extremity 594241352 R60.0 [id number] Ruben Echavarria DPM [facility] [place] [address] [place] [address] [address] 02/25/2024 15:37:06 02/25/2024 16:18:36 Edema of lower extremity 149429282 R60.0 Sprain of lateral ligament of ankle joint 291677094 S93.492A Lt [id number] Ruben Echavarria DPM [facility] [place] [address] [place] [address] 05/20/2024 16:06:07 06/03/2024 09:14:32 Edema of lower extremity 029025094 R60.0 [id number] Ruben Echavarria DPM [facility] [place] [address] [place] [address] 05/23/2024 12:31:08 06/02/2024 10:56:33 Pain of left ankle joint 7729401248 5354083 M25.572 Bilateral ankle joint pain 9904483096 8037130 M25.572 M25.571 ankle Health Concerns Section Related Observation LastModified by Organization Detai ls LastModified Time None Recorded Concern Status LastModified by Organization Details LastModified Time None Recorded Advance Directives Directive None Recorded Payers Encounter Date Sequence Insurance Name Policy Number Policy Kirkland Covered Member ID Kirkland Member ID Guarantor Name 02/22/[address] [facility] ON OR AFTER 09/09/20 (MEDICAID REPLACEMENT - HMO) Jade Benitesimer [id number] Jade Delmisimer 02/25/[address] [facility] ON OR AFTER 09/09/20 (MEDICAID REPLACEMENT - HMO) Jade Benitesimer [id number] Jade Benitesimer 05/20/[address] [facility] ON OR AFTER 09/09/20 (MEDICAID REPLACEMENT - HMO) Jade Laguna [id number] Jade Benitesimer 05/23/[address] [facility] ON OR AFTER 09/09/20 (MEDICAID REPLACEMENT - HMO) Jade Laguna [id number] Jade Laguna Notes Date Note Type Note Provider Name and Address Organization Details Recorded Time 02/22/2024 text/html Pt w/ recurrent pain in Rt foot, neuropathic type pain and edema, ankle,rt. Worse in PM and during long WB. Intermittent. Ruben Echavarria DPM [address] [employer], [place], [address], [employer] 02/25/2024 15:13:44 02/25/2024 text/html Pt's pain from neuropathy greatly improved w/ injections. Pt c/o ankle instability, turns very easily, Lt >> Rt foot. Swelling jaun ankles. Ruben Echavarria DPM [address], [place], [address], [employer] 02/25/2024 16:17:16 05/20/2024 text/html Pt RTC for routi ne nail care. Scar on Rt foot evaluation. Ruben Echavarria DPM [address], [address], [place], [address], [employer] 05/22/2024 08:40:53 05/23/2024 text/html Pt RTC for c/o painful ankles,. still symptomatic. Xrays show no fx or dislocation. Ruben Echavarria, DPM [address] [facility], [facility] [address], [place], [address], [facility] [employer] 05/26/2024 08:32:27 OBGyn Episode No OBEpisode recorded.
--- OUTSIDE RECORDS SUMMARY | 2024-06-11 16:47 | XMS_ITS | CONTINUITY OF CARE DOCUMENT ---
Author Name chantellkelly linda Address Unknown Organization [facility] Address [id number] [place] [address] [address] [place] [address] Phone [phone] Care Team Providers Care Potato Spotter Name Role Phone Gonzales Gomez MD Unavailable JOSIE PARKER MD Unavailable [phone] JOSIE PARKER MD Unavailable [phone] PROBLEMS Condition Status Date Provider Notes Hypertension active Bobo Fang CERTIFIED SCRUB TECH Hypothyroidism active Bobo Fang CERTIFIED SCRUB TECH Thyroid cancer active Bobo Fang CERTIFIED SCRUB TECH S/P thyroidectomy History of ischemic transien t ischemic attack (TIA) active Bobo Fang CERTIFIED SCRUB TECH Palpitations active Bobo Fang CERTIFIED SCRUB TECH ENCOUNTERS Date Type Provider Location Encounter Diag nosis 6 - 2 In-person encounter Office Visit Gonzales Gomez MD [place] Office 7 - 8 In-person encounter Office Visit Gonzales Gomez MD [facility] Office HypertensionHypothyroidismThyroid cancerHistory of ischemic transient ischemic [...] tolic, second observation 90 mm[Hg] Bobo Fang CERTIFIED SCRUB TECH blood pressure, systolic, second observat ion 120 mm[Hg] Bobo Annalisa CERTIFIED SCRUB TECH blood pressure, diastolic 102 mm[Hg] Marshall freida [...] atorvastatin 80 mg tablet active Verah Bonareri CERTIFIED SCRUB TECH methocarbamol 500 mg tablet active Bobo Sellersshelia BASHIR SOCIAL HISTORY Date Observation Value Provider personal history of marijuana use no Chelly Parker MCKAY drug use no Chelly Mccartneynigel BASHIR alcohol use no Chelly Parker CERTIFIED SCRUB TECH smoking status Never smoker Chelly Menjivar shannon CERTIFIED SCRUB TECH personal history of marijuana use no Bobo Sellersshelia BASHIR drug use no Bobo Sellersnanori CERTIFIED SCRUB TECH alcohol use no Bobo Farrisri CERTIFIED SCRUB TECH smoking status Never smoker Bobo Goyo i CERTIFIED SCRUB TECH FAMILY HISTORY Family Member Condition Mother Unknown INSURANCE PROVIDERS Payer name Policy type / Coverage type [place] red democrat [place] MEDICAID (2) Medicaid [id number] ADVANCE DIRECTIVES Name Date DISCUSSED - NO [...]
--- NOTE | 2024-06-11 17:10 | ECG_ITS ---
Test Date: 2024-06-11 17:27:14 Measurements Intervals [place] Rate: 90 P: 34 GA: 139 QRS: 52 QRSD: 110 T: 264 QT: 406 QTc: 497 Interpretive Statements SINUS RHYTHM DELAYED PRECORDIAL R/S TRANSITION MODERATE T-WAVE ABNORMALITY, CONSIDER ANTEROLATERAL ISCHEMIA MODERATE T-WAVE ABNORMALITY, CONSIDER INFERIOR ISCHEMIA BASELINE ARTIFACT- II, III, AVR, AVL, AVF ABNORMAL ECG No previous ECG available for comparison Electronically Signed On 06-11-2024 17:40:27 CDT by Nixon Barclay D.O.
--- OUTSIDE RECORDS SUMMARY | 2024-06-11 17:31 | XMS_ITS | Encounter Summary ---
Author Organization [facility] Healthcare Address [address] [place] [address] Care Team Providers Care Foot Doctor Name Role Phone Ezequiel Price MD Primary Care Provider [phone] Azam Olvera MD Unavailable [phone] Amanda RIOS MD PhD, Kirby Pryor Unavailable No, Physician Primary Care Provider [phone] Encounter Details Date Type Department Care Team (Late st Contact Info) Description 07/20/2022 Telephone [facility] [address] [place] [address] Salima Landa, MATTIE Social History Tobacco Use [...] on filedocumented in this encounter Care Teams Foot Doctor Relationship Specialty Start Date End Date Ezequiel Price MD PCP - General Emergency Medicine 06/10/20 01/30/24 No, Physician PCP - General 01/31/24 Azam Olvera MD [address] [place] [address] [address] Consulting Physician Endocrinology 11/10/22 Kirby Patel III, MD PhD [address] [facility] [address] [place] [address] Radiation Oncologist Radiation Oncology 03/30/23 documented as of this encounter
--- OUTSIDE RECORDS SUMMARY | 2024-06-11 17:31 | XMS_ITS | Clinical Summary ---
Author Organization [facility] Address [address] [place] [address] Care Team Providers Care Management Professor Name Role Phone Unavailable Primary Care Provider [...]
--- OUTSIDE RECORDS SUMMARY | 2024-06-11 17:31 | XMS_ITS | Referral Summary ---
Author Organization [facility] Address [address] [place] [address] Care Team Providers Care Literature Teacher Name Role Phone Azam Olvera MD Unavailable [phone] Amanda RIOS MD PhD, Kirby Pryor Unavailable No, Physician Primary Care Provider [phone] Encounters Date Type Department Care Team Description 05/26/2024 Telephone [facility] Radiation Oncology [address] [facility] Advanced Medicine [place], [place] [id number] Noni Carlisle MA Scheduling Appointments from Last 3 Months Allergies Active Allergy Reactions Criticality Noted Date Comments Oxycodone Nausea & Vomiting Low 01/10/2023 Medications ergocalciferol (VITAMIN D) 50,000 unit capsuleIndications :Vitamin D Deficiency,Sunday Take 1 capsule (50,000 Units total) by mouth once a week 06/28/19 21 Active albuterol HFA (Ventolin HFA) 90 mcg/actuation inhalerIndications :Dyspnea and respiratory abnormalities,Elephant Tamer александр cough Inhale 2 puffs every 4 [...] I health Take 1 tablet by mouth key attendant before breakfast Active multivitamin tabletIndications: Vitamin Deficiency Prevention Take 1 tablet by mouth key attendant before breakfast Active levothyroxine (SYNTHROID) 150 mcg tabletIndications: hypothyroidism Take 1 tablet (150 mcg total) by mouth key attendant before breakfast 30 tablet 11 01/13/20 Active [...] Advance Directives For more information, please contact: [phone] * Full Code (Latest Code Status on File) Date Activated Date Inactivated Comments 01/10/2023 2:16 PM 01/12/2023 1:41 PM Care Teams Literature Teacher Relationship Specialty Start Date End Date No, Physician PCP - General 01/31/24 Azam Olvera MD [address] [place] [address] Consulting Physician Endocrinology 11/10/22 Kirby Patel III, MD PhD [address] [facility] [address] [place] [address] Radiation Oncologist Radiation Oncology 03/30/23
--- OUTSIDE RECORDS SUMMARY | 2024-06-11 17:31 | XMS_ITS | Clinical Summary ---
Author Organization [facility] Address [address] [place] [address] Care Team Providers Care Plastic Cablemaking Machine Operator Name Role Phone ScoutNellybonnie KIM Primary Care Provider [phone] Source Comments [facility],non-owned Affiliates and Associated Physician Practices is amultiple site organization consisting of ambulatory clinics and hospital sitesin [place], [place], [place] and [place]. This disclosure is being madepursuant to the Care Everywhere program and may not contain all information available regarding this patient. Last updated 17.[facility] Allergies No known active allergies Medications [...] Orders Only [facility] - Endocrinology [address] [place] [address], [place] [phone] Kyle Roberts MD Acquired hypothyroidism; London's thyroiditis; Papillary thyroid carcinoma 05/14/2024 Telephone [facility] Neurology [address] [place] [phone] Hay Brower MD Medication Clarification 05/09/2024 Refill [facility] End[facility] [address] [place] [phone] Kyle Roberts MD Refill Request (levothyroxine) 04/22/2024 Telephone [facility] [address] [place] [phone] Kyle Roberts MD Follow-up (Whole body scan) 04/16/2024 9:00 AM AGING BOX HAND Office Visit [facility] Neurology [address] [place] [phone] Hay Brower MD Chronic bilateral low back pain with bilateral sciatica (Primary Dx); History of transient ischemic attack; Abnormal finding on MRI of brain 04/16/2024 Travel 03/28/2024 Orders Only [facility] Endocrinology [address] [place] [phone] Kyle Roberts MD Acquired hypothyroidism; London's thyroiditis; [...] Comments Blood Pressure 129/81 04/16/2024 9:24 AM AGING BOX HAND Pulse 98 04/16/2024 9:24 AM AGING BOX HAND Temperature 36.4 C (97.5 F) 01/14/2024 3:31 PM AGING BOX HAND Respiratory Rate 22 05/10/2023 3:04 PM AGING BOX HAND Oxygen Saturation 96% 04/16/2024 9:24 AM AGING BOX HAND Inhaled Oxygen Concentration - - Weight 105.7 kg (233 lb) 04/16/2024 9:24 AM AGING BOX HAND Height 152.4 cm (5') 02/06/2024 1:48 PM AGING BOX HAND Body Mass Index 45.5 02/06/2024 1:48 PM AGING BOX HAND Plan of Treatment Upcoming Encounters Date Type Department Care Team (Late st Contact Info) Description 08/07/2024 11:00 AM CDT Office Visit [facility] - Endocrinology [address] [place] [address], [place] [address] Kyle Roberts MD [address] [place] [address] [place] [address] 08/07/2024 12:30 PM CDT Appointment [address] [phone] Hay Brower MD [address] [place] [address] 08/07/2024 1:30 PM CDT Appointment [facility] MRI [address] [place] [phone] Hay Brower MD [address] [place] [address] 08/07/2024 2:30 PM CDT Appointment [facility] NUCLEAR MEDICINE [address] [place] [phone] Kyle Roberts MD [address] [place] [address] 08/08/2024 2:30 PM CDT Appointment [facility] NUCLEAR MEDICINE [address] [place] [phone] Kyle Roberts MD [address] [facility] 2L [place] [address] Health Maintenance Due Date Last Done Comments [...] ORDERABLES from Last 3 Months Care Teams Plastic Cablemaking Machine Operator Relationship Specialty Start Date End Date Nelly Butterfield DO [address] [place] [address] PCP - General Family Medicine 04/16/24
--- OUTSIDE RECORDS SUMMARY | 2024-06-11 17:31 | XMS_ITS | Encounter Summary ---
Author Organization [facility] Healthcare Address [address] [place] [address] Care Team Providers Care Yard Brakeman Name Role Phone Ezequiel Price MD Primary Care Provider [phone] Azam Olvera MD Unavailable [phone] Amanda RIOS MD PhD, Kirby Pryor Unavailable No, Physician Primary Care Provider [phone] Encounter Details Date Type Department Care Team (Late st Contact Info) Description 07/06/2022 Telephone [facility] [address] [place] [address] Salima Landa, MATTIE Social History Tobacco Use [...] on filedocumented in this encounter Care Teams Yard Brakeman Relationship Specialty Start Date End Date Ezequiel Price MD PCP - General Emergency Medicine 06/10/20 01/30/24 No, Physician PCP - General 01/31/24 Azam Olvera MD [address] [place] [address] Consulting Physician Endocrinology 11/10/22 Kirby Patel III, MD PhD [address] [facility] [address] [place] [address] Radiation Oncologist Radiation Oncology 03/30/23 documented as of this encounter
--- OUTSIDE RECORDS SUMMARY | 2024-06-11 17:31 | XMS_ITS | Encounter Summary ---
Author Organization [facility] Address [address] [facility] [place] [address] Care Team Providers Care Die Trimmer Name Role Phone Ezequiel Price MD Primary Care Provider [phone] Nelly Butterfield DO Primary Care Provider [phone] Encounter Details Date Type Department Care Team (Late st Contact Info) Description 11/05/2023 Telephone [facility] Endocrinology [address] [place] [address], [place] [address] Kyle Roberts MD [address] [place] [address] [place] [address] Social History Tobacco Use Types Packs/Day Years [...] sent over MALIKA. Patient Call Back Number: [phone] documented in this encounter Plan of Treatment Upcoming Encounters Date Type Department Care Team (Late st Contact Info) Description 08/07/2024 11:00 AM CDT Office Visit [facility] - Endocrinology [address] [place] [address], [place] [address] Kyle Roberts MD [address] [place] [address] 08/07/2024 12:30 PM CDT Appointment [facility] MRI [address] [place] [phone] Hay Brower MD [address] [place] [address] 08/07/2024 1:30 PM CDT Appointment [facility] MRI [address] [place] [phone] Hay Brower MD [address] [place] [address] 08/07/2024 2:30 PM CDT Appointment [facility] NUCLEAR MEDICINE [address] [place] [phone] Kyle Roberts MD [address] [place] [address] 08/08/2024 2:30 PM CDT Appointment [facility] NUCLEAR MEDICINE [address] [place] [phone] Kyle Roberts MD [address] [place] [address] documented as of this encounter Visit Diagnoses Not on filedocumented in this encounter Care Teams Die Trimmer Relationship Specialty Start Date End Date Ezequiel Price MD [address] [facility] [address] [place], [place] [phone] PCP - General 03/10/20 04/15/24 Nelly Butterfield DO [address] [place] [address] PCP - General Family Medicine 04/16/24 documented as of this encounter
--- OUTSIDE RECORDS SUMMARY | 2024-06-11 17:31 | XMS_ITS | CONTINUITY OF CARE DOCUMENT ---
Author Name chantellkelly linda Address Unknown Organization [facility] Address [address] [place] [address] [address] [place] [address] Phone [phone] Care Team Providers Care Government Affairs Specialist Name Role Phone Gonzales Gomez MD Unavailable [phone] JOSIE PARKER MD Unavailable [phone] JOSIE PARKER MD Unavailable [phone] PROBLEMS Condition Status Date Provider Notes Hypertension active Bobo Fang DOUGH MOLDER Hypothyroidism active Bobo Fang DOUGH MOLDER Thyroid cancer active Bobo Fang DOUGH MOLDER S/P thyroidectomy History of ischemic transien t ischemic attack (TIA) active Bobo Fang DOUGH MOLDER Palpitations active Bobo Fang DOUGH MOLDER ENCOUNTERS Date Type Provider Location Encounter Diag nosis 6 - 2 In-person encounter Office Visit Gonzales Gomez MD [place] Office 7 - 8 In-person encounter Office Visit Gonzales Gomez MD [facility] Office HypertensionHypothyroidismThyroid cancerHistory of ischemic transient ischemic [...] tolic, second observation 90 mm[Hg] Bobo Fang DOUGH MOLDER blood pressure, systolic, second observat ion 120 mm[Hg] Bobo Annalisa DOUGH MOLDER blood pressure, diastolic 102 mm[Hg] Marshall freida [...] atorvastatin 80 mg tablet active Verah Bonareri DOUGH MOLDER methocarbamol 500 mg tablet active Bobo Sellersshelia BASHIR SOCIAL HISTORY Date Observation Value Provider personal history of marijuana use no Chelly Parker MCKAY drug use no Chelly Mccartneynigel BASHIR alcohol use no Chelly Parker DOUGH MOLDER smoking status Never smoker Chelly Menjivar shannon DOUGH MOLDER personal history of marijuana use no Bobo Sellersshelia BASHIR drug use no Bobo Sellersnanori DOUGH MOLDER alcohol use no Bobo Farrisri DOUGH MOLDER smoking status Never smoker Bobo Goyo i DOUGH MOLDER FAMILY HISTORY Family Member Condition Mother Unknown INSURANCE PROVIDERS Payer name Policy type / Coverage type [place] red libertarian ID [place] MEDICAID (2) Medicaid [id number] ADVANCE DIRECTIVES Name Date DISCUSSED - NO [...]
--- OUTSIDE RECORDS SUMMARY | 2024-06-11 17:31 | XMS_ITS | Encounter Summary ---
Author Organization [facility] Address [address] [place] [address] Care Team Providers Care Spooler Rubber Strand Name Role Phone Ezequiel Price MD Primary Care Provider [phone] Nelly Butterfield DO Primary Care Provider [phone] Reason for Visit * Reason Onset Date Comments Appointment 01/07/2024 Encounter Details Date Type Department Care Team (Late st Contact Info) Description 01/07/2024 Telephone [facility] Scheduling [address] [place] [address] Leatha Cortes MD [address] [place] [address] Appointment Social History Tobacco Use [...] Description 08/07/2024 11:00 AM CDT [facility] [address] [place] [address], [place] [address] Kyle Roberts MD [address] [place] [address] [address] [place] [address] 08/07/2024 12:30 PM CDT Appointment [facility] MRI [address] [place] [phone] Hay Brower MD [address] [place] [address] 08/07/2024 1:30 PM CDT Appointment [facility] MRI [address] [place] [phone] Hay Brower MD [address] [place] [address] 08/07/2024 2:30 PM CDT Appointment [facility] NUCLEAR MEDICINE [address] [place] [phone] Kyle Roberts MD [address] [place] [address] 2[address] [place] [address] 08/08/2024 2:30 PM CDT Appointment [facility] NUCLEAR MEDICINE [address] [place] [phone] Kyle Rboerts MD [address] [place] [address] [address] [place] [address] documented as of this encounter Visit Diagnoses Not on filedocumented in this encounter Care Teams Spooler Rubber Strand Relationship Specialty Start Date End Date Ezequiel Price MD [address] [place] [address] PCP - General 03/10/20 04/15/24 Nelly Butterfield DO [address] [place] [phone] PCP - General Family Medicine 04/16/24 documented as of this encounter
--- OUTSIDE RECORDS SUMMARY | 2024-06-11 17:31 | XMS_ITS | Encounter Summary ---
Author Organization [facility] Healthcare Address [address] [place] [address] Care Team Providers Care Diamond Die Polisher Name Role Phone Ezequiel Price MD Primary Care Provider Azam Olvera MD Unavailable [phone] Amanda RIOS MD PhD, Kirby Pryor Unavailable No, Physician Primary Care Provider [phone] Encounter Details Date Type Department Care Team (Late st Contact Info) Description 07/05/2022 Telephone [facility] [address] [place] [address] Salima Landa, MATTIE Social History Tobacco Use [...] on filedocumented in this encounter Care Teams Diamond Die Polisher Relationship Specialty Start Date End Date Ezequiel Price MD PCP - General Emergency Medicine 06/10/20 01/30/24 No, Physician PCP - General 01/31/24 Azam Olvera MD [address] [place] [address] [address] Consulting Physician Endocrinology 11/10/22 Kirby Patel III, MD PhD [address] [facility] [address] [place] [address] Radiation Oncologist Radiation Oncology 03/30/23 documented as of this encounter
--- OUTSIDE RECORDS SUMMARY | 2024-06-11 17:31 | XMS_ITS | Clinical Summary ---
Author Organization [facility] Address [address] [place] [address] Care Team Providers Care Director Home Name Role Phone Azam Olvera MD Unavailable [phone] Amanda RIOS MD PhD, Kirby Pryor Unavailable No, Physician Primary Care Provider [phone] Allergies Active Allergy Reactions Criticality Noted Date Comments Oxycodone Nausea & Vomiting Low 01/10/2023 Medications ergocalciferol (VITAMIN D) 50,000 unit capsuleIndications :Vitamin D Deficiency,Sunday Take 1 capsule (50,000 Units total) by mouth once a week 06/28/19 21 Active albuterol HFA (Ventolin HFA) 90 mcg/actuation inhalerIndications :Dyspnea and respiratory abnormalities,Marketing Content Coordinator александр cough Inhale 2 puffs every 4 [...] I health Take 1 tablet by mouth bulb sorter before breakfast Active multivitamin tabletIndications: Vitamin Deficiency Prevention Take 1 tablet by mouth bulb sorter before breakfast Active levothyroxine (SYNTHROID) 150 mcg tabletIndications: hypothyroidism Take 1 tablet (150 mcg total) by mouth bulb sorter before breakfast 30 tablet 11 01/13/20 Active [...] Type Department Care Team Description 05/26/2024 Telephone [facility] Advanced Medicine Radiation Oncology [address] [facility] [place] [address] Noni Valdez MA Scheduling Appointments from Last [...] patient's age to complete this topic Insurance [facility] Advance Directives For more information, please contact: [phone] * Full Code (Latest Code Status on File) Date Activated Date Inactivated Comments 01/10/2023 2:16 PM 01/12/2023 1:41 PM Care Teams Director Home Relationship Specialty Start Date End Date No, Physician PCP - General 01/31/24 Azam Olvera MD [address] [place] [address] [place] [address] Consulting Physician Endocrinology 9/1/23 Kirby Patel III, MD PhD [address] [place] [address] Radiation Oncologist Radiation Oncology 03/30/23
--- OUTSIDE RECORDS SUMMARY | 2024-06-11 17:31 | XMS_ITS ---
Author Organization [facility] [place] Address [address] [place] [address] Care Team Providers Care Boiler Control Room Operator Name Role Phone Azam Olvera MD Unavailable [phone] Amanda RIOS MD PhD, Kirby Pryor Unavailable No, Physician Primary Care Provider Active Problems Problem Noted Date Diagnosed Date [...]
[2024-06-11 17:36] LABS: Basophils Percent Auto 0.7 % (0.2-1.2); Eosinophils Absolute Auto 0.1 K/mm3 (0-0.3); Eosinophils Percent Auto 1.8 % (0-4.4); Hematocrit 41.3 % (37.0-47.0); Hemoglobin 14.1 g/dL (12.0-15.0); Immature Granulocyte Absolute 0.01 K/mm3 (0.00-0.031); Immature Granulocyte Percent A 0.2 % (0-0.5); Lymphocytes Absolute Auto 1.27 K/mm3 (0.9-3.2); Lymphocytes Percent Auto 21.1 % (18.3-44.2); Mean Corpuscular HGB Conc 34.1 g/dl (32-36); Mean Corpuscular Hemoglobin 31.3 pg (26-34); Mean Corpuscular Volume 91.8 fl (80-100); Mean Platelet Volume 10.8 fl (7.4-10.4); Monocytes Absolute Auto 0.4 K/mm3 (0.1-0.6); Neutrophils Absolute Auto 4.2 K/mm3 (1.3-6.7); Neutrophils Percent Auto 69.2 % (45.5-73.1); Platelet Count Result 241 k/mm3 (150-375); Red Cell Distribution Width 14.7 % (11.5-14.5)
[2024-06-11 17:49] LABS: Prothrombin Time 13.2 Seconds (11.1-14.7)
[2024-06-11 17:50] LABS: Partial Thromboplastin Time 23.5 Seconds (22.3-36.8)
[2024-06-11 18:04] LABS: Alanine Aminotransferase 20 U/L (6-35); Albumin Level 4.5 g/dL (3.5-5.1); Alkaline Phosphatase 92 U/L (38-126); Anion Gap 13 mmol/L (4-12); Aspartate Amino Transferase 22 U/L (14-36); Blood Urea Nitrogen 17 mg/dL (7-17); Calcium 10.2 mg/dL (8.4-10.2); Carbon Dioxide 23 mmol/L (22-30); Chloride 103 mmol/L (98-107); Estimated CRCL calculation 69 ml/min; Estimated Glomerular Filt Rate > 60; Glucose 140 mg/dL (65-110); Potassium 3.6 mmol/L (3.4-5.0); Sodium 139 mmol/L (137-145)
--- NOTE | 2024-06-11 18:09 | ED.ARRPALP ---
HPI - Arrhythmia/Palpitations General Chief Complaint: Arrhythmia/Palpitations Stated Complaint: cant walk Time Seen by Provider: 06/11/24 17:10 Source: patient Mode of arrival: wheelchair Limitations: no limitations History of Present Illness HPI narrative: This is a 54 year old female that presents to the ER for palpitations. Reports when she walks she feels her heart racing, chest pain and shortness of breath. Related Data Home Medications ?Medication ?Instructions ?Recorded ?Confirmed ?Last Taken ?Type trazodone 150 mg tablet 300 mg PO QHS 09/07/22 05/21/24 04/26/23 History levothyroxine 150 mcg tablet 150 mcg PO DAILY 04/11/23 05/21/24 04/26/23 History loratadine 10 mg tablet 10 mg PO DAILY 04/11/23 05/21/24 04/26/23 History montelukast 10 mg tablet 10 mg PO HS 04/11/23 05/21/24 04/26/23 History ibuprofen 600 mg tablet 600 mg PO Q6H PRN 02/11/24 05/21/24 Unknown History methocarbamol 500 mg tablet 500 mg PO QHS 02/11/24 05/21/24 Unknown History oxybutynin chloride 10 mg 10 mg PO DAILY urinary incontinence 02/11/24 05/21/24 Unknown History tablet,extended release 24 hr pregabalin 150 mg capsule 150 mg PO DAILY 02/11/24 05/21/24 Unknown History pregabalin 300 mg capsule 300 mg PO DAILY 02/11/24 05/21/24 Unknown History sertraline 50 mg tablet 50 mg PO DAILY 02/11/24 05/21/24 Unknown History gabapentin 300 mg capsule 600 mg PO TID 03/31/24 05/21/24 Unknown History triamcinolone acetonide 0.1 % applic topical 03/31/24 05/21/24 Unknown History topical cream Allergies Allergy/AdvReac Type Severity Reaction Status Date / Time No Known Allergies Allergy Verified 05/21/24 15:18 Review of Systems Review of Systems: CONSTITUTIONAL: Denies fever CARDIOVASCULAR: Reports chest pain, palpitations RESPIRATORY: Reports dyspnea. All systems reviewed & are unremarkable except as noted in HPI and below PMFSH Past Medical History Medical History Lumbar spondylolysis IBS (irritable bowel syndrome) Gallstone pancreatitis Elevated liver enzymes Pre-diabetes A1c 5.9 09/01/2021 Obesity, morbid, BMI 40.0-49.9 Hypertension Angelo's disease Degenerative disc disease ADHD Depression Kidney stone Surgical History Surgical History Hx laparoscopic cholecystectomy 12/21/21 H/O tubal ligation Family History Family History Father Acute Crohn's disease Liver cancer Cancer Alcoholism Mother , at 70 years old Diabetes mellitus Cancer C. difficile diarrhea Grandparent Diabetes mellitus Cancer grandmother with pancreatic cancer, grandfather with skin cancer Cerebrovascular accident Social History Social History Smoking status: Never smoker Second hand tobacco smoke exposure: No Alcohol intake: current Alcohol use details: rare glass of wine socially Substance use: never Substance use type: does not use Living arrangements: with family Additional living arrangements comments: Occupation/Education: unemployed Additional occupation/education comments: On disability due to chronic back pain Gender identity (if verbalized by the patient): Female Spiritual care concerns: No Exam Narrative: GENERAL: Well-appearing, well-nourished, and in no acute distress. HEAD: Normocephalic, atraumatic. EYES: EOMI. ENT: Nares clear, no rhinorrhea or epistaxis. Mucous membranes moist. Oropharynx without tonsillar hypertrophy exudate or other lesions. NECK: Supple. No adenopathy or masses. CHEST: Clear to auscultation. No respiratory distress. No wheezes rales or rhonchi HEART: Regular rate and rhythm. No murmur heard. Normal peripheral pulses. EXTREMITIES: Normal range of motion. No edema. SKIN: Warm, dry, no rash. NEURO: No focal deficits. Alert and oriented x3. PSYCH: Normal mood and affect Course Course Emergency Course: patient updated on her workup and need for admission Consultations Consultation #1: Spoke with hospitalist about patient and workup who accepts admission Date: 06/11/24 Vital Signs Vital signs: Vital Signs Temperature 97.6 F 06/11/24 16:42 Pulse Rate 106 H 06/11/24 16:42 Respiratory Rate 20 06/11/24 16:42 Blood Pressure 120/71 06/11/24 16:42 Pulse Oximetry 94 06/11/24 16:42 Oxygen Delivery Room Air 06/11/24 16:42 Temperature 97.6 F 06/11/24 16:42 Pulse Rate 95 06/11/24 19:46 Respiratory Rate 14 06/11/24 19:46 Blood Pressure 109/77 06/11/24 19:46 Pulse Oximetry 97 06/11/24 19:46 Oxygen Delivery Room Air 06/11/24 16:42 MDM - Arrhythmia/Palpitations MDM Narrative Medical decision making narrative: Patient presents the emergency department for palpitations, chest pain, shortness of breath. Mildly tachycardic upon arrival. This normalized with IV fluids. Oxygen saturation is normal on room air. Cbc metabolic panel without concerning findings. Baseline troponin is negative. TSH is quite elevated, free T4 is normal. CTA chest shows extensive segmental and subsegmental pulmonary emboli with possible right early upper lobe pulmonary infarction. Also some findings of right heart strain. patient updated on her workup and need for admission. Will be started on Heparin drip. Spoke with hospitalist about patient and workup who accepts admission Differential Diagnosis Differential diagnosis: Likely palpitations, anxiety, sinus tachycardia, artial fibrillation, artial flutter and other (PE) Lab Data Attestation: I reviewed the patient's lab results. 06/11/24 17:26 06/11/24 17:26 Labs: Lab Results 06/11/24 Range/Units 17:26 WBC 6.0 (4.5-10.0) K/mm3 RBC 4.50 (4.2-5.4) M/mm3 Hgb 14.1 (12.0-15.0) g/dL Hct 41.3 (37.0-47.0) % MCV 91.8 (80-100) fl MCH 31.3 (26-34) pg MCHC 34.1 (32-36) g/dl RDW 14.7 H (11.5-14.5) % Plt Count 241 (150-375) k/mm3 MPV 10.8 H (7.4-10.4) fl Immature Gran % (Auto) 0.2 (0-0.5) % Neut % (Auto) 69.2 (45.5-73.1) % Lymph % (Auto) 21.1 (18.3-44.2) % [place] % (Auto) 7.0 (2.6-8.5) % Eos % (Auto) 1.8 (0-4.4) % Baso % (Auto) 0.7 (0.2-1.2) % Lymph # (Auto) 1.27 (0.9-3.2) K/mm3 [place] # (Auto) 0.4 (0.1-0.6) K/mm3 Eos # (Auto) 0.1 (0-0.3) K/mm3 Baso # (Auto) 0.0 (0.0-0.1) K/mm3 Abs Immat Gran (auto) 0.01 (0.00-0.031) K/mm3 Absolute Neuts (auto) 4.2 (1.3-6.7) K/mm3 Absolute Nucleated RBC 0.000 (0.0-0.012) K/mm3 Nucleated RBC % 0.0 (0.0-0.2) % PT 13.2 (11.1-14.7) Seconds INR 1.0 APTT 23.5 (22.3-36.8) Seconds Sodium 139 (137-145) mmol/L Potassium 3.6 (3.4-5.0) mmol/L Chloride 103 (98-107) mmol/L Carbon Dioxide 23 (22-30) mmol/L Anion Gap 13 H (4-12) mmol/L BUN 17 (7-17) mg/dL Creatinine 0.87 (0.7-1.0) mg/dL Estim Creat Clear Calc 69 ml/min Estimated GFR > 60 (59 - ) Glucose 140 H (65-110) mg/dL Calcium 10.2 (8.4-10.2) mg/dL Magnesium 2.0 (1.6-2.3) mg/dL Total Bilirubin 1.0 (0.2-1.3) mg/dL AST 22 (14-36) U/L ALT 20 (6-35) U/L Alkaline Phosphatase 92 (38-126) U/L Troponin I < 0.012 (0.000-0.034) ng/mL Total Protein 8.0 (6.3-8.2) g/dL Albumin 4.5 (3.5-5.1) g/dL TSH (Reflex) 12.700 H (0.465-4.68) uIU/mL Free T4 2.08 (0.78-2.19) ng/dL Total T3 1.09 (0.97-1.69) NG/ML Imaging Data Radiologist's impression: ITS Impressions Chest CTA 06/11/24 19:26 IMPRESSION: Extensive segmental and subsegmental pulmonary emboli with right upper lobe (early) pulmonary infarction and findings consistent with right heart strain. Critical Care Time Critical Care Time Critical Care Time: Yes Total Critical Care Time: 35 Discharge Plan Discharge Clinical Impression: Pulmonary embolism Qualifiers: Pulmonary embolism type: multiple subsegmental (without acute cor pulmonale) Qualified Code(s): I26.94 - Multiple subsegmental thrombotic pulmonary emboli without acute cor pulmonale Patient Disposition: Still a Patient Condition: Serious Patient Language: Kinyarwanda Prescriptions: No Action trazodone 150 mg tablet 300 mg PO QHS budesonide 3 mg capsule,delayed,extend.release See Rx Instructions .ROUTE .COMPLEX Qty: 60 6RF Dose Instruction: TAKE 3 CAPSULES BY MOUTH DAILY X1 MONTH THEN 2 CAPSULES X 1 MONTH THEN 1 CAPSULE BY MOUTH DAILY X 1 MONTH Rx Instructions: Take 6 mg PO daily famotidine 40 mg tablet 40 mg PO DAILY Qty: 30 0RF sertraline 50 mg tablet 50 mg PO DAILY oxybutynin chloride 10 mg tablet extended release 24hr 10 mg PO DAILY ibuprofen 600 mg tablet 600 mg PO Q6H PRN methocarbamol 500 mg tablet 500 mg PO QHS pregabalin 300 mg capsule 300 mg PO DAILY pregabalin 150 mg capsule 150 mg PO DAILY triamcinolone acetonide 0.1 % cream topical gabapentin 300 mg capsule 600 mg PO TID levothyroxine 150 mcg tablet 150 mcg PO DAILY montelukast 10 mg tablet 10 mg PO HS loratadine 10 mg tablet 10 mg PO DAILY dicyclomine 10 mg capsule See Rx Instructions .ROUTE .COMPLEX Qty: 60 5RF Dose Instruction: 10 MG ORALLY TWICE A DAY NEEDED FOR ABDOMINAL PAIN Rx Instructions: 10 MG ORALLY TWICE A DAY NEEDED FOR ABDOMINAL PAIN Follow-up/Referrals: Nelly Butterfield DO [Primary Care Provider] -
[2024-06-11] MEDS: SODIUM CHLORIDE 0.9% IV 1,000 ML 999 ML IV CONT (18:17)
[2024-06-11 18:46] LABS: Troponin I < 0.012 ng/mL (0.000-0.034)
[2024-06-11 18:48] VITALS: BP 123/92; PULSE 89; RESP 19; O2SAT 97
[2024-06-11 18:58] LABS: Free T4 Free Thyroxine Reflex 2.08 ng/dL (0.78-2.19)
[2024-06-11 19:43] LABS: Total Triiodothyronine (T3) 1.09 NG/ML (0.97-1.69)
[2024-06-11 19:46] VITALS: BP 109/77; PULSE 95; RESP 14; O2SAT 97
[2024-06-11] MEDS: HEPARIN SOD/D5W 100 UNITS/ML 25,000 UNITS/250 ML BAG 12 UNITS IV CONT (19:52)
[2024-06-11] MEDS: HEPARIN SODIUM 5,000 UNITS/ML VIAL 5500 UNITS IV PUSH (19:53)
[2024-06-11] MEDS: HYDROcodone/acetaminophen (*CRX) 5-325 MG TABLET 1 TAB PO (20:09)
[2024-06-11 21:00] VITALS: BMI 42.8
[2024-06-11 21:12] VITALS: BP 115/76; PULSE 82; RESP 14; TEMP 36.3; O2SAT 93
--- NOTE | 2024-06-11 21:44 | ADMGEN ---
This patient, Jade Laguna, was admitted to IMU Room 210-01 at 2054. Patient/family oriented to hospital policies and general routines including ID bracelet, bed and alarms, visiting hours, pain management, procedures, bathroom and other care routines, personal items, smoking policy, room service/diet, and visiting hours. Information on how to activate the Rapid Response Team has been discussed. Patient/Family are encouraged to report perceived risks to care and to ask questions if they do not understand what they are told or what they should do.
[2024-06-11 22:00] VITALS: PULSE 96
[2024-06-11 23:37] VITALS: BP 106/69; PULSE 88; RESP 14; TEMP 36.3; O2SAT 92
--- NOTE | 2024-06-11 23:41 | PM.IMHP ---
H&P: HPI History of Present Illness Date/Time: 06/11/24 23:41 Chief Complaint: shortness of breath Narrative: 54-year-old female presenting with a few days of shortness of breath. She reports it is mostly on exertion. Otherwise denies any complaints. ER workup revealed negative venous Doppler study for DVT. CTA with extensive segmental and subsegmental pulmonary emboli with right upper lobe pulmonary infarction findings consistent with right heart strain. Vital stable aside from tachycardia resolving with fluid resuscitation. Given normal saline 1 L, [place], heparin GTT started. Review of Systems Review of Systems: All systems reviewed & are unremarkable except as noted in HPI and below (HPI) [facility] Past Medical History Medical History Lumbar spondylolysis IBS (irritable bowel syndrome) Gallstone pancreatitis Elevated liver enzymes Pre-diabetes A1c 5.9 09/01/2021 Obesity, morbid, BMI 40.0-49.9 Hypertension Angelo's disease Degenerative disc disease ADHD Depression Kidney stone Surgical History Surgical History Hx laparoscopic cholecystectomy 12/21/21 H/O tubal ligation Family History Family History Father Acute Crohn's disease Liver cancer Cancer Alcoholism Mother , at 70 years old Diabetes mellitus Cancer C. difficile diarrhea Grandparent Diabetes mellitus Cancer grandmother with pancreatic cancer, grandfather with skin cancer Cerebrovascular accident Social History Social History Smoking status: Never smoker Second hand tobacco smoke exposure: No Alcohol intake: current Alcohol use details: rare glass of wine socially Substance use: never Substance use type: does not use Do You Feel Safe in your Home?: Yes Lack of Transportation: No Lack of Food: Never True Current Housing: I Have Housing Concerned About Future Housing: No Difficulty Paying Gas/Electric Bills: No Difficulty Paying for Meds: No Currently Unemployed: No Education: High School Diploma/GED Difficulty w/ Childcare or Family Care: No Living arrangements: with family Additional living arrangements comments: Occupation/Education: unemployed Additional occupation/education comments: On disability due to chronic back pain Gender identity (if verbalized by the patient): Female Spiritual care concerns: No Meds Home Medications and Allergies Home Medications ?Medication ?Instructions ?Recorded ?Confirmed ?Type trazodone 150 mg tablet 300 mg PO QHS 09/07/22 06/11/24 History levothyroxine 150 mcg tablet 150 mcg PO DAILY 04/11/23 06/11/24 History loratadine 10 mg tablet 10 mg PO DAILY 04/11/23 06/11/24 History montelukast 10 mg tablet 10 mg PO HS 04/11/23 06/11/24 History oxybutynin chloride 10 mg 10 mg PO DAILY urinary incontinence 02/11/24 06/11/24 History tablet,extended release 24 hr pregabalin 150 mg capsule 150 mg PO DAILY 02/11/24 06/11/24 History gabapentin 300 mg capsule 600 mg PO TID 03/31/24 06/11/24 History budesonide 3 mg See Rx Instructions .Route 05/21/24 06/11/24 Rx capsule,delayed,extended release .COMPLEX #60 caps famotidine 40 mg tablet 40 mg PO DAILY #30 tabs 05/21/24 06/11/24 Rx aspirin 81 mg chewable tablet 81 mg PO DAILY 06/11/24 06/11/24 History baclofen 10 mg tablet 10 mg PO TID 06/11/24 06/11/24 History clobetasol 0.05 % topical cream 1 applic topical BID leg rash 06/11/24 06/11/24 History sertraline 100 mg tablet 100 mg PO DAILY 06/11/24 06/11/24 History Allergies Allergy/AdvReac Type Severity Reaction Status Date / Time No Known Allergies Allergy Verified 05/21/24 15:18 Vital Signs Vital Signs - 24 hr 06/11/24 16:42 06/11/24 18:48 06/11/24 19:46 Temperature 97.6 F Pulse Rate 106 H 89 95 Respiratory Rate 20 19 14 Blood Pressure 120/71 123/92 H 109/77 Pulse Oximetry 94 97 97 Oxygen Delivery Room Air 06/11/24 21:12 06/11/24 22:00 06/11/24 23:37 Temperature 97.4 F L 97.4 F L Pulse Rate 82 96 88 Respiratory Rate 14 14 Blood Pressure 115/76 106/69 Pulse Oximetry 93 92 Oxygen Delivery Exam Const: General: comfortable and no acute distress Eyes: Pupils: Equal, round and reactive pupils present Neck: Neck: supple Resp: Effort & Inspection: normal respiratory effort Auscultation: clear to auscultation bilaterally Cardio: Rate: regular rate Rhythm: regular rhythm GI: GI Palp: Yes Soft to palpation Neuro: Motor exam (neuro): 5/5 motor strength present throughout Extrem: General: no edema H&P: Results Labs Labs: Short CBC 06/11/24 Range/Units 17:26 WBC 6.0 (4.5-10.0) K/mm3 Hgb 14.1 (12.0-15.0) g/dL Hct 41.3 (37.0-47.0) % Plt Count 241 (150-375) k/mm3 BMP 06/11/24 17:26 Sodium 139 Potassium 3.6 Chloride 103 Carbon Dioxide 23 BUN 17 Creatinine 0.87 Glucose 140 H Calcium 10.2 Cardiac Enzymes 06/11/24 Range/Units 17:26 Troponin I < 0.012 (0.000-0.034) ng/mL Liver Function 06/11/24 Range/Units 17:26 Total Bilirubin 1.0 (0.2-1.3) mg/dL AST 22 (14-36) U/L ALT 20 (6-35) U/L Alkaline Phosphatase 92 (38-126) U/L Albumin 4.5 (3.5-5.1) g/dL Assessment and Plan Assessment and plan (1) Pulmonary embolism: Qualifiers: Pulmonary embolism type: multiple subsegmental (without acute cor pulmonale) Qualified Code(s): I26.94 - Multiple subsegmental thrombotic pulmonary emboli without acute cor pulmonale Code(s): I26.99 - Other pulmonary embolism without acute cor pulmonale Status: Acute Plan 67-year-old male with a past medical history substance abuse, homelessness, COPD, exposure to asbestos per patient's self report, hypertension, nonischemic cardiomyopathy, heart failure reduced ejection fraction 30%. Patient experience worsening shortness of breath over 24 hours which prompted him to arrive to [place] ER. He was evaluated as well on 06/06 in the ER was given Lasix and sent home. He is noncompliant with medications. Reports severely increased leg swelling and abdominal swelling over the past few days. Upon evaluation in the ER he had mild tachycardia, tachypnea, both of these resolved after Lasix administration. Blood pressure 139/100. Serum creatinine 1.79 which is greater than is normal, AST 43, ALT 506, troponin 0.039 than 0.041, BNP 06691. Positive for amphetamines on drugs of abuse screen. Patient denies using such but admits smoking marijuana. He does have circumferential speech and fast speech. EKG without acute ischemia identified. ----- Admit to PCU for close monitoring. Currently the patient symptomatology has resolved. Continue heparin GTT. SCDs. Full code. Saline lock IV.
[2024-06-12] VITALS (7 sets, daily range): BP systolic 90–130; BP diastolic 49–64; PULSE 75–104; RESP 14–20; TEMP 36.3–36.6; O2SAT 90–95
--- NOTE | 2024-06-12 | ECHO_ITS ---
Patient Info Name: Jade Laguna Age: 54 years : 1970 Gender: Female Ht: 60 in Wt: 219 lbs BSA: 2.11 m2 HR: 83 bpm BP: 109 / 64 mmHg Heart Rhythm: Sinus Rhythm Technical Quality: Fair Exam Date: 06/12/2024 10:49 AM Exam Location: Echo Lab Patient Status: Inpatient Admit Date: 06/12/2024 Staff Ordering Physician: Ramakrishna Alexander MD Practice Physician: Huma Frank RDCS Attending Provider: Ramakrishna Alexander MD Exam Type: CA echo doppler color flow Study Info Indications - PE, SOB Complete two-dimensional, color flow and Doppler transthoracic echocardiogram is performed. Summary 1. Complete two-dimensional, color flow and Doppler transthoracic echocardiogram is performed. 2. Left ventricular chamber dimension is normal. 3. Left ventricular systolic function is normal, estimated at 60-65%. 4. The left ventricular diastolic function is grade I diastolic dysfunction. 5. E/e' 7 is not elevated. 6. Right ventricular chamber dimension is mildly enlarged. 7. Right ventricular systolic function is reduced and with mildly abnormal TAPSE 1.6 cm. 8. Left atrial chamber dimension is mildly enlarged. 9. Right atrial chamber dimension is mildly enlarged. 10. There is mild tricuspid valve regurgitation. 11. No pulmonary hypertension, estimated pulmonary arterial systolic pressure is 39 mmHg. Left Ventricle E/e' 7 is not elevated. Left ventricular chamber dimension is normal. Left ventricular systolic function is normal, estimated at 60-65%. The left ventricular diastolic function is grade I diastolic dysfunction. Right Ventricle Right ventricular systolic function is reduced and with mildly abnormal TAPSE 1.6 cm. Right ventricular chamber dimension is mildly enlarged. Left Atria Left atrial chamber dimension is mildly enlarged. Right Atria Right atrial chamber dimension is mildly enlarged. Aortic Valve The aortic valve is trileaflet. There is no aortic valve stenosis. There is no aortic valve regurgitation. Pulmonic Valve There is no pulmonic regurgitation. Mitral Valve There is no mitral valve stenosis. There is no mitral valve regurgitation. Tricuspid Valve There is mild tricuspid valve regurgitation. No pulmonary hypertension, estimated pulmonary arterial systolic pressure is 39 mmHg. Pericardium/Pleural There is no pericardial effusion. Inferior Vena Cava Normal inferior vena cava with >50% collapse upon inspiration consistent with normal right atrial pressure, 5 mmHg. Aorta The aortic root size at the sinus of Valsalva is normal. Left Ventricular Outflow Tract Name Value Normal LVOT 2D LVOT Diameter 2.0 cm LVOT Doppler LVOT Peak Gradient 2 mmHg LVOT Mean Gradient 1 mmHg LVOT VTI 13 cm LVOT VTI/AV VTI Ratio 0.8 LVOT Stroke Volume 40 ml LVOT CO 3.2 l/min LVOT CI 1.5 l/min/m2 Pulmonic Valve Name Value Normal RVOT Doppler RVOT Peak Gradient 1 mmHg PV Doppler PV Peak Gradient 3 mmHg PV Regurgitation Doppler IL Peak End Diastolic Velocity 103 cm/s Mitral Valve Name Value Normal MV Doppler MV Decel [place] 217 cm/s2 MV PHT 60 ms MV Area (PHT) 3.7 cm2 4.0-5.0 MV Diastolic Function MV E Peak Velocity 45 cm/s MV A Peak Velocity 54 cm/s MV E/A 0.8 MV Decel Time 208 ms MV Annular TDI MV E/e' (Septal) 8.1 <=8.0 MV E/e' (Lateral) 6.8 <=8.0 MV E/e' (Average) 7.4 Tricuspid Valve Name Value Normal TV Regurgitation Doppler TR Peak Velocity 291 cm/s TR Peak Gradient 34 mmHg Estimated PAP/RSVP RA Pressure 5 mmHg <=5 PA Systolic Pressure 39 mmHg <36 RV Systolic Pressure 39 mmHg <36 Aortic Valve Name Value Normal AV Doppler AV Peak Velocity 88 cm/s AV Peak Gradient 3 mmHg AV Mean Gradient 2 mmHg AV VTI 16 cm AV Area (Cont Eq VTI) 2.5 cm2 >=3.0 AV Area (Cont Eq Venu) 2.4 cm2 AV Regurgitation 2D LVOT Area 3.2 cm2 Ventricles Name Value Normal LV Dimensions 2D/MM IVS Diastolic Thickness (2D) 1.0 cm 0.6-1.0 LVID Diastole (2D) 4.8 cm 3.8-5.2 LVIW Diastolic Thickness (2D) 1.0 cm 0.6-0.9 LVID Systole (2D) 3.4 cm 2.2-3.5 LVOT Diameter 2.0 cm LV Mass (2D Cubed) 162.53 g 67.00-162.00 LV Mass Index (2D Cubed) 77 g/m2 43-95 Relative Wall Thickness (2D) 0.40 LV Fractional Shortening/Ejection Fraction 2D/MM LV Fractional Shortening (2D) 29 % 27-45 LV EF (2D Teichlennoxz) 56 % 54-74 LV Diastolic Volume (4C MOD) 82 ml LV EF (4C MOD) 71 % LV Diastolic Volume (2C MOD) 82 ml LV EF (2C MOD) 64 % LV Diastolic Volume (BP MOD) 84 ml 46-106 LV Diastolic Volume Index (BP MOD) 40 ml/m2 29-61 LV Systolic Volume (BP MOD) 33 ml 14-42 LV Systolic Volume Index (BP MOD) 16 ml/m2 8-24 LV EF (BP MOD) 61 % 54-74 LV Diastolic Length (4C) 6.6 cm LV Systolic Length (4C) 5.8 cm LV Stroke Volume (4C MOD) 58 ml Atria Name Value Normal LA Dimensions LA Volume (4C A-L) 45 ml LA Volume (BP A-L) 53 ml RA Dimensions RA Area (4C) 19.6 cm2 <=18.0 Report Signatures
[2024-06-12] MEDS: traZODone HCL 50 MG TABLET 300 MG PO (00:20)
[2024-06-12] MEDS: MONTELUKAST SODIUM 10 MG TABLET PO (00:20)
[2024-06-12] MEDS: HYDROcodone/acetaminophen (*CRX) 5-325 MG TABLET 1 TAB PO (00:20)
[2024-06-12 02:19] LABS: Basophils Percent Auto 0.7 % (0.2-1.2); Eosinophils Absolute Auto 0.1 K/mm3 (0-0.3); Eosinophils Percent Auto 1.6 % (0-4.4); Hematocrit 36.6 % (37.0-47.0); Hemoglobin 12.1 g/dL (12.0-15.0); Immature Granulocyte Absolute 0.01 K/mm3 (0.00-0.031); Immature Granulocyte Percent A 0.2 % (0-0.5); Lymphocytes Absolute Auto 1.31 K/mm3 (0.9-3.2); Lymphocytes Percent Auto 30.5 % (18.3-44.2); Mean Corpuscular HGB Conc 33.1 g/dl (32-36); Mean Corpuscular Hemoglobin 30.7 pg (26-34); Mean Corpuscular Volume 92.9 fl (80-100); Mean Platelet Volume 10.5 fl (7.4-10.4); Monocytes Absolute Auto 0.3 K/mm3 (0.1-0.6); Monocytes Percent Auto 7.9 % (2.6-8.5); Neutrophils Absolute Auto 2.5 K/mm3 (1.3-6.7); Neutrophils Percent Auto 59.1 % (45.5-73.1); Platelet Count Result 206 k/mm3 (150-375); Red Blood Count 3.94 M/mm3 (4.2-5.4); Red Cell Distribution Width 14.6 % (11.5-14.5); White Blood Count 4.3 K/mm3 (4.5-10.0)
[2024-06-12 02:34] LABS: Partial Thromboplastin Time 78.8 Seconds (22.3-36.8)
[2024-06-12] MEDS: LEVOTHYROXINE SODIUM 150 MCG TABLET PO (06:24)
[2024-06-12] MEDS: PREGABALIN (*CRX) 75 MG CAPSULE 150 MG PO (06:24)
[2024-06-12] MEDS: FAMOTIDINE 20 MG TABLET 40 MG PO (09:05)
[2024-06-12] MEDS: GABAPENTIN 300 MG CAPSULE 600 MG PO (09:05)
[2024-06-12] MEDS: SERTRALINE HCL 50 MG TABLET 100 MG PO (09:05)
[2024-06-12] MEDS: oxyBUTYnin CHLORIDE XL 5 MG TAB.ER.24 10 MG PO (09:05)
[2024-06-12] MEDS: LORATADINE 10 MG TABLET PO (09:05)
[2024-06-12] MEDS: BACLOFEN 10 MG TABLET PO (09:06)
[2024-06-12] MEDS: CLOBETASOL PROPIONATE 0.05% CREAM 15 GM 1 APPLIC TOPICAL (09:06)
[2024-06-12] MEDS: BUDESONIDE 3 MG CAP.SR.24H 6 MG BY MOUTH (09:06)
[2024-06-12 09:11] LABS: Partial Thromboplastin Time 62.9 Seconds (22.3-36.8)
[2024-06-12] MEDS: HEPARIN SODIUM 5,000 UNITS/ML VIAL 2500 UNITS IV PUSH (09:21)
--- NOTE | 2024-06-12 13:19 | PC.NURSE ---
On 06/12/24, the student, [Izzy Borrero], provided care and completed [facility] documentation on this patient. I have reviewed the student's documentation and agree with the findings.
--- NOTE | 2024-06-12 13:27 | PM.DS ---
DS: Admitting Diagnosis Discharge Date 06/12/24 Admitting Diagnosis PE DS: Discharge Diagnosis Discharge Diagnosis (1) Pulmonary embolism: Qualifiers: Pulmonary embolism type: multiple subsegmental (without acute cor pulmonale) Qualified Code(s): I26.94 - Multiple subsegmental thrombotic pulmonary emboli without acute cor pulmonale Code(s): I26.99 - Other pulmonary embolism without acute cor pulmonale Status: Acute Plan Echo negative for significant abnormality On RA Sat91% Will switch to eliquis DS: Summary Hospital Course Reason for hospitalization: SOB Hospital Course: shortness of breath Narrative: 54-year-old female presenting with a few days of shortness of breath. She reports it is mostly on exertion. Otherwise denies any complaints. ER workup revealed negative venous Doppler study for DVT. CTA with extensive segmental and subsegmental pulmonary emboli with right upper lobe pulmonary infarction findings consistent with right heart strain. Vital stable aside from tachycardia resolving with fluid resuscitation. Given normal saline 1 L, [place], heparin GTT started. Echo negative for significant abnormality. Will discharge patient home on Eliquis (10mg BID for 7 days and then 5 mg bid )and follow up with PCP Status at Discharge Cognitive/behavioral status at discharge: improing Functional status at discharge: uses cane/walker Time Spent with Patient Time attestation: Total time spent providing and/or coordinating discharge services: Time spent: Greater than 30 minutes Exam Const: General: comfortable and no acute distress Eyes: Pupils: Equal, round and reactive pupils present Neck: Neck: supple Resp: Effort & Inspection: normal respiratory effort Auscultation: clear to auscultation bilaterally Cardio: Rate: regular rate Rhythm: regular rhythm Neuro: Cranial nerves: Yes Equal, round and reactive pupils present Motor exam (neuro): 5/5 motor strength present throughout Extrem: General: no edema DS: Data Data Completed and Pending Labs on day of discharge: Labs from last 24 hours 06/12/24 06/12/24 06/11/24 08:43 02:08 17:26 WBC 4.3 L 6.0 RBC 3.94 L 4.50 Hgb 12.1 14.1 Hct 36.6 L 41.3 MCV 92.9 91.8 MCH 30.7 31.3 MCHC 33.1 34.1 RDW 14.6 H 14.7 H Plt Count 206 241 MPV 10.5 H 10.8 H Immature Gran % (Auto) 0.2 0.2 Neut % (Auto) 59.1 69.2 Lymph % (Auto) 30.5 21.1 [place] % (Auto) 7.9 7.0 Eos % (Auto) 1.6 1.8 Baso % (Auto) 0.7 0.7 Lymph # (Auto) 1.31 1.27 [place] # (Auto) 0.3 0.4 Eos # (Auto) 0.1 0.1 Baso # (Auto) 0.0 0.0 Abs Immat Gran (auto) 0.01 0.01 Absolute Neuts (auto) 2.5 4.2 Absolute Nucleated RBC 0.000 0.000 Nucleated RBC % 0.0 0.0 PT 13.2 INR 1.0 APTT 62.9 H 78.8 H 23.5 Sodium 139 Potassium 3.6 Chloride 103 Carbon Dioxide 23 Anion Gap 13 H BUN 17 Creatinine 0.87 Estim Creat Clear Calc 69 Estimated GFR > 60 Glucose 140 H Calcium 10.2 Magnesium 2.0 Total Bilirubin 1.0 AST 22 ALT 20 Alkaline Phosphatase 92 Troponin I < 0.012 Total Protein 8.0 Albumin 4.5 TSH (Reflex) 12.700 H Free T4 2.08 Total T3 1.09 Discharge Plan Discharge Discharging Clinician: Ramakrishna Alexander Patient Disposition: Home, Self-Care Activity: as tolerated Diet: as tolerated Patient Instructions: Antibiotic Form, Blood Thinners (GEN) Patient Language: Italian Stand Alone Forms: General Discharge Information Follow-up/Referrals: Nelly Butterfield DO [Primary Care Provider] - Discharge Medications: New Eliquis DVT-PE Treat 30D Start 5 mg (74 tabs) tablets,dose pack See Rx Instructions .ROUTE .COMPLEX Qty: 74 0RF Rx Instructions: orally per package directions Continued trazodone 150 mg tablet 300 mg PO QHS budesonide 3 mg capsule,delayed,extend.release See Rx Instructions .ROUTE .COMPLEX Qty: 60 6RF Dose Instruction: TAKE 3 CAPSULES BY MOUTH DAILY X1 MONTH THEN 2 CAPSULES X 1 MONTH THEN 1 CAPSULE BY MOUTH DAILY X 1 MONTH Rx Instructions: Take 6 mg PO daily famotidine 40 mg tablet 40 mg PO DAILY Qty: 30 0RF oxybutynin chloride 10 mg tablet extended release 24hr 10 mg PO DAILY pregabalin 150 mg capsule 150 mg PO DAILY gabapentin 300 mg capsule 600 mg PO TID levothyroxine 150 mcg tablet 150 mcg PO DAILY montelukast 10 mg tablet 10 mg PO HS loratadine 10 mg tablet 10 mg PO DAILY sertraline 100 mg tablet 100 mg PO DAILY clobetasol 0.05 % cream 1 applic TOPICAL BID baclofen 10 mg tablet 10 mg PO TID Discontinued aspirin 81 mg tablet,chewable 81 mg PO DAILY Date of admission: 06/12/24 07:24 Primary Care Provider: Nelly Butterfield Admitting Provider: Coco Main Attending physician on admission: Ramakrishna Alexander Condition: Stable
--- NOTE | 2024-06-12 14:18 | PC.NURSE ---
On 06/12/24, the student, [Abhinav Llanes], provided care and completed [facility] documentation on this patient. I have reviewed the student's documentation and agree with the findings.
== END 2024-06-12 14:42 | disposition home or self-care (01) | DRG 134 ==
LOC: ANHED 19:56 → ANHIMU 20:25
PROVIDERS: Admitting Provider General Practice; Emergency Provider Physician Assistant; PCP Family Medicine; Visit Provider Internal Medicine
DX: I26.94 Multiple subsegmental thrombotic pulmonary emboli without acute cor pulmonale (principal); M47.816 Spondylosis without myelopathy or radiculopathy, lumbar region; K58.9 Irritable bowel syndrome, unspecified; E66.01 Morbid (severe) obesity due to excess calories; Z90.49 Acquired absence of other specified parts of digestive tract; I42.8 Other cardiomyopathies; I11.0 Hypertensive heart disease with heart failure; I50.22 Chronic systolic (congestive) heart failure; J44.9 Chronic obstructive pulmonary disease, unspecified; Z91.148 Patient's other noncompliance with medication regimen for other reason
CPT/HCPCS: 36415; 71275; 80053; 83735; 84439; 84443; 84480; 84484; 85025; 85610; 85730; 93005; 93306; 93970; 96361; 96374; 99291; A9270; G0378; G0379; J1644; J7030; Q9967

== ENCOUNTER 2024-08-12 14:45 | Emergency (ER) | payer OTHER, SELFPAY ==
--- NOTE | 2024-08-12 14:53 | ED_ITS ---
HPI - URI/Sore Throat General Chief Complaint: Upper Respiratory Infection Stated Complaint: Cough/Diarrhea Time Seen by Provider: 08/12/24 14:54 Source: patient, RN notes reviewed and old records reviewed Mode of arrival: ambulatory Limitations: no limitations History of Present Illness HPI Narrative: 54-year-old female presents to the [facility] with cold symptoms, cough for 2 weeks. Patient states that she has taken cough and cold medicine. Denies any fevers. Denies chest pain. Denies shortness of breath. Patient also complains of stuffy nose. Onset (ago): week(s) (2) Treatments prior to arrival: cold medicine Related Data Home Medications ?Medication ?Instructions ?Recorded ?Confirmed ?Last Taken ?Type trazodone 150 mg tablet 300 mg PO QHS 09/07/22 07/24/24 04/26/23 History levothyroxine 150 mcg tablet 150 mcg PO DAILY 04/11/23 07/24/24 04/26/23 History loratadine 10 mg tablet 10 mg PO DAILY 04/11/23 07/24/24 04/26/23 History montelukast 10 mg tablet 10 mg PO HS 04/11/23 07/24/24 04/26/23 History oxybutynin chloride 10 mg 10 mg PO DAILY urinary incontinence 02/11/24 07/24/24 Unknown History tablet,extended release 24 hr pregabalin 150 mg capsule 150 mg PO DAILY 02/11/24 07/24/24 Unknown History gabapentin 300 mg capsule 600 mg PO TID 03/31/24 07/24/24 Unknown History baclofen 10 mg tablet 10 mg PO TID 06/11/24 07/24/24 Unknown History sertraline 100 mg tablet 100 mg PO DAILY 06/11/24 07/24/24 Unknown History Allergies Allergy/AdvReac Type Severity Reaction Status Date / Time No Known Allergies Allergy Verified 08/12/24 15:05 Review of Systems Review of Systems: All systems reviewed & are unremarkable except as noted in HPI and below Constitutional: Constitutional: Reports no additional constitutional complaints ENT: Reports as per HPI Cardiovascular: Cardiovascular: Reports no additional cardiovascular complaints, Denies chest pain and Denies dyspnea Respiratory: Respiratory: Reports as per HPI, Denies chest congestion, Reports cough and Denies dyspnea Musculoskeletal: Musculoskeletal: Reports no additional musculoskeletal complaints Integumentary/Breasts: Skin/Breast: Reports system reviewed and no additional complaints, except as docu [facility] Past Medical History Medical History History of thyroid cancer Lumbar spondylolysis IBS (irritable bowel syndrome) Gallstone pancreatitis Elevated liver enzymes Pre-diabetes A1c 5.9 09/01/2021 Obesity, morbid, BMI 40.0-49.9 Hypertension Angelo's disease Degenerative disc disease ADHD Depression Kidney stone Surgical History Surgical History Hx laparoscopic cholecystectomy 12/21/21 H/O tubal ligation Family History Family History Father Acute Crohn's disease Liver cancer Cancer Alcoholism Mother , at 70 years old Diabetes mellitus Cancer C. difficile diarrhea Grandparent Diabetes mellitus Cancer grandmother with pancreatic cancer, grandfather with skin cancer Cerebrovascular accident Social History Social History Smoking status: Never smoker Second hand tobacco smoke exposure: No Alcohol intake: current Alcohol use details: rare glass of wine socially Substance use: never Substance use type: does not use Do You Feel Safe in your Home?: Yes Lack of Transportation: No Lack of Food: Sometimes True Current Housing: Decline to Answer Concerned About Future Housing: Decline to Answer Difficulty Paying Gas/Electric Bills: No Difficulty Paying for Meds: No Currently Unemployed: No Education: High School Diploma/GED Difficulty w/ Childcare or Family Care: No Living arrangements: with family Additional living arrangements comments: Occupation/Education: unemployed Additional occupation/education comments: On disability due to chronic back pain Gender identity (if verbalized by the patient): Female Spiritual care concerns: No Comments At the time of my signature, I reviewed and agree with the nursing past medical, surgical, social, and family history. There is no relevant family history pertinent to the patient complaint. Exam Const: General: cooperative, healthy appearing, comfortable, no acute distress, well developed, alert and well nourished Nutritional Appearance: we ll nourished Orientation/consciousness: patient oriented x3 Limitations: no limitations HENMT: Head: normal to inspection Ears: hearing grossly normal bilaterally, external ears normal, TM's normal bilaterally, EAC's normal, mastoids normal and no periauricular adenopathy Face/Nose/Sinus: Nasal discharge present clear on the left Face and sinus: normal facial exam, sinuses nontender and face symmetric Mouth: Yes Normal oral and palatal mucosa present, Yes lip normal, Yes tongue normal and Yes moist mucous membranes Throat: posterior oropharynx normal, uvula midline, postnasal drainage and no uvular edema Eyes: General: appearance normal, both eyes and all related structures Alignment and Position: alignment normal Neck: Neck: normal visual inspection, full ROM, no lymphadenopathy and no meningeal signs Chest: Chest palpation & inspection: normal inspection of the chest Resp: Effort & Inspection: normal respiratory effort and able to speak in complete sentences Auscultation: clear to auscultation bilaterally, no crackles, no rales, no rhonchi and no wheezes Cardio: Rate: regular rate Skin: General skin exam: normal color and no rashes or lesions noted Neuro: General: patient oriented x3, gait normal, moves all extremities and no meningeal signs Cognition (Neuro): normal cognition Speech: normal speech Gait exam (Neuro): Normal gait present Extrem: General: normal to inspection, full ROM, capillary refill normal and normal gait Psych: Appearance: grossly normal and well kempt Mental Status: mental status grossly normal Speech and movement: Normal speech and movement present and Clear speech present Affect: normal affect Attitude: cooperative Course Course Level of Care: Express Care Visit Vital Signs Vital signs: Vital Signs Temperature 97.7 F 08/12/24 14:57 Pulse Rate 82 08/12/24 14:57 Respiratory Rate 16 08/12/24 14:57 Blood Pressure 142/94 H 08/12/24 14:57 Pulse Oximetry 97 08/12/24 14:57 Oxygen Delivery Room Air 08/12/24 14:57 Temperature 97.7 F 08/12/24 14:57 Pulse Rate 82 08/12/24 14:57 Respiratory Rate 16 08/12/24 14:57 Blood Pressure 142/94 H 08/12/24 14:57 Pulse Oximetry 97 08/12/24 14:57 Oxygen Delivery Room Air 08/12/24 14:57 Reviewed MDM - URI/Sore Throat MDM Narrative Medical decision making narrative: Patient sitting in exam room. Patient with 2 week symptoms of URI, sinusitis, will cover with antibiotic. Patient appropriate for outpatient treatment with follow-up Discharge instructions reviewed with patient, as well as provided in writing per nursing staff. The instructions also include specific and strict return/GO TO THE ER as well as f/u information. All questions have been answered, and the patient deny any further questions with discharge and discharge plan. Some parts of this dictation were generated by voice recognition software and may contain typographical and/or grammatical inaccuracies. Differential Diagnosis Differential diagnosis: Likely upper respiratory infection, otitis media, sinusitis, viral infection, bronchitis, influenza and pharyngitis Critical Care Time Critical Care Time Critical Care Time: No Discharge Plan Discharge Clinical Impression: Sinusitis Patient Disposition: Home Condition: Stable Instructions: Antibiotic Form, Sinusitis (ED) Additional Instructions: It is very important to treat your symptoms. Drink plenty of water, Gatorade, Pedialyte, ice pops or Jell-O. -Alternate Tylenol and Motrin per package directions for fever or pain. You can alternate every 4 hours -Antihistamine medication such as Zyrtec/Claritin/Melly during the day can help improve symptoms. -doing daily nasal irrigations can help relieve pressure your sinuses. Things like a Neti pot -Use Flonase twice a day for 5 days then daily to help reduce the inflammation and dry up your sinuses. -You can also use Mucinex. Be sure to drink plenty of water with this medication at least 8 ounces with every dose and it is important to drink 8 to 10 glasses of water per day. Water is a natural decongestant -Eat and drink things that are easy to swallow, like tea or soup, or popsicles. -Oral rinses such as: Salt water gargles and/or may use topical anesthetic (eg. Chloraseptic spray) or lozenges to relieve dryness or throat pain). -Frequent hand washing or hand health and wellness coordinator is one of the best ways to prevent spread of infection. -Using a vaporizer or humidifier at night will also help thin secretions and help with coughing up phlegm. -Follow up with primary care provider in 7-10 days if condition is not improving - For new or worsening symptoms go directly to the nearest ER Patient Language: Indian Prescriptions: New amoxicillin-pot clavulanate 875-125 mg tablet 1 tablet PO Q12H Qty: 14 0RF No Action trazodone 150 mg tablet 300 mg PO QHS budesonide 3 mg capsule,delayed,extend.release See Rx Instructions .ROUTE .COMPLEX Qty: 60 6RF Dose Instruction: TAKE 3 CAPSULES BY MOUTH DAILY X1 MONTH THEN 2 CAPSULES X 1 MONTH THEN 1 CAPSULE BY MOUTH DAILY X 1 MONTH Rx Instructions: Take 6 mg PO daily oxybutynin chloride 10 mg tablet extended release 24hr 10 mg PO DAILY pregabalin 150 mg capsule 150 mg PO DAILY gabapentin 300 mg capsule 600 mg PO TID Eliquis 5 mg tablet 5 mg PO BID 30 Days Qty: 60 0RF levothyroxine 150 mcg tablet 150 mcg PO DAILY montelukast 10 mg tablet 10 mg PO HS loratadine 10 mg tablet 10 mg PO DAILY sertraline 100 mg tablet 100 mg PO DAILY baclofen 10 mg tablet 10 mg PO TID famotidine 40 mg tablet See Rx Instructions .ROUTE .COMPLEX Qty: 30 3RF Dose Instruction: 40 MG ORALLY DAILY Rx Instructions: 40 MG ORALLY DAILY ropinirole 0.25 mg tablet 0.25 mg PO QHS Qty: 30 4RF Rx Instructions: Take 1 tablet by mouth 1 to 3 hours before bedtime. Follow-up/Referrals: Nelly Butterfield DO [Primary Care Provider[facility] - [facility] Time of Disposition: 15:06
[2024-08-12 14:57] VITALS: BP 142/94; PULSE 82; RESP 16; TEMP 36.5; O2SAT 97
== END 2024-08-12 15:10 | disposition home or self-care (01) ==
PROVIDERS: Emergency Provider Nurse Practitioner; PCP Family Medicine
DX: J32.9 Chronic sinusitis, unspecified (principal); I10 Essential (primary) hypertension; E06.3 Autoimmune thyroiditis; Z85.850 Personal history of malignant neoplasm of thyroid
CPT/HCPCS: 99213; G0463

== ENCOUNTER 2024-11-18 14:06 | Outpatient (CLI) | payer OTHER, SELFPAY ==
--- OUTSIDE RECORDS SUMMARY | 2013-12-18 10:01 | XMS_ITS | Continuity of Care Document ---
Author Organization [facility] Address [address] [place] [address] [place] [address] Phone Care Team Providers Care Project Manager Name Role Phone Juanito Shah MD Unavailable Unavailable Allergies, Adverse Reactions, Alerts Substance Reaction Status Criticality No Known Allergies Active No Inform ation Procedures Procedure Date OFFICE/OUTPATIENT VISIT, EST PREV VISIT, EST, AGE 40-64 Advance Directives Directive Yes / No Effective Date File Name No Information Encounters Encounter Description Practice Location Reason(s) For Visit Diagnoses Date Provider Providers Copied on Encounter [facility], [address], [place], [place], [id number], [place] tel:[phone] [facility] No Information 4 Pablo Solomon. [address], [address] [place], [place], [id number] , [place]. tel:[phone] [facility]erring Provider[facility] [place] [place] [id number]. tel:[phone] OFFICE/OUTPA TIENT VISIT, EST [facility], [address], [place], [place], [id number], [place] tel:[phone] [facility] hypothyroidism (chief complaint)hemat uria (chief complaint)breas t lesion (chief complaint) Dietary surveillance and counselingHypo thyroidismHEMA TURIA NOSLump or mass in breast 0 4 Pablo Solomon. [address], [place], [place], [id number] , [place]. tel:[phone] Referring Provider: Juanito Shah, [address], [place], [place], [id number]. tel:[phone] PREV VISIT, EST, AGE 40-64 [facility], [address], [place], [place], [id number], tel:[phone] [facility] Physical (chief complaint) Dietary surveillance and counselingRout ine Medical ExamRoutine Medical Exam 4 Pablo Solomon. [address], [place], [place], [id number] , [place]. tel:[phone] Family History Family Member Type Diagnosis Age At Onset Father Problem (finding) crohn disease Brother Problem (finding) Alive and well Mother Problem (finding) spinal tumor Payers Payer name Insurance type Covered libertarian ID Authoriza tion(s) No Information Social History Type Description Quantity Date Captured Comments Sex Female Smoking Status No Information Chief Complaint And Reason For Visit No Information Plan Of Treatment Date Type Action Status Referral Ordered: MAMMOGRAM, BOTH BREASTS ordered Referral Ordered: GUIDANCE FOR NEEDLE, BREAST ordered History Of Present Illness Encounter Date Complaint History Of Prese nt Illness No Information Instructions Date Instruction Additional Infor fercho Dietary counseling Related to Di etary surveillance counseling Decrease caloric intake Related to Dietary surveillance counseling Dietary counseling Related to Di etary surveillance counseling Decrease caloric intake Related to Dietary surveillance counseling Assessments Type Assessment Date No Information
--- OUTSIDE RECORDS SUMMARY | 2024-11-18 15:49 | XMS_ITS | Encounter Summary ---
Author Organization [facility] Address [address] [facility] [place] [address] Care Team Providers Care Obstetrics Gyn Physician Name Role Phone Ezequiel Price MD Primary Care Provider [phone] Nelly Butterfield DO Primary Care Provider [phone] Encounter Details Date Type Department Care Team (Late st Contact Info) Description 11/05/2023 Telephone [facility] - Endocrinology [address] [place] [address], [place] [id number] Kyle Roberts MD [address] [place] [address] [place] [address] Social History Tobacco Use Types Packs/Day Years Used Date Smoking Tobacco: Never Smokeless Tobacco: Never Alcohol Use Standard Drinks/Week Comments Not Currently 0 (1 standard drink = 0.6 oz pur e alcohol) PHQ-2 Answer Date Recorded Patient Health Questionnaire-2 Score 0 05/24/2023 Comments Unknown Sex and Gender Information Value Date Recorded Sex Assigned at Not on file Legal 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 Kyle Roberts Reason for Call: Ms. Jade Laguna's referral w/ medical notes is not in. She was being seen at [facility], she had thyroid surgery last yea in , she did have thyroid cancer last year, hasn't had TUS or Biopsy since last year. I have asked her to send over notes MALIKA to determine what wewill schedule her for. She mentioned she does have HYPOTHYROIDISM and Hashimotos disease. Please advise. Again, I did ask her to have records sent over MALIKA. Patient Call Back Number: [phone] documented in this encounter Plan of Treatment Upcoming Encounters Date Type Department Care Team (Late st Contact Info) Description 02/16/2025 8:40 AM MANUSCRIPT READER Office Visit [facility] - Endocrinology [address] [place] [address], [place] [address] Kyle Roberts MD [address] [place] [address] [address] [facility] [place] [address] documented as of this encounter Visit Diagnoses Not on filedocumented in this encounter Care Teams Obstetrics Gyn Physician Relationship Specialty Start Date End Date Ezequiel Price MD [address] [facility] [address] [place] [address] PCP - General 03/10/20 04/15/24 Nelly Butterfield DO [address] [place] [id number] PCP - General Family Medicine 04/16/24 documented as of this encounter
--- OUTSIDE RECORDS SUMMARY | 2024-11-18 15:49 | XMS_ITS ---
Author Organization [facility] Address [address] [place] [address] Care Team Providers Care Ferryboat Ticket Taker Name Role Phone Azam Olvera MD Unavailable [phone] Amanda RIOS MD PhD, Kirby Pryor Unavailable No, Physician Primary Care Provider [phone] Active Problems Problem Noted Date Diagnosed Date [...]
--- OUTSIDE RECORDS SUMMARY | 2024-11-18 15:49 | XMS_ITS | Clinical Summary ---
Author Organization [facility] Address [address] [place] [address] Care Team Providers Care Procedural Nurse Name Role Phone Azam Olvera MD Unavailable [phone] Amanda RIOS MD PhD, Kirby Pryor Unavailable No, Physician Primary Care Provider [phone] Allergies Active Allergy Reactions Criticality Noted Date Comments Oxycodone Nausea & Vomiting Low 01/10/2023 Medications ergocalciferol (VITAMIN D) 50,000 unit capsuleIndication s:Vitamin D Deficiency,Sunday Take 1 capsule (50,000 Units total) by mouth once a week 021 Active gabapentin (NEURONTIN) 100 mg capsuleIndication s:Neuropathic Pain Take 1 capsule (100 mg total) by mouth as needed 023 Active traZODone (DESYREL) 100 mg tablet Take 1.5 tablets (150 mg total) by mouth nightly as needed for sleep 023 Active inhaler,assist devices,access deviceIndications :Post-nasal drip 1 Device as needed (with inhalers) 1 each 023 Active inhaler,assist devices,access deviceIndications :Persistent asthma without complication, unspecified asthma severity 1 Device as needed (with inhalers) 1 each 023 Active psyllium seed, with sugar, (FIBER ORAL)Indications: GI health Take 1 tablet by mouth signal and communications maintainer before breakfast Active multivitamin tabletIndications :Vitamin Deficiency Prevention Take 1 tablet by mouth signal and communications maintainer before breakfast Active levothyroxine (SYNTHROID) 150 mcg tabletIndications :hypothyroidism Take 1 tablet (150 mcg total) by mouth signal and communications maintainer before breakfast 30 tablet 11 Active ibuprofen (ADVIL,MOTRIN) 400 mg tabletIndications :Pain Take 1 tablet (400 mg total) by mouth every 4 (four) hours as needed for pain 30 tablet Active Additional Information Patient not taking.Reported on 09/01/2024 ondansetron ODT (ZOFRAN-ODT) 4 mg disintegrating tabletIndications :Prevention of Radiation-Induced Nausea and Vomiting Take 1 tablet (4 mg total) by mouth every 8 (eight) hours as needed for nausea or vomiting 20 tablet Active Additional Information Patient not taking.Reported on 09/01/2024 sertraline (ZOLOFT) 50 mg tablet Take 1 tablet (50 mg total) by mouth daily Active oxyBUTYnin XL (DITROPAN-XL) 10 mg 24 hr tablet Take 1 tablet (10 mg total) by mouth daily Active methocarbamoL (ROBAXIN) 500 mg tablet Take 1 tablet (500 mg total) by mouth every 6 (six) hours as needed Active hydroCHLOROthiazi de 12.5 mg tablet Take 1 tablet (12.5 mg total) by mouth every morning Active baclofen (LIORESAL) 10 mg tablet TAKE 1 TABLET BY MOUTH 3 TIMES DAILY MAY CAUSE DROWSINESS. Active cetirizine (ZyrTEC) 10 mg tablet Take 1 tablet (10 mg total) by mouth daily Active famotidine (PEPCID) 40 mg tablet Take 1 tablet (40 mg total) by mouth daily Active rOPINIRole (REQUIP) 0.25 mg tablet 0.25 MG ORALLY EVERY DAY AT BEDTIME TAKE 1 TABLET BY MOUTH 1 TO 3 HOURS BEFORE BEDTIME. Active dabigatran (PRADAXA) 150 mg capsule Take 1 capsule (150 mg total) by mouth 2 (two) times a day 60 capsule 025 Active loratadine (CLARITIN) 10 mg tabletIndications :Chronic rhinitis TAKE 1 TABLET (10 MG TOTAL) BY MOUTH DAILY. PATIENT NEEDS AN OFFICE VISIT. 30 tablet 11 08/04/2 025 Active montelukast (SINGULAIR) 10 mg tabletIndications :Chronic rhinitis TAKE 1 TABLET BY MOUTH EVERY DAY AT NIGHT 30 tablet 2 025 Active pregabalin (LYRICA) 300 mg capsule Take 1 capsule (300 mg total) by mouth 2 (two) times a day 024 2024 montelukast (SINGULAIR) 10 mg tabletIndications :Chronic rhinitis TAKE 1 TABLET BY MOUTH EVERY DAY AT NIGHT 30 tablet 2 025 2024 Discontinued Active Problems Problem Noted Date Diagnosed Date [...] Encounters Date Type Department Care Team Description 09/01/2024 1:15 PM CDT Office Visit [facility] Pulmonary at [address] [place] [address] Eric Grimaldo MD Chronic cough (Primary Dx); Acute pulmonary embolism, unspecified pulmonary embolism type, unspecified whether acute cor pulmonale present (HCC) 08/18/2024 Documentation [facility] Radiation Oncology [address] [facility] [place] [address] Nayeli Milan PA from Last 3 Months Surgical History Surgery [...] Sign Reading Time Taken Comments Blood Pressure 141/95 09/01/2024 1:28 PM CDT Pulse 101 09/01/2024 1:28 PM CDT Temperature 36.5 C (97.7 F) 09/01/2024 1:28 PM CDT Respiratory Rate 16 10/23/2023 1:48 PM CDT Oxygen Saturation 96% 09/01/2024 1:28 PM CDT Inhaled Oxygen Concentration - - Weight 98.7 kg (217 lb 11.2 oz) 09/01/2024 1:28 PM CDT Height 152.4 cm (5') 09/01/2024 1:28 PM CDT Body Mass Index 42.52 09/01/2024 1:28 PM CDT Plan of Treatment Health Maintenance Due Date Last Done Comments Breast Cancer Screening-Mammogram 1970 Cervical Cancer Screening 1970 Colon Cancer Screening-Colonoscopy 1970 Depression Screening 1970 Hepatitis C Screening 1970 DTaP/Tdap/Td Vaccine (1 - Tdap) 1981 Hepatitis B Screening 02/13/1988 Regular Well Visit/Exam 18-64 02/13/1988 Zoster Vaccine (2 of 2) 02/24/2023 12/30/2022 Influenza Vaccine (#1) 2024 12/30/2022 Pneumococcal vaccine <65 Aged Out No longer eligible based on patient's age to complete this topic Insurance Advance Directives For more information, please contact: [phone] * Full Code (Latest Code Status on File) Date Activated Date Inactivated Comments 01/10/2023 2:16 PM 01/12/2023 1:41 PM Care Teams Procedural Nurse Relationship Specialty Start Date End Date No, Physician PCP - General 01/31/24 Azam Olvera MD [address] [place] [address] [place] [id number] Consulting Physician Endocrinology 11/10/22 Kirby Patel III, MD PhD [address] [facility] [address] [place] [address] Radiation Oncologist Radiation Oncology 03/30/23
--- OUTSIDE RECORDS SUMMARY | 2024-11-18 15:49 | XMS_ITS | Encounter Summary ---
Author Organization [facility] Address [address] [facility] [facility] [place] [address] Care Team Providers Care Shoes Salesperson Name Role Phone Ezequiel Price MD Primary Care Provider [phone] Nelly Butterfield DO Primary Care Provider [phone] Reason for Visit * Reason Onset Date Comments Appointment 01/07/2024 Encounter Details Date Type Department Care Team (Late st Contact Info) Description 01/07/2024 Telephone [facility] - Centralized Scheduling [address] [place] [address] Leatha Cortes MD [facility] [place] [address] Appointment Social History Tobacco Use Types Packs/Day Years Used Date Smoking Tobacco: Never Smokeless Tobacco: Never Alcohol Use Standard Drinks/Week Comments Not Currently 0 (1 standard drink = 0.6 oz pur e alcohol) PHQ-2 Answer Date Recorded Patient Health Questionnaire-2 Score 0 05/24/2023 Comments No Sex and Gender Information Value Date Recorded Sex Assigned at Not on file Legal Sex Female 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 Gender Identity Not on file Sexual Orientation [...] st Contact Info) Description 02/16/2025 8:40 AM WELL 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 Office Visit [facility] - Endocrinology [address] [place] [address], [place] [address] yKle Roberts MD [address] [place] [address] [place] [address] documented as of this encounter Visit Diagnoses Not on filedocumented in this encounter Care Teams Shoes Salesperson Relationship Specialty Start Date End Date Ezequiel Price MD [address] [facility] [address] [place] [address] PCP - General 03/10/20 04/15/24 Nelly Butterfield DO [address] [place] [id number] PCP - General Family Medicine 04/16/24 documented as of this encounter
--- OUTSIDE RECORDS SUMMARY | 2024-11-18 15:49 | XMS_ITS | Clinical Summary ---
Author Organization [facility] Address [address] [facility] [place] [address] Care Team Providers Care Communication Signals Intelligence Name Role Phone Nelly Butterfield DO Primary Care Provider [phone] Source Comments [facility],non-owned Affiliates and Associated Physician Practices is amultiple site organization consisting of ambulatory clinics and hospital sitesin [place], [place], [place] and [place]. This disclosure is being madepursuant to the Care Everywhere program and may not contain all information available regarding this patient. Last updated 17.[facility] Allergies No known active allergies Medications * Be aware that medications may not be up to date on this document. Alwaysverify current medications with the patient. tiZANidine (ZANAFLEX) 4 MG tablet Take 1 (one) tablet by mouth nightly as needed for Muscle Spasms 2 Active traZODone (Desyrel) 150 MG tablet Take 1 (one) tablet by mouth once daily as needed 3 Active loratadine (Claritin) 10 MG tablet Take 1 (one) tablet by mouth once daily 3 Active gabapentin (Neurontin) 300 MG capsuleIndicatio ns:Bertolotti's syndrome,Chronic bilateral low back pain with bilateral sciatica Take 2 (two) capsules by mouth 3 times daily 180 capsule 11 4 Active lidocaine (Lidoderm) 5 % patch APPLY 1 PATCH ONTO THE MOST PAINFUL AREA ON THE SKIN FOR 12 HOURS THEN REMOVE. APPLY A NEW PATCH AFTER 12 HOURS 60 patch 4 Active sertraline (Zoloft) 50 MG tablet Take 1 (one) tablet by mouth once daily Active budesonide (Entocort EC) [address] capsule Take 1 (one) capsule by mouth once daily Active atorvastatin (Lipitor) 80 MG tabletIndication s:Cerebrovascula r [...] cause drowsiness. 90 tablet 5 5 Active famotidine (Pepcid) 40 MG tablet Active cetirizine (ZyrTEC) 10 MG tablet Take 1 (one) tablet by mouth once daily Active rOPINIRole (Requip) 0.25 MG tablet Take 1 (one) tablet by mouth at bedtime Active apixaban (Eliquis) 5 MG tablet Take 1 (one) tablet by mouth 2 times daily Active levothyroxine (Synthroid) 150 MCG tabletIndication s:Hypothyroidism ,Malignant Neoplasm of Thyroid Take 1 (one) tablet by mouth daily before breakfast Reasons: Cancer of Thyroid, Underactive Thyroid 90 tablet 4 5 09/02/19 26 Active oxyBUTYnin CR 24hr (Ditropan-XL) 10 MG tablet Take 1 (one) tablet by mouth once daily 90 tablet 2 5 Active Active Problems Problem Noted Date Diagnosed [...] Encounters Date Type Department Care Team Description 11/07/2024 Orders Only [facility] - Endocrinology [address] [place] [address], [place] [address] Kyle Roberts MD Acquired hypothyroidism; London's thyroiditis; Papillary thyroid carcinoma (HCC) 09/12/2024 Orders Only [facility] - Endocrinology [address] [place] [address], [place] [address] Kyle Roberts MD Acquired hypothyroidism; London's thyroiditis; Papillary thyroid carcinoma (HCC) 08/27/2024 Orders Only [facility] - Urology [address] [place] [address], [place] [address] Gayle Martinez RN from Last 3 Months Immunizations Immunization Administration Dates Next Due Epunchit PRIMARY 18+YR 08/20/2020 INFLUENZA VACCINE, CELL CULT [...] Date Recorded Patient Health Questionnaire-2 Score 0 08/07/2024 Comments No Sex and Gender Information Value Date Recorded Sex Assigned at Not on file Legal Sex Female 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 RUNNING INSTRUCTOR Gender Identity Not on file Sexual Orientation Not on file Last Filed Vital Signs Vital Sign Reading Time Taken Comments Blood Pressure 108/77 08/07/2024 10:53 AM CDT Pulse 95 08/07/2024 10:53 AM CDT Temperature 36.4 C (97.5 F) 01/14/2024 3:31 PM RUNNING INSTRUCTOR Respiratory Rate 22 05/10/2023 3:04 PM RUNNING INSTRUCTOR Oxygen Saturation 95% 08/07/2024 10:53 AM CDT Inhaled Oxygen Concentration - - Weight 101.6 kg (224 lb) 08/07/2024 10:53 AM CDT Height 152.4 cm (5') 02/06/2024 1:48 PM RUNNING INSTRUCTOR Body Mass Index 43.75 02/06/2024 1:48 PM RUNNING INSTRUCTOR Plan of Treatment Upcoming Encounters Date Type Department Care Team (Late st Contact Info) Description 02/16/2025 8:40 AM RUNNING INSTRUCTOR Office Visit [facility] - Endocrinology [address] [place] [address], [place] [id number] Kyle Roberts MD [address] [place] [address] [place] [address] Health Maintenance Due Date Last Done Comments COLOGUARD (AGES 45-75) - COLON CA SCREENING 1970 COLON MONITORING 1970 COLONOSCOPY [...] 2) 02/24/2023 12/30/2022 COVID-19 VACCINE (2 - season) 2024 08/20/2020 INFLUENZA VACCINE (#1) 2024 12/30/2022 PAP SMEAR 12/18/2026 12/19/2023, 100 11/2023, 07/28/2020, Additional history exists DEPRESSION SCREENING Completed 08/07/2024, 05/17/19 24 HIB VACCINE Aged Out No longer eligi ble based on patient's age to complete this topic HPV VACCINE Aged Out No longer eligi ble based on patient's age to complete this topic MENINGOCOCCAL (Group B) VACCINE SHARED DECISION-MAKING Aged Out No longer eligible based on patient's age to complete this topic MENINGOCOCCAL GROUPS A/C/Y/W VACCINE Aged Out No longer eligible based on patient's age to complete this topic Insurance [facility] Care Teams Communication Signals Intelligence Relationship Specialty Start Date End Date Nelly Butterfield DO [address] [place] [address] PCP - General Family Medicine 04/16/24
--- OUTSIDE RECORDS SUMMARY | 2024-11-18 15:49 | XMS_ITS | Encounter Summary ---
Author Organization [facility] Healthcare Address [address] [place] [address] Care Team Providers Care Rehabilitation Aide/Scheduler Name Role Phone Ezequiel Price MD Primary Care Provider [phone] Azam Olvera MD Unavailable Amanda RIOS MD PhD, Kirby Pryor Unavailable No, Physician Primary Care Provider [phone] Encounter Details Date Type Department Care Team (Late st Contact Info) Description 07/05/2022 Telephone [facility] [address] [place] [address] Salima Landa, MATTIE Social History Tobacco Use [...] on filedocumented in this encounter Care Teams Rehabilitation Aide/Scheduler Relationship Specialty Start Date End Date Ezequiel Price MD PCP - General Emergency Medicine 06/10/20 01/30/24 No, Physician PCP - General 01/31/24 Azam Olvera MD [address] [place] [address] [address] Consulting Physician Endocrinology 11/10/22 Kirby Patel III, MD PhD [address] [facility] [address] [place] [address] Radiation Oncologist Radiation Oncology 03/30/23 documented as of this encounter
--- OUTSIDE RECORDS SUMMARY | 2024-11-18 15:49 | XMS_ITS | Encounter Summary ---
Author Organization [facility] Healthcare Address [address] [place] [address] Care Team Providers Care Jewelry Appraiser Name Role Phone Ezequiel Price MD Primary Care Provider [phone] Azam Olvera MD Unavailable [phone] Amanda RIOS MD PhD, Kirby Pryor Unavailable No, Physician Primary Care Provider [phone] Encounter Details Date Type Department Care Team (Late st Contact Info) Description 07/20/2022 Telephone [facility] [address] [place] [address] Salima Landa, MATTIE Social History Tobacco Use [...] on filedocumented in this encounter Care Teams Jewelry Appraiser Relationship Specialty Start Date End Date Ezequiel Price MD PCP - General Emergency Medicine 06/10/20 01/30/24 No, Physician PCP - General 01/31/24 Azam Olvera MD [address] [place] [address] [address] Consulting Physician Endocrinology 11/10/22 Kirby Patel III, MD PhD [address] [facility] [address] [place] [address] Radiation Oncologist Radiation Oncology 03/30/23 documented as of this encounter
--- OUTSIDE RECORDS SUMMARY | 2024-11-18 15:49 | XMS_ITS | Encounter Summary ---
Author Organization [facility] Healthcare Address [address] [place] [address] Care Team Providers Care Director [employer] Name Role Phone Ezequiel Price MD Primary Care Provider [phone] Azam Olvera MD Unavailable [phone] Amanda RIOS MD PhD, Kirby Pryor Unavailable No, Physician Primary Care Provider [phone] Encounter Details Date Type Department Care Team (Late st Contact Info) Description 07/06/2022 Telephone [facility] [address] [place] [address] Salima Landa, MATTIE Social History Tobacco Use [...] on filedocumented in this encounter Care Teams Director [employer] Relationship Specialty Start Date End Date Ezequiel Price MD PCP - General Emergency Medicine 06/10/20 01/30/24 No, Physician PCP - General 01/31/24 Azam Olvera MD [address] [place] [address] Consulting Physician Endocrinology 11/10/22 Kirby Patel III, MD PhD [address] [facility] [address] [place] [address] Radiation Oncologist Radiation Oncology 03/30/23 documented as of this encounter
== END 2024-11-18 14:07 | disposition home or self-care (01) ==
LOC: ANHAUDIO 14:07
PROVIDERS: PCP Family Medicine; Visit Provider Family Medicine
DX: H91.93 Unspecified hearing loss, bilateral (principal)
CPT/HCPCS: 92557; 92567

== ENCOUNTER → 2025-02-17 16:45 | Outpatient (CLI) | payer OTHER, SELFPAY ==
--- NOTE | ~2025-02-17 | XR_ITS ---
EXAMINATION: XR shoulder LT min 2V, 02/17/2025 16:55 ASSISTANT PROFESSOR OF BIOLOGY HISTORY: M25.512 - Pain in left shoulder 3X weeks no injury COMPARISON: No comparisons available. Findings: No acute fracture or malalignment. No significant degenerative changes. Soft tissues unremarkable. Impression: No acute fracture or malalignment. Reviewed, dictated and finalized at location P. STANT PROFESSOR OF BIOLOGY Impression: No acute fracture or malalignment.
== END ==
PROVIDERS: PCP Family Medicine; Visit Provider Family Medicine
DX: M25.512 Pain in left shoulder (principal)
CPT/HCPCS: 73030